=== PATIENT | female | born 1945 | race African-American/Black ===

== ENCOUNTER 2017-10-20 19:03 | Inpatient (IN) | payer MEDICARE, MEDICAID ==
--- NOTE | 2017-10-20 20:31 | ED Physician Chart ---
Psych HPI - General Chief Complaint: Psych Stated Complaint: PSYCH EVAL Time Seen by Provider: 10/20/17 20:15 Source: EMS Mode of arrival: EMS Limitations: altered mental status, physical limitation - History of Present Illness HPI Narrative: pt unable to give pt uncooperative MD complaint: other Onset (ago): month(s) Duration: intermittent History of same: Yes Improves with: medication Worsens with: other - Related Data Allergies Allergy/AdvReac Type Severity Reaction Status Date / Time No Known Allergies Allergy Verified 10/20/17 20:21 Review of Systems All systems ED: Reviewed and Negative Except as Stated (pt unable to give) Disposition Instructions: Psychosis
[2017-10-20 20:49] LABS: % EOSINOPHILS 2.1 % (0.0-5.0); % LYMPHOCYTES 21.7 % (20.0-50.0); % MONOCYTES 6.2 % (2.0-10.0); EOSINOPHILE ABSOLUTE 0.2 Th/cmm (0.1-0.4); HEMOGLOBIN 14.2 gm/dL (12-16); LYMPHOCYTE ABSOLUTE 1.6 Th/cmm (1.5-3.0); MEAN CELL VOLUME 82.4 fl (81-100); MEAN CORPUSCULAR HEMOGLOBIN 26.6 pg (27.0-31.0); MEAN CORPUSCULAR HGB CONC 32.3 pg (28.0-36.0); MEAN PLATELET VOLUME 7.1 fl; MONOCYTE ABSOLUTE 0.5 Th/cmm (0.3-1.0); NEUTROPHILE ABSOLUTE 5.2 Th/cmm (1.8-8.0); PLATELET COUNT 316 Th/cmm (150-400); RED BLOOD COUNT 5.34 Mil/cmm (3.80-5.20); WHITE BLOOD COUNT 7.5 Th/cmm (4.8-10.8)
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
[2017-10-20 21:06] LABS: ALB/GLOB RATIO 0.6 (1.0-1.8); ALBUMIN 3.1 gm/dL (3.7-5.3); ALKALINE PHOSPHATASE 46 U/L (34-104); ANION GAP 7.6 (7.0-16.0); BILIRUBIN,TOTAL 0.8 mg/dL (0.3-1.0); BUN - UREA NITROGEN 15 mg/dL (7-25); CALCIUM SERUM 9.5 mg/dL (8.6-10.3); CARBON DIOXIDE 28.5 mEq/L (21.0-31.0); CHLORIDE 102 mEq/L (98-107); CREATININE - SERUM 0.6 mg/dL (0.6-1.2); GLUCOSE 132 mg/dL (70-105); POTASSIUM SERUM 3.1 mEq/L (3.5-5.1); SGOT 9 U/L (13-39); SGPT/ALT 9 U/L (7-52); SODIUM SERUM 135 mEq/L (136-145)
[2017-10-20] MEDS ORDERED: Potassium Chloride 20 mEq ER Tab PO ONE ×2 (21:41→21:46)
[2017-10-20] MEDS ORDERED: NITROGLYCERIN OINT 2% 1 INCH PACKET TP ONE ×2 (23:36→23:37)
[2017-10-21 00:26] LABS: URINE MICROSCOPIC INDICATED? YES; URINE SOURCE CLEAN C
[2017-10-21 00:43] LABS: URINE BILIRUBIN NEGATIVE (NEGATIVE); URINE BLOOD SMALL (NEGATIVE); URINE GLUCOSE (UA) NEGATIVE (NEGATIVE); URINE KETONE NEGATIVE (NEGATIVE); URINE LEUKOCYTE ESTERASE LARGE (NEGATIVE); URINE NITRATE POSITIVE (NEGATIVE); URINE PH 5.5 (4.6 - 8.0); URINE PROTEIN NEGATIVE (NEGATIVE)
[2017-10-21 00:48] LABS: URINE CLARITY CLOUDY (CLEAR); URINE COLOR YELLOW
[2017-10-21 01:25] VITALS: BP 165/88
[2017-10-21 01:26] LABS: URINE BACTERIA MANY /hpf (NONE SEEN); URINE EPITHELIAL CELLS NONE SEEN /lpf (FEW); URINE WBC 50-100 /hpf (0-5)
[2017-10-21] MEDS: Pantoprazole 40 mg EC Tab PO SCH (06:44)
--- NOTE | 2017-10-21 09:20 | Diagnostic Imaging Report ---
CHEST X-RAY: AP view INDICATION: Shortness of breath COMPARISON: None FINDINGS: Increased interstitial lung markings are noted. No focal consolidation or effusions. Mild cardiomegaly is noted. Degenerative changes of the spine are noted. Postsurgical changes of the right axillary region is noted. Metallic density possibly due to previous surgery or external material is seen projecting along left subacromial region. IMPRESSION: Increased interstitial lung markings. Note that a mild degree of congestion cannot be excluded please correlate,. Mild cardiomegaly. Postsurgical changes.
[2017-10-21] MEDS: Ferrous Sulfate 325 MG TAB PO SCH (09:32)
[2017-10-21] MEDS: Aspirin 81mg Chewable Tab PO SCH (09:32)
[2017-10-21] MEDS: Multivitamin Tab PO SCH (09:32)
[2017-10-21 16:52] LABS: INR 1.38 (0.5-1.4); PROTHROMBIN TIME (TEST) 14.6 SECONDS (9.5-11.5)
[2017-10-21] MEDS: Potassium Chloride 20 mEq ER Tab PO ONE ×2 (17:27→17:45)
--- NOTE | 2017-10-21 19:46 | History & Physical ---
ADMIT DATE: REASON FOR ADMISSION: Agitation. HISTORY OF PRESENT ILLNESS: A 72-year-old female presents because of agitation and combativeness towards staff. The patient was sent to the Emergency Room where she was medically cleared and sent for further psychiatric evaluation. The patient is currently in Geropsych Unit. She is awake and alert and appears cooperative; however, confused and poor historian. The patient denies any medical complaints. PAST MEDICAL HISTORY: The patient has history of breast cancer. She has had a right-sided mastectomy and currently, has ongoing left-sided breast mass with associated abscess, which appears to be chronic. The patient was receiving wound care in a shelter, but not on antibiotics. The patient also has history of hypertension and dementia. MEDICATIONS: As per reconciliation; however, reconciliation appears to be incomplete. I spoke with facility where she came from to sent us an updated full medication list. ALLERGIES: No known drug allergies. SOCIAL HISTORY: No known tobacco, alcohol or illicit drug use. FAMILY HISTORY: Noncontributory. REVIEW OF SYSTEM: IMMUNOLOGIC: No recurrent infection. CARDIOVASCULAR: The patient has possible history of hypertension, no known heart disease. GASTROINTESTINAL: No nausea, vomiting or diarrhea. ENDOCRINE: No diabetes or thyroid disorder. NEUROLOGIC: No known seizure or stroke. The patient has history of dementia, possibly Alzheimer's type. HEMATOLOGIC: No bleeding or clotting disorder. The patient has a history of DVT and is on Coumadin. PHYSICAL EXAMINATION: GENERAL: The patient is awake and alert, resting comfortably in bed. VITAL SIGNS: Temperature 97.8, pulse 63, respiration 18 and blood pressure 160/90. HEENT: Pupils equally round. Anicteric sclerae. NECK: Supple, no JVD, mass or bruit. LUNGS: Clear to auscultation. CARDIOVASCULAR: S1 and S2. Regular rate and rhythm. ABDOMEN: Soft, nontender, positive bowel sounds. BREASTS: The patient has had a right-sided mastectomy. The patient has an indurated left breast with area of discharge in the medial aspect. EXTREMITIES: No clubbing, cyanosis or edema. NEUROLOGIC: Moves all extremities equally and generally weak. LABORATORY DATA: CBC is unremarkable. Sodium is 135, potassium 3.1, glucose on admission is 132. Urinalysis shows cloudy urine with positive nitrites and leukocyte esterase, 50-100 wbc's and many bacteria. IMPRESSION: 1. Dementia. 2. History of breast cancer. 3. History of chronic left breast abscess. 4. Urinary tract infection. 5. Hypertension. 6. Gastroesophageal reflux disorder. PLAN: We will assess the patient's anticoagulation with a stat INR and resume Coumadin accordingly. Clonidine for blood pressure control. We will await the patient's complete medication list to resume any previous blood pressure medications. The patient will receive wound care for left breast. JOB# [id number]
--- NOTE | 2017-10-21 23:14 | Psychosocial Evaluation ---
DATE OF SERVICE: SUBJECTIVE: The patient was seen and evaluated. The patient's chart reviewed. This is Dr. Goyal covering for Dr. Reese. Doing initial psychiatric evaluation. IDENTIFYING DATA: The patient is a 72-year-old female. CHIEF COMPLAINT: Altered mental status. HISTORY OF PRESENT ILLNESS: A 72-year-old female brought in here by an outside facility for psych disorder and with a history of metastatic breast cancer ____ for aggressive behavior. The patient was medically cleared from the ER and then transferred. Today on [id number] evaluation, the patient reported she now is aware where she is. She was afraid that she was at a hospital, extremely limited historian. She just reports feeling fine, does not give much more information beyond that. Easily irritable, agitated. Denies any auditory or visual hallucinations. PAST PSYCHIATRIC HISTORY: History of dementia in the past. ALLERGIES TO MEDICATIONS: NKDA. CURRENT MEDICAL PROBLEMS: History of breast cancer, hypertension, diabetes, CVA, status post TIA, DVT, PE, ____, hyperlipidemia. FAMILY PSYCHIATRIC HISTORY: None. PSYCHOSOCIAL AND MENTAL HISTORY: Lived in board and care up until recently. Denies any sexual or physical or verbal abuse. No history of alcohol or drug use. MENTAL STATUS EXAMINATION: Irritable, agitated, neurocognitively impaired, poor historian. Denies any homicidal ideation, auditory, neurocognitively impaired. Poor insight, judgment, impulse control. Vital signs reviewed, stable. Labs were reviewed. PHYSICAL PAIN: 0/10. Physical impairment, none. ACUTE FUNCTION: ____ severe. PRIMARY DIAGNOSIS: Dementia with behavior disturbances and psychosis. SECONDARY DIAGNOSIS: None. MEDICAL DIAGNOSIS: As noted above. ASSESSMENT AND PLAN: The patient presented disoriented, disorganized from history of dementia, she is a poor historian resulting in aggressive behavior. We will continue monitoring and evaluating. CURRENT HOME MEDICATIONS: Include vitamin C, aspirin, Colace, Aricept 10 mg a day, Namenda 5 mg p.o. b.i.d., ondansetron, and Ambien. ASSESSMENT AND PLAN: ____, neurocognitively impaired, resulting in behavior disturbances. We will continue to monitor and evaluating, obtain more collateral information. ESTIMATED LENGTH OF STAY: Between 5 and 10 days. DISCHARGE CRITERIA: Demonstrate euthymic mood. No suicidal or homicidal. Good psychiatric followup. Good [id number] interaction. [facility]# [id number]
[2017-10-22] MEDS: Pantoprazole 40 mg EC Tab PO SCH (06:46)
[2017-10-22 07:11] LABS: ALB/GLOB RATIO 0.6 (1.0-1.8); ALBUMIN 3.1 gm/dL (3.7-5.3); ALKALINE PHOSPHATASE 46 U/L (34-104); ANION GAP 6.6 (7.0-16.0); BILIRUBIN,TOTAL 0.9 mg/dL (0.3-1.0); BUN - UREA NITROGEN 13 mg/dL (7-25); CALCIUM SERUM 9.8 mg/dL (8.6-10.3); CARBON DIOXIDE 31.1 mEq/L (21.0-31.0); CHLORIDE 103 mEq/L (98-107); CREATININE - SERUM 0.6 mg/dL (0.6-1.2); GLUCOSE 94 mg/dL (70-105); POTASSIUM SERUM 3.7 mEq/L (3.5-5.1); SGOT 8 U/L (13-39); SGPT/ALT 7 U/L (7-52); SODIUM SERUM 137 mEq/L (136-145); TOTAL PROTEIN,SERUM 8.1 gm/dL (6.0-8.3)
[2017-10-22 07:24] LABS: INR 1.21 (0.5-1.4); PROTHROMBIN TIME (TEST) 12.7 SECONDS (9.5-11.5)
[2017-10-22] MEDS: Multivitamin Tab PO SCH (08:29)
[2017-10-22] MEDS: Ferrous Sulfate 325 MG TAB PO SCH (08:29)
[2017-10-22] MEDS: Aspirin 81mg Chewable Tab PO SCH (08:29)
--- NOTE | 2017-10-22 17:04 | Progress Notes ---
DATE: 10/22/2017 The patient was seen, chart reviewed And discussed with staff. The patient continues to be very confused, paranoid. Continues to be very irritable and agitated, but does take her medications opiate with some urging. The patient has displayed good appetite and sleep, has not required any p.r.n. medications. PLAN: The patient continues to be very unpredictable, disoriented and confused, so that she will require inpatient care center treatment. We will monitor patient on a daily basis for response to treatment and titrate meds as needed. JOB# [id number]
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
[2017-10-23] MEDS: Pantoprazole 40 mg EC Tab PO SCH (07:02)
[2017-10-23 07:13] LABS: INR 1.27 (0.5-1.4); PROTHROMBIN TIME (TEST) 13.4 SECONDS (9.5-11.5)
[2017-10-23 07:19] LABS: ANION GAP 7.3 (7.0-16.0); BUN - UREA NITROGEN 15 mg/dL (7-25); CALCIUM SERUM 9.6 mg/dL (8.6-10.3); CARBON DIOXIDE 27.3 mEq/L (21.0-31.0); CHLORIDE 105 mEq/L (98-107); CREATININE - SERUM 0.5 mg/dL (0.6-1.2); GLUCOSE 95 mg/dL (70-105); POTASSIUM SERUM 3.6 mEq/L (3.5-5.1); SODIUM SERUM 136 mEq/L (136-145)
[2017-10-23] MEDS: Multivitamin Tab PO SCH (09:06)
[2017-10-23] MEDS: Ferrous Sulfate 325 MG TAB PO SCH (09:07)
[2017-10-23] MEDS: Aspirin 81mg Chewable Tab PO SCH (09:07)
--- NOTE | 2017-10-23 22:35 | Internal Medicine Prog Note ---
Internal Medicine Subjective - Subjective Service Date: 10/23/17 Patient is:: awake, in bed, talking, confused Per staff patient has:: no adverse event Internal Medicine Objective - Results Result Diagrams: 10/20/17 20:43 10/23/17 06:10 Recent Labs: Laboratory Last Values WBC 7.5 Th/cmm (4.8-10.8) 10/20/17 20:43 RBC 5.34 Mil/cmm (3.80-5.20) H 10/20/17 20:43 Hgb 14.2 gm/dL (12-16) 10/20/17 20:43 Hct 44.0 % (41.0-60) 10/20/17 20:43 MCV 82.4 fl (81-100) 10/20/17 20:43 MCH 26.6 pg (27.0-31.0) L 10/20/17 20:43 MCHC Differential 32.3 pg (28.0-36.0) 10/20/17 20:43 RDW 17.0 % (11.5-20.0) 10/20/17 20:43 Plt Count 316 Th/cmm (150-400) 10/20/17 20:43 MPV 7.1 fl 10/20/17 20:43 Neutrophils % 70.0 % (40.0-80.0) 10/20/17 20:43 Lymphocytes % 21.7 % (20.0-50.0) 10/20/17 20:43 Monocytes % 6.2 % (2.0-10.0) 10/20/17 20:43 Eosinophils % 2.1 % (0.0-5.0) 10/20/17 20:43 Basophils % 0.0 % (0.0-2.0) 10/20/17 20:43 PT 13.4 SECONDS (9.5-11.5) H 10/23/17 06:10 INR 1.27 (0.5-1.4) 10/23/17 06:10 Sodium 136 mEq/L (136-145) 10/23/17 06:10 Potassium 3.6 mEq/L (3.5-5.1) 10/23/17 06:10 Chloride 105 mEq/L (98-107) 10/23/17 06:10 Carbon Dioxide 27.3 mEq/L (21.0-31.0) 10/23/17 06:10 Anion Gap 7.3 (7.0-16.0) 10/23/17 06:10 BUN 15 mg/dL (7-25) 10/23/17 06:10 Creatinine 0.5 mg/dL (0.6-1.2) L 10/23/17 06:10 Est GFR ( Amer) TNP 10/23/17 06:10 Est GFR (Non-Af Amer) TNP 10/23/17 06:10 BUN/Creatinine Ratio 30.0 10/23/17 06:10 Glucose 95 mg/dL (70-105) 10/23/17 06:10 POC Glucose 49 MG/DL (70 - 105) L 10/21/17 06:40 Calcium 9.6 mg/dL (8.6-10.3) 10/23/17 06:10 Total Bilirubin 0.9 mg/dL (0.3-1.0) 10/22/17 06:20 AST 8 U/L (13-39) L 10/22/17 06:20 ALT 7 U/L (7-52) 10/22/17 06:20 Alkaline Phosphatase 46 U/L (34-104) 10/22/17 06:20 Total Protein 8.1 gm/dL (6.0-8.3) 10/22/17 06:20 Albumin 3.1 gm/dL (3.7-5.3) L 10/22/17 06:20 Globulin 5.0 gm/dL 10/22/17 06:20 Albumin/Globulin Ratio 0.6 (1.0-1.8) L 10/22/17 06:20 Urine Source CLEAN C 10/20/17 21:55 Urine Color YELLOW 10/20/17 21:55 Urine Clarity CLOUDY (CLEAR) H 10/20/17 21:55 Urine pH 5.5 (4.6 - 8.0) 10/20/17 21:55 Ur Specific [place] 1.025 (1.005-1.030) 10/20/17 21:55 Urine Protein NEGATIVE mg/dL (NEGATIVE) 10/20/17 21:55 Urine Glucose (UA) NEGATIVE mg/dL (NEGATIVE) 10/20/17 21:55 Urine Ketones NEGATIVE mg/dL (NEGATIVE) 10/20/17 21:55 Urine Blood SMALL (NEGATIVE) H 10/20/17 21:55 Urine Nitrate POSITIVE (NEGATIVE) H 10/20/17 21:55 Urine Bilirubin NEGATIVE (NEGATIVE) 10/20/17 21:55 Urine Urobilinogen 1.0 E.U./dL (0.2 - 1.0) 10/20/17 21:55 Ur Leukocyte Esterase LARGE (NEGATIVE) H 10/20/17 21:55 Urine RBC 2-5 /hpf (0-5) 10/20/17 21:55 Urine WBC 50-100 /hpf (0-5) H 10/20/17 21:55 Ur Epithelial Cells NONE SEEN /lpf (FEW) 10/20/17 21:55 Urine Bacteria MANY /hpf (NONE SEEN) H 10/20/17 21:55 - Physical Exam Vitals and I&O: Vital Signs Temp 97.8 F 10/23/17 20:00 Pulse 68 10/23/17 20:00 Resp 18 10/23/17 20:00 BP 141/71 10/23/17 20:00 Pulse Ox 99 10/23/17 14:00 Intake & Output 10/23/17 10/23/17 10/24/17 06:59 18:59 06:59 Intake Total 800 240 Balance 800 240 Intake: Oral 800 240 Other: # Voids 4 3 # Bowel Movements 1 Active Medications: Current Medications Acetaminophen (Tylenol) 650 mg PO Q4HR PRN PRN Reason: Pain (Mild) Stop: 12/20/17 02:03 Amlodipine Besylate (Norvasc) 5 mg PO DAILY [facility] Stop: 12/21/17 18:29 Last Admin: 10/23/17 09:06 Dose: Not Given Ascorbic Acid (Vitamin C) 500 mg PO DAILY [facility] Stop: 12/20/17 08:59 Last Admin: 10/23/17 09:07 Dose: 500 mg Aspirin (Aspirin Chewable) 81 mg PO DAILY [facility] Stop: 12/20/17 08:59 Last Admin: 10/23/17 09:07 Dose: 81 mg Docusate Sodium (Colace) 100 mg PO DAILY [facility] Stop: 12/20/17 08:59 Last Admin: 10/23/17 09:06 Dose: 100 mg Donepezil HCl (Aricept) 10 mg PO DAILY [facility] Stop: 12/20/17 08:59 Last Admin: 10/23/17 09:06 Dose: 10 mg Ferrous Sulfate (Iron) 325 mg PO DAILY [facility] Stop: 12/20/17 08:59 Last Admin: 10/23/17 09:07 Dose: 325 mg Lorazepam (Ativan) 0.5 mg PO Q4HR PRN; Protocol PRN Reason: Anxiety Stop: 11/20/17 01:36 Memantine (Namenda) 5 mg PO BID [facility] Stop: 12/20/17 08:59 Last Admin: 10/23/17 17:28 Dose: 5 mg Multivitamins/Vitamin C (Theragran) 1 tab PO DAILY [facility] Stop: 12/20/17 08:59 Last Admin: 10/23/17 09:06 Dose: 1 tab Nitrofurantoin Macrocrystals (Macrobid) 100 mg PO BID MAT PRN Reason: Protocol Stop: 10/28/17 16:59 Last Admin: 10/23/17 17:28 Dose: 100 mg Ondansetron HCl (Zofran Odt) 4 mg PO Q6HR PRN PRN Reason: Nausea/VOMITING Stop: 12/20/17 02:03 Pantoprazole Sodium (Protonix) 40 mg PO QDAC [facility] Stop: 12/20/17 07:29 Last Admin: 10/23/17 07:02 Dose: 40 mg Warfarin Sodium (Coumadin) 4 mg PO 1300 [facility] PRN Reason: Protocol Stop: 12/20/17 17:59 Last Admin: 10/23/17 14:24 Dose: 4 mg Zolpidem Tartrate (Ambien) 5 mg PO HSMR1 PRN PRN Reason: Insomnia Stop: 12/20/17 01:36 General: demented HEENT: NC/AT, PERRLA, EOMI, anicteric sclerae, throat clear Neck: Supple, No JVD, No thyromegaly, +2 carotid pulse wo bruit, No LAD Lungs: CTAB Cardiovascular: RRR, Normal S1, Normal S2, without murmur Abdomen: soft, non-tender, non-distended Extremities: clear Neurological: no change Internal Medicine Assmt/Plan - Assessment Assessment: 1.UTI. 2.HTN. 3.DEMENTIA - Plan Plan: CONTINUE ON CURRENT MEDICATION AND DIET. Nutritional Asmnt/Malnutr-PDOC - Dietary Evaluation Malnutrition Findings (Please click <Entered> for more info): Nutritional Asmnt/Malnutrition Start: 10/21/17 10: 55 Text: Status: Complete Freq: Document 10/21/17 10:55 FLORENCIO (Rec: 10/21/17 11:12 FLORENCIO MURIEL- [email or web address]) Nutritional Asmnt/Malnutrition Patient General Information Nutritional Screening High Risk Diagnosis Psychosis Pertinent Medical Hx/Surgical Hx Mastectomy Rt breast, dysphagia, DM type 2, abcess on lt breast, dementia Subjective Information Patient was admitted from SNF. Current Diet Order/ Nutrition Support Mechanical soft chopped Patient / S.O Not Indicated Pertinent Medications vitamin C, colace, iron, Theragran, Zofran, protonix Pertinent Labs (10/20) Na 135, K 3.1, glucose 49-132, albumin 3.1 Nutritional Hx/Data Height 1.68 m Height (Calculated Centimeters) 167.6 Current Weight (lbs) 30.391 kg Weight (Calculated Kilograms) 30.4 Weight (Calculated Grams) 29112.7 [place] Body Weight 130 % [place] Body Weight 51 Body Mass Index (BMI) 10.8 Weight Status Underweight GI Symptoms GI Symptoms None Difficult in: None Food Allergies No Cultural/Ethnic/Mu-Ism Belief none indicated Usual diet at home unknown Skin Integrity/Comment: Area of concern, Nickolas 16 Estimated Nutritional Goals BEE in Kcals: Adj wt of IBW Calories/Kcals/Kg 25-30 kcal/kg using IBW 59kg Kcals Calculated 6735-3022 kcal/day Protein: Adj wt of IBW Protein g/kg: .8-1 gm/kg using IBW Protein Calculated 50-50 gm/day Fluid: ml 1500-1800ml/day (1 ml/kcal) Nutritional Problem 2. Problem Problem Altered nutrition related lab values related to Etiology electrolyte imbalance aeb Signs/Symptoms: K 3.1 1. Problem Problem Underweight related to Etiology possible poor intake prior to admission aeb Signs/Symptoms: BMI 10.8 based on patient's stated weight. Intervention/Recommendation Comments 1. Continue current diet order as tolerated by patient. 2. Encourage oral intake due to low body weight/BMI. Consider Boost with meals to optimize nutrient intake. 3. Encourage intake of high potassium foods including banana, orange juice, tomato soup, potatoes. MD to replace lytes as needed. Expected Outcomes/Goals Expected Outcomes/Goals Oral intake to meet >75% of nutrient needs, weight gain toward ideal body weight, nutrition related labs normalize
--- NOTE | 2017-10-23 23:43 | Progress Notes ---
DATE: 10/23/[address] Reese. SUBJECTIVE: Case was discussed with staff of the patient, reviewed records. This is a 72-year-old female who was admitted on the 10/20/2017 because of altered mental status. The patient with a history of metastatic breast cancer and aggressive behavior. She was medically cleared and then transferred to [facility]. The patient is confused. She was a poor historian, unable to give much information with a history of dementia. She was initially seen by Dr. Goyal. The patient's current medication is amlodipine 5 mg daily, ascorbic acid 500 mg daily, aspirin 81 mg daily, iron 325 mg daily, Namenda 5 mg twice a day, multivitamin daily, nitrofurantoin 100 mg twice a day, and Protonix 40 mg daily. She is on warfarin 4 mg at 1:00 p.m. with no side effects, no sedation, no nausea, and no extrapyramidal symptoms. She is a high hold for risk because of her age, dementia, and multiple serious medical condition. We will continue to work with the patient in group therapy, milieu therapy, and adjust the medications as needed. JOB# [id number]
[2017-10-24] MEDS: Pantoprazole 40 mg EC Tab PO SCH (06:45)
[2017-10-24] MEDS: Aspirin 81mg Chewable Tab PO SCH (08:45)
[2017-10-24] MEDS: Multivitamin Tab PO SCH (08:46)
[2017-10-24] MEDS: Ferrous Sulfate 325 MG TAB PO SCH (08:46)
--- NOTE | 2017-10-24 11:42 | Internal Medicine Prog Note ---
Internal Medicine Subjective - Subjective Service Date: 10/24/17 Patient seen and examined:: without staff Patient is:: awake, verbal (SHE DENIES ANY PAIN OR SOB.), in bed, talking, confused Per staff patient has:: no adverse event Internal Medicine Objective - Results Result Diagrams: 10/20/17 20:43 10/23/17 06:10 Recent Labs: Laboratory Last Values WBC 7.5 Th/cmm (4.8-10.8) 10/20/17 20:43 RBC 5.34 Mil/cmm (3.80-5.20) H 10/20/17 20:43 Hgb 14.2 gm/dL (12-16) 10/20/17 20:43 Hct 44.0 % (41.0-60) 10/20/17 20:43 MCV 82.4 fl (81-100) 10/20/17 20:43 MCH 26.6 pg (27.0-31.0) L 10/20/17 20:43 MCHC Differential 32.3 pg (28.0-36.0) 10/20/17 20:43 RDW 17.0 % (11.5-20.0) 10/20/17 20:43 Plt Count 316 Th/cmm (150-400) 10/20/17 20:43 MPV 7.1 fl 10/20/17 20:43 Neutrophils % 70.0 % (40.0-80.0) 10/20/17 20:43 Lymphocytes % 21.7 % (20.0-50.0) 10/20/17 20:43 Monocytes % 6.2 % (2.0-10.0) 10/20/17 20:43 Eosinophils % 2.1 % (0.0-5.0) 10/20/17 20:43 Basophils % 0.0 % (0.0-2.0) 10/20/17 20:43 PT 13.4 SECONDS (9.5-11.5) H 10/23/17 06:10 INR 1.27 (0.5-1.4) 10/23/17 06:10 Sodium 136 mEq/L (136-145) 10/23/17 06:10 Potassium 3.6 mEq/L (3.5-5.1) 10/23/17 06:10 Chloride 105 mEq/L (98-107) 10/23/17 06:10 Carbon Dioxide 27.3 mEq/L (21.0-31.0) 10/23/17 06:10 Anion Gap 7.3 (7.0-16.0) 10/23/17 06:10 BUN 15 mg/dL (7-25) 10/23/17 06:10 Creatinine 0.5 mg/dL (0.6-1.2) L 10/23/17 06:10 Est GFR ( Amer) TNP 10/23/17 06:10 Est GFR (Non-Af Amer) TNP 10/23/17 06:10 BUN/Creatinine Ratio 30.0 10/23/17 06:10 Glucose 95 mg/dL (70-105) 10/23/17 06:10 POC Glucose 49 MG/DL (70 - 105) L 10/21/17 06:40 Calcium 9.6 mg/dL (8.6-10.3) 10/23/17 06:10 Total Bilirubin 0.9 mg/dL (0.3-1.0) 10/22/17 06:20 AST 8 U/L (13-39) L 10/22/17 06:20 ALT 7 U/L (7-52) 10/22/17 06:20 Alkaline Phosphatase 46 U/L (34-104) 10/22/17 06:20 Total Protein 8.1 gm/dL (6.0-8.3) 10/22/17 06:20 Albumin 3.1 gm/dL (3.7-5.3) L 10/22/17 06:20 Globulin 5.0 gm/dL 10/22/17 06:20 Albumin/Globulin Ratio 0.6 (1.0-1.8) L 10/22/17 06:20 Urine Source CLEAN C 10/20/17 21:55 Urine Color YELLOW 10/20/17 21:55 Urine Clarity CLOUDY (CLEAR) H 10/20/17 21:55 Urine pH 5.5 (4.6 - 8.0) 10/20/17 21:55 Ur Specific [place] 1.025 (1.005-1.030) 10/20/17 21:55 Urine Protein NEGATIVE mg/dL (NEGATIVE) 10/20/17 21:55 Urine Glucose (UA) NEGATIVE mg/dL (NEGATIVE) 10/20/17 21:55 Urine Ketones NEGATIVE mg/dL (NEGATIVE) 10/20/17 21:55 Urine Blood SMALL (NEGATIVE) H 10/20/17 21:55 Urine Nitrate POSITIVE (NEGATIVE) H 10/20/17 21:55 Urine Bilirubin NEGATIVE (NEGATIVE) 10/20/17 21:55 Urine Urobilinogen 1.0 E.U./dL (0.2 - 1.0) 10/20/17 21:55 Ur Leukocyte Esterase LARGE (NEGATIVE) H 10/20/17 21:55 Urine RBC 2-5 /hpf (0-5) 10/20/17 21:55 Urine WBC 50-100 /hpf (0-5) H 10/20/17 21:55 Ur Epithelial Cells NONE SEEN /lpf (FEW) 10/20/17 21:55 Urine Bacteria MANY /hpf (NONE SEEN) H 10/20/17 21:55 - Physical Exam Vitals and I&O: Vital Signs Temp 98.0 F 10/24/17 06:06 Pulse 69 10/24/17 08:45 Resp 18 10/24/17 09:53 BP 132/78 10/24/17 08:45 Pulse Ox 98 10/24/17 06:06 Intake & Output 10/23/17 10/24/17 10/24/17 18:59 06:59 18:59 Intake Total 800 240 Balance 800 240 Intake: Oral 800 240 Other: # Voids 4 3 # Bowel Movements 1 Stool Characteristics Soft Brown Active Medications: Current Medications Acetaminophen (Tylenol) 650 mg PO Q4HR PRN PRN Reason: Pain (Mild) Stop: 12/20/17 02:03 Amlodipine Besylate (Norvasc) 5 mg PO DAILY [facility] Stop: 12/21/17 18:29 Last Admin: 10/24/17 08:45 Dose: 5 mg Ascorbic Acid (Vitamin C) 500 mg PO DAILY [facility] Stop: 12/20/17 08:59 Last Admin: 10/24/17 08:46 Dose: 500 mg Aspirin (Aspirin Chewable) 81 mg PO DAILY [facility] Stop: 12/20/17 08:59 Last Admin: 10/24/17 08:45 Dose: 81 mg Docusate Sodium (Colace) 100 mg PO DAILY [facility] Stop: 12/20/17 08:59 Last Admin: 10/24/17 08:46 Dose: Not Given Donepezil HCl (Aricept) 10 mg PO DAILY [facility] Stop: 12/20/17 08:59 Last Admin: 10/24/17 08:46 Dose: 10 mg Ferrous Sulfate (Iron) 325 mg PO DAILY [facility] Stop: 12/20/17 08:59 Last Admin: 10/24/17 08:46 Dose: 325 mg Lorazepam (Ativan) 0.5 mg PO Q4HR PRN; Protocol PRN Reason: Anxiety Stop: 11/20/17 01:36 Memantine (Namenda) 5 mg PO BID [facility] Stop: 12/20/17 08:59 Last Admin: 10/24/17 08:45 Dose: 5 mg Multivitamins/Vitamin C (Theragran) 1 tab PO DAILY [facility] Stop: 12/20/17 08:59 Last Admin: 10/24/17 08:46 Dose: 1 tab Nitrofurantoin Macrocrystals (Macrobid) 100 mg PO BID [facility] PRN Reason: Protocol Stop: 10/28/17 16:59 Last Admin: 10/24/17 08:46 Dose: 100 mg Ondansetron HCl (Zofran Odt) 4 mg PO Q6HR PRN PRN Reason: Nausea/VOMITING Stop: 12/20/17 02:03 Pantoprazole Sodium (Protonix) 40 mg PO QDAC [facility] Stop: 12/20/17 07:29 Last Admin: 10/24/17 06:45 Dose: 40 mg Warfarin Sodium (Coumadin) 4 mg PO 1300 [facility] PRN Reason: Protocol Stop: 12/20/17 17:59 Last Admin: 10/23/17 14:24 Dose: 4 mg Zolpidem Tartrate (Ambien) 5 mg PO HSMR1 PRN PRN Reason: Insomnia Stop: 12/20/17 01:36 General: demented HEENT: NC/AT, PERRLA, EOMI, anicteric sclerae, throat clear Neck: Supple, No JVD, No thyromegaly, +2 carotid pulse wo bruit, No LAD Lungs: CTAB Cardiovascular: RRR, Normal S1, Normal S2, without murmur Abdomen: soft, non-tender, non-distended Extremities: clear Neurological: no change Internal Medicine Assmt/Plan - Assessment Assessment: 1.UTI. 2.HTN. 3.DEMENTIA - Plan Plan: CONTINUE ON CURRENT MEDICATION AND DIET. Nutritional Asmnt/Malnutr-PDOC - Dietary Evaluation Malnutrition Findings (Please click <Entered> for more info): Nutritional Asmnt/Malnutrition Start: 10/21/17 10: 55 Text: Status: Complete Freq: Document 10/21/17 10:55 FLORENCIO (Rec: 10/21/17 11:12 FLORENCIO MURIEL- [email or web address]) Nutritional Asmnt/Malnutrition Patient General Information Nutritional Screening High Risk Diagnosis Psychosis Pertinent Medical Hx/Surgical Hx Mastectomy Rt breast, dysphagia, DM type 2, abcess on lt breast, dementia Subjective Information Patient was admitted from SNF. Current Diet Order/ Nutrition Support Mechanical soft chopped Patient / S.O Not Indicated Pertinent Medications vitamin C, colace, iron, Theragran, Zofran, protonix Pertinent Labs (10/20) Na 135, K 3.1, glucose 49-132, albumin 3.1 Nutritional Hx/Data Height 1.68 m Height (Calculated Centimeters) 167.6 Current Weight (lbs) 30.391 kg Weight (Calculated Kilograms) 30.4 Weight (Calculated Grams) 18709.7 [place] Body Weight 130 % [place] Body Weight 51 Body Mass Index (BMI) 10.8 Weight Status Underweight GI Symptoms GI Symptoms None Difficult in: None Food Allergies No Cultural/Ethnic/Restorationist Belief none indicated Usual diet at home unknown Skin Integrity/Comment: Area of concern, Nickolas Ocasio Estimated Nutritional Goals BEE in Kcals: Adj wt of IBW Calories/Kcals/Kg 25-30 kcal/kg using IBW 59kg Kcals Calculated 2682-0725 kcal/day Protein: Adj wt of IBW Protein g/kg: .8-1 gm/kg using IBW Protein Calculated 50-50 gm/day Fluid: ml 1500-1800ml/day (1 ml/kcal) Nutritional Problem 2. Problem Problem Altered nutrition related lab values related to Etiology electrolyte imbalance aeb Signs/Symptoms: K 3.1 1. Problem Problem Underweight related to Etiology possible poor intake prior to admission aeb Signs/Symptoms: BMI 10.8 based on patient's stated weight. Intervention/Recommendation Comments 1. Continue current diet order as tolerated by patient. 2. Encourage oral intake due to low body weight/BMI. Consider Boost with meals to optimize nutrient intake. 3. Encourage intake of high potassium foods including banana, orange juice, tomato soup, potatoes. MD to replace lytes as needed. Expected Outcomes/Goals Expected Outcomes/Goals Oral intake to meet >75% of nutrient needs, weight gain toward ideal body weight, nutrition related labs normalize
--- NOTE | 2017-10-24 22:02 | Progress Notes ---
DATE: 10/24/2017 Case discussed with staff of the patient, reviewed records. The patient continues to stay in bed; however, she was trying to feed herself. She continues to have multiple somatic complaints with multiple episodes of irritability, agitation and confusion. Continues to be unable to make safe plan for self-care, unpredictable, impulsive, poor insight. She is compliant with the medication with no side effects, no sedation, no nausea and no extrapyramidal symptoms. We will continue to work with the patient in group therapy, milieu therapy and adjust the medication as needed. . JOB# [id number]
[2017-10-25] MEDS: Pantoprazole 40 mg EC Tab PO SCH (06:30)
[2017-10-25] MEDS: Aspirin 81mg Chewable Tab PO SCH (09:19)
[2017-10-25] MEDS: Ferrous Sulfate 325 MG TAB PO SCH (09:19)
[2017-10-25] MEDS: Multivitamin Tab PO SCH (09:19)
--- NOTE | 2017-10-25 23:39 | Internal Medicine Prog Note ---
Internal Medicine Subjective - Subjective Service Date: 10/25/17 Patient seen and examined:: without staff Patient is:: awake, verbal (SHE DENIES ANY PAIN OR SOB.), in bed, talking, confused Per staff patient has:: no adverse event Internal Medicine Objective - Results Result Diagrams: 10/20/17 20:43 10/23/17 06:10 Recent Labs: Laboratory Last Values WBC 7.5 Th/cmm (4.8-10.8) 10/20/17 20:43 RBC 5.34 Mil/cmm (3.80-5.20) H 10/20/17 20:43 Hgb 14.2 gm/dL (12-16) 10/20/17 20:43 Hct 44.0 % (41.0-60) 10/20/17 20:43 MCV 82.4 fl (81-100) 10/20/17 20:43 MCH 26.6 pg (27.0-31.0) L 10/20/17 20:43 MCHC Differential 32.3 pg (28.0-36.0) 10/20/17 20:43 RDW 17.0 % (11.5-20.0) 10/20/17 20:43 Plt Count 316 Th/cmm (150-400) 10/20/17 20:43 MPV 7.1 fl 10/20/17 20:43 Neutrophils % 70.0 % (40.0-80.0) 10/20/17 20:43 Lymphocytes % 21.7 % (20.0-50.0) 10/20/17 20:43 Monocytes % 6.2 % (2.0-10.0) 10/20/17 20:43 Eosinophils % 2.1 % (0.0-5.0) 10/20/17 20:43 Basophils % 0.0 % (0.0-2.0) 10/20/17 20:43 PT 13.4 SECONDS (9.5-11.5) H 10/23/17 06:10 INR 1.27 (0.5-1.4) 10/23/17 06:10 Sodium 136 mEq/L (136-145) 10/23/17 06:10 Potassium 3.6 mEq/L (3.5-5.1) 10/23/17 06:10 Chloride 105 mEq/L (98-107) 10/23/17 06:10 Carbon Dioxide 27.3 mEq/L (21.0-31.0) 10/23/17 06:10 Anion Gap 7.3 (7.0-16.0) 10/23/17 06:10 BUN 15 mg/dL (7-25) 10/23/17 06:10 Creatinine 0.5 mg/dL (0.6-1.2) L 10/23/17 06:10 Est GFR ( Amer) TNP 10/23/17 06:10 Est GFR (Non-Af Amer) TNP 10/23/17 06:10 BUN/Creatinine Ratio 30.0 10/23/17 06:10 Glucose 95 mg/dL (70-105) 10/23/17 06:10 POC Glucose 49 MG/DL (70 - 105) L 10/21/17 06:40 Calcium 9.6 mg/dL (8.6-10.3) 10/23/17 06:10 Total Bilirubin 0.9 mg/dL (0.3-1.0) 10/22/17 06:20 AST 8 U/L (13-39) L 10/22/17 06:20 ALT 7 U/L (7-52) 10/22/17 06:20 Alkaline Phosphatase 46 U/L (34-104) 10/22/17 06:20 Total Protein 8.1 gm/dL (6.0-8.3) 10/22/17 06:20 Albumin 3.1 gm/dL (3.7-5.3) L 10/22/17 06:20 Globulin 5.0 gm/dL 10/22/17 06:20 Albumin/Globulin Ratio 0.6 (1.0-1.8) L 10/22/17 06:20 Urine Source CLEAN C 10/20/17 21:55 Urine Color YELLOW 10/20/17 21:55 Urine Clarity CLOUDY (CLEAR) H 10/20/17 21:55 Urine pH 5.5 (4.6 - 8.0) 10/20/17 21:55 Ur Specific [place] 1.025 (1.005-1.030) 10/20/17 21:55 Urine Protein NEGATIVE mg/dL (NEGATIVE) 10/20/17 21:55 Urine Glucose (UA) NEGATIVE mg/dL (NEGATIVE) 10/20/17 21:55 Urine Ketones NEGATIVE mg/dL (NEGATIVE) 10/20/17 21:55 Urine Blood SMALL (NEGATIVE) H 10/20/17 21:55 Urine Nitrate POSITIVE (NEGATIVE) H 10/20/17 21:55 Urine Bilirubin NEGATIVE (NEGATIVE) 10/20/17 21:55 Urine Urobilinogen 1.0 E.U./dL (0.2 - 1.0) 10/20/17 21:55 Ur Leukocyte Esterase LARGE (NEGATIVE) H 10/20/17 21:55 Urine RBC 2-5 /hpf (0-5) 10/20/17 21:55 Urine WBC 50-100 /hpf (0-5) H 10/20/17 21:55 Ur Epithelial Cells NONE SEEN /lpf (FEW) 10/20/17 21:55 Urine Bacteria MANY /hpf (NONE SEEN) H 10/20/17 21:55 - Physical Exam Vitals and I&O: Vital Signs Temp 97.6 F 10/25/17 14:30 Pulse 53 10/25/17 14:30 Resp 18 10/25/17 14:30 BP 186/84 10/25/17 14:30 Pulse Ox 98 10/25/17 14:30 Intake & Output 10/25/17 10/25/17 10/26/17 06:59 18:59 06:59 Intake Total 480 Balance 480 Intake: Oral 480 Other: # Voids 2 Stool Characteristics Soft Soft Brown Formed Active Medications: Current Medications Acetaminophen (Tylenol) 650 mg PO Q4HR PRN PRN Reason: Pain (Mild) Stop: 12/20/17 02:03 Amlodipine Besylate (Norvasc) 5 mg PO DAILY [facility] Stop: 12/21/17 18:29 Last Admin: 10/25/17 09:20 Dose: 5 mg Ascorbic Acid (Vitamin C) 500 mg PO DAILY [facility] Stop: 12/20/17 08:59 Last Admin: 10/25/17 09:19 Dose: 500 mg Aspirin (Aspirin Chewable) 81 mg PO DAILY [facility] Stop: 12/20/17 08:59 Last Admin: 10/25/17 09:19 Dose: 81 mg Docusate Sodium (Colace) 100 mg PO DAILY [facility] Stop: 12/20/17 08:59 Last Admin: 10/25/17 09:19 Dose: 100 mg Donepezil HCl (Aricept) 10 mg PO DAILY [facility] Stop: 12/20/17 08:59 Last Admin: 10/25/17 09:19 Dose: 10 mg Ferrous Sulfate (Iron) 325 mg PO DAILY [facility] Stop: 12/20/17 08:59 Last Admin: 10/25/17 09:19 Dose: 325 mg Lorazepam (Ativan) 0.5 mg PO Q4HR PRN; Protocol PRN Reason: Anxiety Stop: 11/20/17 01:36 Memantine (Namenda) 5 mg PO BID [facility] Stop: 12/20/17 08:59 Last Admin: 10/25/17 17:51 Dose: 5 mg Multivitamins/Vitamin C (Theragran) 1 tab PO DAILY [facility] Stop: 12/20/17 08:59 Last Admin: 10/25/17 09:19 Dose: 1 tab Nitrofurantoin Macrocrystals (Macrobid) 100 mg PO BID [facility] PRN Reason: Protocol Stop: 10/28/17 16:59 Last Admin: 10/25/17 17:51 Dose: 100 mg Ondansetron HCl (Zofran Odt) 4 mg PO Q6HR PRN PRN Reason: Nausea/VOMITING Stop: 12/20/17 02:03 Pantoprazole Sodium (Protonix) 40 mg PO QDAC [facility] Stop: 12/20/17 07:29 Last Admin: 10/25/17 06:30 Dose: 40 mg Quetiapine Fumarate (Seroquel) 12.5 mg PO BID [facility] PRN Reason: Protocol Stop: 12/24/17 08:59 Last Admin: 10/25/17 17:51 Dose: 12.5 mg Warfarin Sodium (Coumadin) 4 mg PO 1300 [facility] PRN Reason: Protocol Stop: 12/20/17 17:59 Last Admin: 10/25/17 14:00 Dose: 4 mg Zolpidem Tartrate (Ambien) 5 mg PO HSMR1 PRN PRN Reason: Insomnia Stop: 12/20/17 01:36 General: demented HEENT: NC/AT, PERRLA, EOMI, anicteric sclerae, throat clear Neck: Supple, No JVD, No thyromegaly, +2 carotid pulse wo bruit, No LAD Lungs: CTAB Cardiovascular: RRR, Normal S1, Normal S2, without murmur Abdomen: soft, non-tender, non-distended Extremities: clear Neurological: no change Internal Medicine Assmt/Plan - Assessment Assessment: 1.UTI. 2.HTN. 3.DEMENTIA - Plan Plan: CONTINUE ON CURRENT MEDICATION AND DIET. Nutritional Asmnt/Malnutr-PDOC - Dietary Evaluation Malnutrition Findings (Please click <Entered> for more info): Nutritional Asmnt/Malnutrition Start: 10/21/17 10: 55 Text: Status: Complete Freq: Document 10/21/17 10:55 MMULHERN (Rec: 10/21/17 11:12 MMULHERN MURIEL- FN) Nutritional Asmnt/Malnutrition Patient General Information Nutritional Screening High Risk Diagnosis Psychosis Pertinent Medical Hx/Surgical Hx Mastectomy Rt breast, dysphagia, DM type 2, abcess on lt breast, dementia Subjective Information Patient was admitted from SNF. Current Diet Order/ Nutrition Support Mechanical soft chopped Patient / S.O Not Indicated Pertinent Medications vitamin C, colace, iron, Theragran, Zofran, protonix Pertinent Labs (10/20) Na 135, K 3.1, glucose 49-132, albumin 3.1 Nutritional Hx/Data Height 1.68 m Height (Calculated Centimeters) 167.6 Current Weight (lbs) 30.391 kg Weight (Calculated Kilograms) 30.4 Weight (Calculated Grams) 06004.7 [place] Body Weight 130 % [place] Body Weight 51 Body Mass Index (BMI) 10.8 Weight Status Underweight GI Symptoms GI Symptoms None Difficult in: None Food Allergies No Cultural/Ethnic/Hinduism Belief none indicated Usual diet at home unknown Skin Integrity/Comment: Area of concernNickolas Estimated Nutritional Goals BEE in Kcals: Adj wt of IBW Calories/Kcals/Kg 25-30 kcal/kg using IBW 59kg Kcals Calculated 0986-8692 kcal/day Protein: Adj wt of IBW Protein g/kg: .8-1 gm/kg using IBW Protein Calculated 50-50 gm/day Fluid: ml 1500-1800ml/day (1 ml/kcal) Nutritional Problem 2. Problem Problem Altered nutrition related lab values related to Etiology electrolyte imbalance aeb Signs/Symptoms: K 3.1 1. Problem Problem Underweight related to Etiology possible poor intake prior to admission aeb Signs/Symptoms: BMI 10.8 based on patient's stated weight. Intervention/Recommendation Comments 1. Continue current diet order as tolerated by patient. 2. Encourage oral intake due to low body weight/BMI. Consider Boost with meals to optimize nutrient intake. 3. Encourage intake of high potassium foods including banana, orange juice, tomato soup, potatoes. MD to replace lytes as needed. Expected Outcomes/Goals Expected Outcomes/Goals Oral intake to meet >75% of nutrient needs, weight gain toward ideal body weight, nutrition related labs normalize
--- NOTE | 2017-10-26 01:26 | Progress Notes ---
DATE: 10/25/2017 SUBJECTIVE: Chart reviewed and the patient interviewed. Also, discussed the patient's condition with the staff and reviewed records and labs. The patient is still completely confused. She also is still impulsive and in irritable mood. The patient also is mean to the staff and has been cursing staff. She also is still wandering and she is still easily agitated and easily irritable. The patient seems to have multiple medical problems including C. diff in stool and E. coli in urine. Also, there is a drainage coming out of a wound in her breast. ASSESSMENT: The patient is still irritable and impulsive. TREATMENT PLAN: Continue to monitor her behavior and her condition closely. Also, we will add Seroquel in a dose of 12.5 mg twice a day and continue to work on her irritability as well as behavioral modifications. JOB# [id number]
[2017-10-26] MEDS: Pantoprazole 40 mg EC Tab PO SCH (06:48)
[2017-10-26] MEDS: Multivitamin Tab PO SCH (09:39)
[2017-10-26] MEDS: Aspirin 81mg Chewable Tab PO SCH (09:39)
[2017-10-26] MEDS: Ferrous Sulfate 325 MG TAB PO SCH (09:39)
--- NOTE | 2017-10-26 23:22 | Progress Notes ---
DATE: SUBJECTIVE: Chart reviewed and the patient interviewed. Also discussed the patient's condition with the staff and reviewed the records and labs. The patient continued to be confused and agitated. The patient also seems to be disoriented and she is still agitated with flat affect. Also medical problems is still the need to be addressed to Dr. Kerr, continue to monitor her medications and continue to adjust, and continue to follow up with her medical issues. Otherwise, the patient is forgetful and confused and wants to be left alone. ASSESSMENT: The patient is still confused and disoriented, but less agitated. TREATMENT PLAN: We will increase Namenda to 10 mg twice a day. Also, continue Aricept 10 mg every day. Also, continue to monitor her behavior problems. JOB# [id number]
--- NOTE | 2017-10-26 23:56 | Internal Medicine Prog Note ---
Internal Medicine Subjective - Subjective Service Date: 10/26/17 Patient seen and examined:: without staff Patient is:: awake, verbal (SHE DENIES ANY PAIN OR SOB.), in bed, talking, confused Per staff patient has:: no adverse event Internal Medicine Objective - Results Result Diagrams: 10/20/17 20:43 10/23/17 06:10 Recent Labs: Laboratory Last Values WBC 7.5 Th/cmm (4.8-10.8) 10/20/17 20:43 RBC 5.34 Mil/cmm (3.80-5.20) H 10/20/17 20:43 Hgb 14.2 gm/dL (12-16) 10/20/17 20:43 Hct 44.0 % (41.0-60) 10/20/17 20:43 MCV 82.4 fl (81-100) 10/20/17 20:43 MCH 26.6 pg (27.0-31.0) L 10/20/17 20:43 MCHC Differential 32.3 pg (28.0-36.0) 10/20/17 20:43 RDW 17.0 % (11.5-20.0) 10/20/17 20:43 Plt Count 316 Th/cmm (150-400) 10/20/17 20:43 MPV 7.1 fl 10/20/17 20:43 Neutrophils % 70.0 % (40.0-80.0) 10/20/17 20:43 Lymphocytes % 21.7 % (20.0-50.0) 10/20/17 20:43 Monocytes % 6.2 % (2.0-10.0) 10/20/17 20:43 Eosinophils % 2.1 % (0.0-5.0) 10/20/17 20:43 Basophils % 0.0 % (0.0-2.0) 10/20/17 20:43 PT 13.4 SECONDS (9.5-11.5) H 10/23/17 06:10 INR 1.27 (0.5-1.4) 10/23/17 06:10 Sodium 136 mEq/L (136-145) 10/23/17 06:10 Potassium 3.6 mEq/L (3.5-5.1) 10/23/17 06:10 Chloride 105 mEq/L (98-107) 10/23/17 06:10 Carbon Dioxide 27.3 mEq/L (21.0-31.0) 10/23/17 06:10 Anion Gap 7.3 (7.0-16.0) 10/23/17 06:10 BUN 15 mg/dL (7-25) 10/23/17 06:10 Creatinine 0.5 mg/dL (0.6-1.2) L 10/23/17 06:10 Est GFR ( Amer) TNP 10/23/17 06:10 Est GFR (Non-Af Amer) TNP 10/23/17 06:10 BUN/Creatinine Ratio 30.0 10/23/17 06:10 Glucose 95 mg/dL (70-105) 10/23/17 06:10 POC Glucose 49 MG/DL (70 - 105) L 10/21/17 06:40 Calcium 9.6 mg/dL (8.6-10.3) 10/23/17 06:10 Total Bilirubin 0.9 mg/dL (0.3-1.0) 10/22/17 06:20 AST 8 U/L (13-39) L 10/22/17 06:20 ALT 7 U/L (7-52) 10/22/17 06:20 Alkaline Phosphatase 46 U/L (34-104) 10/22/17 06:20 Total Protein 8.1 gm/dL (6.0-8.3) 10/22/17 06:20 Albumin 3.1 gm/dL (3.7-5.3) L 10/22/17 06:20 Globulin 5.0 gm/dL 10/22/17 06:20 Albumin/Globulin Ratio 0.6 (1.0-1.8) L 10/22/17 06:20 Urine Source CLEAN C 10/20/17 21:55 Urine Color YELLOW 10/20/17 21:55 Urine Clarity CLOUDY (CLEAR) H 10/20/17 21:55 Urine pH 5.5 (4.6 - 8.0) 10/20/17 21:55 Ur Specific [place] 1.025 (1.005-1.030) 10/20/17 21:55 Urine Protein NEGATIVE mg/dL (NEGATIVE) 10/20/17 21:55 Urine Glucose (UA) NEGATIVE mg/dL (NEGATIVE) 10/20/17 21:55 Urine Ketones NEGATIVE mg/dL (NEGATIVE) 10/20/17 21:55 Urine Blood SMALL (NEGATIVE) H 10/20/17 21:55 Urine Nitrate POSITIVE (NEGATIVE) H 10/20/17 21:55 Urine Bilirubin NEGATIVE (NEGATIVE) 10/20/17 21:55 Urine Urobilinogen 1.0 E.U./dL (0.2 - 1.0) 10/20/17 21:55 Ur Leukocyte Esterase LARGE (NEGATIVE) H 10/20/17 21:55 Urine RBC 2-5 /hpf (0-5) 10/20/17 21:55 Urine WBC 50-100 /hpf (0-5) H 10/20/17 21:55 Ur Epithelial Cells NONE SEEN /lpf (FEW) 10/20/17 21:55 Urine Bacteria MANY /hpf (NONE SEEN) H 10/20/17 21:55 - Physical Exam Vitals and I&O: Vital Signs Temp 98.5 F 10/26/17 15:06 Pulse 47 10/26/17 22:47 Resp 18 10/26/17 15:06 BP 173/80 10/26/17 22:47 Pulse Ox 98 10/26/17 15:06 Intake & Output 10/26/17 10/26/17 10/27/17 06:59 18:59 06:59 Other: Stool Characteristics Soft Formed Active Medications: Current Medications Acetaminophen (Tylenol) 650 mg PO Q4HR PRN PRN Reason: Pain (Mild) Stop: 12/20/17 02:03 Amlodipine Besylate (Norvasc) 5 mg PO DAILY [facility] Stop: 12/21/17 18:29 Last Admin: 10/26/17 09:40 Dose: 5 mg Ascorbic Acid (Vitamin C) 500 mg PO DAILY [facility] Stop: 12/20/17 08:59 Last Admin: 10/26/17 09:39 Dose: 500 mg Aspirin (Aspirin Chewable) 81 mg PO DAILY [facility] Stop: 12/20/17 08:59 Last Admin: 10/26/17 09:39 Dose: 81 mg Docusate Sodium (Colace) 100 mg PO DAILY [facility] Stop: 12/20/17 08:59 Last Admin: 10/26/17 09:39 Dose: 100 mg Donepezil HCl (Aricept) 10 mg PO DAILY [facility] Stop: 12/20/17 08:59 Last Admin: 10/26/17 09:39 Dose: 10 mg Ferrous Sulfate (Iron) 325 mg PO DAILY [facility] Stop: 12/20/17 08:59 Last Admin: 10/26/17 09:39 Dose: 325 mg Lorazepam (Ativan) 0.5 mg PO Q4HR PRN; Protocol PRN Reason: Anxiety Stop: 11/20/17 01:36 Memantine (Namenda) 10 mg PO BID [facility] Stop: 12/25/17 06:44 Last Admin: 10/26/17 16:52 Dose: 10 mg Multivitamins/Vitamin C (Theragran) 1 tab PO DAILY [facility] Stop: 12/20/17 08:59 Last Admin: 10/26/17 09:39 Dose: 1 tab Nitrofurantoin Macrocrystals (Macrobid) 100 mg PO BID [facility] PRN Reason: Protocol Stop: 10/28/17 16:59 Last Admin: 10/26/17 16:52 Dose: 100 mg Ondansetron HCl (Zofran Odt) 4 mg PO Q6HR PRN PRN Reason: Nausea/VOMITING Stop: 12/20/17 02:03 Pantoprazole Sodium (Protonix) 40 mg PO QDAC [facility] Stop: 12/20/17 07:29 Last Admin: 10/26/17 06:48 Dose: 40 mg Quetiapine Fumarate (Seroquel) 12.5 mg PO BID [facility] PRN Reason: Protocol Stop: 12/24/17 08:59 Last Admin: 10/26/17 16:52 Dose: 12.5 mg Warfarin Sodium (Coumadin) 4 mg PO 1300 [facility] PRN Reason: Protocol Stop: 12/20/17 17:59 Last Admin: 10/26/17 13:51 Dose: 4 mg Zolpidem Tartrate (Ambien) 5 mg PO HSMR1 PRN PRN Reason: Insomnia Stop: 12/20/17 01:36 General: demented HEENT: NC/AT, PERRLA, EOMI, anicteric sclerae, throat clear Neck: Supple, No JVD, No thyromegaly, +2 carotid pulse wo bruit, No LAD Lungs: CTAB Cardiovascular: RRR, Normal S1, Normal S2, without murmur Abdomen: soft, non-tender, non-distended Extremities: clear Neurological: no change Internal Medicine Assmt/Plan - Assessment Assessment: 1.UTI. 2.HTN. 3.DEMENTIA - Plan Plan: CONTINUE ON CURRENT MEDICATION AND DIET. Nutritional Asmnt/Malnutr-PDOC - Dietary Evaluation Malnutrition Findings (Please click <Entered> for more info): Nutritional Asmnt/Malnutrition Start: 10/21/17 10: 55 Text: Status: Complete Freq: Document 10/21/17 10:55 FLORENCIO (Rec: 10/21/17 11:12 MMJACINTO LLAMAS- FN) Nutritional Asmnt/Malnutrition Patient General Information Nutritional Screening High Risk Diagnosis Psychosis Pertinent Medical Hx/Surgical Hx Mastectomy Rt breast, dysphagia, DM type 2, abcess on lt breast, dementia Subjective Information Patient was admitted from SNF. Current Diet Order/ Nutrition Support Mechanical soft chopped Patient / S.O Not Indicated Pertinent Medications vitamin C, colace, iron, Theragran, Zofran, protonix Pertinent Labs (10/20) Na 135, K 3.1, glucose 49-132, albumin 3.1 Nutritional Hx/Data Height 1.68 m Height (Calculated Centimeters) 167.6 Current Weight (lbs) 30.391 kg Weight (Calculated Kilograms) 30.4 Weight (Calculated Grams) 50968.7 [place] Body Weight 130 % [place] Body Weight 51 Body Mass Index (BMI) 10.8 Weight Status Underweight GI Symptoms GI Symptoms None Difficult in: None Food Allergies No Cultural/Ethnic/Jehov[employer] Belief none indicated Usual diet at home unknown Skin Integrity/Comment: Area of concern, Nickolas 16 Estimated Nutritional Goals BEE in Kcals: Adj wt of IBW Calories/Kcals/Kg 25-30 kcal/kg using IBW 59kg Kcals Calculated 1893-5777 kcal/day Protein: Adj wt of IBW Protein g/kg: .8-1 gm/kg using IBW Protein Calculated 50-50 gm/day Fluid: ml 1500-1800ml/day (1 ml/kcal) Nutritional Problem 2. Problem Problem Altered nutrition related lab values related to Etiology electrolyte imbalance aeb Signs/Symptoms: K 3.1 1. Problem Problem Underweight related to Etiology possible poor intake prior to admission aeb Signs/Symptoms: BMI 10.8 based on patient's stated weight. Intervention/Recommendation Comments 1. Continue current diet order as tolerated by patient. 2. Encourage oral intake due to low body weight/BMI. Consider Boost with meals to optimize nutrient intake. 3. Encourage intake of high potassium foods including banana, orange juice, tomato soup, potatoes. MD to replace lytes as needed. Expected Outcomes/Goals Expected Outcomes/Goals Oral intake to meet >75% of nutrient needs, weight gain toward ideal body weight, nutrition related labs normalize
[2017-10-27] MEDS: Pantoprazole 40 mg EC Tab PO SCH (06:45)
[2017-10-27] MEDS: Ferrous Sulfate 325 MG TAB PO SCH (08:35)
[2017-10-27] MEDS: Multivitamin Tab PO SCH (08:36)
[2017-10-27] MEDS: Aspirin 81mg Chewable Tab PO SCH (08:36)
--- NOTE | 2017-10-27 19:56 | Internal Medicine Prog Note ---
Internal Medicine Subjective - Subjective Service Date: 10/27/17 Patient seen and examined:: with staff Patient is:: awake, verbal (SHE DENIES ANY PAIN OR SOB.), in bed, talking, confused Per staff patient has:: no adverse event Internal Medicine Objective - Results Result Diagrams: 10/20/17 20:43 10/23/17 06:10 Recent Labs: Laboratory Last Values WBC 7.5 Th/cmm (4.8-10.8) 10/20/17 20:43 RBC 5.34 Mil/cmm (3.80-5.20) H 10/20/17 20:43 Hgb 14.2 gm/dL (12-16) 10/20/17 20:43 Hct 44.0 % (41.0-60) 10/20/17 20:43 MCV 82.4 fl (81-100) 10/20/17 20:43 MCH 26.6 pg (27.0-31.0) L 10/20/17 20:43 MCHC Differential 32.3 pg (28.0-36.0) 10/20/17 20:43 RDW 17.0 % (11.5-20.0) 10/20/17 20:43 Plt Count 316 Th/cmm (150-400) 10/20/17 20:43 MPV 7.1 fl 10/20/17 20:43 Neutrophils % 70.0 % (40.0-80.0) 10/20/17 20:43 Lymphocytes % 21.7 % (20.0-50.0) 10/20/17 20:43 Monocytes % 6.2 % (2.0-10.0) 10/20/17 20:43 Eosinophils % 2.1 % (0.0-5.0) 10/20/17 20:43 Basophils % 0.0 % (0.0-2.0) 10/20/17 20:43 PT 13.4 SECONDS (9.5-11.5) H 10/23/17 06:10 INR 1.27 (0.5-1.4) 10/23/17 06:10 Sodium 136 mEq/L (136-145) 10/23/17 06:10 Potassium 3.6 mEq/L (3.5-5.1) 10/23/17 06:10 Chloride 105 mEq/L (98-107) 10/23/17 06:10 Carbon Dioxide 27.3 mEq/L (21.0-31.0) 10/23/17 06:10 Anion Gap 7.3 (7.0-16.0) 10/23/17 06:10 BUN 15 mg/dL (7-25) 10/23/17 06:10 Creatinine 0.5 mg/dL (0.6-1.2) L 10/23/17 06:10 Est GFR ( Amer) TNP 10/23/17 06:10 Est GFR (Non-Af Amer) TNP 10/23/17 06:10 BUN/Creatinine Ratio 30.0 10/23/17 06:10 Glucose 95 mg/dL (70-105) 10/23/17 06:10 POC Glucose 49 MG/DL (70 - 105) L 10/21/17 06:40 Calcium 9.6 mg/dL (8.6-10.3) 10/23/17 06:10 Total Bilirubin 0.9 mg/dL (0.3-1.0) 10/22/17 06:20 AST 8 U/L (13-39) L 10/22/17 06:20 ALT 7 U/L (7-52) 10/22/17 06:20 Alkaline Phosphatase 46 U/L (34-104) 10/22/17 06:20 Total Protein 8.1 gm/dL (6.0-8.3) 10/22/17 06:20 Albumin 3.1 gm/dL (3.7-5.3) L 10/22/17 06:20 Globulin 5.0 gm/dL 10/22/17 06:20 Albumin/Globulin Ratio 0.6 (1.0-1.8) L 10/22/17 06:20 Urine Source CLEAN C 10/20/17 21:55 Urine Color YELLOW 10/20/17 21:55 Urine Clarity CLOUDY (CLEAR) H 10/20/17 21:55 Urine pH 5.5 (4.6 - 8.0) 10/20/17 21:55 Ur Specific [place] 1.025 (1.005-1.030) 10/20/17 21:55 Urine Protein NEGATIVE mg/dL (NEGATIVE) 10/20/17 21:55 Urine Glucose (UA) NEGATIVE mg/dL (NEGATIVE) 10/20/17 21:55 Urine Ketones NEGATIVE mg/dL (NEGATIVE) 10/20/17 21:55 Urine Blood SMALL (NEGATIVE) H 10/20/17 21:55 Urine Nitrate POSITIVE (NEGATIVE) H 10/20/17 21:55 Urine Bilirubin NEGATIVE (NEGATIVE) 10/20/17 21:55 Urine Urobilinogen 1.0 E.U./dL (0.2 - 1.0) 10/20/17 21:55 Ur Leukocyte Esterase LARGE (NEGATIVE) H 10/20/17 21:55 Urine RBC 2-5 /hpf (0-5) 10/20/17 21:55 Urine WBC 50-100 /hpf (0-5) H 10/20/17 21:55 Ur Epithelial Cells NONE SEEN /lpf (FEW) 10/20/17 21:55 Urine Bacteria MANY /hpf (NONE SEEN) H 10/20/17 21:55 - Physical Exam Vitals and I&O: Vital Signs Temp 97.9 F 10/27/17 13:51 Pulse 49 10/27/17 13:51 Resp 20 10/27/17 13:51 BP 157/70 10/27/17 13:51 Pulse Ox 96 10/27/17 13:51 Active Medications: Current Medications Acetaminophen (Tylenol) 650 mg PO Q4HR PRN PRN Reason: Pain (Mild) Stop: 12/20/17 02:03 Amlodipine Besylate (Norvasc) 5 mg PO DAILY [facility] Stop: 12/21/17 18:29 Last Admin: 10/27/17 08:35 Dose: 5 mg Ascorbic Acid (Vitamin C) 500 mg PO DAILY [facility] Stop: 12/20/17 08:59 Last Admin: 10/27/17 08:36 Dose: 500 mg Aspirin (Aspirin Chewable) 81 mg PO DAILY [facility] Stop: 12/20/17 08:59 Last Admin: 10/27/17 08:36 Dose: 81 mg Docusate Sodium (Colace) 100 mg PO DAILY [facility] Stop: 12/20/17 08:59 Last Admin: 10/27/17 08:36 Dose: 100 mg Donepezil HCl (Aricept) 10 mg PO DAILY [facility] Stop: 12/20/17 08:59 Last Admin: 10/27/17 08:34 Dose: 10 mg Ferrous Sulfate (Iron) 325 mg PO DAILY [facility] Stop: 12/20/17 08:59 Last Admin: 10/27/17 08:35 Dose: 325 mg Lorazepam (Ativan) 0.5 mg PO Q4HR PRN; Protocol PRN Reason: Anxiety Stop: 11/20/17 01:36 Memantine (Namenda) 10 mg PO BID [facility] Stop: 12/25/17 06:44 Last Admin: 10/27/17 16:27 Dose: 10 mg Multivitamins/Vitamin C (Theragran) 1 tab PO DAILY [facility] Stop: 12/20/17 08:59 Last Admin: 10/27/17 08:36 Dose: 1 tab Ondansetron HCl (Zofran Odt) 4 mg PO Q6HR PRN PRN Reason: Nausea/VOMITING Stop: 12/20/17 02:03 Pantoprazole Sodium (Protonix) 40 mg PO QDAC [facility] Stop: 12/20/17 07:29 Last Admin: 10/27/17 06:45 Dose: 40 mg Quetiapine Fumarate (Seroquel) 12.5 mg PO BID [facility] PRN Reason: Protocol Stop: 12/24/17 08:59 Last Admin: 10/27/17 16:27 Dose: 12.5 mg Warfarin Sodium (Coumadin) 4 mg PO 1300 [facility] PRN Reason: Protocol Stop: 12/20/17 17:59 Last Admin: 10/27/17 13:55 Dose: Not Given Zolpidem Tartrate (Ambien) 5 mg PO HSMR1 PRN PRN Reason: Insomnia Stop: 12/20/17 01:36 General: demented HEENT: NC/AT, PERRLA, EOMI, anicteric sclerae, throat clear Neck: Supple, No JVD, No thyromegaly, +2 carotid pulse wo bruit, No LAD Lungs: CTAB Cardiovascular: RRR, Normal S1, Normal S2, without murmur Abdomen: soft, non-tender, non-distended Extremities: clear Neurological: no change Internal Medicine Assmt/Plan - Assessment Assessment: 1.UTI. 2.HTN. 3.DEMENTIA - Plan Plan: CONTINUE ON CURRENT MEDICATION AND DIET. Nutritional Asmnt/Malnutr-PDOC - Dietary Evaluation Malnutrition Findings (Please click <Entered> for more info): Nutritional Asmnt/Malnutrition Start: 10/21/17 10: 55 Text: Status: Complete Freq: Document 10/21/17 10:55 KRISTINEJOSEPH (Rec: 10/21/17 11:12 FLORENCIO MURIEL- [email or web address]) Nutritional Asmnt/Malnutrition Patient General Information Nutritional Screening High Risk Diagnosis Psychosis Pertinent Medical Hx/Surgical Hx Mastectomy Rt breast, dysphagia, DM type 2, abcess on lt breast, dementia Subjective Information Patient was admitted from SNF. Current Diet Order/ Nutrition Support Mechanical soft chopped Patient / S.O Not Indicated Pertinent Medications vitamin C, colace, iron, Theragran, Zofran, protonix Pertinent Labs (10/20) Na 135, K 3.1, glucose 49-132, albumin 3.1 Nutritional Hx/Data Height 1.68 m Height (Calculated Centimeters) 167.6 Current Weight (lbs) 30.391 kg Weight (Calculated Kilograms) 30.4 Weight (Calculated Grams) 51478.7 [place] Body Weight 130 % [place] Body Weight 51 Body Mass Index (BMI) 10.8 Weight Status Underweight GI Symptoms GI Symptoms None Difficult in: None Food Allergies No Cultural/Ethnic/Quaker Belief none indicated Usual diet at home unknown Skin Integrity/Comment: Area of concern, Nickolas Ocasio Estimated Nutritional Goals BEE in Kcals: Adj wt of IBW Calories/Kcals/Kg 25-30 kcal/kg using IBW 59kg Kcals Calculated 9168-6169 kcal/day Protein: Adj wt of IBW Protein g/kg: .8-1 gm/kg using IBW Protein Calculated 50-50 gm/day Fluid: ml 1500-1800ml/day (1 ml/kcal) Nutritional Problem 2. Problem Problem Altered nutrition related lab values related to Etiology electrolyte imbalance aeb Signs/Symptoms: K 3.1 1. Problem Problem Underweight related to Etiology possible poor intake prior to admission aeb Signs/Symptoms: BMI 10.8 based on patient's stated weight. Intervention/Recommendation Comments 1. Continue current diet order as tolerated by patient. 2. Encourage oral intake due to low body weight/BMI. Consider Boost with meals to optimize nutrient intake. 3. Encourage intake of high potassium foods including banana, orange juice, tomato soup, potatoes. MD to replace lytes as needed. Expected Outcomes/Goals Expected Outcomes/Goals Oral intake to meet >75% of nutrient needs, weight gain toward ideal body weight, nutrition related labs normalize
--- NOTE | 2017-10-27 21:30 | Progress Notes ---
DATE: SUBJECTIVE: Chart reviewed and the patient interviewed. Also discussed the patient's condition with the staff and reviewed records and labs. The patient continued to be suspicious and guarded. The patient also is still restless and she is still confused and forgetful and needs lots of redirections. She also still has episodes of agitation and irritability, but seems to be slightly less than before. The patient also continued to comply with taking her medications with no side effects of medications. ASSESSMENT: The patient is still agitated and psychotic and needs close monitoring. TREATMENT PLAN: We will continue to monitor her behavior and her condition closely. Also, continue to work on her poor impulse control. The patient also started on Seroquel 12.5 mg twice a day and will continue same dose and continue to follow up. JOB# [id number]
[2017-10-28] MEDS: Pantoprazole 40 mg EC Tab PO SCH (06:54)
[2017-10-28 06:56] LABS: INR 1.48 (0.5-1.4); PROTHROMBIN TIME (TEST) 15.7 SECONDS (9.5-11.5)
[2017-10-28] MEDS: Aspirin 81mg Chewable Tab PO SCH (08:44)
[2017-10-28] MEDS: Ferrous Sulfate 325 MG TAB PO SCH (08:46)
[2017-10-28] MEDS: Multivitamin Tab PO SCH (08:47)
--- NOTE | 2017-10-28 16:44 | Internal Medicine Prog Note ---
Internal Medicine Subjective - Subjective Service Date: 10/28/17 Patient seen and examined:: with staff Patient is:: awake, verbal (SHE DENIES ANY PAIN OR SOB.), in bed, talking, confused Per staff patient has:: no adverse event Internal Medicine Objective - Results Result Diagrams: 10/20/17 20:43 10/23/17 06:10 Recent Labs: Laboratory Last Values WBC 7.5 Th/cmm (4.8-10.8) 10/20/17 20:43 RBC 5.34 Mil/cmm (3.80-5.20) H 10/20/17 20:43 Hgb 14.2 gm/dL (12-16) 10/20/17 20:43 Hct 44.0 % (41.0-60) 10/20/17 20:43 MCV 82.4 fl (81-100) 10/20/17 20:43 MCH 26.6 pg (27.0-31.0) L 10/20/17 20:43 MCHC Differential 32.3 pg (28.0-36.0) 10/20/17 20:43 RDW 17.0 % (11.5-20.0) 10/20/17 20:43 Plt Count 316 Th/cmm (150-400) 10/20/17 20:43 MPV 7.1 fl 10/20/17 20:43 Neutrophils % 70.0 % (40.0-80.0) 10/20/17 20:43 Lymphocytes % 21.7 % (20.0-50.0) 10/20/17 20:43 Monocytes % 6.2 % (2.0-10.0) 10/20/17 20:43 Eosinophils % 2.1 % (0.0-5.0) 10/20/17 20:43 Basophils % 0.0 % (0.0-2.0) 10/20/17 20:43 PT 15.7 SECONDS (9.5-11.5) H 10/28/17 06:12 INR 1.48 (0.5-1.4) H 10/28/17 06:12 Sodium 136 mEq/L (136-145) 10/23/17 06:10 Potassium 3.6 mEq/L (3.5-5.1) 10/23/17 06:10 Chloride 105 mEq/L (98-107) 10/23/17 06:10 Carbon Dioxide 27.3 mEq/L (21.0-31.0) 10/23/17 06:10 Anion Gap 7.3 (7.0-16.0) 10/23/17 06:10 BUN 15 mg/dL (7-25) 10/23/17 06:10 Creatinine 0.5 mg/dL (0.6-1.2) L 10/23/17 06:10 Est GFR ( Amer) TNP 10/23/17 06:10 Est GFR (Non-Af Amer) TNP 10/23/17 06:10 BUN/Creatinine Ratio 30.0 10/23/17 06:10 Glucose 95 mg/dL (70-105) 10/23/17 06:10 POC Glucose 49 MG/DL (70 - 105) L 10/21/17 06:40 Calcium 9.6 mg/dL (8.6-10.3) 10/23/17 06:10 Total Bilirubin 0.9 mg/dL (0.3-1.0) 10/22/17 06:20 AST 8 U/L (13-39) L 10/22/17 06:20 ALT 7 U/L (7-52) 10/22/17 06:20 Alkaline Phosphatase 46 U/L (34-104) 10/22/17 06:20 Total Protein 8.1 gm/dL (6.0-8.3) 10/22/17 06:20 Albumin 3.1 gm/dL (3.7-5.3) L 10/22/17 06:20 Globulin 5.0 gm/dL 10/22/17 06:20 Albumin/Globulin Ratio 0.6 (1.0-1.8) L 10/22/17 06:20 Urine Source CLEAN C 10/20/17 21:55 Urine Color YELLOW 10/20/17 21:55 Urine Clarity CLOUDY (CLEAR) H 10/20/17 21:55 Urine pH 5.5 (4.6 - 8.0) 10/20/17 21:55 Ur Specific [place] 1.025 (1.005-1.030) 10/20/17 21:55 Urine Protein NEGATIVE mg/dL (NEGATIVE) 10/20/17 21:55 Urine Glucose (UA) NEGATIVE mg/dL (NEGATIVE) 10/20/17 21:55 Urine Ketones NEGATIVE mg/dL (NEGATIVE) 10/20/17 21:55 Urine Blood SMALL (NEGATIVE) H 10/20/17 21:55 Urine Nitrate POSITIVE (NEGATIVE) H 10/20/17 21:55 Urine Bilirubin NEGATIVE (NEGATIVE) 10/20/17 21:55 Urine Urobilinogen 1.0 E.U./dL (0.2 - 1.0) 10/20/17 21:55 Ur Leukocyte Esterase LARGE (NEGATIVE) H 10/20/17 21:55 Urine RBC 2-5 /hpf (0-5) 10/20/17 21:55 Urine WBC 50-100 /hpf (0-5) H 10/20/17 21:55 Ur Epithelial Cells NONE SEEN /lpf (FEW) 10/20/17 21:55 Urine Bacteria MANY /hpf (NONE SEEN) H 10/20/17 21:55 - Physical Exam Vitals and I&O: Vital Signs Temp 97.3 F 10/28/17 15:27 Pulse 66 10/28/17 15:27 Resp 18 10/28/17 15:27 BP 92/58 10/28/17 15:27 Pulse Ox 97 10/28/17 15:27 Intake & Output 10/27/17 10/28/17 10/28/17 18:59 06:59 18:59 Intake Total 240 180 Balance 240 180 Intake: Oral 240 180 Other: # Voids 1 2 # Bowel Movements 1 Active Medications: Current Medications Acetaminophen (Tylenol) 650 mg PO Q4HR PRN PRN Reason: Pain (Mild) Stop: 12/20/17 02:03 Amlodipine Besylate (Norvasc) 5 mg PO DAILY [facility] Stop: 12/21/17 18:29 Last Admin: 10/28/17 08:43 Dose: 5 mg Ascorbic Acid (Vitamin C) 500 mg PO DAILY [facility] Stop: 12/20/17 08:59 Last Admin: 10/28/17 08:44 Dose: 500 mg Aspirin (Aspirin Chewable) 81 mg PO DAILY [facility] Stop: 12/20/17 08:59 Last Admin: 10/28/17 08:44 Dose: 81 mg Docusate Sodium (Colace) 100 mg PO DAILY [facility] Stop: 12/20/17 08:59 Last Admin: 10/28/17 08:45 Dose: 100 mg Donepezil HCl (Aricept) 10 mg PO DAILY [facility] Stop: 12/20/17 08:59 Last Admin: 10/28/17 08:45 Dose: 10 mg Ferrous Sulfate (Iron) 325 mg PO DAILY [facility] Stop: 12/20/17 08:59 Last Admin: 10/28/17 08:46 Dose: 325 mg Memantine (Namenda) 10 mg PO BID [facility] Stop: 12/25/17 06:44 Last Admin: 10/28/17 08:46 Dose: 10 mg Multivitamins/Vitamin C (Theragran) 1 tab PO DAILY [facility] Stop: 12/20/17 08:59 Last Admin: 10/28/17 08:47 Dose: 1 tab Ondansetron HCl (Zofran Odt) 4 mg PO Q6HR PRN PRN Reason: Nausea/VOMITING Stop: 12/20/17 02:03 Pantoprazole Sodium (Protonix) 40 mg PO QDAC [facility] Stop: 12/20/17 07:29 Last Admin: 10/28/17 06:54 Dose: 40 mg Quetiapine Fumarate (Seroquel) 12.5 mg PO BID [facility] PRN Reason: Protocol Stop: 12/24/17 08:59 Last Admin: 10/28/17 08:47 Dose: 12.5 mg Warfarin Sodium (Coumadin) 4 mg PO 1300 [facility] PRN Reason: Protocol Stop: 12/20/17 17:59 Last Admin: 10/28/17 12:48 Dose: 4 mg General: demented HEENT: NC/AT, PERRLA, EOMI, anicteric sclerae, throat clear Neck: Supple, No JVD, No thyromegaly, +2 carotid pulse wo bruit, No LAD Lungs: CTAB Cardiovascular: RRR, Normal S1, Normal S2, without murmur Abdomen: soft, non-tender, non-distended Extremities: clear Neurological: no change Internal Medicine Assmt/Plan - Assessment Assessment: 1.UTI. 2.HTN. 3.DEMENTIA - Plan Plan: CONTINUE ON CURRENT MEDICATION AND DIET. Nutritional Asmnt/Malnutr-PDOC - Dietary Evaluation Malnutrition Findings (Please click <Entered> for more info): Nutritional Asmnt/Malnutrition Start: 10/21/17 10: 55 Text: Status: Complete Freq: Document 10/21/17 10:55 FLORENCIO (Rec: 10/21/17 11:12 FLORENCIO MURIEL- [email or web address]) Nutritional Asmnt/Malnutrition Patient General Information Nutritional Screening High Risk Diagnosis Psychosis Pertinent Medical Hx/Surgical Hx Mastectomy Rt breast, dysphagia, DM type 2, abcess on lt breast, dementia Subjective Information Patient was admitted from SNF. Current Diet Order/ Nutrition Support Mechanical soft chopped Patient / S.O Not Indicated Pertinent Medications vitamin C, colace, iron, Theragran, Zofran, protonix Pertinent Labs (10/20) Na 135, K 3.1, glucose 49-132, albumin 3.1 Nutritional Hx/Data Height 1.68 m Height (Calculated Centimeters) 167.6 Current Weight (lbs) 30.391 kg Weight (Calculated Kilograms) 30.4 Weight (Calculated Grams) 50750.7 [place] Body Weight 130 % [place] Body Weight 51 Body Mass Index (BMI) 10.8 Weight Status Underweight GI Symptoms GI Symptoms None Difficult in: None Food Allergies No Cultural/Ethnic/Anabaptist Belief none indicated Usual diet at home unknown Skin Integrity/Comment: Area of concern, Nickolas Ocasoi Estimated Nutritional Goals BEE in Kcals: Adj wt of IBW Calories/Kcals/Kg 25-30 kcal/kg using IBW 59kg Kcals Calculated 4307-9401 kcal/day Protein: Adj wt of IBW Protein g/kg: .8-1 gm/kg using IBW Protein Calculated 50-50 gm/day Fluid: ml 1500-1800ml/day (1 ml/kcal) Nutritional Problem 2. Problem Problem Altered nutrition related lab values related to Etiology electrolyte imbalance aeb Signs/Symptoms: K 3.1 1. Problem Problem Underweight related to Etiology possible poor intake prior to admission aeb Signs/Symptoms: BMI 10.8 based on patient's stated weight. Intervention/Recommendation Comments 1. Continue current diet order as tolerated by patient. 2. Encourage oral intake due to low body weight/BMI. Consider Boost with meals to optimize nutrient intake. 3. Encourage intake of high potassium foods including banana, orange juice, tomato soup, potatoes. MD to replace lytes as needed. Expected Outcomes/Goals Expected Outcomes/Goals Oral intake to meet >75% of nutrient needs, weight gain toward ideal body weight, nutrition related labs normalize
--- NOTE | 2017-10-28 21:54 | Progress Notes ---
DATE: 10/28/2017 SUBJECTIVE: Case was discussed with staff of the patient, reviewed records. Covering for Dr. Reese. This is a well known patient seen by me before covering for Dr. Reese. Continues to be suspicious, guarded. Continues to be restless, confused, forgetful, needs a lot of redirection, episodes of irritability and ____. She is compliant with the medication with no side effect. We will started her on Seroquel 12.5 mg twice a day with no side effects, no sedation, no nausea, no extrapyramidal symptoms. We will continue the patient in group therapy, milieu therapy, and adjust the medications as needed. JOB# [id number]
[2017-10-29] MEDS: Pantoprazole 40 mg EC Tab PO SCH (06:44)
[2017-10-29] MEDS: Multivitamin Tab PO SCH (09:22)
[2017-10-29] MEDS: Ferrous Sulfate 325 MG TAB PO SCH (09:23)
[2017-10-29] MEDS: Aspirin 81mg Chewable Tab PO SCH (09:23)
--- NOTE | 2017-10-29 20:36 | Internal Medicine Prog Note ---
Internal Medicine Subjective - Subjective Service Date: 10/29/17 Patient seen and examined:: with staff Patient is:: awake, verbal (SHE DENIES ANY PAIN OR SOB.), in bed, talking, confused Per staff patient has:: no adverse event Internal Medicine Objective - Results Result Diagrams: 10/20/17 20:43 10/23/17 06:10 Recent Labs: Laboratory Last Values WBC 7.5 Th/cmm (4.8-10.8) 10/20/17 20:43 RBC 5.34 Mil/cmm (3.80-5.20) H 10/20/17 20:43 Hgb 14.2 gm/dL (12-16) 10/20/17 20:43 Hct 44.0 % (41.0-60) 10/20/17 20:43 MCV 82.4 fl (81-100) 10/20/17 20:43 MCH 26.6 pg (27.0-31.0) L 10/20/17 20:43 MCHC Differential 32.3 pg (28.0-36.0) 10/20/17 20:43 RDW 17.0 % (11.5-20.0) 10/20/17 20:43 Plt Count 316 Th/cmm (150-400) 10/20/17 20:43 MPV 7.1 fl 10/20/17 20:43 Neutrophils % 70.0 % (40.0-80.0) 10/20/17 20:43 Lymphocytes % 21.7 % (20.0-50.0) 10/20/17 20:43 Monocytes % 6.2 % (2.0-10.0) 10/20/17 20:43 Eosinophils % 2.1 % (0.0-5.0) 10/20/17 20:43 Basophils % 0.0 % (0.0-2.0) 10/20/17 20:43 PT 15.7 SECONDS (9.5-11.5) H 10/28/17 06:12 INR 1.48 (0.5-1.4) H 10/28/17 06:12 Sodium 136 mEq/L (136-145) 10/23/17 06:10 Potassium 3.6 mEq/L (3.5-5.1) 10/23/17 06:10 Chloride 105 mEq/L (98-107) 10/23/17 06:10 Carbon Dioxide 27.3 mEq/L (21.0-31.0) 10/23/17 06:10 Anion Gap 7.3 (7.0-16.0) 10/23/17 06:10 BUN 15 mg/dL (7-25) 10/23/17 06:10 Creatinine 0.5 mg/dL (0.6-1.2) L 10/23/17 06:10 Est GFR ( Amer) TNP 10/23/17 06:10 Est GFR (Non-Af Amer) TNP 10/23/17 06:10 BUN/Creatinine Ratio 30.0 10/23/17 06:10 Glucose 95 mg/dL (70-105) 10/23/17 06:10 POC Glucose 49 MG/DL (70 - 105) L 10/21/17 06:40 Calcium 9.6 mg/dL (8.6-10.3) 10/23/17 06:10 Total Bilirubin 0.9 mg/dL (0.3-1.0) 10/22/17 06:20 AST 8 U/L (13-39) L 10/22/17 06:20 ALT 7 U/L (7-52) 10/22/17 06:20 Alkaline Phosphatase 46 U/L (34-104) 10/22/17 06:20 Total Protein 8.1 gm/dL (6.0-8.3) 10/22/17 06:20 Albumin 3.1 gm/dL (3.7-5.3) L 10/22/17 06:20 Globulin 5.0 gm/dL 10/22/17 06:20 Albumin/Globulin Ratio 0.6 (1.0-1.8) L 10/22/17 06:20 Urine Source CLEAN C 10/20/17 21:55 Urine Color YELLOW 10/20/17 21:55 Urine Clarity CLOUDY (CLEAR) H 10/20/17 21:55 Urine pH 5.5 (4.6 - 8.0) 10/20/17 21:55 Ur Specific [place] 1.025 (1.005-1.030) 10/20/17 21:55 Urine Protein NEGATIVE mg/dL (NEGATIVE) 10/20/17 21:55 Urine Glucose (UA) NEGATIVE mg/dL (NEGATIVE) 10/20/17 21:55 Urine Ketones NEGATIVE mg/dL (NEGATIVE) 10/20/17 21:55 Urine Blood SMALL (NEGATIVE) H 10/20/17 21:55 Urine Nitrate POSITIVE (NEGATIVE) H 10/20/17 21:55 Urine Bilirubin NEGATIVE (NEGATIVE) 10/20/17 21:55 Urine Urobilinogen 1.0 E.U./dL (0.2 - 1.0) 10/20/17 21:55 Ur Leukocyte Esterase LARGE (NEGATIVE) H 10/20/17 21:55 Urine RBC 2-5 /hpf (0-5) 10/20/17 21:55 Urine WBC 50-100 /hpf (0-5) H 10/20/17 21:55 Ur Epithelial Cells NONE SEEN /lpf (FEW) 10/20/17 21:55 Urine Bacteria MANY /hpf (NONE SEEN) H 10/20/17 21:55 - Physical Exam Vitals and I&O: Vital Signs Temp 97.4 F 10/29/17 19:53 Pulse 61 10/29/17 19:53 Resp 18 10/29/17 19:53 BP 180/89 10/29/17 19:53 Pulse Ox 96 10/29/17 19:53 Intake & Output 10/29/17 10/29/17 10/30/17 06:59 18:59 06:59 Intake Total 1000 Balance 1000 Intake: Oral 1000 Other: # Voids 2 # Bowel Movements 0 Active Medications: Current Medications Acetaminophen (Tylenol) 650 mg PO Q4HR PRN PRN Reason: Pain (Mild) Stop: 12/20/17 02:03 Amlodipine Besylate (Norvasc) 5 mg PO DAILY [facility] Stop: 12/21/17 18:29 Last Admin: 10/29/17 09:22 Dose: 5 mg Ascorbic Acid (Vitamin C) 500 mg PO DAILY [facility] Stop: 12/20/17 08:59 Last Admin: 10/29/17 09:23 Dose: 500 mg Aspirin (Aspirin Chewable) 81 mg PO DAILY [facility] Stop: 12/20/17 08:59 Last Admin: 10/29/17 09:23 Dose: 81 mg Docusate Sodium (Colace) 100 mg PO DAILY [facility] Stop: 12/20/17 08:59 Last Admin: 10/29/17 09:22 Dose: 100 mg Donepezil HCl (Aricept) 10 mg PO DAILY [facility] Stop: 12/20/17 08:59 Last Admin: 10/29/17 09:23 Dose: 10 mg Ferrous Sulfate (Iron) 325 mg PO DAILY [facility] Stop: 12/20/17 08:59 Last Admin: 10/29/17 09:23 Dose: 325 mg Memantine (Namenda) 10 mg PO BID [facility] Stop: 12/25/17 06:44 Last Admin: 10/29/17 19:18 Dose: Not Given Multivitamins/Vitamin C (Theragran) 1 tab PO DAILY [facility] Stop: 12/20/17 08:59 Last Admin: 10/29/17 09:22 Dose: 1 tab Ondansetron HCl (Zofran Odt) 4 mg PO Q6HR PRN PRN Reason: Nausea/VOMITING Stop: 12/20/17 02:03 Pantoprazole Sodium (Protonix) 40 mg PO QDAC [facility] Stop: 12/20/17 07:29 Last Admin: 10/29/17 06:44 Dose: 40 mg Quetiapine Fumarate (Seroquel) 12.5 mg PO BID [facility] PRN Reason: Protocol Stop: 12/24/17 08:59 Last Admin: 10/29/17 19:18 Dose: Not Given General: demented HEENT: NC/AT, PERRLA, EOMI, anicteric sclerae, throat clear Neck: Supple, No JVD, No thyromegaly, +2 carotid pulse wo bruit, No LAD Lungs: CTAB Cardiovascular: RRR, Normal S1, Normal S2, without murmur Abdomen: soft, non-tender, non-distended Extremities: clear Neurological: no change Internal Medicine Assmt/Plan - Assessment Assessment: 1.HTN. 2.DEMENTIA - Plan Plan: CONTINUE ON CURRENT MEDICATION AND DIET. Nutritional Asmnt/Malnutr-PDOC - Dietary Evaluation Malnutrition Findings (Please click <Entered> for more info): Nutritional Asmnt/Malnutrition Start: 10/21/17 10: 55 Text: Status: Complete Freq: Document 10/21/17 10:55 [email or web address] (Rec: 10/21/17 11:12 FLORENCIO LLAMAS- [email or web address]) Nutritional Asmnt/Malnutrition Patient General Information Nutritional Screening High Risk Diagnosis Psychosis Pertinent Medical Hx/Surgical Hx Mastectomy Rt breast, dysphagia, DM type 2, abcess on lt breast, dementia Subjective Information Patient was admitted from SNF. Current Diet Order/ Nutrition Support Mechanical soft chopped Patient / S.O Not Indicated Pertinent Medications vitamin C, colace, iron, Theragran, Zofran, protonix Pertinent Labs (10/20) Na 135, K 3.1, glucose 49-132, albumin 3.1 Nutritional Hx/Data Height 1.68 m Height (Calculated Centimeters) 167.6 Current Weight (lbs) 30.391 kg Weight (Calculated Kilograms) 30.4 Weight (Calculated Grams) 38786.7 [place] Body Weight 130 % [place] Body Weight 51 Body Mass Index (BMI) 10.8 Weight Status Underweight GI Symptoms GI Symptoms None Difficult in: None Food Allergies No Cultural/Ethnic/Islam Belief none indicated Usual diet at home unknown Skin Integrity/Comment: Area of concern, Nickolas Ocasio Estimated Nutritional Goals BEE in Kcals: Adj wt of IBW Calories/Kcals/Kg 25-30 kcal/kg using IBW 59kg Kcals Calculated 1254-4418 kcal/day Protein: Adj wt of IBW Protein g/kg: .8-1 gm/kg using IBW Protein Calculated 50-50 gm/day Fluid: ml 1500-1800ml/day (1 ml/kcal) Nutritional Problem 2. Problem Problem Altered nutrition related lab values related to Etiology electrolyte imbalance aeb Signs/Symptoms: K 3.1 1. Problem Problem Underweight related to Etiology possible poor intake prior to admission aeb Signs/Symptoms: BMI 10.8 based on patient's stated weight. Intervention/Recommendation Comments 1. Continue current diet order as tolerated by patient. 2. Encourage oral intake due to low body weight/BMI. Consider Boost with meals to optimize nutrient intake. 3. Encourage intake of high potassium foods including banana, orange juice, tomato soup, potatoes. MD to replace lytes as needed. Expected Outcomes/Goals Expected Outcomes/Goals Oral intake to meet >75% of nutrient needs, weight gain toward ideal body weight, nutrition related labs normalize
--- NOTE | 2017-10-29 21:21 | Progress Notes ---
DATE: 10/29/2017 Case was discussed with staff of the patient, reviewed records. The patient continues to isolate herself. Continues to have poor insight. Continues to be unable to make safe plan for self-care, unpredictable, impulsive, suspicious, guarded. She is compliant with the medication with no side effects, no sedation, no nausea noted from the symptoms. Continues to have poor insight. She has a history of CVA. No side effects to the medication, no sedation, no nausea, no extrapyramidal symptoms. We will continue to work with the patient, group therapy, milieu therapy, and adjust medications as needed. JOB# [id number]
[2017-10-30] MEDS: Pantoprazole 40 mg EC Tab PO SCH (06:31)
[2017-10-30] MEDS: Aspirin 81mg Chewable Tab PO SCH (09:00)
[2017-10-30] MEDS: Multivitamin Tab PO SCH (09:01)
[2017-10-30] MEDS: Ferrous Sulfate 325 MG TAB PO SCH (09:01)
--- NOTE | 2017-10-30 14:00 | Internal Medicine Prog Note ---
Internal Medicine Subjective - Subjective Service Date: 10/30/17 Patient seen and examined:: with staff Patient is:: awake, verbal (SHE DENIES ANY PAIN OR SOB.), in bed, talking, confused Per staff patient has:: no adverse event Internal Medicine Objective - Results Result Diagrams: 10/20/17 20:43 10/23/17 06:10 Recent Labs: Laboratory Last Values WBC 7.5 Th/cmm (4.8-10.8) 10/20/17 20:43 RBC 5.34 Mil/cmm (3.80-5.20) H 10/20/17 20:43 Hgb 14.2 gm/dL (12-16) 10/20/17 20:43 Hct 44.0 % (41.0-60) 10/20/17 20:43 MCV 82.4 fl (81-100) 10/20/17 20:43 MCH 26.6 pg (27.0-31.0) L 10/20/17 20:43 MCHC Differential 32.3 pg (28.0-36.0) 10/20/17 20:43 RDW 17.0 % (11.5-20.0) 10/20/17 20:43 Plt Count 316 Th/cmm (150-400) 10/20/17 20:43 MPV 7.1 fl 10/20/17 20:43 Neutrophils % 70.0 % (40.0-80.0) 10/20/17 20:43 Lymphocytes % 21.7 % (20.0-50.0) 10/20/17 20:43 Monocytes % 6.2 % (2.0-10.0) 10/20/17 20:43 Eosinophils % 2.1 % (0.0-5.0) 10/20/17 20:43 Basophils % 0.0 % (0.0-2.0) 10/20/17 20:43 PT 15.7 SECONDS (9.5-11.5) H 10/28/17 06:12 INR 1.48 (0.5-1.4) H 10/28/17 06:12 Sodium 136 mEq/L (136-145) 10/23/17 06:10 Potassium 3.6 mEq/L (3.5-5.1) 10/23/17 06:10 Chloride 105 mEq/L (98-107) 10/23/17 06:10 Carbon Dioxide 27.3 mEq/L (21.0-31.0) 10/23/17 06:10 Anion Gap 7.3 (7.0-16.0) 10/23/17 06:10 BUN 15 mg/dL (7-25) 10/23/17 06:10 Creatinine 0.5 mg/dL (0.6-1.2) L 10/23/17 06:10 Est GFR ( Amer) TNP 10/23/17 06:10 Est GFR (Non-Af Amer) TNP 10/23/17 06:10 BUN/Creatinine Ratio 30.0 10/23/17 06:10 Glucose 95 mg/dL (70-105) 10/23/17 06:10 POC Glucose 49 MG/DL (70 - 105) L 10/21/17 06:40 Calcium 9.6 mg/dL (8.6-10.3) 10/23/17 06:10 Total Bilirubin 0.9 mg/dL (0.3-1.0) 10/22/17 06:20 AST 8 U/L (13-39) L 10/22/17 06:20 ALT 7 U/L (7-52) 10/22/17 06:20 Alkaline Phosphatase 46 U/L (34-104) 10/22/17 06:20 Total Protein 8.1 gm/dL (6.0-8.3) 10/22/17 06:20 Albumin 3.1 gm/dL (3.7-5.3) L 10/22/17 06:20 Globulin 5.0 gm/dL 10/22/17 06:20 Albumin/Globulin Ratio 0.6 (1.0-1.8) L 10/22/17 06:20 Urine Source CLEAN C 10/20/17 21:55 Urine Color YELLOW 10/20/17 21:55 Urine Clarity CLOUDY (CLEAR) H 10/20/17 21:55 Urine pH 5.5 (4.6 - 8.0) 10/20/17 21:55 Ur Specific [place] 1.025 (1.005-1.030) 10/20/17 21:55 Urine Protein NEGATIVE mg/dL (NEGATIVE) 10/20/17 21:55 Urine Glucose (UA) NEGATIVE mg/dL (NEGATIVE) 10/20/17 21:55 Urine Ketones NEGATIVE mg/dL (NEGATIVE) 10/20/17 21:55 Urine Blood SMALL (NEGATIVE) H 10/20/17 21:55 Urine Nitrate POSITIVE (NEGATIVE) H 10/20/17 21:55 Urine Bilirubin NEGATIVE (NEGATIVE) 10/20/17 21:55 Urine Urobilinogen 1.0 E.U./dL (0.2 - 1.0) 10/20/17 21:55 Ur Leukocyte Esterase LARGE (NEGATIVE) H 10/20/17 21:55 Urine RBC 2-5 /hpf (0-5) 10/20/17 21:55 Urine WBC 50-100 /hpf (0-5) H 10/20/17 21:55 Ur Epithelial Cells NONE SEEN /lpf (FEW) 10/20/17 21:55 Urine Bacteria MANY /hpf (NONE SEEN) H 10/20/17 21:55 - Physical Exam Vitals and I&O: Vital Signs Temp 96.9 F 10/30/17 06:45 Pulse 70 10/30/17 06:51 Resp 17 10/30/17 06:45 BP 152/78 10/30/17 06:51 Pulse Ox 97 10/30/17 06:45 Intake & Output 10/29/17 10/30/17 10/30/17 18:59 06:59 18:59 Intake Total 1000 Balance 1000 Intake: Oral 1000 Other: # Voids 2 # Bowel Movements 0 Active Medications: Current Medications Acetaminophen (Tylenol) 650 mg PO Q4HR PRN PRN Reason: Pain (Mild) Stop: 12/20/17 02:03 Amlodipine Besylate (Norvasc) 5 mg PO DAILY [facility] Stop: 12/21/17 18:29 Last Admin: 10/30/17 09:00 Dose: Not Given Ascorbic Acid (Vitamin C) 500 mg PO DAILY [facility] Stop: 12/20/17 08:59 Last Admin: 10/30/17 09:00 Dose: Not Given Aspirin (Aspirin Chewable) 81 mg PO DAILY [facility] Stop: 12/20/17 08:59 Last Admin: 10/30/17 09:00 Dose: Not Given Docusate Sodium (Colace) 100 mg PO DAILY [facility] Stop: 12/20/17 08:59 Last Admin: 10/30/17 09:01 Dose: Not Given Donepezil HCl (Aricept) 10 mg PO DAILY [facility] Stop: 12/20/17 08:59 Last Admin: 10/30/17 09:01 Dose: Not Given Ferrous Sulfate (Iron) 325 mg PO DAILY [facility] Stop: 12/20/17 08:59 Last Admin: 10/30/17 09:01 Dose: Not Given Memantine (Namenda) 10 mg PO BID [facility] Stop: 12/25/17 06:44 Last Admin: 10/30/17 09:01 Dose: Not Given Multivitamins/Vitamin C (Theragran) 1 tab PO DAILY [facility] Stop: 12/20/17 08:59 Last Admin: 10/30/17 09:01 Dose: Not Given Ondansetron HCl (Zofran Odt) 4 mg PO Q6HR PRN PRN Reason: Nausea/VOMITING Stop: 12/20/17 02:03 Pantoprazole Sodium (Protonix) 40 mg PO QDAC [facility] Stop: 12/20/17 07:29 Last Admin: 10/30/17 06:31 Dose: 40 mg Quetiapine Fumarate (Seroquel) 12.5 mg PO BID [facility] PRN Reason: Protocol Stop: 12/24/17 08:59 Last Admin: 10/30/17 09:01 Dose: Not Given General: demented HEENT: NC/AT, PERRLA, EOMI, anicteric sclerae, throat clear Neck: Supple, No JVD, No thyromegaly, +2 carotid pulse wo bruit, No LAD Lungs: CTAB Cardiovascular: RRR, Normal S1, Normal S2, without murmur Abdomen: soft, non-tender, non-distended Extremities: clear Neurological: no change Internal Medicine Assmt/Plan - Assessment Assessment: 1.HTN. 2.DEMENTIA - Plan Plan: CONTINUE ON CURRENT MEDICATION AND DIET. Nutritional Asmnt/Malnutr-PDOC - Dietary Evaluation Malnutrition Findings (Please click <Entered> for more info): Nutritional Asmnt/Malnutrition Start: 10/21/17 10: 55 Text: Status: Complete Freq: Document 10/21/17 10:55 [email or web address] (Rec: 10/21/17 11:12 FLORENCIO LLAMAS- [email or web address]) Nutritional Asmnt/Malnutrition Patient General Information Nutritional Screening High Risk Diagnosis Psychosis Pertinent Medical Hx/Surgical Hx Mastectomy Rt breast, dysphagia, DM type 2, abcess on lt breast, dementia Subjective Information Patient was admitted from SNF. Current Diet Order/ Nutrition Support Mechanical soft chopped Patient / S.O Not Indicated Pertinent Medications vitamin C, colace, iron, Theragran, Zofran, protonix Pertinent Labs (10/20) Na 135, K 3.1, glucose 49-132, albumin 3.1 Nutritional Hx/Data Height 1.68 m Height (Calculated Centimeters) 167.6 Current Weight (lbs) 30.391 kg Weight (Calculated Kilograms) 30.4 Weight (Calculated Grams) 46596.7 [place] Body Weight 130 % [place] Body Weight 51 Body Mass Index (BMI) 10.8 Weight Status Underweight GI Symptoms GI Symptoms None Difficult in: None Food Allergies No Cultural/Ethnic/Mormonism Belief none indicated Usual diet at home unknown Skin Integrity/Comment: Area of concern, Nickolas Ocasio Estimated Nutritional Goals BEE in Kcals: Adj wt of IBW Calories/Kcals/Kg 25-30 kcal/kg using IBW 59kg Kcals Calculated 2865-5821 kcal/day Protein: Adj wt of IBW Protein g/kg: .8-1 gm/kg using IBW Protein Calculated 50-50 gm/day Fluid: ml 1500-1800ml/day (1 ml/kcal) Nutritional Problem 2. Problem Problem Altered nutrition related lab values related to Etiology electrolyte imbalance aeb Signs/Symptoms: K 3.1 1. Problem Problem Underweight related to Etiology possible poor intake prior to admission aeb Signs/Symptoms: BMI 10.8 based on patient's stated weight. Intervention/Recommendation Comments 1. Continue current diet order as tolerated by patient. 2. Encourage oral intake due to low body weight/BMI. Consider Boost with meals to optimize nutrient intake. 3. Encourage intake of high potassium foods including banana, orange juice, tomato soup, potatoes. MD to replace lytes as needed. Expected Outcomes/Goals Expected Outcomes/Goals Oral intake to meet >75% of nutrient needs, weight gain toward ideal body weight, nutrition related labs normalize
[2017-10-31] MEDS: Pantoprazole 40 mg EC Tab PO SCH (06:34)
[2017-10-31] MEDS: Multivitamin Tab PO SCH (09:02)
[2017-10-31] MEDS: Aspirin 81mg Chewable Tab PO SCH (09:02)
[2017-10-31] MEDS: Ferrous Sulfate 325 MG TAB PO SCH (09:03)
--- NOTE | 2017-10-31 10:04 | Progress Notes ---
DATE: 10/30/2017 Chart reviewed and the patient interviewed. Also discussed the patient's condition with the staff and reviewed records and labs. The patient continued to be confused and continued to be severely paranoid. The patient also is having difficulty expressing herself and expressing her needs. The patient also keeps looking outside the window thinking that somebody is on the other side, watching her. She also has been suspicious and paranoid about her surroundings. The patient also still needs lots of redirection because of her confusion and forgetfulness. On the other hand, the patient's appetite improved and she is eating more. ASSESSMENT: The patient is still confused and is still paranoid. TREATMENT PLAN: We will continue to monitor her behavior and her condition closely. Also, we will change Seroquel to 12.5 mg twice a day and continue Aricept to 10 mg every day and Namenda 10 mg twice a day. Also, working with correctional case manager in regard to discharge plans and placement issue. JOB# [id number]
--- NOTE | 2017-10-31 20:35 | Progress Notes ---
DATE: 10/31/2017 SUBJECTIVE: Chart reviewed and the patient interviewed. Also discussed the patient's condition with the staff and reviewed records and labs. The patient is still confused and is still anxious. The patient also is withdrawn. The patient's thought processes are still disorganized and still needs lots of redirections. She also is still restless and she still has difficulty following staff directions. The patient also still paranoid, looking outside her windows thinking that somebody watching her from outside. Otherwise, the patient continued to comply with taking her medications with no side effects of medications. ASSESSMENT: The patient is still psychotic and confused. TREATMENT PLAN: Continue monitoring her behavior and her condition. Also, continue Seroquel and Aricept and Namenda at same dose. Also, continue to work on behavioral modification and also working with lining caser in regard to discharge plans and placement issue. JOB# [id number]
--- NOTE | 2017-10-31 23:51 | Internal Medicine Prog Note ---
Internal Medicine Subjective - Subjective Service Date: 10/31/17 Patient seen and examined:: without staff Patient is:: awake, verbal (SHE DENIES ANY PAIN OR SOB.), in bed, talking, confused Per staff patient has:: no adverse event Internal Medicine Objective - Results Result Diagrams: 10/20/17 20:43 10/23/17 06:10 Recent Labs: Laboratory Last Values WBC 7.5 Th/cmm (4.8-10.8) 10/20/17 20:43 RBC 5.34 Mil/cmm (3.80-5.20) H 10/20/17 20:43 Hgb 14.2 gm/dL (12-16) 10/20/17 20:43 Hct 44.0 % (41.0-60) 10/20/17 20:43 MCV 82.4 fl (81-100) 10/20/17 20:43 MCH 26.6 pg (27.0-31.0) L 10/20/17 20:43 MCHC Differential 32.3 pg (28.0-36.0) 10/20/17 20:43 RDW 17.0 % (11.5-20.0) 10/20/17 20:43 Plt Count 316 Th/cmm (150-400) 10/20/17 20:43 MPV 7.1 fl 10/20/17 20:43 Neutrophils % 70.0 % (40.0-80.0) 10/20/17 20:43 Lymphocytes % 21.7 % (20.0-50.0) 10/20/17 20:43 Monocytes % 6.2 % (2.0-10.0) 10/20/17 20:43 Eosinophils % 2.1 % (0.0-5.0) 10/20/17 20:43 Basophils % 0.0 % (0.0-2.0) 10/20/17 20:43 PT 15.7 SECONDS (9.5-11.5) H 10/28/17 06:12 INR 1.48 (0.5-1.4) H 10/28/17 06:12 Sodium 136 mEq/L (136-145) 10/23/17 06:10 Potassium 3.6 mEq/L (3.5-5.1) 10/23/17 06:10 Chloride 105 mEq/L (98-107) 10/23/17 06:10 Carbon Dioxide 27.3 mEq/L (21.0-31.0) 10/23/17 06:10 Anion Gap 7.3 (7.0-16.0) 10/23/17 06:10 BUN 15 mg/dL (7-25) 10/23/17 06:10 Creatinine 0.5 mg/dL (0.6-1.2) L 10/23/17 06:10 Est GFR ( Amer) TNP 10/23/17 06:10 Est GFR (Non-Af Amer) TNP 10/23/17 06:10 BUN/Creatinine Ratio 30.0 10/23/17 06:10 Glucose 95 mg/dL (70-105) 10/23/17 06:10 POC Glucose 49 MG/DL (70 - 105) L 10/21/17 06:40 Calcium 9.6 mg/dL (8.6-10.3) 10/23/17 06:10 Total Bilirubin 0.9 mg/dL (0.3-1.0) 10/22/17 06:20 AST 8 U/L (13-39) L 10/22/17 06:20 ALT 7 U/L (7-52) 10/22/17 06:20 Alkaline Phosphatase 46 U/L (34-104) 10/22/17 06:20 Total Protein 8.1 gm/dL (6.0-8.3) 10/22/17 06:20 Albumin 3.1 gm/dL (3.7-5.3) L 10/22/17 06:20 Globulin 5.0 gm/dL 10/22/17 06:20 Albumin/Globulin Ratio 0.6 (1.0-1.8) L 10/22/17 06:20 Urine Source CLEAN C 10/20/17 21:55 Urine Color YELLOW 10/20/17 21:55 Urine Clarity CLOUDY (CLEAR) H 10/20/17 21:55 Urine pH 5.5 (4.6 - 8.0) 10/20/17 21:55 Ur Specific [place] 1.025 (1.005-1.030) 10/20/17 21:55 Urine Protein NEGATIVE mg/dL (NEGATIVE) 10/20/17 21:55 Urine Glucose (UA) NEGATIVE mg/dL (NEGATIVE) 10/20/17 21:55 Urine Ketones NEGATIVE mg/dL (NEGATIVE) 10/20/17 21:55 Urine Blood SMALL (NEGATIVE) H 10/20/17 21:55 Urine Nitrate POSITIVE (NEGATIVE) H 10/20/17 21:55 Urine Bilirubin NEGATIVE (NEGATIVE) 10/20/17 21:55 Urine Urobilinogen 1.0 E.U./dL (0.2 - 1.0) 10/20/17 21:55 Ur Leukocyte Esterase LARGE (NEGATIVE) H 10/20/17 21:55 Urine RBC 2-5 /hpf (0-5) 10/20/17 21:55 Urine WBC 50-100 /hpf (0-5) H 10/20/17 21:55 Ur Epithelial Cells NONE SEEN /lpf (FEW) 10/20/17 21:55 Urine Bacteria MANY /hpf (NONE SEEN) H 10/20/17 21:55 - Physical Exam Vitals and I&O: Vital Signs Temp 97 F 10/31/17 20:35 Pulse 47 10/31/17 20:35 Resp 18 10/31/17 20:35 BP 157/72 10/31/17 20:35 Pulse Ox 98 10/31/17 20:35 Intake & Output 10/31/17 10/31/17 11/01/17 06:59 18:59 06:59 Intake Total 480 1100 240 Balance 480 1100 240 Intake: Oral 480 1100 240 Other: # Voids 1 2 1 # Bowel Movements 0 Active Medications: Current Medications Acetaminophen (Tylenol) 650 mg PO Q4HR PRN PRN Reason: Pain (Mild) Stop: 12/20/17 02:03 Amlodipine Besylate (Norvasc) 5 mg PO DAILY [facility] Stop: 12/21/17 18:29 Last Admin: 10/31/17 09:02 Dose: 5 mg Ascorbic Acid (Vitamin C) 500 mg PO DAILY [facility] Stop: 12/20/17 08:59 Last Admin: 10/31/17 09:03 Dose: 500 mg Aspirin (Aspirin Chewable) 81 mg PO DAILY [facility] Stop: 12/20/17 08:59 Last Admin: 10/31/17 09:02 Dose: 81 mg Docusate Sodium (Colace) 100 mg PO DAILY [facility] Stop: 12/20/17 08:59 Last Admin: 10/31/17 09:02 Dose: 100 mg Donepezil HCl (Aricept) 10 mg PO DAILY [facility] Stop: 12/20/17 08:59 Last Admin: 10/31/17 09:01 Dose: 10 mg Ferrous Sulfate (Iron) 325 mg PO DAILY [facility] Stop: 12/20/17 08:59 Last Admin: 10/31/17 09:03 Dose: 325 mg Memantine (Namenda) 10 mg PO BID [facility] Stop: 12/29/17 16:59 Last Admin: 10/31/17 17:11 Dose: 10 mg Multivitamins/Vitamin C (Theragran) 1 tab PO DAILY [facility] Stop: 12/20/17 08:59 Last Admin: 10/31/17 09:02 Dose: 1 tab Ondansetron HCl (Zofran Odt) 4 mg PO Q6HR PRN PRN Reason: Nausea/VOMITING Stop: 12/20/17 02:03 Pantoprazole Sodium (Protonix) 40 mg PO QDAC [facility] Stop: 12/20/17 07:29 Last Admin: 10/31/17 06:34 Dose: 40 mg Quetiapine Fumarate (Seroquel) 12.5 mg PO BID [facility] PRN Reason: Protocol Stop: 12/24/17 08:59 Last Admin: 10/31/17 17:11 Dose: 12.5 mg General: demented HEENT: NC/AT, PERRLA, EOMI, anicteric sclerae, throat clear Neck: Supple, No JVD, No thyromegaly, +2 carotid pulse wo bruit, No LAD Lungs: CTAB Cardiovascular: RRR, Normal S1, Normal S2, without murmur Abdomen: soft, non-tender, non-distended Extremities: clear Neurological: no change Internal Medicine Assmt/Plan - Assessment Assessment: 1.HTN. 2.DEMENTIA - Plan Plan: CONTINUE ON CURRENT MEDICATION AND DIET. Nutritional Asmnt/Malnutr-PDOC - Dietary Evaluation Malnutrition Findings (Please click <Entered> for more info): Nutritional Asmnt/Malnutrition Start: 10/21/17 10: 55 Text: Status: Complete Freq: Document 10/21/17 10:55 [email or web address] (Rec: 10/21/17 11:12 FLORENCIO LLAMAS- [email or web address]) Nutritional Asmnt/Malnutrition Patient General Information Nutritional Screening High Risk Diagnosis Psychosis Pertinent Medical Hx/Surgical Hx Mastectomy Rt breast, dysphagia, DM type 2, abcess on lt breast, dementia Subjective Information Patient was admitted from SNF. Current Diet Order/ Nutrition Support Mechanical soft chopped Patient / S.O Not Indicated Pertinent Medications vitamin C, colace, iron, Theragran, Zofran, protonix Pertinent Labs (10/20) Na 135, K 3.1, glucose 49-132, albumin 3.1 Nutritional Hx/Data Height 1.68 m Height (Calculated Centimeters) 167.6 Current Weight (lbs) 30.391 kg Weight (Calculated Kilograms) 30.4 Weight (Calculated Grams) 74333.7 [employer] Body Weight 130 % [employer] Body Weight 51 Body Mass Index (BMI) 10.8 Weight Status Underweight GI Symptoms GI Symptoms None Difficult in: None Food Allergies No Cultural/Ethnic/Orthodox Belief none indicated Usual diet at home unknown Skin Integrity/Comment: Area of concern, Nickolas Ocasio Estimated Nutritional Goals BEE in Kcals: Adj wt of IBW Calories/Kcals/Kg 25-30 kcal/kg using IBW 59kg Kcals Calculated 4669-9525 kcal/day Protein: Adj wt of IBW Protein g/kg: .8-1 gm/kg using IBW Protein Calculated 50-50 gm/day Fluid: ml 1500-1800ml/day (1 ml/kcal) Nutritional Problem 2. Problem Problem Altered nutrition related lab values related to Etiology electrolyte imbalance aeb Signs/Symptoms: K 3.1 1. Problem Problem Underweight related to Etiology possible poor intake prior to admission aeb Signs/Symptoms: BMI 10.8 based on patient's stated weight. Intervention/Recommendation Comments 1. Continue current diet order as tolerated by patient. 2. Encourage oral intake due to low body weight/BMI. Consider Boost with meals to optimize nutrient intake. 3. Encourage intake of high potassium foods including banana, orange juice, tomato soup, potatoes. MD to replace lytes as needed. Expected Outcomes/Goals Expected Outcomes/Goals Oral intake to meet >75% of nutrient needs, weight gain toward ideal body weight, nutrition related labs normalize
[2017-11-01] MEDS: Pantoprazole 40 mg EC Tab PO SCH (06:36)
[2017-11-01] MEDS: Multivitamin Tab PO SCH (09:16)
[2017-11-01] MEDS: Aspirin 81mg Chewable Tab PO SCH (09:17)
[2017-11-01] MEDS: Ferrous Sulfate 325 MG TAB PO SCH (09:18)
[2017-11-01 12:46] LABS: INR 1.09 (0.5-1.4); PROTHROMBIN TIME (TEST) 11.4 SECONDS (9.5-11.5)
--- NOTE | 2017-11-01 22:36 | Internal Medicine Prog Note ---
Internal Medicine Subjective - Subjective Service Date: 11/01/17 Patient seen and examined:: with staff (SHE HAS DISCHARGE FROM RT BREAST OPENED WOUND.) Patient is:: awake, verbal (SHE DENIES ANY PAIN OR SOB.), in bed, talking, confused Per staff patient has:: no adverse event Internal Medicine Objective - Results Result Diagrams: 10/20/17 20:43 10/23/17 06:10 Recent Labs: Laboratory Last Values WBC 7.5 Th/cmm (4.8-10.8) 10/20/17 20:43 RBC 5.34 Mil/cmm (3.80-5.20) H 10/20/17 20:43 Hgb 14.2 gm/dL (12-16) 10/20/17 20:43 Hct 44.0 % (41.0-60) 10/20/17 20:43 MCV 82.4 fl (81-100) 10/20/17 20:43 MCH 26.6 pg (27.0-31.0) L 10/20/17 20:43 MCHC Differential 32.3 pg (28.0-36.0) 10/20/17 20:43 RDW 17.0 % (11.5-20.0) 10/20/17 20:43 Plt Count 316 Th/cmm (150-400) 10/20/17 20:43 MPV 7.1 fl 10/20/17 20:43 Neutrophils % 70.0 % (40.0-80.0) 10/20/17 20:43 Lymphocytes % 21.7 % (20.0-50.0) 10/20/17 20:43 Monocytes % 6.2 % (2.0-10.0) 10/20/17 20:43 Eosinophils % 2.1 % (0.0-5.0) 10/20/17 20:43 Basophils % 0.0 % (0.0-2.0) 10/20/17 20:43 PT 11.4 SECONDS (9.5-11.5) 11/01/17 10:45 INR 1.09 (0.5-1.4) 11/01/17 10:45 Sodium 136 mEq/L (136-145) 10/23/17 06:10 Potassium 3.6 mEq/L (3.5-5.1) 10/23/17 06:10 Chloride 105 mEq/L (98-107) 10/23/17 06:10 Carbon Dioxide 27.3 mEq/L (21.0-31.0) 10/23/17 06:10 Anion Gap 7.3 (7.0-16.0) 10/23/17 06:10 BUN 15 mg/dL (7-25) 10/23/17 06:10 Creatinine 0.5 mg/dL (0.6-1.2) L 10/23/17 06:10 Est GFR ( Amer) TNP 10/23/17 06:10 Est GFR (Non-Af Amer) TNP 10/23/17 06:10 BUN/Creatinine Ratio 30.0 10/23/17 06:10 Glucose 95 mg/dL (70-105) 10/23/17 06:10 POC Glucose 49 MG/DL (70 - 105) L 10/21/17 06:40 Calcium 9.6 mg/dL (8.6-10.3) 10/23/17 06:10 Total Bilirubin 0.9 mg/dL (0.3-1.0) 10/22/17 06:20 AST 8 U/L (13-39) L 10/22/17 06:20 ALT 7 U/L (7-52) 10/22/17 06:20 Alkaline Phosphatase 46 U/L (34-104) 10/22/17 06:20 Total Protein 8.1 gm/dL (6.0-8.3) 10/22/17 06:20 Albumin 3.1 gm/dL (3.7-5.3) L 10/22/17 06:20 Globulin 5.0 gm/dL 10/22/17 06:20 Albumin/Globulin Ratio 0.6 (1.0-1.8) L 10/22/17 06:20 Urine Source CLEAN C 10/20/17 21:55 Urine Color YELLOW 10/20/17 21:55 Urine Clarity CLOUDY (CLEAR) H 10/20/17 21:55 Urine pH 5.5 (4.6 - 8.0) 10/20/17 21:55 Ur Specific [place] 1.025 (1.005-1.030) 10/20/17 21:55 Urine Protein NEGATIVE mg/dL (NEGATIVE) 10/20/17 21:55 Urine Glucose (UA) NEGATIVE mg/dL (NEGATIVE) 10/20/17 21:55 Urine Ketones NEGATIVE mg/dL (NEGATIVE) 10/20/17 21:55 Urine Blood SMALL (NEGATIVE) H 10/20/17 21:55 Urine Nitrate POSITIVE (NEGATIVE) H 10/20/17 21:55 Urine Bilirubin NEGATIVE (NEGATIVE) 10/20/17 21:55 Urine Urobilinogen 1.0 E.U./dL (0.2 - 1.0) 10/20/17 21:55 Ur Leukocyte Esterase LARGE (NEGATIVE) H 10/20/17 21:55 Urine RBC 2-5 /hpf (0-5) 10/20/17 21:55 Urine WBC 50-100 /hpf (0-5) H 10/20/17 21:55 Ur Epithelial Cells NONE SEEN /lpf (FEW) 10/20/17 21:55 Urine Bacteria MANY /hpf (NONE SEEN) H 10/20/17 21:55 - Physical Exam Vitals and I&O: Vital Signs Temp 97.9 F 11/01/17 19:56 Pulse 47 11/01/17 19:56 Resp 20 11/01/17 19:56 BP 157/70 11/01/17 19:56 Pulse Ox 97 11/01/17 19:56 Intake & Output 11/01/17 11/01/17 11/02/17 06:59 18:59 06:59 Intake Total 480 1100 240 Balance 480 1100 240 Intake: Oral 480 1100 240 Other: # Voids 1 3 # Bowel Movements 1 Active Medications: Current Medications Acetaminophen (Tylenol) 650 mg PO Q4HR PRN PRN Reason: Pain (Mild) Stop: 12/20/17 02:03 Amlodipine Besylate (Norvasc) 10 mg PO DAILY [facility] Stop: 12/31/17 10:02 Ascorbic Acid (Vitamin C) 500 mg PO DAILY [facility] Stop: 12/20/17 08:59 Last Admin: 11/01/17 10:30 Dose: Not Given Aspirin (Aspirin Chewable) 81 mg PO DAILY [facility] Stop: 12/20/17 08:59 Last Admin: 11/01/17 09:17 Dose: 81 mg Docusate Sodium (Colace) 100 mg PO DAILY [facility] Stop: 12/20/17 08:59 Last Admin: 11/01/17 09:16 Dose: 100 mg Donepezil HCl (Aricept) 10 mg PO DAILY [facility] Stop: 12/20/17 08:59 Last Admin: 11/01/17 09:17 Dose: 10 mg Ferrous Sulfate (Iron) 325 mg PO DAILY [facility] Stop: 12/20/17 08:59 Last Admin: 11/01/17 09:18 Dose: 325 mg Memantine (Namenda) 10 mg PO BID [facility] Stop: 12/29/17 16:59 Last Admin: 11/01/17 16:55 Dose: 10 mg Multivitamins/Vitamin C (Theragran) 1 tab PO DAILY [facility] Stop: 12/20/17 08:59 Last Admin: 11/01/17 09:16 Dose: 1 tab Ondansetron HCl (Zofran Odt) 4 mg PO Q6HR PRN PRN Reason: Nausea/VOMITING Stop: 12/20/17 02:03 Pantoprazole Sodium (Protonix) 40 mg PO QDAC [facility] Stop: 12/20/17 07:29 Last Admin: 11/01/17 06:36 Dose: 40 mg Quetiapine Fumarate (Seroquel) 12.5 mg PO BID [facility] PRN Reason: Protocol Stop: 12/24/17 08:59 Last Admin: 11/01/17 16:55 Dose: 12.5 mg Warfarin Sodium (Coumadin Per Pharmacy) 1 ea MC DAILY [facility] Stop: 01/01/18 08:59 Wound Care/Dressing Products (Silvasorb) 1 appl TP DAILY [facility] Stop: 12/31/17 17:59 General: demented HEENT: NC/AT, PERRLA, EOMI, anicteric sclerae, throat clear Neck: Supple, No JVD, No thyromegaly, +2 carotid pulse wo bruit, No LAD Lungs: CTAB Cardiovascular: RRR, Normal S1, Normal S2, without murmur Abdomen: soft, non-tender, non-distended Extremities: clear Neurological: no change - Procedures Procedures: EXAMINATION OF THE LEFT BREAST SIGNIFICANT FOR HARD BREAST WITH ONE CM OPENING AT LOWER PART OF THE BREAST. Internal Medicine Assmt/Plan - Assessment Assessment: 1.LEFT BREAST MASS WITH DISCHARGE 2.HTN. 3.DEMENTIA - Plan Plan: CONTINUE ON CURRENT MEDICATION AND DIET.CONSULT IN AM. Nutritional Asmnt/Malnutr-PDOC - Dietary Evaluation Malnutrition Findings (Please click <Entered> for more info): Nutritional Asmnt/Malnutrition Start: 10/21/17 10: 55 Text: Status: Complete Freq: Document 10/21/17 10:55 FLORENCIO (Rec: 10/21/17 11:12 FLORENCIO LLAMAS- [email or web address]) Nutritional Asmnt/Malnutrition Patient General Information Nutritional Screening High Risk Diagnosis Psychosis Pertinent Medical Hx/Surgical Hx Mastectomy Rt breast, dysphagia, DM type 2, abcess on lt breast, dementia Subjective Information Patient was admitted from SNF. Current Diet Order/ Nutrition Support Mechanical soft chopped Patient / S.O Not Indicated Pertinent Medications vitamin C, colace, iron, Theragran, Zofran, protonix Pertinent Labs (10/20) Na 135, K 3.1, glucose 49-132, albumin 3.1 Nutritional Hx/Data Height 1.68 m Height (Calculated Centimeters) 167.6 Current Weight (lbs) 30.391 kg Weight (Calculated Kilograms) 30.4 Weight (Calculated Grams) 60354.7 [place] Body Weight 130 % [place] Body Weight 51 Body Mass Index (BMI) 10.8 Weight Status Underweight GI Symptoms GI Symptoms None Difficult in: None Food Allergies No Cultural/Ethnic/Yarsani Belief none indicated Usual diet at home unknown Skin Integrity/Comment: Area of concern, Nickolas 16 Estimated Nutritional Goals BEE in Kcals: Adj wt of IBW Calories/Kcals/Kg 25-30 kcal/kg using IBW 59kg Kcals Calculated 0379-8661 kcal/day Protein: Adj wt of IBW Protein g/kg: .8-1 gm/kg using IBW Protein Calculated 50-50 gm/day Fluid: ml 1500-1800ml/day (1 ml/kcal) Nutritional Problem 2. Problem Problem Altered nutrition related lab values related to Etiology electrolyte imbalance aeb Signs/Symptoms: K 3.1 1. Problem Problem Underweight related to Etiology possible poor intake prior to admission aeb Signs/Symptoms: BMI 10.8 based on patient's stated weight. Intervention/Recommendation Comments 1. Continue current diet order as tolerated by patient. 2. Encourage oral intake due to low body weight/BMI. Consider Boost with meals to optimize nutrient intake. 3. Encourage intake of high potassium foods including banana, orange juice, tomato soup, potatoes. MD to replace lytes as needed. Expected Outcomes/Goals Expected Outcomes/Goals Oral intake to meet >75% of nutrient needs, weight gain toward ideal body weight, nutrition related labs normalize
--- NOTE | 2017-11-02 01:32 | Progress Notes ---
DATE: 11/01/2017 SUBJECTIVE: Chart reviewed and the patient interviewed. Also, discussed the patient's condition with the staff and reviewed records and labs. The patient is still withdrawn and is still easily agitated. The patient wants to be left alone. She also still has episodes of anger and wants to be left alone. On the other hand, the patient did sleep better last night. She also is compliant with taking her medications. ASSESSMENT: The patient is still agitated. TREATMENT PLAN: Continue Seroquel 12.5 mg twice a day and also continue Namenda and Aricept. Also, continue to work on behavioral modification and monitor her medications. JOB# [id number]
[2017-11-02] MEDS: Pantoprazole 40 mg EC Tab PO SCH (06:34)
[2017-11-02 08:23] LABS: INR 1.04 (0.5-1.4); PROTHROMBIN TIME (TEST) 10.8 SECONDS (9.5-11.5)
[2017-11-02] MEDS: Aspirin 81mg Chewable Tab PO SCH (09:27)
[2017-11-02] MEDS: Ferrous Sulfate 325 MG TAB PO SCH (09:27)
[2017-11-02] MEDS: Multivitamin Tab PO SCH (09:27)
--- NOTE | 2017-11-02 14:11 | Diagnostic Imaging Report ---
Left breast ultrasound History: Abscess. History of right mastectomy. Comparison: Chest x-ray on 10/20/2016 Technique: Sonography of the left breast was performed in multiple planes. Findings: Multiple cystic lesion throughout the left breast are noted the largest measuring 3.5 x 2.4 x 2.4 cm. IMPRESSION: Multiple cystic lesions throughout the left breast. Findings may be used infectious or inflammatory process and possible multiple small breast abscesses. Neoplastic process considered less likely but cannot be excluded. Clinical correlation and follow-up is recommended.
--- NOTE | 2017-11-02 15:55 | Internal Medicine Prog Note ---
Internal Medicine Subjective - Subjective Service Date: 11/02/17 Patient seen and examined:: with staff Patient is:: awake, verbal (SHE DENIES ANY PAIN OR SOB.), in bed, talking, confused Per staff patient has:: no adverse event Internal Medicine Objective - Results Result Diagrams: 10/20/17 20:43 10/23/17 06:10 Recent Labs: Laboratory Last Values WBC 7.5 Th/cmm (4.8-10.8) 10/20/17 20:43 RBC 5.34 Mil/cmm (3.80-5.20) H 10/20/17 20:43 Hgb 14.2 gm/dL (12-16) 10/20/17 20:43 Hct 44.0 % (41.0-60) 10/20/17 20:43 MCV 82.4 fl (81-100) 10/20/17 20:43 MCH 26.6 pg (27.0-31.0) L 10/20/17 20:43 MCHC Differential 32.3 pg (28.0-36.0) 10/20/17 20:43 RDW 17.0 % (11.5-20.0) 10/20/17 20:43 Plt Count 316 Th/cmm (150-400) 10/20/17 20:43 MPV 7.1 fl 10/20/17 20:43 Neutrophils % 70.0 % (40.0-80.0) 10/20/17 20:43 Lymphocytes % 21.7 % (20.0-50.0) 10/20/17 20:43 Monocytes % 6.2 % (2.0-10.0) 10/20/17 20:43 Eosinophils % 2.1 % (0.0-5.0) 10/20/17 20:43 Basophils % 0.0 % (0.0-2.0) 10/20/17 20:43 PT 10.8 SECONDS (9.5-11.5) 11/02/17 07:30 INR 1.04 (0.5-1.4) 11/02/17 07:30 Sodium 136 mEq/L (136-145) 10/23/17 06:10 Potassium 3.6 mEq/L (3.5-5.1) 10/23/17 06:10 Chloride 105 mEq/L (98-107) 10/23/17 06:10 Carbon Dioxide 27.3 mEq/L (21.0-31.0) 10/23/17 06:10 Anion Gap 7.3 (7.0-16.0) 10/23/17 06:10 BUN 15 mg/dL (7-25) 10/23/17 06:10 Creatinine 0.5 mg/dL (0.6-1.2) L 10/23/17 06:10 Est GFR ( Amer) TNP 10/23/17 06:10 Est GFR (Non-Af Amer) TNP 10/23/17 06:10 BUN/Creatinine Ratio 30.0 10/23/17 06:10 Glucose 95 mg/dL (70-105) 10/23/17 06:10 POC Glucose 49 MG/DL (70 - 105) L 10/21/17 06:40 Calcium 9.6 mg/dL (8.6-10.3) 10/23/17 06:10 Total Bilirubin 0.9 mg/dL (0.3-1.0) 10/22/17 06:20 AST 8 U/L (13-39) L 10/22/17 06:20 ALT 7 U/L (7-52) 10/22/17 06:20 Alkaline Phosphatase 46 U/L (34-104) 10/22/17 06:20 Total Protein 8.1 gm/dL (6.0-8.3) 10/22/17 06:20 Albumin 3.1 gm/dL (3.7-5.3) L 10/22/17 06:20 Globulin 5.0 gm/dL 10/22/17 06:20 Albumin/Globulin Ratio 0.6 (1.0-1.8) L 10/22/17 06:20 Urine Source CLEAN C 10/20/17 21:55 Urine Color YELLOW 10/20/17 21:55 Urine Clarity CLOUDY (CLEAR) H 10/20/17 21:55 Urine pH 5.5 (4.6 - 8.0) 10/20/17 21:55 Ur Specific [place] 1.025 (1.005-1.030) 10/20/17 21:55 Urine Protein NEGATIVE mg/dL (NEGATIVE) 10/20/17 21:55 Urine Glucose (UA) NEGATIVE mg/dL (NEGATIVE) 10/20/17 21:55 Urine Ketones NEGATIVE mg/dL (NEGATIVE) 10/20/17 21:55 Urine Blood SMALL (NEGATIVE) H 10/20/17 21:55 Urine Nitrate POSITIVE (NEGATIVE) H 10/20/17 21:55 Urine Bilirubin NEGATIVE (NEGATIVE) 10/20/17 21:55 Urine Urobilinogen 1.0 E.U./dL (0.2 - 1.0) 10/20/17 21:55 Ur Leukocyte Esterase LARGE (NEGATIVE) H 10/20/17 21:55 Urine RBC 2-5 /hpf (0-5) 10/20/17 21:55 Urine WBC 50-100 /hpf (0-5) H 10/20/17 21:55 Ur Epithelial Cells NONE SEEN /lpf (FEW) 10/20/17 21:55 Urine Bacteria MANY /hpf (NONE SEEN) H 10/20/17 21:55 - Physical Exam Vitals and I&O: Vital Signs Temp 98.4 F 11/02/17 14:00 Pulse 53 11/02/17 14:00 Resp 18 11/02/17 14:00 BP 150/85 11/02/17 14:00 Pulse Ox 96 11/02/17 14:00 Intake & Output 11/01/17 11/02/17 11/02/17 18:59 06:59 18:59 Intake Total 1100 240 Balance 1100 240 Intake: Oral 1100 240 Other: # Voids 3 # Bowel Movements 1 Active Medications: Current Medications Acetaminophen (Tylenol) 650 mg PO Q4HR PRN PRN Reason: Pain (Mild) Stop: 12/20/17 02:03 Amlodipine Besylate (Norvasc) 10 mg PO DAILY [facility] Stop: 12/31/17 10:02 Last Admin: 11/02/17 09:26 Dose: 10 mg Ascorbic Acid (Vitamin C) 500 mg PO DAILY [facility] Stop: 12/20/17 08:59 Last Admin: 11/02/17 09:27 Dose: 500 mg Aspirin (Aspirin Chewable) 81 mg PO DAILY [facility] Stop: 12/20/17 08:59 Last Admin: 11/02/17 09:27 Dose: 81 mg Docusate Sodium (Colace) 100 mg PO DAILY [facility] Stop: 12/20/17 08:59 Last Admin: 11/02/17 09:27 Dose: 100 mg Donepezil HCl (Aricept) 10 mg PO DAILY [facility] Stop: 12/20/17 08:59 Last Admin: 11/02/17 09:27 Dose: 10 mg Ferrous Sulfate (Iron) 325 mg PO DAILY [facility] Stop: 12/20/17 08:59 Last Admin: 11/02/17 09:27 Dose: 325 mg Memantine (Namenda) 10 mg PO BID [facility] Stop: 12/29/17 16:59 Last Admin: 11/02/17 09:27 Dose: 10 mg Multivitamins/Vitamin C (Theragran) 1 tab PO DAILY [facility] Stop: 12/20/17 08:59 Last Admin: 11/02/17 09:27 Dose: 1 tab Ondansetron HCl (Zofran Odt) 4 mg PO Q6HR PRN PRN Reason: Nausea/VOMITING Stop: 12/20/17 02:03 Pantoprazole Sodium (Protonix) 40 mg PO QDAC [facility] Stop: 12/20/17 07:29 Last Admin: 11/02/17 06:34 Dose: 40 mg Quetiapine Fumarate (Seroquel) 12.5 mg PO BID [facility] PRN Reason: Protocol Stop: 12/24/17 08:59 Last Admin: 11/02/17 09:27 Dose: 12.5 mg Warfarin Sodium (Coumadin Per Pharmacy) 1 ea MC DAILY [facility] Stop: 01/01/18 08:59 Wound Care/Dressing Products (Silvasorb) 1 appl TP DAILY [facility] Stop: 12/31/17 17:59 General: demented HEENT: NC/AT, PERRLA, EOMI, anicteric sclerae, throat clear Neck: Supple, No JVD, No thyromegaly, +2 carotid pulse wo bruit, No LAD Lungs: CTAB Cardiovascular: RRR, Normal S1, Normal S2, without murmur Abdomen: soft, non-tender, non-distended Extremities: clear Neurological: no change Internal Medicine Assmt/Plan - Assessment Assessment: 1.LEFT BREAST MASS WITH DISCHARGE 2.HTN. 3.DEMENTIA - Plan Plan: CONTINUE ON CURRENT MEDICATION AND DIET.US IS DONE. Nutritional Asmnt/Malnutr-PDOC - Dietary Evaluation Malnutrition Findings (Please click <Entered> for more info): Nutritional Asmnt/Malnutrition Start: 10/21/17 10: 55 Text: Status: Complete Freq: Document 10/21/17 10:55 FLORENCIO (Rec: 10/21/17 11:12 FLORENCIO MURIEL- [email or web address]) Nutritional Asmnt/Malnutrition Patient General Information Nutritional Screening High Risk Diagnosis Psychosis Pertinent Medical Hx/Surgical Hx Mastectomy Rt breast, dysphagia, DM type 2, abcess on lt breast, dementia Subjective Information Patient was admitted from SNF. Current Diet Order/ Nutrition Support Mechanical soft chopped Patient / S.O Not Indicated Pertinent Medications vitamin C, colace, iron, Theragran, Zofran, protonix Pertinent Labs (10/20) Na 135, K 3.1, glucose 49-132, albumin 3.1 Nutritional Hx/Data Height 1.68 m Height (Calculated Centimeters) 167.6 Current Weight (lbs) 30.391 kg Weight (Calculated Kilograms) 30.4 Weight (Calculated Grams) 06484.7 [place] Body Weight 130 % [place] Body Weight 51 Body Mass Index (BMI) 10.8 Weight Status Underweight GI Symptoms GI Symptoms None Difficult in: None Food Allergies No Cultural/Ethnic/Confucianism Belief none indicated Usual diet at home unknown Skin Integrity/Comment: Area of concern, Nickolas Ocasio Estimated Nutritional Goals BEE in Kcals: Adj wt of IBW Calories/Kcals/Kg 25-30 kcal/kg using IBW 59kg Kcals Calculated 8545-7747 kcal/day Protein: Adj wt of IBW Protein g/kg: .8-1 gm/kg using IBW Protein Calculated 50-50 gm/day Fluid: ml 1500-1800ml/day (1 ml/kcal) Nutritional Problem 2. Problem Problem Altered nutrition related lab values related to Etiology electrolyte imbalance aeb Signs/Symptoms: K 3.1 1. Problem Problem Underweight related to Etiology possible poor intake prior to admission aeb Signs/Symptoms: BMI 10.8 based on patient's stated weight. Intervention/Recommendation Comments 1. Continue current diet order as tolerated by patient. 2. Encourage oral intake due to low body weight/BMI. Consider Boost with meals to optimize nutrient intake. 3. Encourage intake of high potassium foods including banana, orange juice, tomato soup, potatoes. MD to replace lytes as needed. Expected Outcomes/Goals Expected Outcomes/Goals Oral intake to meet >75% of nutrient needs, weight gain toward ideal body weight, nutrition related labs normalize
[2017-11-02] MEDS: Silver Antimicrobial Wound Gel 0.25 oz Tube TP SCH (16:29)
--- NOTE | 2017-11-02 18:05 | Progress Notes ---
DATE: PSYCHIATRIC PROGRESS NOTE SUBJECTIVE: Chart reviewed and the patient interviewed. Also discussed the patient's condition with the staff and reviewed records and labs. The patient still has episodes of agitation and irritability. The patient also is still in withdrawn and she is easily agitated and wants to be left alone. The patient also is still suspicious and paranoid. On the other hand, the patient is trying to interact and trying to follow directions. ASSESSMENT: The patient is still psychotic and episodes of agitation. TREATMENT PLAN: Continue to monitor her behavior and her condition closely. Also, continue Seroquel and Aricept and Namenda and continue to follow up closely. JOB# [id number]
[2017-11-03] MEDS: Pantoprazole 40 mg EC Tab PO SCH (06:44)
[2017-11-03 07:00] LABS: INR 1.07 (0.5-1.4); PROTHROMBIN TIME (TEST) 11.1 SECONDS (9.5-11.5)
--- NOTE | 2017-11-03 08:09 | General Progress Note ---
Subjective - Review of Systems Service Date: 11/03/17 Events since last encounter: US - abscesses or masses (malignant?) left breast need excision or drainage message left with indigo Linn I suspect malignancy, 2 doctors may have to certify medical necessity for the surgery Objective - Results Result Diagrams: 10/20/17 20:43 10/23/17 06:10 Recent Labs: Laboratory Last Values WBC 7.5 Th/cmm (4.8-10.8) 10/20/17 20:43 RBC 5.34 Mil/cmm (3.80-5.20) H 10/20/17 20:43 Hgb 14.2 gm/dL (12-16) 10/20/17 20:43 Hct 44.0 % (41.0-60) 10/20/17 20:43 MCV 82.4 fl (81-100) 10/20/17 20:43 MCH 26.6 pg (27.0-31.0) L 10/20/17 20:43 MCHC Differential 32.3 pg (28.0-36.0) 10/20/17 20:43 RDW 17.0 % (11.5-20.0) 10/20/17 20:43 Plt Count 316 Th/cmm (150-400) 10/20/17 20:43 MPV 7.1 fl 10/20/17 20:43 Neutrophils % 70.0 % (40.0-80.0) 10/20/17 20:43 Lymphocytes % 21.7 % (20.0-50.0) 10/20/17 20:43 Monocytes % 6.2 % (2.0-10.0) 10/20/17 20:43 Eosinophils % 2.1 % (0.0-5.0) 10/20/17 20:43 Basophils % 0.0 % (0.0-2.0) 10/20/17 20:43 PT 11.1 SECONDS (9.5-11.5) 11/03/17 06:30 INR 1.07 (0.5-1.4) 11/03/17 06:30 Sodium 136 mEq/L (136-145) 10/23/17 06:10 Potassium 3.6 mEq/L (3.5-5.1) 10/23/17 06:10 Chloride 105 mEq/L (98-107) 10/23/17 06:10 Carbon Dioxide 27.3 mEq/L (21.0-31.0) 10/23/17 06:10 Anion Gap 7.3 (7.0-16.0) 10/23/17 06:10 BUN 15 mg/dL (7-25) 10/23/17 06:10 Creatinine 0.5 mg/dL (0.6-1.2) L 10/23/17 06:10 Est GFR ( Amer) TNP 10/23/17 06:10 Est GFR (Non-Af Amer) TNP 10/23/17 06:10 BUN/Creatinine Ratio 30.0 10/23/17 06:10 Glucose 95 mg/dL (70-105) 10/23/17 06:10 POC Glucose 49 MG/DL (70 - 105) L 10/21/17 06:40 Calcium 9.6 mg/dL (8.6-10.3) 10/23/17 06:10 Total Bilirubin 0.9 mg/dL (0.3-1.0) 10/22/17 06:20 AST 8 U/L (13-39) L 10/22/17 06:20 ALT 7 U/L (7-52) 10/22/17 06:20 Alkaline Phosphatase 46 U/L (34-104) 10/22/17 06:20 Total Protein 8.1 gm/dL (6.0-8.3) 10/22/17 06:20 Albumin 3.1 gm/dL (3.7-5.3) L 10/22/17 06:20 Globulin 5.0 gm/dL 10/22/17 06:20 Albumin/Globulin Ratio 0.6 (1.0-1.8) L 10/22/17 06:20 Urine Source CLEAN C 10/20/17 21:55 Urine Color YELLOW 10/20/17 21:55 Urine Clarity CLOUDY (CLEAR) H 10/20/17 21:55 Urine pH 5.5 (4.6 - 8.0) 10/20/17 21:55 Ur Specific [place] 1.025 (1.005-1.030) 10/20/17 21:55 Urine Protein NEGATIVE mg/dL (NEGATIVE) 10/20/17 21:55 Urine Glucose (UA) NEGATIVE mg/dL (NEGATIVE) 10/20/17 21:55 Urine Ketones NEGATIVE mg/dL (NEGATIVE) 10/20/17 21:55 Urine Blood SMALL (NEGATIVE) H 10/20/17 21:55 Urine Nitrate POSITIVE (NEGATIVE) H 10/20/17 21:55 Urine Bilirubin NEGATIVE (NEGATIVE) 10/20/17 21:55 Urine Urobilinogen 1.0 E.U./dL (0.2 - 1.0) 10/20/17 21:55 Ur Leukocyte Esterase LARGE (NEGATIVE) H 10/20/17 21:55 Urine RBC 2-5 /hpf (0-5) 10/20/17 21:55 Urine WBC 50-100 /hpf (0-5) H 10/20/17 21:55 Ur Epithelial Cells NONE SEEN /lpf (FEW) 10/20/17 21:55 Urine Bacteria MANY /hpf (NONE SEEN) H 10/20/17 21:55 - Physical Exam Vitals and I&O: Vital Signs Temp 97.6 F 11/03/17 05:01 Pulse 80 11/03/17 05:01 Resp 18 11/03/17 05:01 BP 146/87 11/03/17 05:01 Pulse Ox 99 11/03/17 05:01 Intake & Output 11/02/17 11/03/17 11/03/17 18:59 06:59 18:59 Intake Total 480 Balance 480 Intake: Oral 480 Other: # Voids 2 Active Medications: Current Medications Acetaminophen (Tylenol) 650 mg PO Q4HR PRN PRN Reason: Pain (Mild) Stop: 12/20/17 02:03 Amlodipine Besylate (Norvasc) 10 mg PO DAILY [facility] Stop: 12/31/17 10:02 Last Admin: 11/02/17 09:26 Dose: 10 mg Ascorbic Acid (Vitamin C) 500 mg PO DAILY [facility] Stop: 12/20/17 08:59 Last Admin: 11/02/17 09:27 Dose: 500 mg Aspirin (Aspirin Chewable) 81 mg PO DAILY [facility] Stop: 12/20/17 08:59 Last Admin: 11/02/17 09:27 Dose: 81 mg Docusate Sodium (Colace) 100 mg PO DAILY [facility] Stop: 12/20/17 08:59 Last Admin: 11/02/17 09:27 Dose: 100 mg Donepezil HCl (Aricept) 10 mg PO DAILY [facility] Stop: 12/20/17 08:59 Last Admin: 11/02/17 09:27 Dose: 10 mg Ferrous Sulfate (Iron) 325 mg PO DAILY [facility] Stop: 12/20/17 08:59 Last Admin: 11/02/17 09:27 Dose: 325 mg Memantine (Namenda) 10 mg PO BID [facility] Stop: 12/29/17 16:59 Last Admin: 11/02/17 18:02 Dose: Not Given Multivitamins/Vitamin C (Theragran) 1 tab PO DAILY [facility] Stop: 12/20/17 08:59 Last Admin: 11/02/17 09:27 Dose: 1 tab Ondansetron HCl (Zofran Odt) 4 mg PO Q6HR PRN PRN Reason: Nausea/VOMITING Stop: 12/20/17 02:03 Pantoprazole Sodium (Protonix) 40 mg PO QDAC [facility] Stop: 12/20/17 07:29 Last Admin: 11/03/17 06:44 Dose: 40 mg Quetiapine Fumarate (Seroquel) 12.5 mg PO BID [facility] PRN Reason: Protocol Stop: 12/24/17 08:59 Last Admin: 11/02/17 18:02 Dose: Not Given Warfarin Sodium (Coumadin Per Pharmacy) 1 ea MC DAILY [facility] Stop: 01/01/18 08:59 Wound Care/Dressing Products (Silvasorb) 1 appl TP DAILY [facility] Stop: 12/31/17 17:59 Last Admin: 11/02/17 16:29 Dose: 1 appl General: No acute distress HEENT: Atraumatic, PERRLA, EOMI Neck: Supple, JVD, Thyromegaly Cardiovascular: Regular rate, Normal S1, Normal S2 Lungs: Clear to auscultation Abdomen: Bowel sounds, Soft Nutritional Asmnt/Malnutr-PDOC - Dietary Evaluation Malnutrition Findings (Please click <Entered> for more info): Nutritional Asmnt/Malnutrition Start: 10/21/17 10: 55 Text: Status: Complete Freq: Document 10/21/17 10:55 FLORENCIO (Rec: 10/21/17 11:12 FLORENCIO LLAMAS- FN) Nutritional Asmnt/Malnutrition Patient General Information Nutritional Screening High Risk Diagnosis Psychosis Pertinent Medical Hx/Surgical Hx Mastectomy Rt breast, dysphagia, DM type 2, abcess on lt breast, dementia Subjective Information Patient was admitted from SNF. Current Diet Order/ Nutrition Support Mechanical soft chopped Patient / S.O Not Indicated Pertinent Medications vitamin C, colace, iron, Theragran, Zofran, protonix Pertinent Labs (10/20) Na 135, K 3.1, glucose 49-132, albumin 3.1 Nutritional Hx/Data Height 1.68 m Height (Calculated Centimeters) 167.6 Current Weight (lbs) 30.391 kg Weight (Calculated Kilograms) 30.4 Weight (Calculated Grams) 54017.7 [place] Body Weight 130 % [place] Body Weight 51 Body Mass Index (BMI) 10.8 Weight Status Underweight GI Symptoms GI Symptoms None Difficult in: None Food Allergies No Cultural/Ethnic/Yazidi Belief none indicated Usual diet at home unknown Skin Integrity/Comment: Area of concern, Nickolas Ocasio Estimated Nutritional Goals BEE in Kcals: Adj wt of IBW Calories/Kcals/Kg 25-30 kcal/kg using IBW 59kg Kcals Calculated 0334-2788 kcal/day Protein: Adj wt of IBW Protein g/kg: .8-1 gm/kg using IBW Protein Calculated 50-50 gm/day Fluid: ml 1500-1800ml/day (1 ml/kcal) Nutritional Problem 2. Problem Problem Altered nutrition related lab values related to Etiology electrolyte imbalance aeb Signs/Symptoms: K 3.1 1. Problem Problem Underweight related to Etiology possible poor intake prior to admission aeb Signs/Symptoms: BMI 10.8 based on patient's stated weight. Intervention/Recommendation Comments 1. Continue current diet order as tolerated by patient. 2. Encourage oral intake due to low body weight/BMI. Consider Boost with meals to optimize nutrient intake. 3. Encourage intake of high potassium foods including banana, orange juice, tomato soup, potatoes. MD to replace lytes as needed. Expected Outcomes/Goals Expected Outcomes/Goals Oral intake to meet >75% of nutrient needs, weight gain toward ideal body weight, nutrition related labs normalize
[2017-11-03] MEDS: Aspirin 81mg Chewable Tab PO SCH (09:05)
[2017-11-03] MEDS: Ferrous Sulfate 325 MG TAB PO SCH (09:05)
[2017-11-03] MEDS: Multivitamin Tab PO SCH (09:06)
[2017-11-03] MEDS: Silver Antimicrobial Wound Gel 0.25 oz Tube TP SCH ×2 (15:05→17:38)
--- NOTE | 2017-11-03 19:56 | Internal Medicine Prog Note ---
Internal Medicine Subjective - Subjective Service Date: 11/03/17 Patient seen and examined:: with staff Patient is:: awake, verbal (SHE DENIES ANY PAIN OR SOB.), in bed, talking, confused Per staff patient has:: no adverse event Internal Medicine Objective - Results Result Diagrams: 10/20/17 20:43 10/23/17 06:10 Recent Labs: Laboratory Last Values WBC 7.5 Th/cmm (4.8-10.8) 10/20/17 20:43 RBC 5.34 Mil/cmm (3.80-5.20) H 10/20/17 20:43 Hgb 14.2 gm/dL (12-16) 10/20/17 20:43 Hct 44.0 % (41.0-60) 10/20/17 20:43 MCV 82.4 fl (81-100) 10/20/17 20:43 MCH 26.6 pg (27.0-31.0) L 10/20/17 20:43 MCHC Differential 32.3 pg (28.0-36.0) 10/20/17 20:43 RDW 17.0 % (11.5-20.0) 10/20/17 20:43 Plt Count 316 Th/cmm (150-400) 10/20/17 20:43 MPV 7.1 fl 10/20/17 20:43 Neutrophils % 70.0 % (40.0-80.0) 10/20/17 20:43 Lymphocytes % 21.7 % (20.0-50.0) 10/20/17 20:43 Monocytes % 6.2 % (2.0-10.0) 10/20/17 20:43 Eosinophils % 2.1 % (0.0-5.0) 10/20/17 20:43 Basophils % 0.0 % (0.0-2.0) 10/20/17 20:43 PT 11.1 SECONDS (9.5-11.5) 11/03/17 06:30 INR 1.07 (0.5-1.4) 11/03/17 06:30 Sodium 136 mEq/L (136-145) 10/23/17 06:10 Potassium 3.6 mEq/L (3.5-5.1) 10/23/17 06:10 Chloride 105 mEq/L (98-107) 10/23/17 06:10 Carbon Dioxide 27.3 mEq/L (21.0-31.0) 10/23/17 06:10 Anion Gap 7.3 (7.0-16.0) 10/23/17 06:10 BUN 15 mg/dL (7-25) 10/23/17 06:10 Creatinine 0.5 mg/dL (0.6-1.2) L 10/23/17 06:10 Est GFR ( Amer) TNP 10/23/17 06:10 Est GFR (Non-Af Amer) TNP 10/23/17 06:10 BUN/Creatinine Ratio 30.0 10/23/17 06:10 Glucose 95 mg/dL (70-105) 10/23/17 06:10 POC Glucose 49 MG/DL (70 - 105) L 10/21/17 06:40 Calcium 9.6 mg/dL (8.6-10.3) 10/23/17 06:10 Total Bilirubin 0.9 mg/dL (0.3-1.0) 10/22/17 06:20 AST 8 U/L (13-39) L 10/22/17 06:20 ALT 7 U/L (7-52) 10/22/17 06:20 Alkaline Phosphatase 46 U/L (34-104) 10/22/17 06:20 Total Protein 8.1 gm/dL (6.0-8.3) 10/22/17 06:20 Albumin 3.1 gm/dL (3.7-5.3) L 10/22/17 06:20 Globulin 5.0 gm/dL 10/22/17 06:20 Albumin/Globulin Ratio 0.6 (1.0-1.8) L 10/22/17 06:20 Urine Source CLEAN C 10/20/17 21:55 Urine Color YELLOW 10/20/17 21:55 Urine Clarity CLOUDY (CLEAR) H 10/20/17 21:55 Urine pH 5.5 (4.6 - 8.0) 10/20/17 21:55 Ur Specific [place] 1.025 (1.005-1.030) 10/20/17 21:55 Urine Protein NEGATIVE mg/dL (NEGATIVE) 10/20/17 21:55 Urine Glucose (UA) NEGATIVE mg/dL (NEGATIVE) 10/20/17 21:55 Urine Ketones NEGATIVE mg/dL (NEGATIVE) 10/20/17 21:55 Urine Blood SMALL (NEGATIVE) H 10/20/17 21:55 Urine Nitrate POSITIVE (NEGATIVE) H 10/20/17 21:55 Urine Bilirubin NEGATIVE (NEGATIVE) 10/20/17 21:55 Urine Urobilinogen 1.0 E.U./dL (0.2 - 1.0) 10/20/17 21:55 Ur Leukocyte Esterase LARGE (NEGATIVE) H 10/20/17 21:55 Urine RBC 2-5 /hpf (0-5) 10/20/17 21:55 Urine WBC 50-100 /hpf (0-5) H 10/20/17 21:55 Ur Epithelial Cells NONE SEEN /lpf (FEW) 10/20/17 21:55 Urine Bacteria MANY /hpf (NONE SEEN) H 10/20/17 21:55 - Physical Exam Vitals and I&O: Vital Signs Temp 97.8 F 11/03/17 15:00 Pulse 62 11/03/17 15:00 Resp 20 11/03/17 15:00 BP 152/77 11/03/17 15:00 Pulse Ox 98 11/03/17 15:00 Intake & Output 11/03/17 11/03/17 11/04/17 06:59 18:59 06:59 Intake Total 480 Balance 480 Intake: Oral 480 Other: # Voids 2 Active Medications: Current Medications Acetaminophen (Tylenol) 650 mg PO Q4HR PRN PRN Reason: Pain (Mild) Stop: 12/20/17 02:03 Amlodipine Besylate (Norvasc) 10 mg PO DAILY [facility] Stop: 12/31/17 10:02 Last Admin: 11/03/17 09:06 Dose: 10 mg Ascorbic Acid (Vitamin C) 500 mg PO DAILY [facility] Stop: 12/20/17 08:59 Last Admin: 11/03/17 09:05 Dose: 500 mg Aspirin (Aspirin Chewable) 81 mg PO DAILY [facility] Stop: 12/20/17 08:59 Last Admin: 11/03/17 09:05 Dose: 81 mg Docusate Sodium (Colace) 100 mg PO DAILY [facility] Stop: 12/20/17 08:59 Last Admin: 11/03/17 09:05 Dose: 100 mg Donepezil HCl (Aricept) 10 mg PO DAILY [facility] Stop: 12/20/17 08:59 Last Admin: 11/03/17 09:05 Dose: 10 mg Ferrous Sulfate (Iron) 325 mg PO DAILY [facility] Stop: 12/20/17 08:59 Last Admin: 11/03/17 09:05 Dose: 325 mg Memantine (Namenda) 10 mg PO BID [facility] Stop: 12/29/17 16:59 Last Admin: 11/03/17 17:37 Dose: 10 mg Multivitamins/Vitamin C (Theragran) 1 tab PO DAILY [facility] Stop: 12/20/17 08:59 Last Admin: 11/03/17 09:06 Dose: 1 tab Ondansetron HCl (Zofran Odt) 4 mg PO Q6HR PRN PRN Reason: Nausea/VOMITING Stop: 12/20/17 02:03 Pantoprazole Sodium (Protonix) 40 mg PO QDAC [facility] Stop: 12/20/17 07:29 Last Admin: 11/03/17 06:44 Dose: 40 mg Quetiapine Fumarate (Seroquel) 12.5 mg PO BID [facility] PRN Reason: Protocol Stop: 12/24/17 08:59 Last Admin: 11/03/17 17:37 Dose: 12.5 mg Warfarin Sodium (Coumadin Per Pharmacy) 1 ea [facility] DAILY [facility] Stop: 01/01/18 08:59 Wound Care/Dressing Products (Silvasorb) 1 appl TP DAILY [facility] Stop: 12/31/17 17:59 Last Admin: 11/03/17 17:38 Dose: 1 appl General: demented HEENT: NC/AT, PERRLA, EOMI, anicteric sclerae, throat clear Neck: Supple, No JVD, No thyromegaly, +2 carotid pulse wo bruit, No LAD Lungs: CTAB Cardiovascular: RRR, Normal S1, Normal S2, without murmur Abdomen: soft, non-tender, non-distended Extremities: clear Neurological: no change Internal Medicine Assmt/Plan - Assessment Assessment: 1.LEFT BREAST MASS WITH DISCHARGE 2.HTN. 3.DEMENTIA - Plan Plan: CONTINUE ON CURRENT MEDICATION AND DIET. Nutritional Asmnt/Malnutr-PDOC - Dietary Evaluation Malnutrition Findings (Please click <Entered> for more info): Nutritional Asmnt/Malnutrition Start: 10/21/17 10: 55 Text: Status: Complete Freq: Document 10/21/17 10:55 KRISTINEJOSEPH (Rec: 10/21/17 11:12 FLORENCIO MURIEL- [email or web address]) Nutritional Asmnt/Malnutrition Patient General Information Nutritional Screening High Risk Diagnosis Psychosis Pertinent Medical Hx/Surgical Hx Mastectomy Rt breast, dysphagia, DM type 2, abcess on lt breast, dementia Subjective Information Patient was admitted from SNF. Current Diet Order/ Nutrition Support Mechanical soft chopped Patient / S.O Not Indicated Pertinent Medications vitamin C, colace, iron, Theragran, Zofran, protonix Pertinent Labs (10/20) Na 135, K 3.1, glucose 49-132, albumin 3.1 Nutritional Hx/Data Height 1.68 m Height (Calculated Centimeters) 167.6 Current Weight (lbs) 30.391 kg Weight (Calculated Kilograms) 30.4 Weight (Calculated Grams) 80079.7 [place] Body Weight 130 % [place] Body Weight 51 Body Mass Index (BMI) 10.8 Weight Status Underweight GI Symptoms GI Symptoms None Difficult in: None Food Allergies No Cultural/Ethnic/Catholic Belief none indicated Usual diet at home unknown Skin Integrity/Comment: Area of concern, Nickolas Ocasio Estimated Nutritional Goals BEE in Kcals: Adj wt of IBW Calories/Kcals/Kg 25-30 kcal/kg using IBW 59kg Kcals Calculated 3253-3704 kcal/day Protein: Adj wt of IBW Protein g/kg: .8-1 gm/kg using IBW Protein Calculated 50-50 gm/day Fluid: ml 1500-1800ml/day (1 ml/kcal) Nutritional Problem 2. Problem Problem Altered nutrition related lab values related to Etiology electrolyte imbalance aeb Signs/Symptoms: K 3.1 1. Problem Problem Underweight related to Etiology possible poor intake prior to admission aeb Signs/Symptoms: BMI 10.8 based on patient's stated weight. Intervention/Recommendation Comments 1. Continue current diet order as tolerated by patient. 2. Encourage oral intake due to low body weight/BMI. Consider Boost with meals to optimize nutrient intake. 3. Encourage intake of high potassium foods including banana, orange juice, tomato soup, potatoes. MD to replace lytes as needed. Expected Outcomes/Goals Expected Outcomes/Goals Oral intake to meet >75% of nutrient needs, weight gain toward ideal body weight, nutrition related labs normalize
--- NOTE | 2017-11-04 06:23 | Discharge Summary ---
DATE OF DISCHARGE: 11/03/2017 DATE OF DISCHARGE: 11/03/2017. FINAL DIAGNOSIS AND PRIMARY DIAGNOSIS: Dementia, severe, with psychotic features and with behavior disturbances. REASON FOR HOSPITALIZATION: The patient was admitted to the hospital because of increased aggressive behavior and agitation. The patient has a history of metastatic cancer in the breast. The patient continued to be agitated and restless and in irritable mood. The patient also was suspicious and was paranoid. The patient also was interacting minimally with others. HOSPITAL COURSE: The patient continued to be agitated and continuing to be demanding and confused. The patient also had difficult time following any of the staff's directions because of agitation and confusion. The patient was started on Seroquel and the dose adjusted to 12.5 mg twice a day and she continues to take Namenda and Aricept. Gradually, the patient's affect is brighter. The patient was calmer and less agitated. The patient was accepted in a [facility] and the patient was discharged there. Physical exam of the patient was basically within normal. The patient had no major medical problems while in the hospital. AFTER DISCHARGE PLAN: Outpatient treatment and followup, we will continue in [facility]. Also, we will continue adjusting her medications and monitor behavior there. EXPECTED OUTCOME AFTER DISCHARGE: Fair if the patient continues to take her psychotropic medications and follow up with discharge plans. [facility]# [id number]
[2017-11-04] MEDS: Pantoprazole 40 mg EC Tab PO SCH (06:54)
[2017-11-04 07:24] LABS: INR 1.19 (0.5-1.4); PROTHROMBIN TIME (TEST) 12.5 SECONDS (9.5-11.5)
[2017-11-04] MEDS: Aspirin 81mg Chewable Tab PO SCH (09:10)
[2017-11-04] MEDS: Ferrous Sulfate 325 MG TAB PO SCH (09:10)
[2017-11-04] MEDS: Multivitamin Tab PO SCH (12:30)
[2017-11-04] MEDS: Silver Antimicrobial Wound Gel 0.25 oz Tube TP SCH (12:30)
--- NOTE | 2017-11-04 13:01 | General Progress Note ---
Subjective - Review of Systems Service Date: 11/04/17 Events since last encounter: will need breast surgery prior to DC as mass is likely malignant Objective - Results Result Diagrams: 10/20/17 20:43 10/23/17 06:10 Recent Labs: Laboratory Last Values WBC 7.5 Th/cmm (4.8-10.8) 10/20/17 20:43 RBC 5.34 Mil/cmm (3.80-5.20) H 10/20/17 20:43 Hgb 14.2 gm/dL (12-16) 10/20/17 20:43 Hct 44.0 % (41.0-60) 10/20/17 20:43 MCV 82.4 fl (81-100) 10/20/17 20:43 MCH 26.6 pg (27.0-31.0) L 10/20/17 20:43 MCHC Differential 32.3 pg (28.0-36.0) 10/20/17 20:43 RDW 17.0 % (11.5-20.0) 10/20/17 20:43 Plt Count 316 Th/cmm (150-400) 10/20/17 20:43 MPV 7.1 fl 10/20/17 20:43 Neutrophils % 70.0 % (40.0-80.0) 10/20/17 20:43 Lymphocytes % 21.7 % (20.0-50.0) 10/20/17 20:43 Monocytes % 6.2 % (2.0-10.0) 10/20/17 20:43 Eosinophils % 2.1 % (0.0-5.0) 10/20/17 20:43 Basophils % 0.0 % (0.0-2.0) 10/20/17 20:43 PT 12.5 SECONDS (9.5-11.5) H 11/04/17 06:10 INR 1.19 (0.5-1.4) 11/04/17 06:10 Sodium 136 mEq/L (136-145) 10/23/17 06:10 Potassium 3.6 mEq/L (3.5-5.1) 10/23/17 06:10 Chloride 105 mEq/L (98-107) 10/23/17 06:10 Carbon Dioxide 27.3 mEq/L (21.0-31.0) 10/23/17 06:10 Anion Gap 7.3 (7.0-16.0) 10/23/17 06:10 BUN 15 mg/dL (7-25) 10/23/17 06:10 Creatinine 0.5 mg/dL (0.6-1.2) L 10/23/17 06:10 Est GFR ( Amer) TNP 10/23/17 06:10 Est GFR (Non-Af Amer) TNP 10/23/17 06:10 BUN/Creatinine Ratio 30.0 10/23/17 06:10 Glucose 95 mg/dL (70-105) 10/23/17 06:10 POC Glucose 49 MG/DL (70 - 105) L 10/21/17 06:40 Calcium 9.6 mg/dL (8.6-10.3) 10/23/17 06:10 Total Bilirubin 0.9 mg/dL (0.3-1.0) 10/22/17 06:20 AST 8 U/L (13-39) L 10/22/17 06:20 ALT 7 U/L (7-52) 10/22/17 06:20 Alkaline Phosphatase 46 U/L (34-104) 10/22/17 06:20 Total Protein 8.1 gm/dL (6.0-8.3) 10/22/17 06:20 Albumin 3.1 gm/dL (3.7-5.3) L 10/22/17 06:20 Globulin 5.0 gm/dL 10/22/17 06:20 Albumin/Globulin Ratio 0.6 (1.0-1.8) L 10/22/17 06:20 Urine Source CLEAN C 10/20/17 21:55 Urine Color YELLOW 10/20/17 21:55 Urine Clarity CLOUDY (CLEAR) H 10/20/17 21:55 Urine pH 5.5 (4.6 - 8.0) 10/20/17 21:55 Ur Specific [place] 1.025 (1.005-1.030) 10/20/17 21:55 Urine Protein NEGATIVE mg/dL (NEGATIVE) 10/20/17 21:55 Urine Glucose (UA) NEGATIVE mg/dL (NEGATIVE) 10/20/17 21:55 Urine Ketones NEGATIVE mg/dL (NEGATIVE) 05/11/18 21:55 Urine Blood SMALL (NEGATIVE) H 10/20/17 21:55 Urine Nitrate POSITIVE (NEGATIVE) H 10/20/17 21:55 Urine Bilirubin NEGATIVE (NEGATIVE) 10/20/17 21:55 Urine Urobilinogen 1.0 E.U./dL (0.2 - 1.0) 10/20/17 21:55 Ur Leukocyte Esterase LARGE (NEGATIVE) H 10/20/17 21:55 Urine RBC 2-5 /hpf (0-5) 10/20/17 21:55 Urine WBC 50-100 /hpf (0-5) H 10/20/17 21:55 Ur Epithelial Cells NONE SEEN /lpf (FEW) 10/20/17 21:55 Urine Bacteria MANY /hpf (NONE SEEN) H 10/20/17 21:55 - Physical Exam Vitals and I&O: Vital Signs Temp 97.2 F 11/04/17 04:48 Pulse 70 11/04/17 09:08 Resp 19 11/04/17 04:48 BP 150/85 11/04/17 09:08 Pulse Ox 96 11/04/17 04:48 Intake & Output 11/03/17 11/04/17 11/04/17 18:59 06:59 18:59 Intake Total 480 Balance 480 Intake: Oral 480 Other: # Voids 2 Stool Characteristics Soft Active Medications: Current Medications Acetaminophen (Tylenol) 650 mg PO Q4HR PRN PRN Reason: Pain (Mild) Stop: 12/20/17 02:03 Amlodipine Besylate (Norvasc) 10 mg PO DAILY [facility] Stop: 12/31/17 10:02 Last Admin: 11/04/17 09:08 Dose: 10 mg Ascorbic Acid (Vitamin C) 500 mg PO DAILY [facility] Stop: 12/20/17 08:59 Last Admin: 11/04/17 09:08 Dose: 500 mg Aspirin (Aspirin Chewable) 81 mg PO DAILY [facility] Stop: 12/20/17 08:59 Last Admin: 11/04/17 09:10 Dose: 81 mg Docusate Sodium (Colace) 100 mg PO DAILY [facility] Stop: 12/20/17 08:59 Last Admin: 11/04/17 09:09 Dose: 100 mg Donepezil HCl (Aricept) 10 mg PO DAILY [facility] Stop: 12/20/17 08:59 Last Admin: 11/04/17 09:09 Dose: 10 mg Ferrous Sulfate (Iron) 325 mg PO DAILY [facility] Stop: 12/20/17 08:59 Last Admin: 11/04/17 09:10 Dose: 325 mg Memantine (Namenda) 10 mg PO BID [facility] Stop: 12/29/17 16:59 Last Admin: 11/04/17 09:09 Dose: 10 mg Multivitamins/Vitamin C (Theragran) 1 tab PO DAILY [facility] Stop: 12/20/17 08:59 Last Admin: 11/04/17 12:30 Dose: 1 tab Ondansetron HCl (Zofran Odt) 4 mg PO Q6HR PRN PRN Reason: Nausea/VOMITING Stop: 12/20/17 02:03 Pantoprazole Sodium (Protonix) 40 mg PO QDAC [facility] Stop: 12/20/17 07:29 Last Admin: 11/04/17 06:54 Dose: 40 mg Quetiapine Fumarate (Seroquel) 12.5 mg PO BID [facility] PRN Reason: Protocol Stop: 12/24/17 08:59 Last Admin: 11/04/17 09:09 Dose: 12.5 mg Warfarin Sodium (Coumadin Per Pharmacy) 1 ea MC DAILY [facility] Stop: 01/01/18 08:59 Warfarin Sodium 5 mg/ Warfarin (Sodium 3 mg) 8 mg PO 1300 ONE Stop: 11/04/17 13:01 Wound Care/Dressing Products (Silvasorb) 1 appl TP DAILY [facility] Stop: 12/31/17 17:59 Last Admin: 11/04/17 12:30 Dose: 1 appl General: No acute distress HEENT: Atraumatic, PERRLA, EOMI Neck: Supple, JVD, Thyromegaly Cardiovascular: Regular rate, Normal S1, Normal S2 Lungs: Clear to auscultation Abdomen: Bowel sounds, Soft Nutritional Asmnt/Malnutr-PDOC - Dietary Evaluation Malnutrition Findings (Please click <Entered> for more info): Nutritional Asmnt/Malnutrition Start: 10/21/17 10: 55 Text: Status: Complete Freq: Document 10/21/17 10:55 [email or web address] (Rec: 10/21/17 11:12 FLORENCIO LLAMAS- FN) Nutritional Asmnt/Malnutrition Patient General Information Nutritional Screening High Risk Diagnosis Psychosis Pertinent Medical Hx/Surgical Hx Mastectomy Rt breast, dysphagia, DM type 2, abcess on lt breast, dementia Subjective Information Patient was admitted from SNF. Current Diet Order/ Nutrition Support Mechanical soft chopped Patient / S.O Not Indicated Pertinent Medications vitamin C, colace, iron, Theragran, Zofran, protonix Pertinent Labs (10/20) Na 135, K 3.1, glucose 49-132, albumin 3.1 Nutritional Hx/Data Height 1.68 m Height (Calculated Centimeters) 167.6 Current Weight (lbs) 30.391 kg Weight (Calculated Kilograms) 30.4 Weight (Calculated Grams) 36467.7 [place] Body Weight 130 % [place] Body Weight 51 Body Mass Index (BMI) 10.8 Weight Status Underweight GI Symptoms GI Symptoms None Difficult in: None Food Allergies No Cultural/Ethnic/Mormonism Belief none indicated Usual diet at home unknown Skin Integrity/Comment: Area of concern, Nickolas Ocasio Estimated Nutritional Goals BEE in Kcals: Adj wt of IBW Calories/Kcals/Kg 25-30 kcal/kg using IBW 59kg Kcals Calculated 9115-6347 kcal/day Protein: Adj wt of IBW Protein g/kg: .8-1 gm/kg using IBW Protein Calculated 50-50 gm/day Fluid: ml 1500-1800ml/day (1 ml/kcal) Nutritional Problem 2. Problem Problem Altered nutrition related lab values related to Etiology electrolyte imbalance aeb Signs/Symptoms: K 3.1 1. Problem Problem Underweight related to Etiology possible poor intake prior to admission aeb Signs/Symptoms: BMI 10.8 based on patient's stated weight. Intervention/Recommendation Comments 1. Continue current diet order as tolerated by patient. 2. Encourage oral intake due to low body weight/BMI. Consider Boost with meals to optimize nutrient intake. 3. Encourage intake of high potassium foods including banana, orange juice, tomato soup, potatoes. MD to replace lytes as needed. Expected Outcomes/Goals Expected Outcomes/Goals Oral intake to meet >75% of nutrient needs, weight gain toward ideal body weight, nutrition related labs normalize
--- NOTE | 2017-11-04 16:38 | General Progress Note ---
Subjective - Review of Systems Service Date: 11/04/17 Subjective: awake and responsive confused no distress Objective - Results Result Diagrams: 10/20/17 20:43 10/23/17 06:10 Recent Labs: Laboratory Last Values WBC 7.5 Th/cmm (4.8-10.8) 10/20/17 20:43 RBC 5.34 Mil/cmm (3.80-5.20) H 10/20/17 20:43 Hgb 14.2 gm/dL (12-16) 10/20/17 20:43 Hct 44.0 % (41.0-60) 10/20/17 20:43 MCV 82.4 fl (81-100) 10/20/17 20:43 MCH 26.6 pg (27.0-31.0) L 10/20/17 20:43 MCHC Differential 32.3 pg (28.0-36.0) 10/20/17 20:43 RDW 17.0 % (11.5-20.0) 10/20/17 20:43 Plt Count 316 Th/cmm (150-400) 10/20/17 20:43 MPV 7.1 fl 10/20/17 20:43 Neutrophils % 70.0 % (40.0-80.0) 10/20/17 20:43 Lymphocytes % 21.7 % (20.0-50.0) 10/20/17 20:43 Monocytes % 6.2 % (2.0-10.0) 10/20/17 20:43 Eosinophils % 2.1 % (0.0-5.0) 10/20/17 20:43 Basophils % 0.0 % (0.0-2.0) 10/20/17 20:43 PT 12.5 SECONDS (9.5-11.5) H 11/04/17 06:10 INR 1.19 (0.5-1.4) 11/04/17 06:10 Sodium 136 mEq/L (136-145) 10/23/17 06:10 Potassium 3.6 mEq/L (3.5-5.1) 10/23/17 06:10 Chloride 105 mEq/L (98-107) 10/23/17 06:10 Carbon Dioxide 27.3 mEq/L (21.0-31.0) 10/23/17 06:10 Anion Gap 7.3 (7.0-16.0) 10/23/17 06:10 BUN 15 mg/dL (7-25) 10/23/17 06:10 Creatinine 0.5 mg/dL (0.6-1.2) L 10/23/17 06:10 Est GFR ( Amer) TNP 10/23/17 06:10 Est GFR (Non-Af Amer) TNP 10/23/17 06:10 BUN/Creatinine Ratio 30.0 10/23/17 06:10 Glucose 95 mg/dL (70-105) 10/23/17 06:10 POC Glucose 49 MG/DL (70 - 105) L 10/21/17 06:40 Calcium 9.6 mg/dL (8.6-10.3) 10/23/17 06:10 Total Bilirubin 0.9 mg/dL (0.3-1.0) 10/22/17 06:20 AST 8 U/L (13-39) L 10/22/17 06:20 ALT 7 U/L (7-52) 10/22/17 06:20 Alkaline Phosphatase 46 U/L (34-104) 10/22/17 06:20 Total Protein 8.1 gm/dL (6.0-8.3) 10/22/17 06:20 Albumin 3.1 gm/dL (3.7-5.3) L 10/22/17 06:20 Globulin 5.0 gm/dL 10/22/17 06:20 Albumin/Globulin Ratio 0.6 (1.0-1.8) L 10/22/17 06:20 Urine Source CLEAN C 10/20/17 21:55 Urine Color YELLOW 10/20/17 21:55 Urine Clarity CLOUDY (CLEAR) H 10/20/17 21:55 Urine pH 5.5 (4.6 - 8.0) 10/20/17 21:55 Ur Specific [place] 1.025 (1.005-1.030) 10/20/17 21:55 Urine Protein NEGATIVE mg/dL (NEGATIVE) 10/20/17 21:55 Urine Glucose (UA) NEGATIVE mg/dL (NEGATIVE) 10/20/17 21:55 Urine Ketones NEGATIVE mg/dL (NEGATIVE) 10/20/17 21:55 Urine Blood SMALL (NEGATIVE) H 10/20/17 21:55 Urine Nitrate POSITIVE (NEGATIVE) H 10/20/17 21:55 Urine Bilirubin NEGATIVE (NEGATIVE) 10/20/17 21:55 Urine Urobilinogen 1.0 E.U./dL (0.2 - 1.0) 10/20/17 21:55 Ur Leukocyte Esterase LARGE (NEGATIVE) H 10/20/17 21:55 Urine RBC 2-5 /hpf (0-5) 10/20/17 21:55 Urine WBC 50-100 /hpf (0-5) H 10/20/17 21:55 Ur Epithelial Cells NONE SEEN /lpf (FEW) 10/20/17 21:55 Urine Bacteria MANY /hpf (NONE SEEN) H 10/20/17 21:55 - Physical Exam Vitals and I&O: Vital Signs Temp 97 F 11/04/17 15:07 Pulse 65 11/04/17 15:07 Resp 20 11/04/17 15:07 BP 150/66 11/04/17 15:07 Pulse Ox 95 11/04/17 15:07 Intake & Output 11/03/17 11/04/17 11/04/17 18:59 06:59 18:59 Intake Total 480 Balance 480 Intake: Oral 480 Other: # Voids 2 Stool Characteristics Soft Active Medications: Current Medications Acetaminophen (Tylenol) 650 mg PO Q4HR PRN PRN Reason: Pain (Mild) Stop: 12/20/17 02:03 Amlodipine Besylate (Norvasc) 10 mg PO DAILY [facility] Stop: 12/31/17 10:02 Last Admin: 11/04/17 09:08 Dose: 10 mg Ascorbic Acid (Vitamin C) 500 mg PO DAILY [facility] Stop: 12/20/17 08:59 Last Admin: 11/04/17 09:08 Dose: 500 mg Aspirin (Aspirin Chewable) 81 mg PO DAILY [facility] Stop: 12/20/17 08:59 Last Admin: 11/04/17 09:10 Dose: 81 mg Docusate Sodium (Colace) 100 mg PO DAILY [facility] Stop: 12/20/17 08:59 Last Admin: 11/04/17 09:09 Dose: 100 mg Donepezil HCl (Aricept) 10 mg PO DAILY [facility] Stop: 12/20/17 08:59 Last Admin: 11/04/17 09:09 Dose: 10 mg Ferrous Sulfate (Iron) 325 mg PO DAILY [facility] Stop: 12/20/17 08:59 Last Admin: 11/04/17 09:10 Dose: 325 mg Memantine (Namenda) 10 mg PO BID [facility] Stop: 12/29/17 16:59 Last Admin: 11/04/17 16:17 Dose: 10 mg Multivitamins/Vitamin C (Theragran) 1 tab PO DAILY [facility] Stop: 12/20/17 08:59 Last Admin: 11/04/17 12:30 Dose: 1 tab Ondansetron HCl (Zofran Odt) 4 mg PO Q6HR PRN PRN Reason: Nausea/VOMITING Stop: 12/20/17 02:03 Pantoprazole Sodium (Protonix) 40 mg PO QDAC [facility] Stop: 12/20/17 07:29 Last Admin: 11/04/17 06:54 Dose: 40 mg Quetiapine Fumarate (Seroquel) 12.5 mg PO BID [facility] PRN Reason: Protocol Stop: 12/24/17 08:59 Last Admin: 11/04/17 16:17 Dose: 12.5 mg Warfarin Sodium (Coumadin Per Pharmacy) 1 ea MC DAILY [facility] Stop: 01/01/18 08:59 Wound Care/Dressing Products (Silvasorb) 1 appl TP DAILY [facility] Stop: 12/31/17 17:59 Last Admin: 11/04/17 12:30 Dose: 1 appl General: No acute distress HEENT: Atraumatic, PERRLA, EOMI Neck: Supple, JVD, Thyromegaly Cardiovascular: Regular rate, Normal S1, Normal S2 Lungs: Clear to auscultation Abdomen: Bowel sounds, Soft Assessment/Plan - Assessment Assessment: dementia breast CA chronic left breast abscess UTI HTN - Plan Plan: cont current treatment Nutritional Asmnt/Malnutr-PDOC - Dietary Evaluation Malnutrition Findings (Please click <Entered> for more info): Nutritional Asmnt/Malnutrition Start: 10/21/17 10: 55 Text: Status: Complete Freq: Document 10/21/17 10:55 FLORENCIO (Rec: 10/21/17 11:12 FLORENCIO LLAMAS- FN) Nutritional Asmnt/Malnutrition Patient General Information Nutritional Screening High Risk Diagnosis Psychosis Pertinent Medical Hx/Surgical Hx Mastectomy Rt breast, dysphagia, DM type 2, abcess on lt breast, dementia Subjective Information Patient was admitted from SNF. Current Diet Order/ Nutrition Support Mechanical soft chopped Patient / S.O Not Indicated Pertinent Medications vitamin C, colace, iron, Theragran, Zofran, protonix Pertinent Labs (10/20) Na 135, K 3.1, glucose 49-132, albumin 3.1 Nutritional Hx/Data Height 1.68 m Height (Calculated Centimeters) 167.6 Current Weight (lbs) 30.391 kg Weight (Calculated Kilograms) 30.4 Weight (Calculated Grams) 51360.7 [place] Body Weight 130 % [place] Body Weight 51 Body Mass Index (BMI) 10.8 Weight Status Underweight GI Symptoms GI Symptoms None Difficult in: None Food Allergies No Cultural/Ethnic/Yazidi Belief none indicated Usual diet at home unknown Skin Integrity/Comment: Area of concern, Nickolas Ocasio Estimated Nutritional Goals BEE in Kcals: Adj wt of IBW Calories/Kcals/Kg 25-30 kcal/kg using IBW 59kg Kcals Calculated 6823-9667 kcal/day Protein: Adj wt of IBW Protein g/kg: .8-1 gm/kg using IBW Protein Calculated 50-50 gm/day Fluid: ml 1500-1800ml/day (1 ml/kcal) Nutritional Problem 2. Problem Problem Altered nutrition related lab values related to Etiology electrolyte imbalance aeb Signs/Symptoms: K 3.1 1. Problem Problem Underweight related to Etiology possible poor intake prior to admission aeb Signs/Symptoms: BMI 10.8 based on patient's stated weight. Intervention/Recommendation Comments 1. Continue current diet order as tolerated by patient. 2. Encourage oral intake due to low body weight/BMI. Consider Boost with meals to optimize nutrient intake. 3. Encourage intake of high potassium foods including banana, orange juice, tomato soup, potatoes. MD to replace lytes as needed. Expected Outcomes/Goals Expected Outcomes/Goals Oral intake to meet >75% of nutrient needs, weight gain toward ideal body weight, nutrition related labs normalize
--- NOTE | 2017-11-04 20:41 | Progress Notes ---
DATE: 11/04/2017 SUBJECTIVE: The patient was seen and evaluated. The patient's chart reviewed. This is a is psychiatric followup note, covering for Dr. Reese. Nursing staff reported that the patient has been withdrawn and disengaged. Today on [id number] evaluation, the patient needs a lot of assistance to eat and feed herself, minimally interactive, does not give much information. She just reports that she is okay but does just observed to be easily irritable. MENTAL STATUS: Easily irritable. Memory impaired. ASSESSMENT AND PLAN: The patient is a 72-year-old female with severe cognitive impairment that impairs the ability to provide food, fdc or clothing without the assistance. We will continue with the primary psychiatrist's treatment goals, which include Seroquel 25 mg a day, which is split at 12.5 b.i.d., Namenda 10 b.i.d. and Aricept 10 mg b.i.d. We will obtain more collateral and work closely with mental case assembler for a safe dispo once available. JOB# [id number]
[2017-11-05] MEDS: Pantoprazole 40 mg EC Tab PO SCH (07:01)
[2017-11-05 07:11] LABS: INR 1.41 (0.5-1.4)
[2017-11-05] MEDS: Multivitamin Tab PO SCH (09:13)
[2017-11-05] MEDS: Ferrous Sulfate 325 MG TAB PO SCH (09:13)
[2017-11-05] MEDS: Aspirin 81mg Chewable Tab PO SCH (09:13)
[2017-11-05] MEDS: Silver Antimicrobial Wound Gel 0.25 oz Tube TP SCH (09:13)
--- NOTE | 2017-11-05 09:21 | General Progress Note ---
Subjective - Review of Systems Service Date: 11/05/17 Subjective: awake and responsive confused no distress Objective - Results Result Diagrams: 10/20/17 20:43 10/23/17 06:10 Recent Labs: Laboratory Last Values WBC 7.5 Th/cmm (4.8-10.8) 10/20/17 20:43 RBC 5.34 Mil/cmm (3.80-5.20) H 10/20/17 20:43 Hgb 14.2 gm/dL (12-16) 10/20/17 20:43 Hct 44.0 % (41.0-60) 10/20/17 20:43 MCV 82.4 fl (81-100) 10/20/17 20:43 MCH 26.6 pg (27.0-31.0) L 10/20/17 20:43 MCHC Differential 32.3 pg (28.0-36.0) 10/20/17 20:43 RDW 17.0 % (11.5-20.0) 10/20/17 20:43 Plt Count 316 Th/cmm (150-400) 10/20/17 20:43 MPV 7.1 fl 10/20/17 20:43 Neutrophils % 70.0 % (40.0-80.0) 10/20/17 20:43 Lymphocytes % 21.7 % (20.0-50.0) 10/20/17 20:43 Monocytes % 6.2 % (2.0-10.0) 10/20/17 20:43 Eosinophils % 2.1 % (0.0-5.0) 10/20/17 20:43 Basophils % 0.0 % (0.0-2.0) 10/20/17 20:43 PT 15.0 SECONDS (9.5-11.5) H 11/05/17 06:41 INR 1.41 (0.5-1.4) H 11/05/17 06:41 Sodium 136 mEq/L (136-145) 10/23/17 06:10 Potassium 3.6 mEq/L (3.5-5.1) 10/23/17 06:10 Chloride 105 mEq/L (98-107) 10/23/17 06:10 Carbon Dioxide 27.3 mEq/L (21.0-31.0) 10/23/17 06:10 Anion Gap 7.3 (7.0-16.0) 10/23/17 06:10 BUN 15 mg/dL (7-25) 10/23/17 06:10 Creatinine 0.5 mg/dL (0.6-1.2) L 10/23/17 06:10 Est GFR ( Amer) TNP 10/23/17 06:10 Est GFR (Non-Af Amer) TNP 10/23/17 06:10 BUN/Creatinine Ratio 30.0 10/23/17 06:10 Glucose 95 mg/dL (70-105) 10/23/17 06:10 POC Glucose 49 MG/DL (70 - 105) L 10/21/17 06:40 Calcium 9.6 mg/dL (8.6-10.3) 10/23/17 06:10 Total Bilirubin 0.9 mg/dL (0.3-1.0) 10/22/17 06:20 AST 8 U/L (13-39) L 10/22/17 06:20 ALT 7 U/L (7-52) 10/22/17 06:20 Alkaline Phosphatase 46 U/L (34-104) 10/22/17 06:20 Total Protein 8.1 gm/dL (6.0-8.3) 10/22/17 06:20 Albumin 3.1 gm/dL (3.7-5.3) L 10/22/17 06:20 Globulin 5.0 gm/dL 10/22/17 06:20 Albumin/Globulin Ratio 0.6 (1.0-1.8) L 10/22/17 06:20 Urine Source CLEAN C 10/20/17 21:55 Urine Color YELLOW 10/20/17 21:55 Urine Clarity CLOUDY (CLEAR) H 10/20/17 21:55 Urine pH 5.5 (4.6 - 8.0) 10/20/17 21:55 Ur Specific [place] 1.025 (1.005-1.030) 10/20/17 21:55 Urine Protein NEGATIVE mg/dL (NEGATIVE) 10/20/17 21:55 Urine Glucose (UA) NEGATIVE mg/dL (NEGATIVE) 10/20/17 21:55 Urine Ketones NEGATIVE mg/dL (NEGATIVE) 10/20/17 21:55 Urine Blood SMALL (NEGATIVE) H 10/20/17 21:55 Urine Nitrate POSITIVE (NEGATIVE) H 10/20/17 21:55 Urine Bilirubin NEGATIVE (NEGATIVE) 10/20/17 21:55 Urine Urobilinogen 1.0 E.U./dL (0.2 - 1.0) 10/20/17 21:55 Ur Leukocyte Esterase LARGE (NEGATIVE) H 10/20/17 21:55 Urine RBC 2-5 /hpf (0-5) 10/20/17 21:55 Urine WBC 50-100 /hpf (0-5) H 10/20/17 21:55 Ur Epithelial Cells NONE SEEN /lpf (FEW) 10/20/17 21:55 Urine Bacteria MANY /hpf (NONE SEEN) H 10/20/17 21:55 - Physical Exam Vitals and I&O: Vital Signs Temp 97 F 11/04/17 15:07 Pulse 70 11/05/17 09:12 Resp 20 11/04/17 15:07 BP 146/73 11/05/17 09:12 Pulse Ox 95 11/04/17 15:07 Intake & Output 11/04/17 11/05/17 11/05/17 18:59 06:59 18:59 Other: Stool Characteristics Soft Soft Active Medications: Current Medications Acetaminophen (Tylenol) 650 mg PO Q4HR PRN PRN Reason: Pain (Mild) Stop: 12/20/17 02:03 Amlodipine Besylate (Norvasc) 10 mg PO DAILY [facility] Stop: 12/31/17 10:02 Last Admin: 11/05/17 09:12 Dose: 10 mg Ascorbic Acid (Vitamin C) 500 mg PO DAILY [facility] Stop: 12/20/17 08:59 Last Admin: 11/05/17 09:13 Dose: 500 mg Aspirin (Aspirin Chewable) 81 mg PO DAILY [facility] Stop: 12/20/17 08:59 Last Admin: 11/05/17 09:13 Dose: 81 mg Docusate Sodium (Colace) 100 mg PO DAILY [facility] Stop: 12/20/17 08:59 Last Admin: 11/05/17 09:13 Dose: 100 mg Donepezil HCl (Aricept) 10 mg PO DAILY [facility] Stop: 12/20/17 08:59 Last Admin: 11/05/17 09:13 Dose: 10 mg Ferrous Sulfate (Iron) 325 mg PO DAILY [facility] Stop: 12/20/17 08:59 Last Admin: 11/05/17 09:13 Dose: 325 mg Memantine (Namenda) 10 mg PO BID [facility] Stop: 12/29/17 16:59 Last Admin: 11/05/17 09:13 Dose: 10 mg Multivitamins/Vitamin C (Theragran) 1 tab PO DAILY [facility] Stop: 12/20/17 08:59 Last Admin: 11/05/17 09:13 Dose: 1 tab Ondansetron HCl (Zofran Odt) 4 mg PO Q6HR PRN PRN Reason: Nausea/VOMITING Stop: 12/20/17 02:03 Pantoprazole Sodium (Protonix) 40 mg PO QDAC [facility] Stop: 12/20/17 07:29 Last Admin: 11/05/17 07:01 Dose: 40 mg Quetiapine Fumarate (Seroquel) 12.5 mg PO BID [facility] PRN Reason: Protocol Stop: 12/24/17 08:59 Last Admin: 11/05/17 09:13 Dose: 12.5 mg Warfarin Sodium (Coumadin Per Pharmacy) 1 ea MC DAILY [facility] Stop: 01/01/18 08:59 Warfarin Sodium (Coumadin) 6 mg PO 1300 ONE Stop: 11/05/17 13:01 Wound Care/Dressing Products (Silvasorb) 1 appl TP DAILY [facility] Stop: 12/31/17 17:59 Last Admin: 11/05/17 09:13 Dose: 1 appl General: No acute distress HEENT: Atraumatic, PERRLA, EOMI Neck: Supple, JVD, Thyromegaly Cardiovascular: Regular rate, Normal S1, Normal S2 Lungs: Clear to auscultation Abdomen: Bowel sounds, Soft Assessment/Plan - Assessment Assessment: dementia breast CA chronic left breast abscess UTI HTN - Plan Plan: cont current treatment Nutritional Asmnt/Malnutr-PDOC - Dietary Evaluation Malnutrition Findings (Please click <Entered> for more info): Nutritional Asmnt/Malnutrition Start: 10/21/17 10: 55 Text: Status: Complete Freq: Document 10/21/17 10:55 [email or web address] (Rec: 10/21/17 11:12 FLORENCIO LLAMAS- [email or web address]) Nutritional Asmnt/Malnutrition Patient General Information Nutritional Screening High Risk Diagnosis Psychosis Pertinent Medical Hx/Surgical Hx Mastectomy Rt breast, dysphagia, DM type 2, abcess on lt breast, dementia Subjective Information Patient was admitted from SNF. Current Diet Order/ Nutrition Support Mechanical soft chopped Patient / S.O Not Indicated Pertinent Medications vitamin C, colace, iron, Theragran, Zofran, protonix Pertinent Labs (10/20) Na 135, K 3.1, glucose 49-132, albumin 3.1 Nutritional Hx/Data Height 1.68 m Height (Calculated Centimeters) 167.6 Current Weight (lbs) 30.391 kg Weight (Calculated Kilograms) 30.4 Weight (Calculated Grams) 03528.7 [place] Body Weight 130 % [place] Body Weight 51 Body Mass Index (BMI) 10.8 Weight Status Underweight GI Symptoms GI Symptoms None Difficult in: None Food Allergies No Cultural/Ethnic/Adventist Belief none indicated Usual diet at home unknown Skin Integrity/Comment: Area of concern, Nickolas Ocasio Estimated Nutritional Goals BEE in Kcals: Adj wt of IBW Calories/Kcals/Kg 25-30 kcal/kg using IBW 59kg Kcals Calculated 5897-6332 kcal/day Protein: Adj wt of IBW Protein g/kg: .8-1 gm/kg using IBW Protein Calculated 50-50 gm/day Fluid: ml 1500-1800ml/day (1 ml/kcal) Nutritional Problem 2. Problem Problem Altered nutrition related lab values related to Etiology electrolyte imbalance aeb Signs/Symptoms: K 3.1 1. Problem Problem Underweight related to Etiology possible poor intake prior to admission aeb Signs/Symptoms: BMI 10.8 based on patient's stated weight. Intervention/Recommendation Comments 1. Continue current diet order as tolerated by patient. 2. Encourage oral intake due to low body weight/BMI. Consider Boost with meals to optimize nutrient intake. 3. Encourage intake of high potassium foods including banana, orange juice, tomato soup, potatoes. MD to replace lytes as needed. Expected Outcomes/Goals Expected Outcomes/Goals Oral intake to meet >75% of nutrient needs, weight gain toward ideal body weight, nutrition related labs normalize
--- NOTE | 2017-11-05 20:58 | Progress Notes ---
DATE: 11/05/2017 SUBJECTIVE: The patient was seen and evaluated. The patient's chart reviewed. Today on [id number] evaluation, the patient is withdrawn and disengaged in the interview. MENTAL STATUS EXAMINATION: Irritable, minimally impaired, cognitive impairment. ASSESSMENT AND PLAN: A 72-year-old female with severe neurocognitive impairment who needs a lot of redirections and 1:1 sitter to provide him with food, simple ADL redirection. Continue with primary psychiatric treatment plan of Seroquel 12.5 b.i.d., Namenda 10 b.i.d., and Aricept 10 every day. We will continue monitoring and evaluating. Continue working with mental case coordinator for safe dispo once available. JOB# [id number]
[2017-11-06] MEDS: Pantoprazole 40 mg EC Tab PO SCH (06:46)
[2017-11-06 08:14] LABS: INR 1.81 (0.5-1.4); PROTHROMBIN TIME (TEST) 19.4 SECONDS (9.5-11.5)
[2017-11-06] MEDS: Multivitamin Tab PO SCH (10:16)
[2017-11-06] MEDS: Aspirin 81mg Chewable Tab PO SCH (10:17)
[2017-11-06] MEDS: Ferrous Sulfate 325 MG TAB PO SCH (10:17)
[2017-11-06] MEDS: Silver Antimicrobial Wound Gel 0.25 oz Tube TP SCH (10:50)
--- NOTE | 2017-11-06 10:50 | General Progress Note ---
Subjective - Review of Systems Service Date: 11/06/17 Events since last encounter: HOLD COUMADIN WILL SCHEDULE FOR MASTECTOMY IN AM FAMILY OR TWO DOCTORS TO SIGN MEDICAL NECESSITY Objective - Results Result Diagrams: 10/20/17 20:43 10/23/17 06:10 Recent Labs: Laboratory Last Values WBC 7.5 Th/cmm (4.8-10.8) 10/20/17 20:43 RBC 5.34 Mil/cmm (3.80-5.20) H 10/20/17 20:43 Hgb 14.2 gm/dL (12-16) 10/20/17 20:43 Hct 44.0 % (41.0-60) 10/20/17 20:43 MCV 82.4 fl (81-100) 10/20/17 20:43 MCH 26.6 pg (27.0-31.0) L 10/20/17 20:43 MCHC Differential 32.3 pg (28.0-36.0) 10/20/17 20:43 RDW 17.0 % (11.5-20.0) 10/20/17 20:43 Plt Count 316 Th/cmm (150-400) 10/20/17 20:43 MPV 7.1 fl 10/20/17 20:43 Neutrophils % 70.0 % (40.0-80.0) 10/20/17 20:43 Lymphocytes % 21.7 % (20.0-50.0) 10/20/17 20:43 Monocytes % 6.2 % (2.0-10.0) 10/20/17 20:43 Eosinophils % 2.1 % (0.0-5.0) 10/20/17 20:43 Basophils % 0.0 % (0.0-2.0) 10/20/17 20:43 PT 19.4 SECONDS (9.5-11.5) H 11/06/17 07:20 INR 1.81 (0.5-1.4) H 11/06/17 07:20 Sodium 136 mEq/L (136-145) 10/23/17 06:10 Potassium 3.6 mEq/L (3.5-5.1) 10/23/17 06:10 Chloride 105 mEq/L (98-107) 10/23/17 06:10 Carbon Dioxide 27.3 mEq/L (21.0-31.0) 10/23/17 06:10 Anion Gap 7.3 (7.0-16.0) 10/23/17 06:10 BUN 15 mg/dL (7-25) 10/23/17 06:10 Creatinine 0.5 mg/dL (0.6-1.2) L 10/23/17 06:10 Est GFR ( Amer) TNP 10/23/17 06:10 Est GFR (Non-Af Amer) TNP 10/23/17 06:10 BUN/Creatinine Ratio 30.0 10/23/17 06:10 Glucose 95 mg/dL (70-105) 10/23/17 06:10 POC Glucose 49 MG/DL (70 - 105) L 10/21/17 06:40 Calcium 9.6 mg/dL (8.6-10.3) 10/23/17 06:10 Total Bilirubin 0.9 mg/dL (0.3-1.0) 10/22/17 06:20 AST 8 U/L (13-39) L 10/22/17 06:20 ALT 7 U/L (7-52) 10/22/17 06:20 Alkaline Phosphatase 46 U/L (34-104) 10/22/17 06:20 Total Protein 8.1 gm/dL (6.0-8.3) 10/22/17 06:20 Albumin 3.1 gm/dL (3.7-5.3) L 10/22/17 06:20 Globulin 5.0 gm/dL 10/22/17 06:20 Albumin/Globulin Ratio 0.6 (1.0-1.8) L 10/22/17 06:20 Urine Source CLEAN C 10/20/17 21:55 Urine Color YELLOW 10/20/17 21:55 Urine Clarity CLOUDY (CLEAR) H 10/20/17 21:55 Urine pH 5.5 (4.6 - 8.0) 10/20/17 21:55 Ur Specific [place] 1.025 (1.005-1.030) 10/20/17 21:55 Urine Protein NEGATIVE mg/dL (NEGATIVE) 10/20/17 21:55 Urine Glucose (UA) NEGATIVE mg/dL (NEGATIVE) 10/20/17 21:55 Urine Ketones NEGATIVE mg/dL (NEGATIVE) 10/20/17 21:55 Urine Blood SMALL (NEGATIVE) H 10/20/17 21:55 Urine Nitrate POSITIVE (NEGATIVE) H 10/20/17 21:55 Urine Bilirubin NEGATIVE (NEGATIVE) 10/20/17 21:55 Urine Urobilinogen 1.0 E.U./dL (0.2 - 1.0) 10/20/17 21:55 Ur Leukocyte Esterase LARGE (NEGATIVE) H 10/20/17 21:55 Urine RBC 2-5 /hpf (0-5) 10/20/17 21:55 Urine WBC 50-100 /hpf (0-5) H 10/20/17 21:55 Ur Epithelial Cells NONE SEEN /lpf (FEW) 10/20/17 21:55 Urine Bacteria MANY /hpf (NONE SEEN) H 10/20/17 21:55 - Physical Exam Vitals and I&O: Vital Signs Temp 97.7 F 11/06/17 06:12 Pulse 64 11/06/17 06:46 Resp 18 11/06/17 06:12 BP 165/84 11/06/17 06:12 Pulse Ox 94 11/06/17 06:12 Intake & Output 11/05/17 11/06/17 11/06/17 18:59 06:59 18:59 Intake Total 1000 480 Balance 1000 480 Intake: Oral 1000 480 Other: # Voids 3 2 # Bowel Movements 0 Stool Characteristics Soft Active Medications: Current Medications Acetaminophen (Tylenol) 650 mg PO Q4HR PRN PRN Reason: Pain (Mild) Stop: 12/20/17 02:03 Amlodipine Besylate (Norvasc) 10 mg PO DAILY [facility] Stop: 12/31/17 10:02 Last Admin: 11/05/17 09:12 Dose: 10 mg Ascorbic Acid (Vitamin C) 500 mg PO DAILY [facility] Stop: 12/20/17 08:59 Last Admin: 11/06/17 10:17 Dose: 500 mg Aspirin (Aspirin Chewable) 81 mg PO DAILY [facility] Stop: 12/20/17 08:59 Last Admin: 11/06/17 10:17 Dose: 81 mg Docusate Sodium (Colace) 100 mg PO DAILY [facility] Stop: 12/20/17 08:59 Last Admin: 11/06/17 10:17 Dose: Not Given Donepezil HCl (Aricept) 10 mg PO DAILY [facility] Stop: 12/20/17 08:59 Last Admin: 11/06/17 10:17 Dose: 10 mg Ferrous Sulfate (Iron) 325 mg PO DAILY [facility] Stop: 12/20/17 08:59 Last Admin: 11/06/17 10:17 Dose: 325 mg Memantine (Namenda) 10 mg PO BID [facility] Stop: 12/29/17 16:59 Last Admin: 11/06/17 10:16 Dose: 10 mg Multivitamins/Vitamin C (Theragran) 1 tab PO DAILY [facility] Stop: 12/20/17 08:59 Last Admin: 11/06/17 10:16 Dose: Not Given Ondansetron HCl (Zofran Odt) 4 mg PO Q6HR PRN PRN Reason: Nausea/VOMITING Stop: 12/20/17 02:03 Pantoprazole Sodium (Protonix) 40 mg PO QDAC [facility] Stop: 12/20/17 07:29 Last Admin: 11/06/17 06:46 Dose: 40 mg Quetiapine Fumarate (Seroquel) 12.5 mg PO BID [facility] PRN Reason: Protocol Stop: 12/24/17 08:59 Last Admin: 11/06/17 10:16 Dose: 12.5 mg Warfarin Sodium (Coumadin Per Pharmacy) 1 ea MC DAILY [facility] Stop: 01/01/18 08:59 Wound Care/Dressing Products (Silvasorb) 1 appl TP DAILY [facility] Stop: 12/31/17 17:59 Last Admin: 11/05/17 09:13 Dose: 1 appl General: No acute distress HEENT: Atraumatic, PERRLA, EOMI Neck: Supple, JVD, Thyromegaly Cardiovascular: Regular rate, Normal S1, Normal S2 Lungs: Clear to auscultation Abdomen: Bowel sounds, Soft Nutritional Asmnt/Malnutr-PDOC - Dietary Evaluation Malnutrition Findings (Please click <Entered> for more info): Nutritional Asmnt/Malnutrition Start: 10/21/17 10: 55 Text: Status: Complete Freq: Document 10/21/17 10:55 FLORENCIO (Rec: 10/21/17 11:12 FLORENCIO LLAMAS- FN) Nutritional Asmnt/Malnutrition Patient General Information Nutritional Screening High Risk Diagnosis Psychosis Pertinent Medical Hx/Surgical Hx Mastectomy Rt breast, dysphagia, DM type 2, abcess on lt breast, dementia Subjective Information Patient was admitted from SNF. Current Diet Order/ Nutrition Support Mechanical soft chopped Patient / S.O Not Indicated Pertinent Medications vitamin C, colace, iron, Theragran, Zofran, protonix Pertinent Labs (10/20) Na 135, K 3.1, glucose 49-132, albumin 3.1 Nutritional Hx/Data Height 1.68 m Height (Calculated Centimeters) 167.6 Current Weight (lbs) 30.391 kg Weight (Calculated Kilograms) 30.4 Weight (Calculated Grams) 55414.7 [place] Body Weight 130 % [place] Body Weight 51 Body Mass Index (BMI) 10.8 Weight Status Underweight GI Symptoms GI Symptoms None Difficult in: None Food Allergies No Cultural/Ethnic/Protestant Belief none indicated Usual diet at home unknown Skin Integrity/Comment: Area of concern, Nickolas Ocasio Estimated Nutritional Goals BEE in Kcals: Adj wt of IBW Calories/Kcals/Kg 25-30 kcal/kg using IBW 59kg Kcals Calculated 1890-5674 kcal/day Protein: Adj wt of IBW Protein g/kg: .8-1 gm/kg using IBW Protein Calculated 50-50 gm/day Fluid: ml 1500-1800ml/day (1 ml/kcal) Nutritional Problem 2. Problem Problem Altered nutrition related lab values related to Etiology electrolyte imbalance aeb Signs/Symptoms: K 3.1 1. Problem Problem Underweight related to Etiology possible poor intake prior to admission aeb Signs/Symptoms: BMI 10.8 based on patient's stated weight. Intervention/Recommendation Comments 1. Continue current diet order as tolerated by patient. 2. Encourage oral intake due to low body weight/BMI. Consider Boost with meals to optimize nutrient intake. 3. Encourage intake of high potassium foods including banana, orange juice, tomato soup, potatoes. MD to replace lytes as needed. Expected Outcomes/Goals Expected Outcomes/Goals Oral intake to meet >75% of nutrient needs, weight gain toward ideal body weight, nutrition related labs normalize
== END 2017-11-06 14:20 | DRG 884 ==
LOC: ER 19:03 → GERO2 22:20
PROVIDERS: ADMIT Psychiatry & Neurology Psychiatry; ATTEND Psychiatry & Neurology Psychiatry
DX: F03.91 Unspecified dementia, unspecified severity, with behavioral disturbance (principal); N39.0 Urinary tract infection, site not specified; Z85.3 Personal history of malignant neoplasm of breast; I10 Essential (primary) hypertension; E11.9 Type 2 diabetes mellitus without complications; Z86.73 Personal history of transient ischemic attack (TIA), and cerebral infarction without residual deficits; Z87.898 Personal history of other specified conditions; Z86.711 Personal history of pulmonary embolism; E78.5 Hyperlipidemia, unspecified; F32.9 Major depressive disorder, single episode, unspecified; K21.9 Gastro-esophageal reflux disease without esophagitis; R13.10 Dysphagia, unspecified; N63.20 Unspecified lump in the left breast, unspecified quadrant
CPT/HCPCS: 36415-UA; 71045-TC; 76642; 80048-TC; 80053-TC; 81001-TC; 82948-90; 85025-TC; 85610-TC; 87070-90; 87075-90; 87086-90; 87205-90; 87230-TC; 93005; 97530; X3904; Z7610

== ENCOUNTER 2017-11-06 14:23 | Inpatient (IN) | payer MEDICARE, MEDICAID ==
[2017-11-06] MEDS ORDERED: Sodium Chloride 0.9% 1,000 ML IV SCH (16:15)
--- NOTE | 2017-11-06 16:52 | History & Physical ---
ADMIT DATE: 11/06/2017 CHIEF COMPLAINT: Left breast abscess. HISTORY OF PRESENT ILLNESS: A 72-year-old female with past medical history significant for breast cancer, is being admitted to medical floor for further treatment of left breast abscess. The patient has had a stay in [facility] Unit and is now stabilized and Dr. Davis, the surgeon who consulted on the case, will perform a surgery on the left breast because of ongoing abscess and infection. The patient is verbal, but is a poor historian. She denies any pain or distress. PAST MEDICAL HISTORY: The patient has history of breast cancer. She has had a right mastectomy, has apparently a chronic left-sided breast mass and associated abscess. She also has history of dementia and hypertension. The patient is on anticoagulation for DVT. MEDICATIONS: As per reconciliation. ALLERGIES: The patient has no known drug allergies. SOCIAL HISTORY: No known tobacco, alcohol or illicit drug use. FAMILY HISTORY: Noncontributory. REVIEW OF SYSTEMS: IMMUNOLOGIC: No recurrent infection. CARDIOVASCULAR: The patient has history of hypertension, no known heart disease. GASTROINTESTINAL: No nausea, vomiting or diarrhea. ENDOCRINE: No diabetes or thyroid disorder. NEUROLOGIC: No seizure or stroke. The patient has advanced dementia. HEMATOLOGIC: No bleeding or clotting disorder. The patient is on anticoagulation for DVT. PHYSICAL EXAMINATION: VITAL SIGNS: Temperature 97.7, pulse 64, respiration 18, blood pressure 165/84. HEENT: Pupils equally round, anicteric sclerae. NECK: Supple, no JVD, mass or bruit. LUNGS: Clear to auscultation. CHEST: The patient has an indurated left breast with area of purulent drainage. HEART: S1, S2, regular rate and rhythm. ABDOMEN: Soft, nontender, positive bowel sounds. EXTREMITIES: No clubbing, cyanosis, or edema. LABORATORY DATA: INR is 1.8. IMPRESSION: 1. Left breast abscess. 2. History of breast cancer. 3. Dementia. 4. Status post urinary tract infection. 5. Hypertension. 6. History of deep venous thrombosis. 7. Gastroesophageal reflux disorder. PLAN: The patient has been admitted to medical floor. The patient will be followed by Dr. Davis for possible surgical drainage and debridement of abscess. Coumadin will be on hold. We will obtain further blood test to assess the patient's anticoagulation in the morning. [facility]# [id number]
--- NOTE | 2017-11-06 23:38 | Progress Notes ---
DATE: 11/06/2017 SUBJECTIVE: The patient was seen and evaluated. The patient's chart reviewed. The patient presents irritable. Today on [id number] evaluation, the patient derails in conversation, minimally interactive and poor historian. MENTAL STATUS EXAMINATION: Irritable. Memory impaired and cognitively impaired. ASSESSMENT AND PLAN: A 72-year-old female with severe neurocognitive impairment who needs a lot of redirections and one-to-one sitter to provide herself with food, residential and simple ADL redirection. We will continue with the current medication regimen, targeting very closely to continue to work with medical anthropology director for safe disposition once available. JOB# [id number]
[2017-11-07 04:51] LABS: % EOSINOPHILS 3.4 % (0.0-5.0); % LYMPHOCYTES 28.1 % (20.0-50.0); % MONOCYTES 5.7 % (2.0-10.0); % NEUTROPHILS 62.8 % (40.0-80.0); EOSINOPHILE ABSOLUTE 0.2 Th/cmm (0.1-0.4); HEMATOCRIT 44.5 % (41.0-60); HEMOGLOBIN 14.2 gm/dL (12-16); LYMPHOCYTE ABSOLUTE 1.6 Th/cmm (1.5-3.0); MEAN CORPUSCULAR HEMOGLOBIN 26.4 pg (27.0-31.0); MEAN CORPUSCULAR HGB CONC 31.9 pg (28.0-36.0); MEAN PLATELET VOLUME 7.5 fl; MONOCYTE ABSOLUTE 0.3 Th/cmm (0.3-1.0); NEUTROPHILE ABSOLUTE 3.6 Th/cmm (1.8-8.0); PLATELET COUNT 269 Th/cmm (150-400); RED BLOOD COUNT 5.36 Mil/cmm (3.80-5.20); RED CELL DISTRIBUTION WIDTH 16.9 % (11.5-20.0); WHITE BLOOD COUNT 5.7 Th/cmm (4.8-10.8)
[2017-11-07 05:00] LABS: INR 1.66 (0.5-1.4); PROTHROMBIN TIME (TEST) 17.7 SECONDS (9.5-11.5)
[2017-11-07 05:54] LABS: ANION GAP 9.6 (7.0-16.0); BUN - UREA NITROGEN 16 mg/dL (7-25); CARBON DIOXIDE 28.7 mEq/L (21.0-31.0); CHLORIDE 107 mEq/L (98-107); CREATININE - SERUM 0.4 mg/dL (0.6-1.2); GLUCOSE 89 mg/dL (70-105); POTASSIUM SERUM 3.3 mEq/L (3.5-5.1); SODIUM SERUM 142 mEq/L (136-145)
[2017-11-07] MEDS: D5-0.45NS w/20 mEq KCL 1,000 ML IV SCH (07:07)
--- NOTE | 2017-11-07 08:53 | Diagnostic Imaging Report ---
Portable chest x-ray HISTORY: Shortness of breath, preoperative The heart is enlarged. Vertically oriented linear density seen in the left lower lobe unchanged from a level, 2018. Findings most likely related to scarring. No other focal pulmonary processes. Surgical clip seen in the right axillary region. IMPRESSION: 1. Cardiomegaly 2. No other significant changes from October 20, 2017.
[2017-11-07] MEDS: Pantoprazole 40 mg EC Tab PO SCH (09:40)
[2017-11-07] MEDS: Silver Antimicrobial Wound Gel 0.25 oz Tube TP SCH (09:41)
[2017-11-07] MEDS: Ferrous Sulfate 325 MG TAB PO SCH (09:41)
[2017-11-07] MEDS: Multivitamin Tab PO SCH (09:48)
[2017-11-07] MEDS: cefTRIAXone 1 GM in Sodium Chloride 0.9% 50 ML IV SCH (09:52)
[2017-11-07] MEDS ORDERED: fentaNYL Citrate 100 mcg/2mL Vial IV ONE (10:10)
--- NOTE | 2017-11-07 10:11 | History & Physical ---
ADMIT DATE: 11/06/2017 SURGICAL CONSULTATION REFERRING PHYSICIAN: Dr. Price. REASON FOR CONSULTATION: Left breast mass, question of abscess. Thank you for referring this patient to me. HISTORY OF PRESENT ILLNESS: This is a 72-year-old female with a history of right mastectomy for breast cancer. The patient has developed a mass in the left breast, duration of which is difficult to ascertain as the patient is unable to give any meaningful information. Attempt to call the sister has been made multiple times. The patient has dementia, hypertension, DVT, on Coumadin. LABORATORY DATA: Most recent laboratory studies show prothrombin time at 17.7 and Coumadin has been withheld. CBC is essentially normal. Chemistry: Potassium is 3.3. Creatinine slightly high at 0.4. Chest x-ray shows cardiomegaly, some linear density in the left lower lobe, likely from scarring. PHYSICAL EXAMINATION: GENERAL: The patient is awake, but unable to give any meaningful information. Scar in the right breast from previous mastectomy and there is a large mass in the left breast over the small area of some drainage, but no abscess that is fluctuant is noted. RECOMMENDATIONS: Excision of the mass and placement of drainage in the event of an abscess. Frozen section will be done to determine how extensive the procedure will have to be if malignant. Thank you Dr. Davis. JOB# [id number]
[2017-11-07] MEDS ORDERED: Labetalol 5 mg/mL 20 mL Vial ONE (10:39)
[2017-11-07] MEDS ORDERED: HYDROmorphone 1 mg/mL 1mL Syr IVP PRN (11:26)
--- NOTE | 2017-11-07 12:03 | Internal Medicine Prog Note ---
Internal Medicine Subjective - Subjective Service Date: 11/07/17 Patient seen and examined:: with staff Patient is:: awake, verbal, confused Per staff patient has:: no adverse event Internal Medicine Objective - Results Result Diagrams: 11/07/17 04:30 11/07/17 04:30 Recent Labs: Laboratory Last Values WBC 5.7 Th/cmm (4.8-10.8) 11/07/17 04:30 RBC 5.36 Mil/cmm (3.80-5.20) H 11/07/17 04:30 Hgb 14.2 gm/dL (12-16) 11/07/17 04:30 Hct 44.5 % (41.0-60) 11/07/17 04:30 MCV 83.0 fl (81-100) 11/07/17 04:30 MCH 26.4 pg (27.0-31.0) L 11/07/17 04:30 MCHC Differential 31.9 pg (28.0-36.0) 11/07/17 04:30 RDW 16.9 % (11.5-20.0) 11/07/17 04:30 Plt Count 269 Th/cmm (150-400) 11/07/17 04:30 MPV 7.5 fl 11/07/17 04:30 Neutrophils % 62.8 % (40.0-80.0) 11/07/17 04:30 Lymphocytes % 28.1 % (20.0-50.0) 11/07/17 04:30 Monocytes % 5.7 % (2.0-10.0) 11/07/17 04:30 Eosinophils % 3.4 % (0.0-5.0) 11/07/17 04:30 Basophils % 0.0 % (0.0-2.0) 11/07/17 04:30 PT 17.7 SECONDS (9.5-11.5) H 11/07/17 04:30 INR 1.66 (0.5-1.4) H 11/07/17 04:30 PTT (Actin FS) 34.5 SECONDS (26.0-38.0) 11/07/17 04:30 Sodium 142 mEq/L (136-145) 11/07/17 04:30 Potassium 3.3 mEq/L (3.5-5.1) L 11/07/17 04:30 Chloride 107 mEq/L (98-107) 11/07/17 04:30 Carbon Dioxide 28.7 mEq/L (21.0-31.0) 11/07/17 04:30 Anion Gap 9.6 (7.0-16.0) 11/07/17 04:30 BUN 16 mg/dL (7-25) 11/07/17 04:30 Creatinine 0.4 mg/dL (0.6-1.2) L 11/07/17 04:30 Est GFR ( Amer) TNP 11/07/17 04:30 Est GFR (Non-Af Amer) TNP 11/07/17 04:30 BUN/Creatinine Ratio 40.0 11/07/17 04:30 Glucose 89 mg/dL (70-105) 11/07/17 04:30 POC Glucose 130 MG/DL (70 - 105) H 11/06/17 15:32 Calcium 10.0 mg/dL (8.6-10.3) 11/07/17 04:30 - Physical Exam Vitals and I&O: Vital Signs Temp 97.6 F 11/07/17 08:00 Pulse 62 11/07/17 09:40 Resp 18 11/07/17 08:00 BP 165/74 11/07/17 09:40 Pulse Ox 99 11/07/17 08:00 Intake & Output 11/06/17 11/07/17 11/07/17 18:59 06:59 18:59 Intake Total 100 Balance 100 Weight (lbs) 75.75 kg 85.638 kg Intake: Oral 100 Other: # Voids 1 2 # Bowel Movements 1 0 Weight Source Patient stated Bedscale Active Medications: Current Medications Acetaminophen (Tylenol) 650 mg PO Q4HR PRN PRN Reason: Pain (Mild) Stop: 01/05/18 17:20 Amlodipine Besylate (Norvasc) 10 mg PO DAILY [facility] Stop: 01/06/18 08:59 Last Admin: 11/07/17 09:40 Dose: Not Given Ascorbic Acid (Vitamin C) 500 mg PO DAILY [facility] Stop: 01/06/18 08:59 Last Admin: 11/07/17 09:41 Dose: Not Given Docusate Sodium (Colace) 100 mg PO DAILY [facility] Stop: 01/06/18 08:59 Last Admin: 11/07/17 09:41 Dose: Not Given Donepezil HCl (Aricept) 10 mg PO DAILY [facility] Stop: 01/06/18 08:59 Last Admin: 11/07/17 09:41 Dose: Not Given Ferrous Sulfate (Iron) 325 mg PO DAILY [facility] Stop: 01/06/18 08:59 Last Admin: 11/07/17 09:41 Dose: Not Given Hydralazine HCl (Apresoline 20 Mg/Ml) 10 mg IV Q6H PRN PRN Reason: BP MAINTENANCE (PER PROTOCOL) Stop: 01/06/18 06:39 Last Admin: 11/07/17 07:09 Dose: 10 mg Hydromorphone HCl (Dilaudid) 1 mg IVP Q4HR PRN PRN Reason: Pain (Moderate) Stop: 11/07/17 18:00 Potassium Chloride/Dextrose/Sod Cl (D5-0.45ns W/20 Meq Kcl) 1,000 mls @ 75 mls/ hr IV .[id number] [facility] Stop: 01/06/18 06:43 Last Admin: 11/07/17 07:07 Dose: 75 mls/hr Ceftriaxone Sodium 1 gm/ (Sodium Chloride) 50 mls @ 100 mls/hr IV Q24HR [facility] Stop: 01/06/18 09:59 Last Admin: 11/07/17 09:52 Dose: 100 mls/hr Memantine (Namenda) 10 mg PO BID [facility] Stop: 01/05/18 17:29 Last Admin: 11/07/17 09:48 Dose: Not Given Multivitamins/Vitamin C (Theragran) 1 tab PO DAILY [facility] Stop: 01/06/18 08:59 Last Admin: 11/07/17 09:48 Dose: Not Given Ondansetron HCl (Zofran Odt) 4 mg PO Q6HR PRN PRN Reason: Nausea/VOMITING Stop: 01/05/18 17:20 Pantoprazole Sodium (Protonix) 40 mg PO QDAC [facility] Stop: 01/06/18 07:29 Last Admin: 11/07/17 09:40 Dose: Not Given Quetiapine Fumarate (Seroquel) 12.5 mg PO BID [facility] PRN Reason: Protocol Stop: 01/05/18 17:29 Last Admin: 11/07/17 09:48 Dose: Not Given Warfarin Sodium 5 mg/ Warfarin (Sodium 3 mg) 8 mg PO ONCE ONE Stop: 11/07/17 13:01 Warfarin Sodium (Coumadin Per Pharmacy) 1 e[facility] PRN PRN PRN Reason: RX MONITORING Stop: 01/06/18 10:57 Wound Care/Dressing Products (Silvasorb) 1 appl TP DAILY [facility] Stop: 01/06/18 08:59 Last Admin: 11/07/17 09:41 Dose: Not Given General: demented HEENT: NC/AT, PERRLA, EOMI, anicteric sclerae, throat clear Neck: Supple, No JVD, No thyromegaly, +2 carotid pulse wo bruit, No LAD, + JVD Lungs: CTAB Cardiovascular: RRR, Normal S1, Normal S2, without murmur Abdomen: soft, non-tender, non-distended Extremities: clear Neurological: no change (THE LEFT BREAS IS FIRM.) Internal Medicine Assmt/Plan - Assessment Assessment: 1.LEFT BREAST ABSCESS. 2.ANEMIA. 3.HTN. 4.DEMENTIA. - Plan Plan: SHE IS CLEARE FOR SURGERY.
--- NOTE | 2017-11-07 16:01 | Operative Report ---
DATE OF SURGERY: 11/07/2017 PREOPERATIVE DIAGNOSES: 1. Right breast CA post-mastectomy. 2. Left breast mass, question of infection and/or metastatic disease or primary CA of the breast. 3. Dementia. 4. Hypertension. POSTOPERATIVE DIAGNOSES: 1. Right breast CA post-mastectomy. 2. Left breast mass, question of infection and/or metastatic disease or primary CA of the breast. 3. Dementia. 4. Hypertension. OPERATION DONE: Complete excision of the calcified left breast mass. SURGEON: Susan Kilgore M.D. ANESTHESIA: General. ANESTHESIOLOGIST: Dr. Cruz. ESTIMATED BLOOD LOSS: 30 mL. OPERATIVE FINDINGS: An incision made through the mass which was heavily calcified. This might represent fibrosis from previous mastectomy. Content in the cavity was an old hematoma. Because of the severe fibrosis this was completely excised to allow for healing. PROCEDURE DONE: Frozen section. DESCRIPTION OF PROCEDURE: The patient was given general anesthesia. The left breast was prepped with ChloraPrep and draped in appropriate manner. An incision was made through the sinus in the medial aspect of the right breast mass. There was no abscess present, but old clots of blood that had partially absorbed. This was evacuated. Culture was taken. Because of the calcification of this mass it was completely excised. They were sent for frozen section and no malignancy was noted. Following complete excision of the calcified mass cautery was used for hemostasis. Incision was closed with interrupted sutures of 3-0 Vicryl subcutaneously and the skin was closed with subcuticular suture of 4-0 Vicryl. A Delfino drain was placed in the operative site. The patient tolerated the procedure well. JOB# [id number]
[2017-11-08] MEDS: D5-0.45NS w/20 mEq KCL 1,000 ML IV SCH ×2 (02:10→13:17)
[2017-11-08 08:38] LABS: HEMATOCRIT 38.5 % (41.0-60); MEAN CORPUSCULAR HEMOGLOBIN 26.3 pg (27.0-31.0); RED BLOOD COUNT 4.59 Mil/cmm (3.80-5.20); WHITE BLOOD COUNT 8.4 Th/cmm (4.8-10.8)
[2017-11-08 08:39] LABS: % EOSINOPHILS 1.5 % (0.0-5.0); % LYMPHOCYTES 17.2 % (20.0-50.0); % NEUTROPHILS 73.3 % (40.0-80.0); EOSINOPHILE ABSOLUTE 0.1 Th/cmm (0.1-0.4); LYMPHOCYTE ABSOLUTE 1.4 Th/cmm (1.5-3.0); MEAN CORPUSCULAR HGB CONC 31.3 pg (28.0-36.0); MEAN PLATELET VOLUME 7.9 fl; MONOCYTE ABSOLUTE 0.7 Th/cmm (0.3-1.0); NEUTROPHILE ABSOLUTE 6.2 Th/cmm (1.8-8.0); PLATELET COUNT 278 Th/cmm (150-400); RED CELL DISTRIBUTION WIDTH 16.7 % (11.5-20.0)
[2017-11-08] MEDS: Multivitamin Tab PO SCH (09:18)
[2017-11-08] MEDS: Ferrous Sulfate 325 MG TAB PO SCH (09:18)
[2017-11-08] MEDS: Silver Antimicrobial Wound Gel 0.25 oz Tube TP SCH (09:21)
[2017-11-08] MEDS: cefTRIAXone 1 GM in Sodium Chloride 0.9% 50 ML IV SCH (09:21)
[2017-11-08 10:02] LABS: ALB/GLOB RATIO 0.7 (1.0-1.8); ALBUMIN 2.8 gm/dL (3.7-5.3); ALKALINE PHOSPHATASE 42 U/L (34-104); ANION GAP 8.4 (7.0-16.0); BILIRUBIN,TOTAL 0.7 mg/dL (0.3-1.0); BUN - UREA NITROGEN 16 mg/dL (7-25); CALCIUM SERUM 9.3 mg/dL (8.6-10.3); CARBON DIOXIDE 25.3 mEq/L (21.0-31.0); CHLORIDE 108 mEq/L (98-107); CREATININE - SERUM 0.6 mg/dL (0.6-1.2); GLUCOSE 127 mg/dL (70-105); POTASSIUM SERUM 3.7 mEq/L (3.5-5.1); SGOT 7 U/L (13-39); SGPT/ALT 6 U/L (7-52); SODIUM SERUM 138 mEq/L (136-145)
[2017-11-08] MEDS ORDERED: Probiotic Screen MC PRN (10:26)
[2017-11-08 10:38] LABS: INR 1.9 (0.5-1.4); PROTHROMBIN TIME (TEST) 20.5 SECONDS (9.5-11.5)
[2017-11-08] MEDS: Pantoprazole 40 mg EC Tab PO SCH (11:33)
[2017-11-08] MEDS: Lactobacillus Rhamnosus GG 15 Billion CFU CAP.SPRINK PO SCH (11:33)
--- NOTE | 2017-11-08 11:45 | General Progress Note ---
Subjective - Review of Systems Service Date: 11/08/17 Events since last encounter: labs noted left chest remains prominent, minimal drainage sero-sanguinous Objective - Results Result Diagrams: 11/08/17 08:10 11/08/17 08:10 Recent Labs: Laboratory Last Values WBC 8.4 Th/cmm (4.8-10.8) 11/08/17 08:10 RBC 4.59 Mil/cmm (3.80-5.20) 11/08/17 08:10 Hgb 12.0 gm/dL (12-16) 11/08/17 08:10 Hct 38.5 % (41.0-60) L 11/08/17 08:10 MCV 84.0 fl (81-100) 11/08/17 08:10 MCH 26.3 pg (27.0-31.0) L 11/08/17 08:10 MCHC Differential 31.3 pg (28.0-36.0) 11/08/17 08:10 RDW 16.7 % (11.5-20.0) 11/08/17 08:10 Plt Count 278 Th/cmm (150-400) 11/08/17 08:10 MPV 7.9 fl 11/08/17 08:10 Neutrophils % 73.3 % (40.0-80.0) 11/08/17 08:10 Lymphocytes % 17.2 % (20.0-50.0) L 11/08/17 08:10 Monocytes % 8.0 % (2.0-10.0) 11/08/17 08:10 Eosinophils % 1.5 % (0.0-5.0) 11/08/17 08:10 Basophils % 0.0 % (0.0-2.0) 11/08/17 08:10 PT 20.5 SECONDS (9.5-11.5) H 11/08/17 08:10 INR 1.90 (0.5-1.4) H 11/08/17 08:10 PTT (Actin FS) 34.5 SECONDS (26.0-38.0) 11/07/17 04:30 Sodium 138 mEq/L (136-145) 11/08/17 08:10 Potassium 3.7 mEq/L (3.5-5.1) 11/08/17 08:10 Chloride 108 mEq/L (98-107) H 11/08/17 08:10 Carbon Dioxide 25.3 mEq/L (21.0-31.0) 11/08/17 08:10 Anion Gap 8.4 (7.0-16.0) 11/08/17 08:10 BUN 16 mg/dL (7-25) 11/08/17 08:10 Creatinine 0.6 mg/dL (0.6-1.2) 11/08/17 08:10 Est GFR ( Amer) TNP 11/08/17 08:10 Est GFR (Non-Af Amer) TNP 11/08/17 08:10 BUN/Creatinine Ratio 26.7 11/08/17 08:10 Glucose 127 mg/dL (70-105) H 11/08/17 08:10 POC Glucose 130 MG/DL (70 - 105) H 11/06/17 15:32 Calcium 9.3 mg/dL (8.6-10.3) 11/08/17 08:10 Total Bilirubin 0.7 mg/dL (0.3-1.0) 11/08/17 08:10 AST 7 U/L (13-39) L 11/08/17 08:10 ALT 6 U/L (7-52) L 11/08/17 08:10 Alkaline Phosphatase 42 U/L (34-104) 11/08/17 08:10 Total Protein 7.0 gm/dL (6.0-8.3) 11/08/17 08:10 Albumin 2.8 gm/dL (3.7-5.3) L 11/08/17 08:10 Globulin 4.2 gm/dL 11/08/17 08:10 Albumin/Globulin Ratio 0.7 (1.0-1.8) L 11/08/17 08:10 - Physical Exam Vitals and I&O: Vital Signs Temp 97.0 F 11/08/17 07:47 Pulse 70 11/08/17 09:17 Resp 18 11/08/17 07:47 BP 126/73 11/08/17 09:17 Pulse Ox 95 11/08/17 07:47 Intake & Output 11/07/17 11/08/17 11/08/17 18:59 06:59 18:59 Intake Total 50 1830 Balance 50 1830 Weight (lbs) 85.638 kg 85.638 kg Intake: Intake, IV Amount 50 1000 D5-0.45NS w/20 mEq KCL 1, 1000 000 ml @ 75 mls/hr IV . [id number] [facility] Rx#:[id number] cefTRIAXone 1 gm In 50 Sodium Chloride 0.9% 50 ml @ 100 mls/hr IV Q24HR [facility] Rx#:[id number] Tube Feeding 830 Other: # Voids 2 2 # Bowel Movements 0 Weight Source Bedscale Bedscale Active Medications: Current Medications Acetaminophen (Tylenol) 650 mg PO Q4HR PRN PRN Reason: Pain (Mild) Stop: 01/05/18 17:20 Amlodipine Besylate (Norvasc) 10 mg PO DAILY [facility] Stop: 01/06/18 08:59 Last Admin: 11/08/17 09:17 Dose: 10 mg Ascorbic Acid (Vitamin C) 500 mg PO DAILY [facility] Stop: 01/06/18 08:59 Last Admin: 11/08/17 09:18 Dose: 500 mg Docusate Sodium (Colace) 100 mg PO DAILY [facility] Stop: 01/06/18 08:59 Last Admin: 11/08/17 09:18 Dose: 100 mg Donepezil HCl (Aricept) 10 mg PO DAILY [facility] Stop: 01/06/18 08:59 Last Admin: 11/08/17 09:18 Dose: 10 mg Ferrous Sulfate (Iron) 325 mg PO DAILY [facility] Stop: 01/06/18 08:59 Last Admin: 11/08/17 09:18 Dose: 325 mg Hydralazine HCl (Apresoline 20 Mg/Ml) 10 mg IV Q6H PRN PRN Reason: BP MAINTENANCE (PER PROTOCOL) Stop: 01/06/18 06:39 Last Admin: 11/07/17 07:09 Dose: 10 mg Potassium Chloride/Dextrose/Sod Cl (D5-0.45ns W/20 Meq Kcl) 1,000 mls @ 75 mls/ hr IV .[id number] [facility] Stop: 01/06/18 06:43 Last Admin: 11/08/17 02:10 Dose: 75 mls/hr Ceftriaxone Sodium 1 gm/ (Sodium Chloride) 50 mls @ 100 mls/hr IV Q24HR [facility] Stop: 01/06/18 09:59 Last Admin: 11/08/17 09:21 Dose: 100 mls/hr Lactobacillus Rhamnosus (Culturelle 15b) 1 each PO DAILY [facility] Stop: 01/07/18 10:59 Last Admin: 11/08/17 11:33 Dose: 1 each Memantine (Namenda) 10 mg PO BID [facility] Stop: 01/05/18 17:29 Last Admin: 11/08/17 09:17 Dose: 10 mg Miscellaneous (Probiotic Screen) 1 ea PRN PRN PRN Reason: PROTOCOL Stop: 01/07/18 10:25 Multivitamins/Vitamin C (Theragran) 1 tab PO DAILY [facility] Stop: 01/06/18 08:59 Last Admin: 11/08/17 09:18 Dose: 1 tab Ondansetron HCl (Zofran Odt) 4 mg PO Q6HR PRN PRN Reason: Nausea/VOMITING Stop: 01/05/18 17:20 Pantoprazole Sodium (Protonix) 40 mg PO QDAC [facility] Stop: 01/06/18 07:29 Last Admin: 11/08/17 11:33 Dose: 40 mg Quetiapine Fumarate (Seroquel) 12.5 mg PO BID [facility]; Protocol Stop: 01/05/18 17:29 Last Admin: 11/08/17 09:18 Dose: 12.5 mg Warfarin Sodium (Coumadin Per Pharmacy) 1 [facility] PRN PRN PRN Reason: RX MONITORING Stop: 01/06/18 10:57 Wound Care/Dressing Products (Silvasorb) 1 appl TP DAILY [facility] Stop: 01/06/18 08:59 Last Admin: 11/08/17 09:21 Dose: 1 appl - Procedures Procedures: Procedures Procedure Code Date EXTIRPATION OF MATTER FROM LEFT BREAST, OPEN APPROACH [id number] 11/06/17
--- NOTE | 2017-11-08 23:15 | Internal Medicine Prog Note ---
Internal Medicine Subjective - Subjective Service Date: 11/08/17 Patient seen and examined:: with staff (SHE HSD SURGERY YESTERDAY) Patient is:: awake, verbal, confused Per staff patient has:: no adverse event Internal Medicine Objective - Results Result Diagrams: 11/08/17 08:10 11/08/17 08:10 Recent Labs: Laboratory Last Values WBC 8.4 Th/cmm (4.8-10.8) 11/08/17 08:10 RBC 4.59 Mil/cmm (3.80-5.20) 11/08/17 08:10 Hgb 12.0 gm/dL (12-16) 11/08/17 08:10 Hct 38.5 % (41.0-60) L 11/08/17 08:10 MCV 84.0 fl (81-100) 11/08/17 08:10 MCH 26.3 pg (27.0-31.0) L 11/08/17 08:10 MCHC Differential 31.3 pg (28.0-36.0) 11/08/17 08:10 RDW 16.7 % (11.5-20.0) 11/08/17 08:10 Plt Count 278 Th/cmm (150-400) 11/08/17 08:10 MPV 7.9 fl 11/08/17 08:10 Neutrophils % 73.3 % (40.0-80.0) 11/08/17 08:10 Lymphocytes % 17.2 % (20.0-50.0) L 11/08/17 08:10 Monocytes % 8.0 % (2.0-10.0) 11/08/17 08:10 Eosinophils % 1.5 % (0.0-5.0) 11/08/17 08:10 Basophils % 0.0 % (0.0-2.0) 11/08/17 08:10 PT 20.5 SECONDS (9.5-11.5) H 11/08/17 08:10 INR 1.90 (0.5-1.4) H 11/08/17 08:10 PTT (Actin FS) 34.5 SECONDS (26.0-38.0) 11/07/17 04:30 Sodium 138 mEq/L (136-145) 11/08/17 08:10 Potassium 3.7 mEq/L (3.5-5.1) 11/08/17 08:10 Chloride 108 mEq/L (98-107) H 11/08/17 08:10 Carbon Dioxide 25.3 mEq/L (21.0-31.0) 11/08/17 08:10 Anion Gap 8.4 (7.0-16.0) 11/08/17 08:10 BUN 16 mg/dL (7-25) 11/08/17 08:10 Creatinine 0.6 mg/dL (0.6-1.2) 11/08/17 08:10 Est GFR ( Amer) TNP 11/08/17 08:10 Est GFR (Non-Af Amer) TNP 11/08/17 08:10 BUN/Creatinine Ratio 26.7 11/08/17 08:10 Glucose 127 mg/dL (70-105) H 11/08/17 08:10 POC Glucose 130 MG/DL (70 - 105) H 11/06/17 15:32 Calcium 9.3 mg/dL (8.6-10.3) 11/08/17 08:10 Total Bilirubin 0.7 mg/dL (0.3-1.0) 11/08/17 08:10 AST 7 U/L (13-39) L 11/08/17 08:10 ALT 6 U/L (7-52) L 11/08/17 08:10 Alkaline Phosphatase 42 U/L (34-104) 11/08/17 08:10 Total Protein 7.0 gm/dL (6.0-8.3) 11/08/17 08:10 Albumin 2.8 gm/dL (3.7-5.3) L 11/08/17 08:10 Globulin 4.2 gm/dL 11/08/17 08:10 Albumin/Globulin Ratio 0.7 (1.0-1.8) L 11/08/17 08:10 - Physical Exam Vitals and I&O: Vital Signs Temp 96.9 F 11/08/17 15:56 Pulse 69 11/08/17 15:56 Resp 18 11/08/17 15:56 BP 128/72 11/08/17 15:56 Pulse Ox 96 11/08/17 15:56 Intake & Output 05/30/18 05/30/18 05/31/18 06:59 18:59 06:59 Intake Total 1830 848.75 Balance 1830 848.75 Weight (lbs) 85.638 kg 85.275 kg Intake: Intake, IV Amount 1000 848.75 D5-0.45NS w/20 mEq KCL 1, 1000 833.75 000 ml @ 75 mls/hr IV . [id number] [facility] Rx#:[id number] cefTRIAXone 1 gm In 15 Sodium Chloride 0.9% 50 ml @ 100 mls/hr IV Q24HR [facility] Rx#:[id number] Tube Feeding 830 Other: # Voids 2 # Bowel Movements 0 Stool Characteristics Soft Brown Weight Source Bedscale Estimated Active Medications: Current Medications Acetaminophen (Tylenol) 650 mg PO Q4HR PRN PRN Reason: Pain (Mild) Stop: 01/05/18 17:20 Amlodipine Besylate (Norvasc) 10 mg PO DAILY [facility] Stop: 01/06/18 08:59 Last Admin: 11/08/17 09:17 Dose: 10 mg Ascorbic Acid (Vitamin C) 500 mg PO DAILY [facility] Stop: 01/06/18 08:59 Last Admin: 11/08/17 09:18 Dose: 500 mg Docusate Sodium (Colace) 100 mg PO DAILY [facility] Stop: 01/06/18 08:59 Last Admin: 11/08/17 09:18 Dose: 100 mg Donepezil HCl (Aricept) 10 mg PO DAILY [facility] Stop: 01/06/18 08:59 Last Admin: 11/08/17 09:18 Dose: 10 mg Ferrous Sulfate (Iron) 325 mg PO DAILY [facility] Stop: 01/06/18 08:59 Last Admin: 11/08/17 09:18 Dose: 325 mg Hydralazine HCl (Apresoline 20 Mg/Ml) 10 mg IV Q6H PRN PRN Reason: BP MAINTENANCE (PER PROTOCOL) Stop: 01/06/18 06:39 Last Admin: 11/07/17 07:09 Dose: 10 mg Potassium Chloride/Dextrose/Sod Cl (D5-0.45ns W/20 Meq Kcl) 1,000 mls @ 75 mls/ hr IV .[id number] [facility] Stop: 01/06/18 06:43 Last Admin: 11/08/17 13:17 Dose: 75 mls/hr Ceftriaxone Sodium 1 gm/ (Dextrose) 50 mls @ 100 mls/hr IV Q24HR [facility] Stop: 01/06/18 09:59 Last Admin: 11/08/17 13:09 Dose: 100 mls/hr Lactobacillus Rhamnosus (Culturelle 15b) 1 each PO DAILY [facility] Stop: 01/07/18 10:59 Last Admin: 11/08/17 11:33 Dose: 1 each Memantine (Namenda) 10 mg PO BID [facility] Stop: 01/05/18 17:29 Last Admin: 11/08/17 17:05 Dose: 10 mg Miscellaneous (Probiotic Screen) 1 ea PRN PRN PRN Reason: PROTOCOL Stop: 01/07/18 10:25 Multivitamins/Vitamin C (Theragran) 1 tab PO DAILY [facility] Stop: 01/06/18 08:59 Last Admin: 11/08/17 09:18 Dose: 1 tab Ondansetron HCl (Zofran Odt) 4 mg PO Q6HR PRN PRN Reason: Nausea/VOMITING Stop: 01/05/18 17:20 Pantoprazole Sodium (Protonix) 40 mg PO QDAC [facility] Stop: 01/06/18 07:29 Last Admin: 11/08/17 11:33 Dose: 40 mg Quetiapine Fumarate (Seroquel) 12.5 mg PO BID [facility]; Protocol Stop: 01/05/18 17:29 Last Admin: 11/08/17 17:04 Dose: 12.5 mg Warfarin Sodium (Coumadin Per Pharmacy) 1 [facility] PRN PRN PRN Reason: RX MONITORING Stop: 01/06/18 10:57 Wound Care/Dressing Products (Silvasorb) 1 appl TP DAILY [facility] Stop: 01/06/18 08:59 Last Admin: 11/08/17 09:21 Dose: 1 appl General: demented HEENT: NC/AT, PERRLA, EOMI, anicteric sclerae, throat clear Neck: Supple, No JVD, No thyromegaly, +2 carotid pulse wo bruit, No LAD, + JVD Lungs: CTAB Cardiovascular: RRR, Normal S1, Normal S2, without murmur Abdomen: soft, non-tender, non-distended Extremities: clear Neurological: no change (THE LEFT BREAS IS FIRM.) - Procedures Procedures: Procedures Procedure Code Date EXTIRPATION OF MATTER FROM LEFT BREAST, OPEN APPROACH [id number] 11/06/17 Internal Medicine Assmt/Plan - Assessment Assessment: 1.LEFT BREAST ABSCESS. 2.ANEMIA. 3.HTN. 4.DEMENTIA. - Plan Plan: CONTINUE ON CURRENT MEDICATION AND DIET.
[2017-11-09] MEDS: Pantoprazole 40 mg EC Tab PO SCH (06:44)
[2017-11-09 07:49] LABS: INR 2.22 (0.5-1.4); PROTHROMBIN TIME (TEST) 24.1 SECONDS (9.5-11.5)
--- NOTE | 2017-11-09 09:27 | General Progress Note ---
Subjective - Review of Systems Service Date: 11/09/17 Events since last encounter: 25 cc overnight drainage await pathology and cultures chest much softer today Objective - Results Result Diagrams: 11/08/17 08:10 11/08/17 08:10 Recent Labs: Laboratory Last Values WBC 8.4 Th/cmm (4.8-10.8) 11/08/17 08:10 RBC 4.59 Mil/cmm (3.80-5.20) 11/08/17 08:10 Hgb 12.0 gm/dL (12-16) 11/08/17 08:10 Hct 38.5 % (41.0-60) L 11/08/17 08:10 MCV 84.0 fl (81-100) 11/08/17 08:10 MCH 26.3 pg (27.0-31.0) L 11/08/17 08:10 MCHC Differential 31.3 pg (28.0-36.0) 11/08/17 08:10 RDW 16.7 % (11.5-20.0) 11/08/17 08:10 Plt Count 278 Th/cmm (150-400) 11/08/17 08:10 MPV 7.9 fl 11/08/17 08:10 Neutrophils % 73.3 % (40.0-80.0) 11/08/17 08:10 Lymphocytes % 17.2 % (20.0-50.0) L 11/08/17 08:10 Monocytes % 8.0 % (2.0-10.0) 11/08/17 08:10 Eosinophils % 1.5 % (0.0-5.0) 11/08/17 08:10 Basophils % 0.0 % (0.0-2.0) 11/08/17 08:10 PT 24.1 SECONDS (9.5-11.5) H 11/09/17 06:35 INR 2.22 (0.5-1.4) H 11/09/17 06:35 PTT (Actin FS) 34.5 SECONDS (26.0-38.0) 11/07/17 04:30 Sodium 138 mEq/L (136-145) 11/08/17 08:10 Potassium 3.7 mEq/L (3.5-5.1) 11/08/17 08:10 Chloride 108 mEq/L (98-107) H 11/08/17 08:10 Carbon Dioxide 25.3 mEq/L (21.0-31.0) 11/08/17 08:10 Anion Gap 8.4 (7.0-16.0) 11/08/17 08:10 BUN 16 mg/dL (7-25) 11/08/17 08:10 Creatinine 0.6 mg/dL (0.6-1.2) 11/08/17 08:10 Est GFR ( Amer) TNP 11/08/17 08:10 Est GFR (Non-Af Amer) TNP 11/08/17 08:10 BUN/Creatinine Ratio 26.7 11/08/17 08:10 Glucose 127 mg/dL (70-105) H 11/08/17 08:10 POC Glucose 130 MG/DL (70 - 105) H 11/06/17 15:32 Calcium 9.3 mg/dL (8.6-10.3) 11/08/17 08:10 Total Bilirubin 0.7 mg/dL (0.3-1.0) 11/08/17 08:10 AST 7 U/L (13-39) L 11/08/17 08:10 ALT 6 U/L (7-52) L 11/08/17 08:10 Alkaline Phosphatase 42 U/L (34-104) 11/08/17 08:10 Total Protein 7.0 gm/dL (6.0-8.3) 11/08/17 08:10 Albumin 2.8 gm/dL (3.7-5.3) L 11/08/17 08:10 Globulin 4.2 gm/dL 11/08/17 08:10 Albumin/Globulin Ratio 0.7 (1.0-1.8) L 11/08/17 08:10 - Physical Exam Vitals and I&O: Vital Signs Temp 98.6 F 11/09/17 06:45 Pulse 80 11/09/17 06:45 Resp 20 11/09/17 06:45 BP 143/84 11/09/17 06:45 Pulse Ox 76 11/09/17 06:45 Intake & Output 11/08/17 11/09/17 11/09/17 18:59 06:59 18:59 Intake Total 848.75 Balance 848.75 Weight (lbs) 85.275 kg Intake: Intake, IV Amount 848.75 D5-0.45NS w/20 mEq KCL 1, 833.75 000 ml @ 75 mls/hr IV . [id number] [facility] Rx#:[id number] cefTRIAXone 1 gm In 15 Sodium Chloride 0.9% 50 ml @ 100 mls/hr IV Q24HR [facility] Rx#:[id number] Other: Stool Characteristics Soft Brown Weight Source Estimated Active Medications: Current Medications Acetaminophen (Tylenol) 650 mg PO Q4HR PRN PRN Reason: Pain (Mild) Stop: 01/05/18 17:20 Amlodipine Besylate (Norvasc) 10 mg PO DAILY [facility] Stop: 01/06/18 08:59 Last Admin: 11/08/17 09:17 Dose: 10 mg Ascorbic Acid (Vitamin C) 500 mg PO DAILY [facility] Stop: 01/06/18 08:59 Last Admin: 11/08/17 09:18 Dose: 500 mg Docusate Sodium (Colace) 100 mg PO DAILY [facility] Stop: 01/06/18 08:59 Last Admin: 11/08/17 09:18 Dose: 100 mg Donepezil HCl (Aricept) 10 mg PO DAILY [facility] Stop: 01/06/18 08:59 Last Admin: 11/08/17 09:18 Dose: 10 mg Ferrous Sulfate (Iron) 325 mg PO DAILY [facility] Stop: 01/06/18 08:59 Last Admin: 11/08/17 09:18 Dose: 325 mg Hydralazine HCl (Apresoline 20 Mg/Ml) 10 mg IV Q6H PRN PRN Reason: BP MAINTENANCE (PER PROTOCOL) Stop: 01/06/18 06:39 Last Admin: 11/07/17 07:09 Dose: 10 mg Potassium Chloride/Dextrose/Sod Cl (D5-0.45ns W/20 Meq Kcl) 1,000 mls @ 75 mls/ hr IV .[id number] [facility] Stop: 01/06/18 06:43 Last Admin: 11/08/17 13:17 Dose: 75 mls/hr Ceftriaxone Sodium 1 gm/ (Dextrose) 50 mls @ 100 mls/hr IV Q24HR [facility] Stop: 01/06/18 09:59 Last Admin: 11/08/17 13:09 Dose: 100 mls/hr Lactobacillus Rhamnosus (Culturelle 15b) 1 each PO DAILY [facility] Stop: 01/07/18 10:59 Last Admin: 11/08/17 11:33 Dose: 1 each Memantine (Namenda) 10 mg PO BID [facility] Stop: 01/05/18 17:29 Last Admin: 11/08/17 17:05 Dose: 10 mg Miscellaneous (Probiotic Screen) 1 ea PRN PRN PRN Reason: PROTOCOL Stop: 01/07/18 10:25 Multivitamins/Vitamin C (Theragran) 1 tab PO DAILY [facility] Stop: 01/06/18 08:59 Last Admin: 11/08/17 09:18 Dose: 1 tab Ondansetron HCl (Zofran Odt) 4 mg PO Q6HR PRN PRN Reason: Nausea/VOMITING Stop: 01/05/18 17:20 Pantoprazole Sodium (Protonix) 40 mg PO QDAC [facility] Stop: 01/06/18 07:29 Last Admin: 11/09/17 06:44 Dose: 40 mg Quetiapine Fumarate (Seroquel) 12.5 mg PO BID [facility]; Protocol Stop: 01/05/18 17:29 Last Admin: 11/08/17 17:04 Dose: 12.5 mg Warfarin Sodium (Coumadin Per Pharmacy) 1 [facility] PRN PRN PRN Reason: RX MONITORING Stop: 01/06/18 10:57 Wound Care/Dressing Products (Silvasorb) 1 appl TP DAILY [facility] Stop: 01/06/18 08:59 Last Admin: 11/08/17 09:21 Dose: 1 appl - Procedures Procedures: Procedures Procedure Code Date EXTIRPATION OF MATTER FROM LEFT BREAST, OPEN APPROACH [id number] 11/06/17
[2017-11-09] MEDS: Multivitamin Tab PO SCH (09:30)
[2017-11-09] MEDS: Lactobacillus Rhamnosus GG 15 Billion CFU CAP.SPRINK PO SCH (09:31)
[2017-11-09] MEDS: Ferrous Sulfate 325 MG TAB PO SCH (09:31)
[2017-11-09] MEDS: Silver Antimicrobial Wound Gel 0.25 oz Tube TP SCH (15:30)
--- NOTE | 2017-11-09 16:36 | Pathology Report ---
[id number] Collection date: 11/07/2017 Surgeon: Dr. Mario Davis Specimen Description: 1. Left breast abscess and possible mass 2. Additional left breast tissue with possible mass lesion for frozen section Gross Description: Part I/II: Received in the unfixed state and subsequently processed in formalin is a 10 x 4 cm elliptical excision of wrinkled jimenez-rock skin with attached yellow fatty breast tissue measuring 12 x 6 x 1.5 cm. A 6 cm linear scar is seen on the outer skin surface and sectioning reveals fibrosis with no mass lesions. Also received in the same container are multiple additional fragments of necrotic jimenez-rock tissue ranging from 1.5 to 4.5 cm in greatest dimension, and aggregating to an area 9 x 8 x 3 cm. Sectioning of this necrotic tissue shows soft degenerated/necrotic tissue with no obvious firm areas. Product Safety Administrator sections are submitted in 10 cassettes labeled A1 to A10. Cassette A1 to A6 shows intact breast and overlying skin. Cassette A7 through A10 shows degenerated necrotic tissue. After examination of this initial tissue, an additional 11.5 x 8.5 x 6.5 cm. portion of firm jimenez yellow breast tissue was submitted. This additional tissue has a large central cystic cavity with the wall thickness ranging from 0.5 to 1.6 cm. Focal areas of firm nodularity are appreciated on the cavity wall, and a technical account representative 1.5 cm. portion is submitted for frozen section. This additional tissue is sampled and technical account representative sections are submitted in 9 cassettes labelled B1 to B9FS. Frozen Section diagnosis: No evidence for malignancy. Microscopic Description: The histologic sections show benign fibrofatty breast tissue with chronic inflammation and fibrosis seen throughout the specimen, with these changes seen extending into the skin and subcutaneous tissues. There is extensive cystic degenerative with suppurative inflammation and necrosis, consistent with abscess formation. No evidence for atypia is identified. There is calcification seen in association with the areas of necrosis and cystic degeneration. Diagnosis: Benign fibrofatty breast tissue showing extensive chronic inflammatory changes and necrosis, consistent with abscess (partial left breast excision). [facility]# [id number] [facility]OSPITALRichar
--- NOTE | 2017-11-09 18:42 | Internal Medicine Prog Note ---
Internal Medicine Subjective - Subjective Service Date: 11/09/17 Patient seen and examined:: with staff Patient is:: awake, verbal, confused Per staff patient has:: no adverse event Internal Medicine Objective - Results Result Diagrams: 11/08/17 08:10 11/08/17 08:10 Recent Labs: Laboratory Last Values WBC 8.4 Th/cmm (4.8-10.8) 11/08/17 08:10 RBC 4.59 Mil/cmm (3.80-5.20) 11/08/17 08:10 Hgb 12.0 gm/dL (12-16) 11/08/17 08:10 Hct 38.5 % (41.0-60) L 11/08/17 08:10 MCV 84.0 fl (81-100) 11/08/17 08:10 MCH 26.3 pg (27.0-31.0) L 11/08/17 08:10 MCHC Differential 31.3 pg (28.0-36.0) 11/08/17 08:10 RDW 16.7 % (11.5-20.0) 11/08/17 08:10 Plt Count 278 Th/cmm (150-400) 11/08/17 08:10 MPV 7.9 fl 11/08/17 08:10 Neutrophils % 73.3 % (40.0-80.0) 11/08/17 08:10 Lymphocytes % 17.2 % (20.0-50.0) L 11/08/17 08:10 Monocytes % 8.0 % (2.0-10.0) 11/08/17 08:10 Eosinophils % 1.5 % (0.0-5.0) 11/08/17 08:10 Basophils % 0.0 % (0.0-2.0) 11/08/17 08:10 PT 24.1 SECONDS (9.5-11.5) H 11/09/17 06:35 INR 2.22 (0.5-1.4) H 11/09/17 06:35 PTT (Actin FS) 34.5 SECONDS (26.0-38.0) 11/07/17 04:30 Sodium 138 mEq/L (136-145) 11/08/17 08:10 Potassium 3.7 mEq/L (3.5-5.1) 11/08/17 08:10 Chloride 108 mEq/L (98-107) H 11/08/17 08:10 Carbon Dioxide 25.3 mEq/L (21.0-31.0) 11/08/17 08:10 Anion Gap 8.4 (7.0-16.0) 11/08/17 08:10 BUN 16 mg/dL (7-25) 11/08/17 08:10 Creatinine 0.6 mg/dL (0.6-1.2) 11/08/17 08:10 Est GFR ( Amer) TNP 11/08/17 08:10 Est GFR (Non-Af Amer) TNP 11/08/17 08:10 BUN/Creatinine Ratio 26.7 11/08/17 08:10 Glucose 127 mg/dL (70-105) H 11/08/17 08:10 POC Glucose 130 MG/DL (70 - 105) H 11/06/17 15:32 Calcium 9.3 mg/dL (8.6-10.3) 11/08/17 08:10 Total Bilirubin 0.7 mg/dL (0.3-1.0) 11/08/17 08:10 AST 7 U/L (13-39) L 11/08/17 08:10 ALT 6 U/L (7-52) L 11/08/17 08:10 Alkaline Phosphatase 42 U/L (34-104) 11/08/17 08:10 Total Protein 7.0 gm/dL (6.0-8.3) 11/08/17 08:10 Albumin 2.8 gm/dL (3.7-5.3) L 11/08/17 08:10 Globulin 4.2 gm/dL 11/08/17 08:10 Albumin/Globulin Ratio 0.7 (1.0-1.8) L 11/08/17 08:10 - Physical Exam Vitals and I&O: Vital Signs Temp 96.5 F 11/09/17 16:00 Pulse 77 11/09/17 16:00 Resp 18 11/09/17 16:00 BP 147/75 11/09/17 16:00 Pulse Ox 98 11/09/17 16:00 Intake & Output 11/08/17 11/09/17 11/09/17 18:59 06:59 18:59 Intake Total 898.75 Balance 898.75 Weight (lbs) 85.275 kg 85.275 kg Intake: Intake, IV Amount 898.75 D5-0.45NS w/20 mEq KCL 1, 833.75 000 ml @ 75 mls/hr IV . [id number] [facility] Rx#:[id number] cefTRIAXone 1 gm In 50 Dextrose 5% 50 ml @ 100 mls/hr IV Q24HR [facility] Rx#: [id number] cefTRIAXone 1 gm In 15 Sodium Chloride 0.9% 50 ml @ 100 mls/hr IV Q24HR [facility] Rx#:[id number] Other: Stool Characteristics Soft Brown Weight Source Estimated Estimated Active Medications: Current Medications Acetaminophen (Tylenol) 650 mg PO Q4HR PRN PRN Reason: Pain (Mild) Stop: 01/05/18 17:20 Amlodipine Besylate (Norvasc) 10 mg PO DAILY [facility] Stop: 01/06/18 08:59 Last Admin: 11/09/17 09:30 Dose: 10 mg Ascorbic Acid (Vitamin C) 500 mg PO DAILY [facility] Stop: 01/06/18 08:59 Last Admin: 11/09/17 09:30 Dose: 500 mg Docusate Sodium (Colace) 100 mg PO DAILY [facility] Stop: 01/06/18 08:59 Last Admin: 11/09/17 09:29 Dose: 100 mg Donepezil HCl (Aricept) 10 mg PO DAILY [facility] Stop: 01/06/18 08:59 Last Admin: 11/09/17 09:32 Dose: 10 mg Ferrous Sulfate (Iron) 325 mg PO DAILY [facility] Stop: 01/06/18 08:59 Last Admin: 11/09/17 09:31 Dose: 325 mg Hydralazine HCl (Apresoline 20 Mg/Ml) 10 mg IV Q6H PRN PRN Reason: BP MAINTENANCE (PER PROTOCOL) Stop: 01/06/18 06:39 Last Admin: 11/07/17 07:09 Dose: 10 mg Potassium Chloride/Dextrose/Sod Cl (D5-0.45ns W/20 Meq Kcl) 1,000 mls @ 75 mls/ hr IV .[id number] [facility] Stop: 01/06/18 06:43 Last Admin: 11/08/17 13:17 Dose: 75 mls/hr Ceftriaxone Sodium 1 gm/ (Dextrose) 50 mls @ 100 mls/hr IV Q24HR [facility] Stop: 01/06/18 09:59 Last Admin: 11/09/17 15:25 Dose: 100 mls/hr Lactobacillus Rhamnosus (Culturelle 15b) 1 each PO DAILY [facility] Stop: 01/07/18 10:59 Last Admin: 11/09/17 09:31 Dose: 1 each Memantine (Namenda) 10 mg PO BID [facility] Stop: 01/05/18 17:29 Last Admin: 11/09/17 09:31 Dose: 10 mg Miscellaneous (Probiotic Screen) 1 ea PRN PRN PRN Reason: PROTOCOL Stop: 01/07/18 10:25 Multivitamins/Vitamin C (Theragran) 1 tab PO DAILY [facility] Stop: 01/06/18 08:59 Last Admin: 11/09/17 09:30 Dose: 1 tab Ondansetron HCl (Zofran Odt) 4 mg PO Q6HR PRN PRN Reason: Nausea/VOMITING Stop: 01/05/18 17:20 Pantoprazole Sodium (Protonix) 40 mg PO QDAC [facility] Stop: 01/06/18 07:29 Last Admin: 11/09/17 06:44 Dose: 40 mg Quetiapine Fumarate (Seroquel) 12.5 mg PO BID [facility]; Protocol Stop: 01/05/18 17:29 Last Admin: 11/09/17 09:31 Dose: 12.5 mg Warfarin Sodium (Coumadin Per Pharmacy) 1 [facility] PRN PRN PRN Reason: RX MONITORING Stop: 01/06/18 10:57 Wound Care/Dressing Products (Silvasorb) 1 appl TP DAILY [facility] Stop: 01/06/18 08:59 Last Admin: 11/09/17 15:30 Dose: 1 appl General: demented HEENT: NC/AT, PERRLA, EOMI, anicteric sclerae, throat clear Neck: Supple, No JVD, No thyromegaly, +2 carotid pulse wo bruit, No LAD, + JVD Lungs: CTAB Cardiovascular: RRR, Normal S1, Normal S2, without murmur Abdomen: soft, non-tender, non-distended Extremities: clear Neurological: no change (THE LEFT BREAS IS FIRM.) - Procedures Procedures: Procedures Procedure Code Date EXTIRPATION OF MATTER FROM LEFT BREAST, OPEN APPROACH [id number] 11/06/17 Internal Medicine Assmt/Plan - Assessment Assessment: 1.LEFT BREAST ABSCESS. 2.ANEMIA. 3.HTN. 4.DEMENTIA. - Plan Plan: CONTINUE ON CURRENT MEDICATION AND DIET.
[2017-11-10] MEDS: Pantoprazole 40 mg EC Tab PO SCH (06:43)
[2017-11-10] MEDS: Ferrous Sulfate 325 MG TAB PO SCH (09:03)
[2017-11-10] MEDS: Multivitamin Tab PO SCH (09:03)
[2017-11-10] MEDS: Lactobacillus Rhamnosus GG 15 Billion CFU CAP.SPRINK PO SCH (09:03)
[2017-11-10] MEDS: Silver Antimicrobial Wound Gel 0.25 oz Tube TP SCH (09:05)
--- NOTE | 2017-11-10 11:44 | General Progress Note ---
Subjective - Review of Systems Service Date: 11/10/17 Events since last encounter: path report no malignancy still has sero-sanguinous dranage Objective - Results Result Diagrams: 11/08/17 08:10 11/08/17 08:10 Recent Labs: Laboratory Last Values WBC 8.4 Th/cmm (4.8-10.8) 11/08/17 08:10 RBC 4.59 Mil/cmm (3.80-5.20) 11/08/17 08:10 Hgb 12.0 gm/dL (12-16) 11/08/17 08:10 Hct 38.5 % (41.0-60) L 11/08/17 08:10 MCV 84.0 fl (81-100) 11/08/17 08:10 MCH 26.3 pg (27.0-31.0) L 11/08/17 08:10 MCHC Differential 31.3 pg (28.0-36.0) 11/08/17 08:10 RDW 16.7 % (11.5-20.0) 11/08/17 08:10 Plt Count 278 Th/cmm (150-400) 11/08/17 08:10 MPV 7.9 fl 11/08/17 08:10 Neutrophils % 73.3 % (40.0-80.0) 11/08/17 08:10 Lymphocytes % 17.2 % (20.0-50.0) L 11/08/17 08:10 Monocytes % 8.0 % (2.0-10.0) 11/08/17 08:10 Eosinophils % 1.5 % (0.0-5.0) 11/08/17 08:10 Basophils % 0.0 % (0.0-2.0) 11/08/17 08:10 PT 24.1 SECONDS (9.5-11.5) H 11/09/17 06:35 INR 2.22 (0.5-1.4) H 11/09/17 06:35 PTT (Actin FS) 34.5 SECONDS (26.0-38.0) 11/07/17 04:30 Sodium 138 mEq/L (136-145) 11/08/17 08:10 Potassium 3.7 mEq/L (3.5-5.1) 11/08/17 08:10 Chloride 108 mEq/L (98-107) H 11/08/17 08:10 Carbon Dioxide 25.3 mEq/L (21.0-31.0) 11/08/17 08:10 Anion Gap 8.4 (7.0-16.0) 11/08/17 08:10 BUN 16 mg/dL (7-25) 11/08/17 08:10 Creatinine 0.6 mg/dL (0.6-1.2) 11/08/17 08:10 Est GFR ( Amer) TNP 11/08/17 08:10 Est GFR (Non-Af Amer) TNP 11/08/17 08:10 BUN/Creatinine Ratio 26.7 11/08/17 08:10 Glucose 127 mg/dL (70-105) H 11/08/17 08:10 POC Glucose 130 MG/DL (70 - 105) H 11/06/17 15:32 Calcium 9.3 mg/dL (8.6-10.3) 11/08/17 08:10 Total Bilirubin 0.7 mg/dL (0.3-1.0) 11/08/17 08:10 AST 7 U/L (13-39) L 11/08/17 08:10 ALT 6 U/L (7-52) L 11/08/17 08:10 Alkaline Phosphatase 42 U/L (34-104) 11/08/17 08:10 Total Protein 7.0 gm/dL (6.0-8.3) 11/08/17 08:10 Albumin 2.8 gm/dL (3.7-5.3) L 11/08/17 08:10 Globulin 4.2 gm/dL 11/08/17 08:10 Albumin/Globulin Ratio 0.7 (1.0-1.8) L 11/08/17 08:10 - Physical Exam Vitals and I&O: Vital Signs Temp 97.2 F 11/10/17 07:56 Pulse 65 11/10/17 09:04 Resp 18 11/10/17 08:00 BP 169/73 11/10/17 09:04 Pulse Ox 99 11/10/17 07:56 Intake & Output 11/09/17 11/10/17 11/10/17 18:59 06:59 18:59 Output Total 35 Balance -35 Weight (lbs) 85.275 kg 90.083 kg Output: Other 35 Other: # Voids 2 Weight Source Estimated Bedscale Active Medications: Current Medications Acetaminophen (Tylenol) 650 mg PO Q4HR PRN PRN Reason: Pain (Mild) Stop: 01/05/18 17:20 Amlodipine Besylate (Norvasc) 10 mg PO DAILY [facility] Stop: 01/06/18 08:59 Last Admin: 11/10/17 09:04 Dose: 10 mg Ascorbic Acid (Vitamin C) 500 mg PO DAILY [facility] Stop: 01/06/18 08:59 Last Admin: 11/10/17 09:03 Dose: 500 mg Docusate Sodium (Colace) 100 mg PO DAILY [facility] Stop: 01/06/18 08:59 Last Admin: 11/10/17 09:03 Dose: 100 mg Donepezil HCl (Aricept) 10 mg PO DAILY [facility] Stop: 01/06/18 08:59 Last Admin: 11/10/17 09:04 Dose: 10 mg Ferrous Sulfate (Iron) 325 mg PO DAILY [facility] Stop: 01/06/18 08:59 Last Admin: 11/10/17 09:03 Dose: 325 mg Hydralazine HCl (Apresoline 20 Mg/Ml) 10 mg IV Q6H PRN PRN Reason: BP MAINTENANCE (PER PROTOCOL) Stop: 01/06/18 06:39 Last Admin: 11/07/17 07:09 Dose: 10 mg Potassium Chloride/Dextrose/Sod Cl (D5-0.45ns W/20 Meq Kcl) 1,000 mls @ 75 mls/ hr IV .[id number] [facility] Stop: 01/06/18 06:43 Last Admin: 11/08/17 13:17 Dose: 75 mls/hr Ceftriaxone Sodium 1 gm/ (Dextrose) 50 mls @ 100 mls/hr IV Q24HR [facility] Stop: 01/06/18 09:59 Last Admin: 11/09/17 15:25 Dose: 100 mls/hr Lactobacillus Rhamnosus (Culturelle 15b) 1 each PO DAILY [facility] Stop: 01/07/18 10:59 Last Admin: 11/10/17 09:03 Dose: 1 each Memantine (Namenda) 10 mg PO BID [facility] Stop: 01/05/18 17:29 Last Admin: 11/10/17 09:03 Dose: 10 mg Miscellaneous (Probiotic Screen) 1 ea [facility] PRN PRN PRN Reason: PROTOCOL Stop: 01/07/18 10:25 Multivitamins/Vitamin C (Theragran) 1 tab PO DAILY [facility] Stop: 01/06/18 08:59 Last Admin: 11/10/17 09:03 Dose: 1 tab Ondansetron HCl (Zofran Odt) 4 mg PO Q6HR PRN PRN Reason: Nausea/VOMITING Stop: 01/05/18 17:20 Pantoprazole Sodium (Protonix) 40 mg PO QDAC [facility] Stop: 01/06/18 07:29 Last Admin: 11/10/17 06:43 Dose: 40 mg Quetiapine Fumarate (Seroquel) 12.5 mg PO BID [facility]; Protocol Stop: 01/05/18 17:29 Last Admin: 11/10/17 09:03 Dose: 12.5 mg Warfarin Sodium (Coumadin Per Pharmacy) 1 ea PRN PRN PRN Reason: RX MONITORING Stop: 01/06/18 10:57 Wound Care/Dressing Products (Silvasorb) 1 appl TP DAILY [facility] Stop: 01/06/18 08:59 Last Admin: 11/10/17 09:05 Dose: 1 appl - Procedures Procedures: Procedures Procedure Code Date EXTIRPATION OF MATTER FROM LEFT BREAST, OPEN APPROACH [id number] 11/06/17
[2017-11-10] MEDS: D5-0.45NS w/20 mEq KCL 1,000 ML IV SCH (15:25)
--- NOTE | 2017-11-10 18:37 | Internal Medicine Prog Note ---
Internal Medicine Subjective - Subjective Service Date: 11/10/17 Patient seen and examined:: with staff Patient is:: awake, verbal, confused Per staff patient has:: no adverse event Internal Medicine Objective - Results Result Diagrams: 11/08/17 08:10 11/08/17 08:10 Recent Labs: Laboratory Last Values WBC 8.4 Th/cmm (4.8-10.8) 11/08/17 08:10 RBC 4.59 Mil/cmm (3.80-5.20) 11/08/17 08:10 Hgb 12.0 gm/dL (12-16) 11/08/17 08:10 Hct 38.5 % (41.0-60) L 11/08/17 08:10 MCV 84.0 fl (81-100) 11/08/17 08:10 MCH 26.3 pg (27.0-31.0) L 11/08/17 08:10 MCHC Differential 31.3 pg (28.0-36.0) 11/08/17 08:10 RDW 16.7 % (11.5-20.0) 11/08/17 08:10 Plt Count 278 Th/cmm (150-400) 11/08/17 08:10 MPV 7.9 fl 11/08/17 08:10 Neutrophils % 73.3 % (40.0-80.0) 11/08/17 08:10 Lymphocytes % 17.2 % (20.0-50.0) L 11/08/17 08:10 Monocytes % 8.0 % (2.0-10.0) 11/08/17 08:10 Eosinophils % 1.5 % (0.0-5.0) 11/08/17 08:10 Basophils % 0.0 % (0.0-2.0) 11/08/17 08:10 PT 24.1 SECONDS (9.5-11.5) H 11/09/17 06:35 INR 2.22 (0.5-1.4) H 11/09/17 06:35 PTT (Actin FS) 34.5 SECONDS (26.0-38.0) 11/07/17 04:30 Sodium 138 mEq/L (136-145) 11/08/17 08:10 Potassium 3.7 mEq/L (3.5-5.1) 11/08/17 08:10 Chloride 108 mEq/L (98-107) H 11/08/17 08:10 Carbon Dioxide 25.3 mEq/L (21.0-31.0) 11/08/17 08:10 Anion Gap 8.4 (7.0-16.0) 11/08/17 08:10 BUN 16 mg/dL (7-25) 11/08/17 08:10 Creatinine 0.6 mg/dL (0.6-1.2) 11/08/17 08:10 Est GFR ( Amer) TNP 11/08/17 08:10 Est GFR (Non-Af Amer) TNP 11/08/17 08:10 BUN/Creatinine Ratio 26.7 11/08/17 08:10 Glucose 127 mg/dL (70-105) H 11/08/17 08:10 POC Glucose 130 MG/DL (70 - 105) H 11/06/17 15:32 Calcium 9.3 mg/dL (8.6-10.3) 11/08/17 08:10 Total Bilirubin 0.7 mg/dL (0.3-1.0) 11/08/17 08:10 AST 7 U/L (13-39) L 11/08/17 08:10 ALT 6 U/L (7-52) L 11/08/17 08:10 Alkaline Phosphatase 42 U/L (34-104) 11/08/17 08:10 Total Protein 7.0 gm/dL (6.0-8.3) 11/08/17 08:10 Albumin 2.8 gm/dL (3.7-5.3) L 11/08/17 08:10 Globulin 4.2 gm/dL 11/08/17 08:10 Albumin/Globulin Ratio 0.7 (1.0-1.8) L 11/08/17 08:10 - Physical Exam Vitals and I&O: Vital Signs Temp 97.3 F 11/10/17 15:37 Pulse 66 11/10/17 15:37 Resp 20 11/10/17 15:37 BP 148/72 11/10/17 15:37 Pulse Ox 95 11/10/17 15:37 Intake & Output 11/09/17 11/10/17 11/10/17 18:59 06:59 18:59 Intake Total 50 650 Output Total 35 35 Balance 50 -35 615 Weight (lbs) 85.275 kg 90.083 kg 90.083 kg Intake: Intake, IV Amount 50 50 cefTRIAXone 1 gm In 50 50 Dextrose 5% 50 ml @ 100 mls/hr IV Q24HR [facility] Rx#: [id number] Oral 600 Output: Drainage 35 left breast daniele drain 35 Other 35 Other: # Voids 2 2 # Bowel Movements 0 Weight Source Estimated Bedscale Bedscale Active Medications: Current Medications Acetaminophen (Tylenol) 650 mg PO Q4HR PRN PRN Reason: Pain (Mild) Stop: 01/05/18 17:20 Amlodipine Besylate (Norvasc) 10 mg PO DAILY [facility] Stop: 01/10/18 08:59 Ascorbic Acid (Vitamin C) 500 mg PO DAILY [facility] Stop: 01/06/18 08:59 Last Admin: 11/10/17 09:03 Dose: 500 mg Docusate Sodium (Colace) 100 mg PO DAILY [facility] Stop: 01/06/18 08:59 Last Admin: 11/10/17 09:03 Dose: 100 mg Donepezil HCl (Aricept) 10 mg PO DAILY [facility] Stop: 01/06/18 08:59 Last Admin: 11/10/17 09:04 Dose: 10 mg Ferrous Sulfate (Iron) 325 mg PO DAILY [facility] Stop: 01/06/18 08:59 Last Admin: 11/10/17 09:03 Dose: 325 mg Hydralazine HCl (Apresoline 20 Mg/Ml) 10 mg IV Q6H PRN PRN Reason: BP MAINTENANCE (PER PROTOCOL) Stop: 01/06/18 06:39 Last Admin: 11/07/17 07:09 Dose: 10 mg Potassium Chloride/Dextrose/Sod Cl (D5-0.45ns W/20 Meq Kcl) 1,000 mls @ 75 mls/ hr IV .[id number] [facility] Stop: 01/06/18 06:43 Last Admin: 11/10/17 15:25 Dose: 75 mls/hr Ceftriaxone Sodium 1 gm/ (Dextrose) 50 mls @ 100 mls/hr IV Q24HR [facility] Stop: 01/06/18 09:59 Last Infusion: 11/10/17 15:16 Dose: Infused Lactobacillus Rhamnosus (Culturelle 15b) 1 each PO DAILY [facility] Stop: 01/07/18 10:59 Last Admin: 11/10/17 09:03 Dose: 1 each Memantine (Namenda) 10 mg PO BID [facility] Stop: 01/05/18 17:29 Last Admin: 11/10/17 17:03 Dose: 10 mg Miscellaneous (Probiotic Screen) 1 ea PRN PRN PRN Reason: PROTOCOL Stop: 01/07/18 10:25 Multivitamins/Vitamin C (Theragran) 1 tab PO DAILY [facility] Stop: 01/06/18 08:59 Last Admin: 11/10/17 09:03 Dose: 1 tab Ondansetron HCl (Zofran Odt) 4 mg PO Q6HR PRN PRN Reason: Nausea/VOMITING Stop: 01/05/18 17:20 Pantoprazole Sodium (Protonix) 40 mg PO QDAC [facility] Stop: 01/06/18 07:29 Last Admin: 11/10/17 06:43 Dose: 40 mg Quetiapine Fumarate (Seroquel) 12.5 mg PO BID [facility]; Protocol Stop: 01/05/18 17:29 Last Admin: 11/10/17 17:03 Dose: 12.5 mg Warfarin Sodium (Coumadin Per Pharmacy) 1 ea PRN PRN PRN Reason: RX MONITORING Stop: 01/06/18 10:57 Wound Care/Dressing Products (Silvasorb) 1 appl TP DAILY [facility] Stop: 01/06/18 08:59 Last Admin: 11/10/17 09:05 Dose: 1 appl General: demented HEENT: NC/AT, PERRLA, EOMI, anicteric sclerae, throat clear Neck: Supple, No JVD, No thyromegaly, +2 carotid pulse wo bruit, No LAD, + JVD Lungs: CTAB Cardiovascular: RRR, Normal S1, Normal S2, without murmur Abdomen: soft, non-tender, non-distended Extremities: clear Neurological: no change (THE LEFT BREAS IS FIRM.) - Procedures Procedures: Procedures Procedure Code Date EXTIRPATION OF MATTER FROM LEFT BREAST, OPEN APPROACH [id number] 11/06/17 Internal Medicine Assmt/Plan - Assessment Assessment: 1.LEFT BREAST ABSCESS. 2.ANEMIA. 3.HTN. 4.DEMENTIA. - Plan Plan: CONTINUE ON CURRENT MEDICATION AND DIET. Nutritional Asmnt/Malnutr-PDOC - Dietary Evaluation Malnutrition Findings (Please click <Entered> for more info): Nutritional Asmnt/Malnutrition Start: 11/10/17 15: 10 Text: Status: Complete Freq: Protocol: Document 11/10/17 15:10 PA (Rec: 11/10/17 15:26 PA [id number]) Nutritional Asmnt/Malnutrition Patient General Information Nutritional Screening Moderate Risk Diagnosis mastectomy to left side Pertinent Medical Hx/Surgical Hx dementia, HTN, DVT Subjective Information Pt had mastectomy to left side on 11/07. Pt seen lying in bed awake and alert at time of visit. Pt reported she is doing ok, will eat lunch when she is ready. Per EMR, PO intake 100% of meals. Current Diet Order/ Nutrition Support [facility] soft chopped Pertinent Medications vit C, colace, iron, culturelle, theragran, protonix, D5-0.45ns w 20 meq kcl Pertinent Labs 11/08 K 3.7 (improved), cl 108, glucose 127 Nutritional Hx/Data Height 1.68 m Height (Calculated Centimeters) 167.6 Current Weight (lbs) 89.811 kg Weight (Calculated Kilograms) 89.8 Weight (Calculated Grams) 11099.3 [place] Body Weight 130 Body Mass Index (BMI) 31.9 Weight Status Obese GI Symptoms GI Symptoms None Last BM 11/09 per nurse note Difficult in: None Skin Integrity/Comment: left breast wound s/p left exicision breast mass Current %PO Good (75-100%) Estimated Nutritional Goals BEE in Kcals: Adj wt of IBW Calories/Kcals/Kg 25-30 Kcals Calculated [id number] Protein: Adj wt of IBW Protein g/k.2 Protein Calculated 80 Fluid: ml 1675-2010ml (1ml/kcal) Nutritional Problem 1. Problem Problem increased nutrition needs Etiology increased metabolic demand Signs/Symptoms: s/p surgery Malnutrition Alert Is there a minimum of two criteria No selected? Query Text:Check all the applicable criteria. A minimum of two criteria are recommended for diagnosis of either severe or non-severe malnutrition. Malnutrition Related to Morbid Obesity Malnutrition related to morbid obesity No Intervention/Recommendation Comments 1. Continue with mech soft chopped diet as ordered. 2. Monitor PO intake, wt, labs and skin integrity 3. F/U as moderate risk in 3-5 days, 11/13-11/15 Expected Outcomes/Goals Expected Outcomes/Goals 1. PO intake to meet at least 75% of nutritional needs. 2. Wt stability, skin to remain intact, labs to approach WNL.
[2017-11-11 09:54] LABS: INR 1.35 (0.5-1.4); PROTHROMBIN TIME (TEST) 14.2 SECONDS (9.5-11.5)
[2017-11-11] MEDS: Multivitamin Tab PO SCH (10:02)
[2017-11-11] MEDS: Lactobacillus Rhamnosus GG 15 Billion CFU CAP.SPRINK PO SCH (10:04)
[2017-11-11] MEDS: Ferrous Sulfate 325 MG TAB PO SCH (10:04)
[2017-11-11] MEDS: Pantoprazole 40 mg EC Tab PO SCH (10:04)
[2017-11-11] MEDS: Silver Antimicrobial Wound Gel 0.25 oz Tube TP SCH (10:04)
[2017-11-11] MEDS: D5-0.45NS w/20 mEq KCL 1,000 ML IV SCH ×2 (10:11→13:39)
--- NOTE | 2017-11-11 15:29 | Internal Medicine Prog Note ---
Internal Medicine Subjective - Subjective Service Date: 11/11/17 Patient seen and examined:: with staff Patient is:: awake, verbal, confused Per staff patient has:: no adverse event Internal Medicine Objective - Results Result Diagrams: 11/08/17 08:10 11/08/17 08:10 Recent Labs: Laboratory Last Values WBC 8.4 Th/cmm (4.8-10.8) 11/08/17 08:10 RBC 4.59 Mil/cmm (3.80-5.20) 11/08/17 08:10 Hgb 12.0 gm/dL (12-16) 11/08/17 08:10 Hct 38.5 % (41.0-60) L 11/08/17 08:10 MCV 84.0 fl (81-100) 11/08/17 08:10 MCH 26.3 pg (27.0-31.0) L 11/08/17 08:10 MCHC Differential 31.3 pg (28.0-36.0) 11/08/17 08:10 RDW 16.7 % (11.5-20.0) 11/08/17 08:10 Plt Count 278 Th/cmm (150-400) 11/08/17 08:10 MPV 7.9 fl 11/08/17 08:10 Neutrophils % 73.3 % (40.0-80.0) 11/08/17 08:10 Lymphocytes % 17.2 % (20.0-50.0) L 11/08/17 08:10 Monocytes % 8.0 % (2.0-10.0) 11/08/17 08:10 Eosinophils % 1.5 % (0.0-5.0) 11/08/17 08:10 Basophils % 0.0 % (0.0-2.0) 11/08/17 08:10 PT 14.2 SECONDS (9.5-11.5) H 11/11/17 09:28 INR 1.35 (0.5-1.4) 11/11/17 09:28 PTT (Actin FS) 34.5 SECONDS (26.0-38.0) 11/07/17 04:30 Sodium 138 mEq/L (136-145) 11/08/17 08:10 Potassium 3.7 mEq/L (3.5-5.1) 11/08/17 08:10 Chloride 108 mEq/L (98-107) H 11/08/17 08:10 Carbon Dioxide 25.3 mEq/L (21.0-31.0) 11/08/17 08:10 Anion Gap 8.4 (7.0-16.0) 11/08/17 08:10 BUN 16 mg/dL (7-25) 11/08/17 08:10 Creatinine 0.6 mg/dL (0.6-1.2) 11/08/17 08:10 Est GFR ( Amer) TNP 11/08/17 08:10 Est GFR (Non-Af Amer) TNP 11/08/17 08:10 BUN/Creatinine Ratio 26.7 11/08/17 08:10 Glucose 127 mg/dL (70-105) H 11/08/17 08:10 POC Glucose 130 MG/DL (70 - 105) H 11/06/17 15:32 Calcium 9.3 mg/dL (8.6-10.3) 11/08/17 08:10 Total Bilirubin 0.7 mg/dL (0.3-1.0) 11/08/17 08:10 AST 7 U/L (13-39) L 11/08/17 08:10 ALT 6 U/L (7-52) L 11/08/17 08:10 Alkaline Phosphatase 42 U/L (34-104) 11/08/17 08:10 Total Protein 7.0 gm/dL (6.0-8.3) 11/08/17 08:10 Albumin 2.8 gm/dL (3.7-5.3) L 11/08/17 08:10 Globulin 4.2 gm/dL 11/08/17 08:10 Albumin/Globulin Ratio 0.7 (1.0-1.8) L 11/08/17 08:10 - Physical Exam Vitals and I&O: Vital Signs Temp 97.5 F 11/11/17 08:00 Pulse 57 11/11/17 10:02 Resp 18 11/11/17 08:00 BP 150/66 11/11/17 10:02 Pulse Ox 98 11/11/17 05:00 Intake & Output 11/10/17 11/11/17 11/11/17 18:59 06:59 18:59 Intake Total 650 1250 500 Output Total 35 60 15 Balance 615 1190 485 Weight (lbs) 90.083 kg 93.803 kg 93.44 kg Intake: Intake, IV Amount 50 1250 260 D5-0.45NS w/20 mEq KCL 1, 1000 260 000 ml @ 75 mls/hr IV . [id number] [facility] Rx#:[id number] Vancomycin HCl 1 gm In 250 Dextrose 5% 250 ml @ 166. 667 mls/hr IV ONCE@2100 [facility] Rx#:[id number] cefTRIAXone 1 gm In 50 Dextrose 5% 50 ml @ 100 mls/hr IV Q24HR [facility] Rx#: [id number] Oral 600 240 Output: Drainage 35 15 left breast daniele drain 35 15 Other 60 Other: # Voids 2 1 # Bowel Movements 0 Stool Characteristics Soft Weight Source Bedscale Bedscale Estimated Active Medications: Current Medications Acetaminophen (Tylenol) 650 mg PO Q4HR PRN PRN Reason: Pain (Mild) Stop: 01/05/18 17:20 Amlodipine Besylate (Norvasc) 10 mg PO DAILY [facility] Stop: 01/10/18 08:59 Last Admin: 11/11/17 10:02 Dose: 10 mg Ascorbic Acid (Vitamin C) 500 mg PO DAILY [facility] Stop: 01/06/18 08:59 Last Admin: 11/11/17 10:02 Dose: 500 mg Docusate Sodium (Colace) 100 mg PO DAILY [facility] Stop: 01/06/18 08:59 Last Admin: 11/11/17 10:03 Dose: 100 mg Donepezil HCl (Aricept) 10 mg PO DAILY [facility] Stop: 01/06/18 08:59 Last Admin: 11/11/17 10:04 Dose: 10 mg Ferrous Sulfate (Iron) 325 mg PO DAILY [facility] Stop: 01/06/18 08:59 Last Admin: 11/11/17 10:04 Dose: 325 mg Hydralazine HCl (Apresoline 20 Mg/Ml) 10 mg IV Q6H PRN PRN Reason: BP MAINTENANCE (PER PROTOCOL) Stop: 01/06/18 06:39 Last Admin: 11/07/17 07:09 Dose: 10 mg Potassium Chloride/Dextrose/Sod Cl (D5-0.45ns W/20 Meq Kcl) 1,000 mls @ 75 mls/ hr IV .[id number] [facility] Stop: 01/06/18 06:43 Last Admin: 11/11/17 13:39 Dose: 75 mls/hr Ceftriaxone Sodium 1 gm/ (Dextrose) 50 mls @ 100 mls/hr IV Q24HR [facility] Stop: 01/06/18 09:59 Last Admin: 11/11/17 13:39 Dose: 100 mls/hr Vancomycin HCl 1 gm/ Sodium (Chloride) 250 mls @ 165 mls/hr IV Q12HR [facility] Stop: 01/10/18 08:59 Last Admin: 11/11/17 10:04 Dose: 165 mls/hr Lactobacillus Rhamnosus (Culturelle 15b) 1 each PO DAILY [facility] Stop: 01/07/18 10:59 Last Admin: 11/11/17 10:04 Dose: 1 each Memantine (Namenda) 10 mg PO BID [facility] Stop: 01/05/18 17:29 Last Admin: 11/11/17 10:11 Dose: 10 mg Miscellaneous (Probiotic Screen) 1 [facility] PRN PRN PRN Reason: PROTOCOL Stop: 01/07/18 10:25 Miscellaneous (Vancomycin Iv Per Pharmacy) 1 [facility] PRN PRN PRN Reason: PROTOCOL Stop: 01/09/18 18:55 Multivitamins/Vitamin C (Theragran) 1 tab PO DAILY [facility] Stop: 01/06/18 08:59 Last Admin: 11/11/17 10:02 Dose: 1 tab Ondansetron HCl (Zofran Odt) 4 mg PO Q6HR PRN PRN Reason: Nausea/VOMITING Stop: 01/05/18 17:20 Pantoprazole Sodium (Protonix) 40 mg PO QDAC [facility] Stop: 01/06/18 07:29 Last Admin: 11/11/17 10:04 Dose: 40 mg Quetiapine Fumarate (Seroquel) 12.5 mg PO BID [facility]; Protocol Stop: 01/05/18 17:29 Last Admin: 11/11/17 10:11 Dose: 12.5 mg Warfarin Sodium (Coumadin Per Pharmacy) 1 [facility] PRN PRN PRN Reason: RX MONITORING Stop: 01/06/18 10:57 Warfarin Sodium (Coumadin) 5 mg PO C [facility] Stop: 11/11/17 18:00 Last Admin: 11/11/17 13:49 Dose: 5 mg Wound Care/Dressing Products (Silvasorb) 1 appl TP DAILY [facility] Stop: 01/06/18 08:59 Last Admin: 11/11/17 10:04 Dose: 1 appl General: demented HEENT: NC/AT, PERRLA, EOMI, anicteric sclerae, throat clear Neck: Supple, No JVD, No thyromegaly, +2 carotid pulse wo bruit, No LAD, + JVD Lungs: CTAB Cardiovascular: RRR, Normal S1, Normal S2, without murmur Abdomen: soft, non-tender, non-distended Extremities: clear Neurological: no change (THE LEFT BREAS IS FIRM.) - Procedures Procedures: Procedures Procedure Code Date EXTIRPATION OF MATTER FROM LEFT BREAST, OPEN APPROACH [id number] 11/06/17 Internal Medicine Assmt/Plan - Assessment Assessment: 1.LEFT BREAST ABSCESS. 2.ANEMIA. 3.HTN. 4.DEMENTIA. 5.SP SURGICAL DEBRIDMENT - Plan Plan: CONTINUE ON CURRENT MEDICATION AND DIET. Nutritional Asmnt/Malnutr-PDOC - Dietary Evaluation Malnutrition Findings (Please click <Entered> for more info): Nutritional Asmnt/Malnutrition Start: 11/10/17 15: 10 Text: Status: Complete Freq: Protocol: Document 11/10/17 15:10 LCHENG (Rec: 11/10/17 15:26 [email or web address] [email or web address]) Nutritional Asmnt/Malnutrition Patient General Information Nutritional Screening Moderate Risk Diagnosis mastectomy to left side Pertinent Medical Hx/Surgical Hx dementia, HTN, DVT Subjective Information Pt had mastectomy to left side on 11/07. Pt seen lying in bed awake and alert at time of visit. Pt reported she is doing ok, will eat lunch when she is ready. Per EMR, PO intake 100% of meals. Current Diet Order/ Nutrition Support [facility] soft chopped Pertinent Medications vit C, colace, iron, culturelle, theragran, protonix, D5-0.45ns w 20 meq kcl Pertinent Labs 11/08 K 3.7 (improved), cl 108, glucose 127 Nutritional Hx/Data Height 1.68 m Height (Calculated Centimeters) 167.6 Current Weight (lbs) 89.811 kg Weight (Calculated Kilograms) 89.8 Weight (Calculated Grams) 01535.3 [place] Body Weight 130 Body Mass Index (BMI) 31.9 Weight Status Obese GI Symptoms GI Symptoms None Last 11/09 per nurse note Difficult in: None Skin Integrity/Comment: left breast wound s/p left exicision breast mass Current %PO Good (75-100%) Estimated Nutritional Goals BEE in Kcals: Adj wt of IBW Calories/Kcals/Kg 25-30 Kcals Calculated 8825-1785 Protein: Adj wt of IBW Protein g/k.2 Protein Calculated 80 Fluid: ml 1675-2009ml (1ml/kcal) Nutritional Problem 1. Problem Problem increased nutrition needs Etiology increased metabolic demand Signs/Symptoms: s/p surgery Malnutrition Alert Is there a minimum of two criteria No selected? Query Text:Check all the applicable criteria. A minimum of two criteria are recommended for diagnosis of either severe or non-severe malnutrition. Malnutrition Related to Morbid Obesity Malnutrition related to morbid obesity No Intervention/Recommendation Comments 1. Continue with [facility] soft chopped diet as ordered. 2. Monitor PO intake, wt, labs and skin integrity 3. F/U as moderate risk in 3-5 days, 11/13-11/15 Expected Outcomes/Goals Expected Outcomes/Goals 1. PO intake to meet at least 75% of nutritional needs. 2. Wt stability, skin to remain intact, labs to approach WNL.
--- NOTE | 2017-11-12 00:05 | Consultation ---
DATE OF CONSULTATION: 11/10/2017 PRIMARY PHYSICIAN: Dr. Kerr. REASON FOR CONSULTATION: Left breast abscess. CHIEF COMPLAINT: Left breast abscess. HISTORY OF PRESENT ILLNESS: The patient is a 72-year-old female diagnosed to have breast cancer, underwent bilateral mastectomy and the patient started having swelling in the left breast with drainage and the patient was diagnosed with breast abscess. The patient underwent I and D. The pathology negative for cancer. Wound culture positive for Staph aureus, methicillin sensitive. Infectious consultation was called. The patient was started on vancomycin. PAST MEDICAL HISTORY: Breast cancer, mastectomy, history of Alzheimer's, blood clots, hypertension. REVIEW OF SYSTEMS: A 14-point review of system negative except above. PHYSICAL EXAMINATION: GENERAL: The patient is alert, awake, not in distress. VITAL SIGNS: Temperature 97.5, pulse 70, respiration 18, blood pressure 171/82. HEENT: Mild pallor, no icterus or plaque. NECK: Supple. LUNGS: Breath sounds bilateral vesicular. ABDOMEN: Soft, bowel sounds present. NODES: No cervical lymph nodes. MRSA culture is negative. Cultures negative. BREASTS: Left breast has a KIMBERLY drain as well as clean open wound draining serosanguineous fluid. LABORATORY DATA: White count is 8000, hemoglobin is , platelets 278. DIAGNOSIS: Left breast abscess, status post incision and drainage. The patient was started on vancomycin, continue Rocephin. Repeat labs. Supportive care. Pain control. Zofran for nausea. Hypertension. Blood pressure is slightly high on amlodipine. Thank you Dr. Kerr for this consultation. JOB# [id number]
[2017-11-12 04:11] LABS: URINE MICROSCOPIC INDICATED? YES; URINE SOURCE CATH
[2017-11-12 04:30] LABS: URINE BILIRUBIN NEGATIVE (NEGATIVE); URINE BLOOD NEGATIVE (NEGATIVE); URINE GLUCOSE (UA) NEGATIVE (NEGATIVE); URINE KETONE NEGATIVE (NEGATIVE); URINE LEUKOCYTE ESTERASE NEGATIVE (NEGATIVE); URINE NITRATE NEGATIVE (NEGATIVE); URINE PROTEIN NEGATIVE (NEGATIVE); URINE UROBILINOGEN 0.2 E.U./dL (0.2 - 1.0)
[2017-11-12 04:39] LABS: URINE CLARITY CLEAR (CLEAR); URINE COLOR YELLOW
[2017-11-12 04:40] LABS: URINE BACTERIA OCCASIONAL /hpf (NONE SEEN); URINE EPITHELIAL CELLS MODERATE /lpf (FEW); URINE RBC 0-2 /hpf (0-5); URINE WBC 0-2 /hpf (0-5)
[2017-11-12 08:15] LABS: INR 1.23 (0.5-1.4); PROTHROMBIN TIME (TEST) 12.9 SECONDS (9.5-11.5)
[2017-11-12] MEDS: Pantoprazole 40 mg EC Tab PO SCH (09:23)
[2017-11-12] MEDS: Lactobacillus Rhamnosus GG 15 Billion CFU CAP.SPRINK PO SCH (09:23)
[2017-11-12] MEDS: Ferrous Sulfate 325 MG TAB PO SCH (09:24)
[2017-11-12] MEDS: Multivitamin Tab PO SCH (09:24)
[2017-11-12] MEDS: Silver Antimicrobial Wound Gel 0.25 oz Tube TP SCH (09:25)
--- NOTE | 2017-11-12 17:25 | Internal Medicine Prog Note ---
Internal Medicine Subjective - Subjective Service Date: 11/12/17 Patient seen and examined:: with staff (SHE HAS CONSTIPATION) Patient is:: awake, verbal, confused Per staff patient has:: no adverse event Internal Medicine Objective - Results Result Diagrams: 11/08/17 08:10 11/08/17 08:10 Recent Labs: Laboratory Last Values WBC 8.4 Th/cmm (4.8-10.8) 11/08/17 08:10 RBC 4.59 Mil/cmm (3.80-5.20) 11/08/17 08:10 Hgb 12.0 gm/dL (12-16) 11/08/17 08:10 Hct 38.5 % (41.0-60) L 11/08/17 08:10 MCV 84.0 fl (81-100) 11/08/17 08:10 MCH 26.3 pg (27.0-31.0) L 11/08/17 08:10 MCHC Differential 31.3 pg (28.0-36.0) 11/08/17 08:10 RDW 16.7 % (11.5-20.0) 11/08/17 08:10 Plt Count 278 Th/cmm (150-400) 11/08/17 08:10 MPV 7.9 fl 11/08/17 08:10 Neutrophils % 73.3 % (40.0-80.0) 11/08/17 08:10 Lymphocytes % 17.2 % (20.0-50.0) L 11/08/17 08:10 Monocytes % 8.0 % (2.0-10.0) 11/08/17 08:10 Eosinophils % 1.5 % (0.0-5.0) 11/08/17 08:10 Basophils % 0.0 % (0.0-2.0) 11/08/17 08:10 PT 12.9 SECONDS (9.5-11.5) H 11/12/17 07:57 INR 1.23 (0.5-1.4) 11/12/17 07:57 PTT (Actin FS) 34.5 SECONDS (26.0-38.0) 11/07/17 04:30 Sodium 138 mEq/L (136-145) 11/08/17 08:10 Potassium 3.7 mEq/L (3.5-5.1) 11/08/17 08:10 Chloride 108 mEq/L (98-107) H 11/08/17 08:10 Carbon Dioxide 25.3 mEq/L (21.0-31.0) 11/08/17 08:10 Anion Gap 8.4 (7.0-16.0) 11/08/17 08:10 BUN 16 mg/dL (7-25) 11/08/17 08:10 Creatinine 0.6 mg/dL (0.6-1.2) 11/08/17 08:10 Est GFR ( Amer) TNP 11/08/17 08:10 Est GFR (Non-Af Amer) TNP 11/08/17 08:10 BUN/Creatinine Ratio 26.7 11/08/17 08:10 Glucose 127 mg/dL (70-105) H 11/08/17 08:10 POC Glucose 130 MG/DL (70 - 105) H 11/06/17 15:32 Calcium 9.3 mg/dL (8.6-10.3) 11/08/17 08:10 Total Bilirubin 0.7 mg/dL (0.3-1.0) 11/08/17 08:10 AST 7 U/L (13-39) L 11/08/17 08:10 ALT 6 U/L (7-52) L 11/08/17 08:10 Alkaline Phosphatase 42 U/L (34-104) 11/08/17 08:10 Total Protein 7.0 gm/dL (6.0-8.3) 11/08/17 08:10 Albumin 2.8 gm/dL (3.7-5.3) L 11/08/17 08:10 Globulin 4.2 gm/dL 11/08/17 08:10 Albumin/Globulin Ratio 0.7 (1.0-1.8) L 11/08/17 08:10 Urine Source CATH 11/12/17 03:46 Urine Color YELLOW 11/12/17 03:46 Urine Clarity CLEAR (CLEAR) 11/12/17 03:46 Urine pH 7.0 (4.6 - 8.0) 11/12/17 03:46 Ur Specific [place] 1.015 (1.005-1.030) 11/12/17 03:46 Urine Protein NEGATIVE mg/dL (NEGATIVE) 11/12/17 03:46 Urine Glucose (UA) NEGATIVE mg/dL (NEGATIVE) 11/12/17 03:46 Urine Ketones NEGATIVE mg/dL (NEGATIVE) 11/12/17 03:46 Urine Blood NEGATIVE (NEGATIVE) 11/12/17 03:46 Urine Nitrate NEGATIVE (NEGATIVE) 11/12/17 03:46 Urine Bilirubin NEGATIVE (NEGATIVE) 11/12/17 03:46 Urine Urobilinogen 0.2 E.U./dL (0.2 - 1.0) 11/12/17 03:46 Ur Leukocyte Esterase NEGATIVE (NEGATIVE) 11/12/17 03:46 Urine RBC 0-2 /hpf (0-5) 11/12/17 03:46 Urine WBC 0-2 /hpf (0-5) 11/12/17 03:46 Ur Epithelial Cells MODERATE /lpf (FEW) 11/12/17 03:46 Urine Bacteria OCCASIONAL /hpf (NONE SEEN) 11/12/17 03:46 Vancomycin Trough 9.3 ug/mL (5-10) 11/12/17 07:57 - Physical Exam Vitals and I&O: Vital Signs Temp 98.6 F 11/12/17 15:40 Pulse 92 11/12/17 15:40 Resp 18 11/12/17 15:40 BP 132/75 11/12/17 15:40 Pulse Ox 98 11/12/17 15:40 Intake & Output 11/11/17 11/12/17 11/12/17 18:59 06:59 18:59 Intake Total 800 250 Output Total 15 Balance 785 250 Weight (lbs) 93.44 kg 1043.444 kg Intake: Intake, IV Amount 560 250 D5-0.45NS w/20 mEq KCL 1, 260 000 ml @ 75 mls/hr IV . [id number] [facility] Rx#:[id number] Vancomycin HCl 1 gm In 250 250 Sodium Chloride 0.9% 250 ml @ 165 mls/hr IV Q12HR [facility] Rx#:[id number] cefTRIAXone 1 gm In 50 Dextrose 5% 50 ml @ 100 mls/hr IV Q24HR [facility] Rx#: [id number] Oral 240 Output: Drainage 15 left breast daniele drain 15 Other: # Voids 1 2 # Bowel Movements 0 Stool Characteristics Soft Weight Source Estimated Bedscale Active Medications: Current Medications Acetaminophen (Tylenol) 650 mg PO Q4HR PRN PRN Reason: Pain (Mild) Stop: 01/05/18 17:20 Amlodipine Besylate (Norvasc) 10 mg PO DAILY [facility] Stop: 01/10/18 08:59 Last Admin: 11/12/17 09:24 Dose: 10 mg Ascorbic Acid (Vitamin C) 500 mg PO DAILY [facility] Stop: 01/06/18 08:59 Last Admin: 11/12/17 09:24 Dose: 500 mg Docusate Sodium (Colace) 100 mg PO DAILY [facility] Stop: 01/06/18 08:59 Last Admin: 11/12/17 09:24 Dose: 100 mg Donepezil HCl (Aricept) 10 mg PO DAILY [facility] Stop: 01/06/18 08:59 Last Admin: 11/12/17 09:24 Dose: 10 mg Ferrous Sulfate (Iron) 325 mg PO DAILY [facility] Stop: 01/06/18 08:59 Last Admin: 11/12/17 09:24 Dose: 325 mg Hydralazine HCl (Apresoline 20 Mg/Ml) 10 mg IV Q6H PRN PRN Reason: BP MAINTENANCE (PER PROTOCOL) Stop: 01/06/18 06:39 Last Admin: 11/07/17 07:09 Dose: 10 mg Ceftriaxone Sodium 1 gm/ (Dextrose) 50 mls @ 100 mls/hr IV Q24HR [facility] Stop: 01/06/18 09:59 Last Admin: 11/12/17 12:53 Dose: 100 mls/hr Vancomycin HCl 1 gm/ Sodium (Chloride) 250 mls @ 165 mls/hr IV Q12HR [facility] Stop: 01/10/18 08:59 Last Admin: 11/12/17 09:25 Dose: 165 mls/hr Lactobacillus Rhamnosus (Culturelle 15b) 1 each PO DAILY [facility] Stop: 01/07/18 10:59 Last Admin: 11/12/17 09:23 Dose: 1 each Memantine (Namenda) 10 mg PO BID [facility] Stop: 01/05/18 17:29 Last Admin: 11/12/17 16:15 Dose: 10 mg Miscellaneous (Probiotic Screen) 1 [facility] PRN PRN PRN Reason: PROTOCOL Stop: 01/07/18 10:25 Miscellaneous (Vancomycin Iv Per Pharmacy) 1 [facility] PRN PRN PRN Reason: PROTOCOL Stop: 01/09/18 18:55 Multivitamins/Vitamin C (Theragran) 1 tab PO DAILY [facility] Stop: 01/06/18 08:59 Last Admin: 11/12/17 09:24 Dose: 1 tab Ondansetron HCl (Zofran Odt) 4 mg PO Q6HR PRN PRN Reason: Nausea/VOMITING Stop: 01/05/18 17:20 Pantoprazole Sodium (Protonix) 40 mg PO QDAC [facility] Stop: 01/06/18 07:29 Last Admin: 11/12/17 09:23 Dose: 40 mg Quetiapine Fumarate (Seroquel) 12.5 mg PO BID [facility]; Protocol Stop: 01/05/18 17:29 Last Admin: 11/12/17 16:15 Dose: 12.5 mg Warfarin Sodium (Coumadin Per Pharmacy) 1 [facility] PRN PRN PRN Reason: RX MONITORING Stop: 01/06/18 10:57 Wound Care/Dressing Products (Silvasorb) 1 appl TP DAILY [facility] Stop: 01/06/18 08:59 Last Admin: 11/12/17 09:25 Dose: 1 appl General: demented HEENT: NC/AT, PERRLA, EOMI, anicteric sclerae, throat clear Neck: Supple, No JVD, No thyromegaly, +2 carotid pulse wo bruit, No LAD, + JVD Lungs: CTAB Cardiovascular: RRR, Normal S1, Normal S2, without murmur Abdomen: soft, non-tender, non-distended Extremities: clear Neurological: no change (THE LEFT BREAS IS FIRM.) - Procedures Procedures: Procedures Procedure Code Date EXTIRPATION OF MATTER FROM LEFT BREAST, OPEN APPROACH [id number] 11/06/17 Internal Medicine Assmt/Plan - Assessment Assessment: 1.LEFT BREAST ABSCESS. 2.ANEMIA. 3.HTN. 4.DEMENTIA. 5.SP SURGICAL DEBRIDMENT 6.CONSTIPATION. - Plan Plan: CONTINUE ON CURRENT MEDICATION AND DIET.SENOKOT 2 TAB PO Q HS. Nutritional Asmnt/Malnutr-PDOC - Dietary Evaluation Malnutrition Findings (Please click <Entered> for more info): Nutritional Asmnt/Malnutrition Start: 11/10/17 15: 10 Text: Status: Complete Freq: Protocol: Document 11/10/17 15:10 PA (Rec: 11/10/17 15:26 LCHENG [email or web address]) Nutritional Asmnt/Malnutrition Patient General Information Nutritional Screening Moderate Risk Diagnosis mastectomy to left side Pertinent Medical Hx/Surgical Hx dementia, HTN, DVT Subjective Information Pt had mastectomy to left side on 11/07. Pt seen lying in bed awake and alert at time of visit. Pt reported she is doing ok, will eat lunch when she is ready. Per EMR, PO intake 100% of meals. Current Diet Order/ Nutrition Support [facility] soft chopped Pertinent Medications vit C, colace, iron, culturelle, theragran, protonix, D5-0.45ns w 20 meq kcl Pertinent Labs 11/08 K 3.7 (improved), cl 108, glucose 127 Nutritional Hx/Data Height 1.68 m Height (Calculated Centimeters) 167.6 Current Weight (lbs) 89.811 kg Weight (Calculated Kilograms) 89.8 Weight (Calculated Grams) 75416.3 [place] Body Weight 130 Body Mass Index (BMI) 31.9 Weight Status Obese GI Symptoms GI Symptoms None Last BM 11/09 per nurse note Difficult in: None Skin Integrity/Comment: left breast wound s/p left exicision breast mass Current %PO Good (75-100%) Estimated Nutritional Goals BEE in Kcals: Adj wt of IBW Calories/Kcals/Kg 25-30 Kcals Calculated 8187-2588 Protein: Adj wt of IBW Protein g/k.2 Protein Calculated 80 Fluid: ml 1675-2010ml (1ml/kcal) Nutritional Problem 1. Problem Problem increased nutrition needs Etiology increased metabolic demand Signs/Symptoms: s/p surgery Malnutrition Alert Is there a minimum of two criteria No selected? Query Text:Check all the applicable criteria. A minimum of two criteria are recommended for diagnosis of either severe or non-severe malnutrition. Malnutrition Related to Morbid Obesity Malnutrition related to morbid obesity No Intervention/Recommendation Comments 1. Continue with [facility] soft chopped diet as ordered. 2. Monitor PO intake, wt, labs and skin integrity 3. F/U as moderate risk in 3-5 days, 11/13-11/15 Expected Outcomes/Goals Expected Outcomes/Goals 1. PO intake to meet at least 75% of nutritional needs. 2. Wt stability, skin to remain intact, labs to approach WNL.
[2017-11-13 05:27] LABS: % EOSINOPHILS 2.9 % (0.0-5.0); EOSINOPHILE ABSOLUTE 0.3 Th/cmm (0.1-0.4); HEMOGLOBIN 9.3 gm/dL (12-16); MONOCYTE ABSOLUTE 0.8 Th/cmm (0.3-1.0); WHITE BLOOD COUNT 10.3 Th/cmm (4.8-10.8)
[2017-11-13 05:33] LABS: % LYMPHOCYTES 14.8 % (20.0-50.0); % MONOCYTES 7.5 % (2.0-10.0); % NEUTROPHILS 74.8 % (40.0-80.0); HEMATOCRIT 28.1 % (41.0-60); LYMPHOCYTE ABSOLUTE 1.5 Th/cmm (1.5-3.0); MEAN CELL VOLUME 83.6 fl (81-100); MEAN CORPUSCULAR HEMOGLOBIN 27.8 pg (27.0-31.0); MEAN CORPUSCULAR HGB CONC 33.2 pg (28.0-36.0); MEAN PLATELET VOLUME 7.1 fl; NEUTROPHILE ABSOLUTE 7.7 Th/cmm (1.8-8.0); PLATELET COUNT 392 Th/cmm (150-400); RED BLOOD COUNT 3.36 Mil/cmm (3.80-5.20); RED CELL DISTRIBUTION WIDTH 16.2 % (11.5-20.0)
[2017-11-13 05:47] LABS: INR 1.18 (0.5-1.4); PROTHROMBIN TIME (TEST) 12.4 SECONDS (9.5-11.5)
--- NOTE | 2017-11-13 07:53 | General Progress Note ---
Subjective - Review of Systems Service Date: 11/13/17 Events since last encounter: Delfino drainage overnight 30 cc, C and S staph left chest wall soft, leave drain in Objective - Results Result Diagrams: 11/13/17 05:15 11/08/17 08:10 Recent Labs: Laboratory Last Values WBC 10.3 Th/cmm (4.8-10.8) 11/13/17 05:15 RBC 3.36 Mil/cmm (3.80-5.20) L 11/13/17 05:15 Hgb 9.3 gm/dL (12-16) L 11/13/17 05:15 Hct 28.1 % (41.0-60) L 11/13/17 05:15 MCV 83.6 fl (81-100) 11/13/17 05:15 MCH 27.8 pg (27.0-31.0) 11/13/17 05:15 MCHC Differential 33.2 pg (28.0-36.0) 11/13/17 05:15 RDW 16.2 % (11.5-20.0) 11/13/17 05:15 Plt Count 392 Th/cmm (150-400) 11/13/17 05:15 MPV 7.1 fl 11/13/17 05:15 Neutrophils % 74.8 % (40.0-80.0) 11/13/17 05:15 Lymphocytes % 14.8 % (20.0-50.0) L 11/13/17 05:15 Monocytes % 7.5 % (2.0-10.0) 11/13/17 05:15 Eosinophils % 2.9 % (0.0-5.0) 11/13/17 05:15 Basophils % 0.0 % (0.0-2.0) 11/13/17 05:15 PT 12.4 SECONDS (9.5-11.5) H 11/13/17 05:15 INR 1.18 (0.5-1.4) 11/13/17 05:15 PTT (Actin FS) 34.5 SECONDS (26.0-38.0) 11/07/17 04:30 Sodium 138 mEq/L (136-145) 11/08/17 08:10 Potassium 3.7 mEq/L (3.5-5.1) 11/08/17 08:10 Chloride 108 mEq/L (98-107) H 11/08/17 08:10 Carbon Dioxide 25.3 mEq/L (21.0-31.0) 11/08/17 08:10 Anion Gap 8.4 (7.0-16.0) 11/08/17 08:10 BUN 16 mg/dL (7-25) 11/08/17 08:10 Creatinine 0.6 mg/dL (0.6-1.2) 11/08/17 08:10 Est GFR ( Amer) TNP 11/08/17 08:10 Est GFR (Non-Af Amer) TNP 11/08/17 08:10 BUN/Creatinine Ratio 26.7 11/08/17 08:10 Glucose 127 mg/dL (70-105) H 11/08/17 08:10 POC Glucose 130 MG/DL (70 - 105) H 11/06/17 15:32 Calcium 9.3 mg/dL (8.6-10.3) 11/08/17 08:10 Total Bilirubin 0.7 mg/dL (0.3-1.0) 11/08/17 08:10 AST 7 U/L (13-39) L 11/08/17 08:10 ALT 6 U/L (7-52) L 11/08/17 08:10 Alkaline Phosphatase 42 U/L (34-104) 11/08/17 08:10 Total Protein 7.0 gm/dL (6.0-8.3) 11/08/17 08:10 Albumin 2.8 gm/dL (3.7-5.3) L 11/08/17 08:10 Globulin 4.2 gm/dL 11/08/17 08:10 Albumin/Globulin Ratio 0.7 (1.0-1.8) L 11/08/17 08:10 Urine Source CATH 11/12/17 03:46 Urine Color YELLOW 11/12/17 03:46 Urine Clarity CLEAR (CLEAR) 11/12/17 03:46 Urine pH 7.0 (4.6 - 8.0) 11/12/17 03:46 Ur Specific [place] 1.015 (1.005-1.030) 11/12/17 03:46 Urine Protein NEGATIVE mg/dL (NEGATIVE) 11/12/17 03:46 Urine Glucose (UA) NEGATIVE mg/dL (NEGATIVE) 11/12/17 03:46 Urine Ketones NEGATIVE mg/dL (NEGATIVE) 11/12/17 03:46 Urine Blood NEGATIVE (NEGATIVE) 11/12/17 03:46 Urine Nitrate NEGATIVE (NEGATIVE) 11/12/17 03:46 Urine Bilirubin NEGATIVE (NEGATIVE) 11/12/17 03:46 Urine Urobilinogen 0.2 E.U./dL (0.2 - 1.0) 11/12/17 03:46 Ur Leukocyte Esterase NEGATIVE (NEGATIVE) 11/12/17 03:46 Urine RBC 0-2 /hpf (0-5) 11/12/17 03:46 Urine WBC 0-2 /hpf (0-5) 11/12/17 03:46 Ur Epithelial Cells MODERATE /lpf (FEW) 11/12/17 03:46 Urine Bacteria OCCASIONAL /hpf (NONE SEEN) 11/12/17 03:46 Vancomycin Trough 9.3 ug/mL (5-10) 11/12/17 07:57 - Physical Exam Vitals and I&O: Vital Signs Temp 98.7 F 11/13/17 04:00 Pulse 69 11/13/17 04:00 Resp 18 11/13/17 04:00 BP 152/72 11/13/17 04:00 Pulse Ox 97 11/13/17 04:00 Intake & Output 11/12/17 11/13/17 11/13/17 18:59 06:59 18:59 Intake Total 900 150 100 Output Total 30 32 Balance 870 150 68 Weight (lbs) 93.44 kg 93.44 kg 93.44 kg Intake: Intake, IV Amount 300 Vancomycin HCl 1 gm In 250 Sodium Chloride 0.9% 250 ml @ 165 mls/hr IV Q12HR [facility] Rx#:[id number] cefTRIAXone 1 gm In 50 Dextrose 5% 50 ml @ 100 mls/hr IV Q24HR [facility] Rx#: [id number] Oral 600 150 100 Output: Drainage 30 30 left breast daniele drain 30 30 Urine 2 Other: # Voids 2 # Bowel Movements 0 Weight Source Bedscale Bedscale Bedscale Active Medications: Current Medications Acetaminophen (Tylenol) 650 mg PO Q4HR PRN PRN Reason: Pain (Mild) Stop: 01/05/18 17:20 Amlodipine Besylate (Norvasc) 10 mg PO DAILY [facility] Stop: 01/10/18 08:59 Last Admin: 11/12/17 09:24 Dose: 10 mg Ascorbic Acid (Vitamin C) 500 mg PO DAILY [facility] Stop: 01/06/18 08:59 Last Admin: 11/12/17 09:24 Dose: 500 mg Bisacodyl (Dulcolax 10 Mg Supp) 10 mg RC DAILY PRN PRN Reason: Constipation Stop: 01/11/18 17:24 Last Admin: 11/12/17 20:34 Dose: 10 mg Docusate Sodium (Colace) 100 mg PO DAILY [facility] Stop: 01/06/18 08:59 Last Admin: 11/12/17 09:24 Dose: 100 mg Donepezil HCl (Aricept) 10 mg PO DAILY [facility] Stop: 01/06/18 08:59 Last Admin: 11/12/17 09:24 Dose: 10 mg Ferrous Sulfate (Iron) 325 mg PO DAILY [facility] Stop: 01/06/18 08:59 Last Admin: 11/12/17 09:24 Dose: 325 mg Hydralazine HCl (Apresoline 20 Mg/Ml) 10 mg IV Q6H PRN PRN Reason: BP MAINTENANCE (PER PROTOCOL) Stop: 01/06/18 06:39 Last Admin: 11/12/17 18:33 Dose: 10 mg Ceftriaxone Sodium 1 gm/ (Dextrose) 50 mls @ 100 mls/hr IV Q24HR [facility] Stop: 01/06/18 09:59 Last Infusion: 11/12/17 17:25 Dose: Infused Vancomycin HCl 1 gm/ Sodium (Chloride) 250 mls @ 165 mls/hr IV Q12HR [facility] Stop: 01/10/18 08:59 Last Admin: 11/12/17 21:01 Dose: 167 mls/hr Lactobacillus Rhamnosus (Culturelle 15b) 1 each PO DAILY [facility] Stop: 01/07/18 10:59 Last Admin: 11/12/17 09:23 Dose: 1 each Memantine (Namenda) 10 mg PO BID [facility] Stop: 01/05/18 17:29 Last Admin: 11/12/17 16:15 Dose: 10 mg Miscellaneous (Probiotic Screen) 1 ea PRN PRN PRN Reason: PROTOCOL Stop: 01/07/18 10:25 Miscellaneous (Vancomycin Iv Per Pharmacy) 1 ea PRN PRN PRN Reason: PROTOCOL Stop: 01/09/18 18:55 Multivitamins/Vitamin C (Theragran) 1 tab PO DAILY [facility] Stop: 01/06/18 08:59 Last Admin: 11/12/17 09:24 Dose: 1 tab Ondansetron HCl (Zofran Odt) 4 mg PO Q6HR PRN PRN Reason: Nausea/VOMITING Stop: 01/05/18 17:20 Pantoprazole Sodium (Protonix) 40 mg PO QDAC [facility] Stop: 01/06/18 07:29 Last Admin: 11/12/17 09:23 Dose: 40 mg Quetiapine Fumarate (Seroquel) 12.5 mg PO BID [facility]; Protocol Stop: 01/05/18 17:29 Last Admin: 11/12/17 16:15 Dose: 12.5 mg Senna (Senna) 8.6 mg PO DAILY [facility] Stop: 01/11/18 19:31 Last Admin: 11/12/17 20:34 Dose: 8.6 mg Warfarin Sodium (Coumadin Per Pharmacy) 1 ea [facility] PRN PRN PRN Reason: RX MONITORING Stop: 01/06/18 10:57 Wound Care/Dressing Products (Silvasorb) 1 appl TP DAILY [facility] Stop: 01/06/18 08:59 Last Admin: 11/12/17 09:25 Dose: 1 appl - Procedures Procedures: Procedures Procedure Code Date EXTIRPATION OF MATTER FROM LEFT BREAST, OPEN APPROACH [id number] 11/06/17 Nutritional Asmnt/Malnutr-PDOC - Dietary Evaluation Malnutrition Findings (Please click <Entered> for more info): Nutritional Asmnt/Malnutrition Start: 11/10/17 15: 10 Text: Status: Complete Freq: Protocol: Document 11/10/17 15:10 LCHENG (Rec: 11/10/17 15:26 [email or web address]) Nutritional Asmnt/Malnutrition Patient General Information Nutritional Screening Moderate Risk Diagnosis mastectomy to left side Pertinent Medical Hx/Surgical Hx dementia, HTN, DVT Subjective Information Pt had mastectomy to left side on 11/07. Pt seen lying in bed awake and alert at time of visit. Pt reported she is doing ok, will eat lunch when she is ready. Per EMR, PO intake 100% of meals. Current Diet Order/ Nutrition Support [facility] soft chopped Pertinent Medications vit C, colace, iron, culturelle, theragran, protonix, D5-0.45ns w 20 meq kcl Pertinent Labs 11/08 K 3.7 (improved), cl 108, glucose 127 Nutritional Hx/Data Height 1.68 m Height (Calculated Centimeters) 167.6 Current Weight (lbs) 89.811 kg Weight (Calculated Kilograms) 89.8 Weight (Calculated Grams) 32515.3 [place] Body Weight 130 Body Mass Index (BMI) 31.9 Weight Status Obese GI Symptoms GI Symptoms None Last BM 11/09 per nurse note Difficult in: None Skin Integrity/Comment: left breast wound s/p left exicision breast mass Current %PO Good (75-100%) Estimated Nutritional Goals BEE in Kcals: Adj wt of IBW Calories/Kcals/Kg 25-30 Kcals Calculated 8851-4107 Protein: Adj wt of IBW Protein g/k.2 Protein Calculated 80 Fluid: ml 1675-2010ml (1ml/kcal) Nutritional Problem 1. Problem Problem increased nutrition needs Etiology increased metabolic demand Signs/Symptoms: s/p surgery Malnutrition Alert Is there a minimum of two criteria No selected? Query Text:Check all the applicable criteria. A minimum of two criteria are recommended for diagnosis of either severe or non-severe malnutrition. Malnutrition Related to Morbid Obesity Malnutrition related to morbid obesity No Intervention/Recommendation Comments 1. Continue with [facility] soft chopped diet as ordered. 2. Monitor PO intake, wt, labs and skin integrity 3. F/U as moderate risk in 3-5 days, 11/13-11/15 Expected Outcomes/Goals Expected Outcomes/Goals 1. PO intake to meet at least 75% of nutritional needs. 2. Wt stability, skin to remain intact, labs to approach WNL.
[2017-11-13] MEDS: Ferrous Sulfate 325 MG TAB PO SCH (09:46)
[2017-11-13] MEDS: Lactobacillus Rhamnosus GG 15 Billion CFU CAP.SPRINK PO SCH (09:46)
[2017-11-13] MEDS: Multivitamin Tab PO SCH (09:46)
[2017-11-13] MEDS: Pantoprazole 40 mg EC Tab PO SCH (09:47)
[2017-11-13] MEDS: Silver Antimicrobial Wound Gel 0.25 oz Tube TP SCH (15:11)
--- NOTE | 2017-11-13 23:31 | Internal Medicine Prog Note ---
Internal Medicine Subjective - Subjective Service Date: 11/13/17 Patient seen and examined:: with staff (SHE STILL ON IV ABS.) Patient is:: awake, verbal, confused Per staff patient has:: no adverse event Internal Medicine Objective - Results Result Diagrams: 11/13/17 05:15 11/08/17 08:10 Recent Labs: Laboratory Last Values WBC 10.3 Th/cmm (4.8-10.8) 11/13/17 05:15 RBC 3.36 Mil/cmm (3.80-5.20) L 11/13/17 05:15 Hgb 9.3 gm/dL (12-16) L 11/13/17 05:15 Hct 28.1 % (41.0-60) L 11/13/17 05:15 MCV 83.6 fl (81-100) 11/13/17 05:15 MCH 27.8 pg (27.0-31.0) 11/13/17 05:15 MCHC Differential 33.2 pg (28.0-36.0) 11/13/17 05:15 RDW 16.2 % (11.5-20.0) 11/13/17 05:15 Plt Count 392 Th/cmm (150-400) 11/13/17 05:15 MPV 7.1 fl 11/13/17 05:15 Neutrophils % 74.8 % (40.0-80.0) 11/13/17 05:15 Lymphocytes % 14.8 % (20.0-50.0) L 11/13/17 05:15 Monocytes % 7.5 % (2.0-10.0) 11/13/17 05:15 Eosinophils % 2.9 % (0.0-5.0) 11/13/17 05:15 Basophils % 0.0 % (0.0-2.0) 11/13/17 05:15 PT 12.4 SECONDS (9.5-11.5) H 11/13/17 05:15 INR 1.18 (0.5-1.4) 11/13/17 05:15 PTT (Actin FS) 34.5 SECONDS (26.0-38.0) 11/07/17 04:30 Sodium 138 mEq/L (136-145) 11/08/17 08:10 Potassium 3.7 mEq/L (3.5-5.1) 11/08/17 08:10 Chloride 108 mEq/L (98-107) H 11/08/17 08:10 Carbon Dioxide 25.3 mEq/L (21.0-31.0) 11/08/17 08:10 Anion Gap 8.4 (7.0-16.0) 11/08/17 08:10 BUN 16 mg/dL (7-25) 11/08/17 08:10 Creatinine 0.6 mg/dL (0.6-1.2) 11/08/17 08:10 Est GFR ( Amer) TNP 11/08/17 08:10 Est GFR (Non-Af Amer) TNP 11/08/17 08:10 BUN/Creatinine Ratio 26.7 11/08/17 08:10 Glucose 127 mg/dL (70-105) H 11/08/17 08:10 POC Glucose 130 MG/DL (70 - 105) H 11/06/17 15:32 Calcium 9.3 mg/dL (8.6-10.3) 11/08/17 08:10 Total Bilirubin 0.7 mg/dL (0.3-1.0) 11/08/17 08:10 AST 7 U/L (13-39) L 11/08/17 08:10 ALT 6 U/L (7-52) L 11/08/17 08:10 Alkaline Phosphatase 42 U/L (34-104) 11/08/17 08:10 Total Protein 7.0 gm/dL (6.0-8.3) 11/08/17 08:10 Albumin 2.8 gm/dL (3.7-5.3) L 11/08/17 08:10 Globulin 4.2 gm/dL 11/08/17 08:10 Albumin/Globulin Ratio 0.7 (1.0-1.8) L 11/08/17 08:10 Urine Source CATH 11/12/17 03:46 Urine Color YELLOW 11/12/17 03:46 Urine Clarity CLEAR (CLEAR) 11/12/17 03:46 Urine pH 7.0 (4.6 - 8.0) 11/12/17 03:46 Ur Specific [place] 1.015 (1.005-1.030) 11/12/17 03:46 Urine Protein NEGATIVE mg/dL (NEGATIVE) 11/12/17 03:46 Urine Glucose (UA) NEGATIVE mg/dL (NEGATIVE) 11/12/17 03:46 Urine Ketones NEGATIVE mg/dL (NEGATIVE) 11/12/17 03:46 Urine Blood NEGATIVE (NEGATIVE) 11/12/17 03:46 Urine Nitrate NEGATIVE (NEGATIVE) 11/12/17 03:46 Urine Bilirubin NEGATIVE (NEGATIVE) 11/12/17 03:46 Urine Urobilinogen 0.2 E.U./dL (0.2 - 1.0) 11/12/17 03:46 Ur Leukocyte Esterase NEGATIVE (NEGATIVE) 11/12/17 03:46 Urine RBC 0-2 /hpf (0-5) 11/12/17 03:46 Urine WBC 0-2 /hpf (0-5) 11/12/17 03:46 Ur Epithelial Cells MODERATE /lpf (FEW) 11/12/17 03:46 Urine Bacteria OCCASIONAL /hpf (NONE SEEN) 11/12/17 03:46 Vancomycin Trough 9.3 ug/mL (5-10) 11/12/17 07:57 - Physical Exam Vitals and I&O: Vital Signs Temp 98.2 F 11/13/17 19:00 Pulse 72 11/13/17 19:00 Resp 17 11/13/17 19:00 BP 151/68 11/13/17 19:00 Pulse Ox 98 11/13/17 19:00 Intake & Output 11/13/17 11/13/17 11/14/17 06:59 18:59 06:59 Intake Total 400 950 Output Total 57 Balance 400 893 Weight (lbs) 93.44 kg 93.44 kg 93.44 kg Intake: Intake, IV Amount 250 50 Vancomycin HCl 1 gm In 250 Sodium Chloride 0.9% 250 ml @ 165 mls/hr IV Q12HR [facility] Rx#:[id number] cefTRIAXone 1 gm In 50 Dextrose 5% 50 ml @ 100 mls/hr IV Q24HR [facility] Rx#: [id number] Oral 150 900 Output: Drainage 55 left breast daniele drain 55 Urine 2 Other: # Voids 3 # Bowel Movements 1 Weight Source Bedscale Bedscale Estimated Active Medications: Current Medications Acetaminophen (Tylenol) 650 mg PO Q4HR PRN PRN Reason: Pain (Mild) Stop: 01/05/18 17:20 Amlodipine Besylate (Norvasc) 10 mg PO DAILY [facility] Stop: 01/10/18 08:59 Last Admin: 11/13/17 09:47 Dose: 10 mg Ascorbic Acid (Vitamin C) 500 mg PO DAILY [facility] Stop: 01/06/18 08:59 Last Admin: 11/13/17 09:46 Dose: 500 mg Bisacodyl (Dulcolax 10 Mg Supp) 10 mg RC DAILY PRN PRN Reason: Constipation Stop: 01/11/18 17:24 Last Admin: 11/12/17 20:34 Dose: 10 mg Docusate Sodium (Colace) 100 mg PO DAILY [facility] Stop: 01/06/18 08:59 Last Admin: 11/13/17 09:46 Dose: 100 mg Donepezil HCl (Aricept) 10 mg PO DAILY [facility] Stop: 01/06/18 08:59 Last Admin: 11/13/17 09:46 Dose: 10 mg Ferrous Sulfate (Iron) 325 mg PO DAILY [facility] Stop: 01/06/18 08:59 Last Admin: 11/13/17 09:46 Dose: 325 mg Hydralazine HCl (Apresoline 20 Mg/Ml) 10 mg IV Q6H PRN PRN Reason: BP MAINTENANCE (PER PROTOCOL) Stop: 01/06/18 06:39 Last Admin: 11/12/17 18:33 Dose: 10 mg Ceftriaxone Sodium 1 gm/ (Dextrose) 50 mls @ 100 mls/hr IV Q24HR [facility] Stop: 01/06/18 09:59 Last Infusion: 11/13/17 15:30 Dose: Infused Vancomycin HCl 1.25 gm/ Sodium (Chloride) 250 mls @ 165 mls/hr IV Q12H [facility] Stop: 01/12/18 20:59 Last Admin: 11/13/17 20:45 Dose: 165 mls/hr Lactobacillus Rhamnosus (Culturelle 15b) 1 each PO DAILY [facility] Stop: 01/07/18 10:59 Last Admin: 11/13/17 09:46 Dose: 1 each Memantine (Namenda) 10 mg PO BID [facility] Stop: 01/05/18 17:29 Last Admin: 11/13/17 18:11 Dose: 10 mg Miscellaneous (Probiotic Screen) 1 ea [facility] PRN PRN PRN Reason: PROTOCOL Stop: 01/07/18 10:25 Miscellaneous (Vancomycin Iv Per Pharmacy) 1 ea MC PRN PRN PRN Reason: PROTOCOL Stop: 01/09/18 18:55 Multivitamins/Vitamin C (Theragran) 1 tab PO DAILY [facility] Stop: 01/06/18 08:59 Last Admin: 11/13/17 09:46 Dose: 1 tab Ondansetron HCl (Zofran Odt) 4 mg PO Q6HR PRN PRN Reason: Nausea/VOMITING Stop: 01/05/18 17:20 Pantoprazole Sodium (Protonix) 40 mg PO QDAC [facility] Stop: 01/06/18 07:29 Last Admin: 11/13/17 09:47 Dose: 40 mg Quetiapine Fumarate (Seroquel) 12.5 mg PO BID [facility]; Protocol Stop: 01/05/18 17:29 Last Admin: 11/13/17 18:11 Dose: 12.5 mg Senna (Senna) 8.6 mg PO DAILY [facility] Stop: 01/11/18 19:31 Last Admin: 11/13/17 11:14 Dose: 8.6 mg Warfarin Sodium (Coumadin Per Pharmacy) 1 [facility] PRN PRN PRN Reason: RX MONITORING Stop: 01/06/18 10:57 Wound Care/Dressing Products (Silvasorb) 1 appl TP DAILY [facility] Stop: 01/06/18 08:59 Last Admin: 11/13/17 15:11 Dose: Not Given General: demented HEENT: NC/AT, PERRLA, EOMI, anicteric sclerae, throat clear Neck: Supple, No JVD, No thyromegaly, +2 carotid pulse wo bruit, No LAD, + JVD Lungs: CTAB Cardiovascular: RRR, Normal S1, Normal S2, without murmur Abdomen: soft, non-tender, non-distended Extremities: clear Neurological: no change (THE LEFT BREAS IS FIRM.) - Procedures Procedures: Procedures Procedure Code Date EXTIRPATION OF MATTER FROM LEFT BREAST, OPEN APPROACH [id number] 11/06/17 Internal Medicine Assmt/Plan - Assessment Assessment: 1.LEFT BREAST ABSCESS. 2.ANEMIA. 3.HTN. 4.DEMENTIA. 5.SP SURGICAL DEBRIDMENT 6.CONSTIPATION. - Plan Plan: CONTINUE ON CURRENT MEDICATION AND DIET. Nutritional Asmnt/Malnutr-PDOC - Dietary Evaluation Malnutrition Findings (Please click <Entered> for more info): Nutritional Asmnt/Malnutrition Start: 11/10/17 15: 10 Text: Status: Complete Freq: Protocol: Document 11/10/17 15:10 [email or web address] (Rec: 11/10/17 15:26 PA [email or web address]) Nutritional Asmnt/Malnutrition Patient General Information Nutritional Screening Moderate Risk Diagnosis mastectomy to left side Pertinent Medical Hx/Surgical Hx dementia, HTN, DVT Subjective Information Pt had mastectomy to left side on 11/07. Pt seen lying in bed awake and alert at time of visit. Pt reported she is doing ok, will eat lunch when she is ready. Per EMR, PO intake 100% of meals. Current Diet Order/ Nutrition Support [facility] soft chopped Pertinent Medications vit C, colace, iron, culturelle, theragran, protonix, D5-0.45ns w 20 meq kcl Pertinent Labs 11/08 K 3.7 (improved), cl 108, glucose 127 Nutritional Hx/Data Height 1.68 m Height (Calculated Centimeters) 167.6 Current Weight (lbs) 89.811 kg Weight (Calculated Kilograms) 89.8 Weight (Calculated Grams) 11407.3 [place] Body Weight 130 Body Mass Index (BMI) 31.9 Weight Status Obese GI Symptoms GI Symptoms None Last BM 11/09 per nurse note Difficult in: None Skin Integrity/Comment: left breast wound s/p left exicision breast mass Current %PO Good (75-100%) Estimated Nutritional Goals BEE in Kcals: Adj wt of IBW Calories/Kcals/Kg 25-30 Kcals Calculated 1372-3808 Protein: Adj wt of IBW Protein g/k.2 Protein Calculated 80 Fluid: ml 1675-2010ml (1ml/kcal) Nutritional Problem 1. Problem Problem increased nutrition needs Etiology increased metabolic demand Signs/Symptoms: s/p surgery Malnutrition Alert Is there a minimum of two criteria No selected? Query Text:Check all the applicable criteria. A minimum of two criteria are recommended for diagnosis of either severe or non-severe malnutrition. Malnutrition Related to Morbid Obesity Malnutrition related to morbid obesity No Intervention/Recommendation Comments 1. Continue with [facility] soft chopped diet as ordered. 2. Monitor PO intake, wt, labs and skin integrity 3. F/U as moderate risk in 3-5 days, 11/13-11/15 Expected Outcomes/Goals Expected Outcomes/Goals 1. PO intake to meet at least 75% of nutritional needs. 2. Wt stability, skin to remain intact, labs to approach WNL.
[2017-11-14 05:47] LABS: INR 1.18 (0.5-1.4); PROTHROMBIN TIME (TEST) 12.4 SECONDS (9.5-11.5)
[2017-11-14] MEDS: Pantoprazole 40 mg EC Tab PO SCH (06:44)
[2017-11-14 09:08] LABS: HEMATOCRIT 29.7 % (41.0-60); HEMOGLOBIN 9.6 gm/dL (12-16)
[2017-11-14] MEDS: Lactobacillus Rhamnosus GG 15 Billion CFU CAP.SPRINK PO SCH (09:28)
[2017-11-14] MEDS: Multivitamin Tab PO SCH (09:28)
[2017-11-14] MEDS: Ferrous Sulfate 325 MG TAB PO SCH (09:29)
--- NOTE | 2017-11-14 14:01 | Internal Medicine Prog Note ---
Internal Medicine Subjective - Subjective Service Date: 11/14/17 Patient seen and examined:: with staff Patient is:: awake, verbal, confused Per staff patient has:: no adverse event Internal Medicine Objective - Results Result Diagrams: 11/14/17 05:15 11/08/17 08:10 Recent Labs: Laboratory Last Values WBC 10.3 Th/cmm (4.8-10.8) 11/13/17 05:15 RBC 3.36 Mil/cmm (3.80-5.20) L 11/13/17 05:15 Hgb 9.6 gm/dL (12-16) L 11/14/17 05:15 Hct 29.7 % (41.0-60) L 11/14/17 05:15 MCV 83.6 fl (81-100) 11/13/17 05:15 MCH 27.8 pg (27.0-31.0) 11/13/17 05:15 MCHC Differential 33.2 pg (28.0-36.0) 11/13/17 05:15 RDW 16.2 % (11.5-20.0) 11/13/17 05:15 Plt Count 408 Th/cmm (150-400) H 11/14/17 05:15 MPV 7.1 fl 11/13/17 05:15 Neutrophils % 74.8 % (40.0-80.0) 11/13/17 05:15 Lymphocytes % 14.8 % (20.0-50.0) L 11/13/17 05:15 Monocytes % 7.5 % (2.0-10.0) 11/13/17 05:15 Eosinophils % 2.9 % (0.0-5.0) 11/13/17 05:15 Basophils % 0.0 % (0.0-2.0) 11/13/17 05:15 PT 12.4 SECONDS (9.5-11.5) H 11/14/17 05:15 INR 1.18 (0.5-1.4) 11/14/17 05:15 PTT (Actin FS) 34.5 SECONDS (26.0-38.0) 11/07/17 04:30 Sodium 138 mEq/L (136-145) 11/08/17 08:10 Potassium 3.7 mEq/L (3.5-5.1) 11/08/17 08:10 Chloride 108 mEq/L (98-107) H 11/08/17 08:10 Carbon Dioxide 25.3 mEq/L (21.0-31.0) 11/08/17 08:10 Anion Gap 8.4 (7.0-16.0) 11/08/17 08:10 BUN 16 mg/dL (7-25) 11/08/17 08:10 Creatinine 0.6 mg/dL (0.6-1.2) 11/08/17 08:10 Est GFR ( Amer) TNP 11/08/17 08:10 Est GFR (Non-Af Amer) TNP 11/08/17 08:10 BUN/Creatinine Ratio 26.7 11/08/17 08:10 Glucose 127 mg/dL (70-105) H 11/08/17 08:10 POC Glucose 130 MG/DL (70 - 105) H 11/06/17 15:32 Calcium 9.3 mg/dL (8.6-10.3) 11/08/17 08:10 Total Bilirubin 0.7 mg/dL (0.3-1.0) 11/08/17 08:10 AST 7 U/L (13-39) L 11/08/17 08:10 ALT 6 U/L (7-52) L 11/08/17 08:10 Alkaline Phosphatase 42 U/L (34-104) 11/08/17 08:10 Total Protein 7.0 gm/dL (6.0-8.3) 11/08/17 08:10 Albumin 2.8 gm/dL (3.7-5.3) L 11/08/17 08:10 Globulin 4.2 gm/dL 11/08/17 08:10 Albumin/Globulin Ratio 0.7 (1.0-1.8) L 11/08/17 08:10 Urine Source CATH 11/12/17 03:46 Urine Color YELLOW 11/12/17 03:46 Urine Clarity CLEAR (CLEAR) 11/12/17 03:46 Urine pH 7.0 (4.6 - 8.0) 11/12/17 03:46 Ur Specific [place] 1.015 (1.005-1.030) 11/12/17 03:46 Urine Protein NEGATIVE mg/dL (NEGATIVE) 11/12/17 03:46 Urine Glucose (UA) NEGATIVE mg/dL (NEGATIVE) 11/12/17 03:46 Urine Ketones NEGATIVE mg/dL (NEGATIVE) 11/12/17 03:46 Urine Blood NEGATIVE (NEGATIVE) 11/12/17 03:46 Urine Nitrate NEGATIVE (NEGATIVE) 11/12/17 03:46 Urine Bilirubin NEGATIVE (NEGATIVE) 11/12/17 03:46 Urine Urobilinogen 0.2 E.U./dL (0.2 - 1.0) 11/12/17 03:46 Ur Leukocyte Esterase NEGATIVE (NEGATIVE) 11/12/17 03:46 Urine RBC 0-2 /hpf (0-5) 11/12/17 03:46 Urine WBC 0-2 /hpf (0-5) 11/12/17 03:46 Ur Epithelial Cells MODERATE /lpf (FEW) 11/12/17 03:46 Urine Bacteria OCCASIONAL /hpf (NONE SEEN) 11/12/17 03:46 Vancomycin Trough 9.3 ug/mL (5-10) 11/12/17 07:57 - Physical Exam Vitals and I&O: Vital Signs Temp 97.4 F 11/14/17 12:00 Pulse 60 11/14/17 12:00 Resp 17 11/14/17 12:00 BP 147/72 11/14/17 12:00 Pulse Ox 97 11/14/17 12:00 Intake & Output 11/13/17 11/14/17 11/14/17 18:59 06:59 18:59 Intake Total 950 310 Output Total 57 20 Balance 893 290 Weight (lbs) 93.44 kg 91.172 kg Intake: Intake, IV Amount 50 250 Vancomycin HCl 1.25 gm In 250 Sodium Chloride 0.9% 250 ml @ 165 mls/hr IV Q12H [facility] Rx#:[id number] cefTRIAXone 1 gm In 50 Dextrose 5% 50 ml @ 100 mls/hr IV Q24HR [facility] Rx#: [id number] Oral 900 60 Output: Drainage 55 20 left breast daniele drain 55 20 Urine 2 Other: # Voids 3 2 # Bowel Movements 1 2 Weight Source Bedscale Bedscale Active Medications: Current Medications Acetaminophen (Tylenol) 650 mg PO Q4HR PRN PRN Reason: Pain (Mild) Stop: 01/05/18 17:20 Amlodipine Besylate (Norvasc) 10 mg PO DAILY [facility] Stop: 01/10/18 08:59 Last Admin: 11/14/17 09:38 Dose: 10 mg Ascorbic Acid (Vitamin C) 500 mg PO DAILY [facility] Stop: 01/06/18 08:59 Last Admin: 11/14/17 09:29 Dose: 500 mg Bisacodyl (Dulcolax 10 Mg Supp) 10 mg RC DAILY PRN PRN Reason: Constipation Stop: 01/11/18 17:24 Last Admin: 11/12/17 20:34 Dose: 10 mg Docusate Sodium (Colace) 100 mg PO DAILY [facility] Stop: 01/06/18 08:59 Last Admin: 11/14/17 09:30 Dose: 100 mg Donepezil HCl (Aricept) 10 mg PO DAILY [facility] Stop: 01/06/18 08:59 Last Admin: 11/14/17 09:30 Dose: 10 mg Ferrous Sulfate (Iron) 325 mg PO DAILY [facility] Stop: 01/06/18 08:59 Last Admin: 11/14/17 09:29 Dose: 325 mg Hydralazine HCl (Apresoline 20 Mg/Ml) 10 mg IV Q6H PRN PRN Reason: BP MAINTENANCE (PER PROTOCOL) Stop: 01/06/18 06:39 Last Admin: 11/12/17 18:33 Dose: 10 mg Ceftriaxone Sodium 1 gm/ (Dextrose) 50 mls @ 100 mls/hr IV Q24HR [facility] Stop: 01/06/18 09:59 Last Infusion: 11/13/17 15:30 Dose: Infused Vancomycin HCl 1.25 gm/ Sodium (Chloride) 250 mls @ 165 mls/hr IV Q12H [facility] Stop: 01/12/18 20:59 Last Admin: 11/14/17 09:36 Dose: 165 mls/hr Lactobacillus Rhamnosus (Culturelle 15b) 1 each PO DAILY [facility] Stop: 01/07/18 10:59 Last Admin: 11/14/17 09:28 Dose: 1 each Memantine (Namenda) 10 mg PO BID [facility] Stop: 01/05/18 17:29 Last Admin: 11/14/17 09:29 Dose: 10 mg Miscellaneous (Probiotic Screen) 1 ea PRN PRN PRN Reason: PROTOCOL Stop: 01/07/18 10:25 Miscellaneous (Vancomycin Iv Per Pharmacy) 1 ea PRN PRN PRN Reason: PROTOCOL Stop: 01/09/18 18:55 Multivitamins/Vitamin C (Theragran) 1 tab PO DAILY [facility] Stop: 01/06/18 08:59 Last Admin: 11/14/17 09:28 Dose: 1 tab Ondansetron HCl (Zofran Odt) 4 mg PO Q6HR PRN PRN Reason: Nausea/VOMITING Stop: 01/05/18 17:20 Pantoprazole Sodium (Protonix) 40 mg PO QDAC [facility] Stop: 01/06/18 07:29 Last Admin: 11/14/17 06:44 Dose: 40 mg Quetiapine Fumarate (Seroquel) 12.5 mg PO BID [facility]; Protocol Stop: 01/05/18 17:29 Last Admin: 11/14/17 09:28 Dose: 12.5 mg Senna (Senna) 8.6 mg PO DAILY [facility] Stop: 01/11/18 19:31 Last Admin: 11/14/17 09:30 Dose: 8.6 mg Warfarin Sodium (Coumadin Per Pharmacy) 1 ea [facility] PRN PRN PRN Reason: RX MONITORING Stop: 01/06/18 10:57 Wound Care/Dressing Products (Silvasorb) 1 appl TP DAILY [facility] Stop: 01/06/18 08:59 Last Admin: 11/13/17 15:11 Dose: Not Given General: demented HEENT: NC/AT, PERRLA, EOMI, anicteric sclerae, throat clear Neck: Supple, No JVD, No thyromegaly, +2 carotid pulse wo bruit, No LAD, + JVD Lungs: CTAB Cardiovascular: RRR, Normal S1, Normal S2, without murmur Abdomen: soft, non-tender, non-distended Extremities: clear Neurological: no change (THE LEFT BREAS IS FIRM.) - Procedures Procedures: Procedures Procedure Code Date EXTIRPATION OF MATTER FROM LEFT BREAST, OPEN APPROACH [id number] 11/06/17 Internal Medicine Assmt/Plan - Assessment Assessment: 1.LEFT BREAST ABSCESS. 2.ANEMIA. 3.HTN. 4.DEMENTIA. 5.SP SURGICAL DEBRIDMENT 6.CONSTIPATION. - Plan Plan: CONTINUE ON CURRENT MEDICATION AND DIET.CBC AND CMP IN AM. Nutritional Asmnt/Malnutr-PDOC - Dietary Evaluation Malnutrition Findings (Please click <Entered> for more info): Nutritional Asmnt/Malnutrition Start: 11/10/17 15: 10 Text: Status: Complete Freq: Protocol: Document 11/10/17 15:10 PA (Rec: 11/10/17 15:26 PA [email or web address]) Nutritional Asmnt/Malnutrition Patient General Information Nutritional Screening Moderate Risk Diagnosis mastectomy to left side Pertinent Medical Hx/Surgical Hx dementia, HTN, DVT Subjective Information Pt had mastectomy to left side on 11/07. Pt seen lying in bed awake and alert at time of visit. Pt reported she is doing ok, will eat lunch when she is ready. Per EMR, PO intake 100% of meals. Current Diet Order/ Nutrition Support [place] soft chopped Pertinent Medications vit C, colace, iron, culturelle, theragran, protonix, D5-0.45ns w 20 meq kcl Pertinent Labs 11/08 K 3.7 (improved), cl 108, glucose 127 Nutritional Hx/Data Height 1.68 m Height (Calculated Centimeters) 167.6 Current Weight (lbs) 89.811 kg Weight (Calculated Kilograms) 89.8 Weight (Calculated Grams) 34576.3 [place] Body Weight 130 Body Mass Index (BMI) 31.9 Weight Status Obese GI Symptoms GI Symptoms None Last BM 11/09 per nurse note Difficult in: None Skin Integrity/Comment: left breast wound s/p left exicision breast mass Current %PO Good (75-100%) Estimated Nutritional Goals BEE in Kcals: Adj wt of IBW Calories/Kcals/Kg 25-30 Kcals Calculated 1647-0487 Protein: Adj wt of IBW Protein g/k.2 Protein Calculated 80 Fluid: ml 1675-2010ml (1ml/kcal) Nutritional Problem 1. Problem Problem increased nutrition needs Etiology increased metabolic demand Signs/Symptoms: s/p surgery Malnutrition Alert Is there a minimum of two criteria No selected? Query Text:Check all the applicable criteria. A minimum of two criteria are recommended for diagnosis of either severe or non-severe malnutrition. Malnutrition Related to Morbid Obesity Malnutrition related to morbid obesity No Intervention/Recommendation Comments 1. Continue with [place] soft chopped diet as ordered. 2. Monitor PO intake, wt, labs and skin integrity 3. F/U as moderate risk in 3-5 days, 11/13-11/15 Expected Outcomes/Goals Expected Outcomes/Goals 1. PO intake to meet at least 75% of nutritional needs. 2. Wt stability, skin to remain intact, labs to approach WNL.
[2017-11-14] MEDS: Silver Antimicrobial Wound Gel 0.25 oz Tube TP SCH (14:44)
[2017-11-15] MEDS: Pantoprazole 40 mg EC Tab PO SCH (06:37)
[2017-11-15 08:20] LABS: % BASOPHILS 0.4 % (0.0-2.0); % EOSINOPHILS 7.8 % (0.0-5.0); % LYMPHOCYTES 18.1 % (20.0-50.0); % NEUTROPHILS 68.7 % (40.0-80.0); EOSINOPHILE ABSOLUTE 0.6 Th/cmm (0.1-0.4); HEMATOCRIT 28.3 % (41.0-60); HEMOGLOBIN 9.4 gm/dL (12-16); LYMPHOCYTE ABSOLUTE 1.4 Th/cmm (1.5-3.0); MEAN CELL VOLUME 83.7 fl (81-100); MEAN CORPUSCULAR HEMOGLOBIN 27.8 pg (27.0-31.0); MEAN CORPUSCULAR HGB CONC 33.2 pg (28.0-36.0); MONOCYTE ABSOLUTE 0.4 Th/cmm (0.3-1.0); NEUTROPHILE ABSOLUTE 5.2 Th/cmm (1.8-8.0); PLATELET COUNT 477 Th/cmm (150-400); RED BLOOD COUNT 3.38 Mil/cmm (3.80-5.20); WHITE BLOOD COUNT 7.6 Th/cmm (4.8-10.8)
[2017-11-15] MEDS: Lactobacillus Rhamnosus GG 15 Billion CFU CAP.SPRINK PO SCH (08:40)
[2017-11-15] MEDS: Multivitamin Tab PO SCH (08:40)
[2017-11-15 08:41] LABS: INR 1.35 (0.5-1.4); PROTHROMBIN TIME (TEST) 14.2 SECONDS (9.5-11.5)
[2017-11-15] MEDS: Ferrous Sulfate 325 MG TAB PO SCH (08:41)
[2017-11-15 08:48] LABS: ALB/GLOB RATIO 0.7 (1.0-1.8); ALBUMIN 2.9 gm/dL (3.7-5.3); ALKALINE PHOSPHATASE 46 U/L (34-104); ANION GAP 7.9 (7.0-16.0); BILIRUBIN,TOTAL 0.7 mg/dL (0.3-1.0); BUN - UREA NITROGEN 10 mg/dL (7-25); CALCIUM SERUM 9.2 mg/dL (8.6-10.3); CARBON DIOXIDE 27.6 mEq/L (21.0-31.0); CHLORIDE 107 mEq/L (98-107); CREATININE - SERUM 0.4 mg/dL (0.6-1.2); GLUCOSE 94 mg/dL (70-105); POTASSIUM SERUM 3.5 mEq/L (3.5-5.1); SGOT 7 U/L (13-39); SGPT/ALT 5 U/L (7-52); SODIUM SERUM 139 mEq/L (136-145); TOTAL PROTEIN,SERUM 6.9 gm/dL (6.0-8.3)
[2017-11-15] MEDS: Silver Antimicrobial Wound Gel 0.25 oz Tube TP SCH (08:50)
--- NOTE | 2017-11-15 11:50 | Internal Medicine Prog Note ---
Internal Medicine Subjective - Subjective Service Date: 11/15/17 Patient seen and examined:: with staff (THE PATIENT VERY CONFUSED ,TRYS TO PUL THE DRAIN.SHE HAS MITANT ON BOTH HANDS.) Patient is:: awake, verbal, confused Per staff patient has:: no adverse event Internal Medicine Objective - Results Result Diagrams: 11/15/17 07:50 11/15/17 07:50 Recent Labs: Laboratory Last Values WBC 7.6 Th/cmm (4.8-10.8) 11/15/17 07:50 RBC 3.38 Mil/cmm (3.80-5.20) L 11/15/17 07:50 Hgb 9.4 gm/dL (12-16) L 11/15/17 07:50 Hct 28.3 % (41.0-60) L 11/15/17 07:50 MCV 83.7 fl (81-100) 11/15/17 07:50 MCH 27.8 pg (27.0-31.0) 11/15/17 07:50 MCHC Differential 33.2 pg (28.0-36.0) 11/15/17 07:50 RDW 17.0 % (11.5-20.0) 11/15/17 07:50 Plt Count 477 Th/cmm (150-400) H 11/15/17 07:50 MPV 7.0 fl 11/15/17 07:50 Neutrophils % 68.7 % (40.0-80.0) 11/15/17 07:50 Lymphocytes % 18.1 % (20.0-50.0) L 11/15/17 07:50 Monocytes % 5.0 % (2.0-10.0) 11/15/17 07:50 Eosinophils % 7.8 % (0.0-5.0) H 11/15/17 07:50 Basophils % 0.4 % (0.0-2.0) 11/15/17 07:50 PT 14.2 SECONDS (9.5-11.5) H 11/15/17 07:50 INR 1.35 (0.5-1.4) 11/15/17 07:50 PTT (Actin FS) 34.5 SECONDS (26.0-38.0) 11/07/17 04:30 Sodium 139 mEq/L (136-145) 11/15/17 07:50 Potassium 3.5 mEq/L (3.5-5.1) 11/15/17 07:50 Chloride 107 mEq/L (98-107) 11/15/17 07:50 Carbon Dioxide 27.6 mEq/L (21.0-31.0) 11/15/17 07:50 Anion Gap 7.9 (7.0-16.0) 11/15/17 07:50 BUN 10 mg/dL (7-25) 11/15/17 07:50 Creatinine 0.4 mg/dL (0.6-1.2) L 11/15/17 07:50 Est GFR ( Amer) TNP 11/15/17 07:50 Est GFR (Non-Af Amer) TNP 11/15/17 07:50 BUN/Creatinine Ratio 25.0 11/15/17 07:50 Glucose 94 mg/dL (70-105) 11/15/17 07:50 POC Glucose 130 MG/DL (70 - 105) H 11/06/17 15:32 Calcium 9.2 mg/dL (8.6-10.3) 11/15/17 07:50 Total Bilirubin 0.7 mg/dL (0.3-1.0) 11/15/17 07:50 AST 7 U/L (13-39) L 11/15/17 07:50 ALT 5 U/L (7-52) L 11/15/17 07:50 Alkaline Phosphatase 46 U/L (34-104) 11/15/17 07:50 Total Protein 6.9 gm/dL (6.0-8.3) 11/15/17 07:50 Albumin 2.9 gm/dL (3.7-5.3) L 11/15/17 07:50 Globulin 4.0 gm/dL 11/15/17 07:50 Albumin/Globulin Ratio 0.7 (1.0-1.8) L 11/15/17 07:50 Urine Source CATH 11/12/17 03:46 Urine Color YELLOW 11/12/17 03:46 Urine Clarity CLEAR (CLEAR) 11/12/17 03:46 Urine pH 7.0 (4.6 - 8.0) 11/12/17 03:46 Ur Specific [place] 1.015 (1.005-1.030) 11/12/17 03:46 Urine Protein NEGATIVE mg/dL (NEGATIVE) 11/12/17 03:46 Urine Glucose (UA) NEGATIVE mg/dL (NEGATIVE) 11/12/17 03:46 Urine Ketones NEGATIVE mg/dL (NEGATIVE) 11/12/17 03:46 Urine Blood NEGATIVE (NEGATIVE) 11/12/17 03:46 Urine Nitrate NEGATIVE (NEGATIVE) 11/12/17 03:46 Urine Bilirubin NEGATIVE (NEGATIVE) 11/12/17 03:46 Urine Urobilinogen 0.2 E.U./dL (0.2 - 1.0) 11/12/17 03:46 Ur Leukocyte Esterase NEGATIVE (NEGATIVE) 11/12/17 03:46 Urine RBC 0-2 /hpf (0-5) 11/12/17 03:46 Urine WBC 0-2 /hpf (0-5) 11/12/17 03:46 Ur Epithelial Cells MODERATE /lpf (FEW) 11/12/17 03:46 Urine Bacteria OCCASIONAL /hpf (NONE SEEN) 11/12/17 03:46 Vancomycin Trough 16.4 ug/mL (5-10) H 11/15/17 07:50 - Physical Exam Vitals and I&O: Vital Signs Temp 96.3 F 11/15/17 08:04 Pulse 74 11/15/17 08:41 Resp 19 11/15/17 08:04 BP 135/75 11/15/17 08:41 Pulse Ox 99 11/15/17 08:04 Intake & Output 11/14/17 11/15/17 11/15/17 18:59 06:59 18:59 Intake Total 1250 310 Balance 1250 310 Weight (lbs) 91.172 kg 87.498 kg Intake: Intake, IV Amount 250 250 Vancomycin HCl 1.25 gm In 250 250 Sodium Chloride 0.9% 250 ml @ 165 mls/hr IV Q12H [facility] Rx#:[id number] Oral 1000 60 Other: # Voids 3 3 # Bowel Movements 1 Weight Source Bedscale Bedscale Active Medications: Current Medications Acetaminophen (Tylenol) 650 mg PO Q4HR PRN PRN Reason: Pain (Mild) Stop: 01/05/18 17:20 Amlodipine Besylate (Norvasc) 10 mg PO DAILY [facility] Stop: 01/10/18 08:59 Last Admin: 11/15/17 08:41 Dose: 10 mg Ascorbic Acid (Vitamin C) 500 mg PO DAILY [facility] Stop: 01/06/18 08:59 Last Admin: 11/15/17 08:41 Dose: 500 mg Bisacodyl (Dulcolax 10 Mg Supp) 10 mg RC DAILY PRN PRN Reason: Constipation Stop: 01/11/18 17:24 Last Admin: 11/12/17 20:34 Dose: 10 mg Docusate Sodium (Colace) 100 mg PO DAILY [facility] Stop: 01/06/18 08:59 Last Admin: 11/15/17 08:41 Dose: 100 mg Donepezil HCl (Aricept) 10 mg PO DAILY [facility] Stop: 01/06/18 08:59 Last Admin: 11/15/17 08:40 Dose: 10 mg Ferrous Sulfate (Iron) 325 mg PO DAILY [facility] Stop: 01/06/18 08:59 Last Admin: 11/15/17 08:41 Dose: 325 mg Hydralazine HCl (Apresoline 20 Mg/Ml) 10 mg IV Q6H PRN PRN Reason: BP MAINTENANCE (PER PROTOCOL) Stop: 01/06/18 06:39 Last Admin: 11/12/17 18:33 Dose: 10 mg Ceftriaxone Sodium 1 gm/ (Dextrose) 50 mls @ 100 mls/hr IV Q24HR [facility] Stop: 01/06/18 09:59 Last Admin: 11/14/17 14:43 Dose: 100 mls/hr Vancomycin HCl 1.25 gm/ Sodium (Chloride) 250 mls @ 165 mls/hr IV Q12H [facility] Stop: 01/12/18 20:59 Last Admin: 11/15/17 10:33 Dose: 165 mls/hr Lactobacillus Rhamnosus (Culturelle 15b) 1 each PO DAILY [facility] Stop: 01/07/18 10:59 Last Admin: 11/15/17 08:40 Dose: 1 each Memantine (Namenda) 10 mg PO BID [facility] Stop: 01/05/18 17:29 Last Admin: 11/15/17 08:40 Dose: 10 mg Miscellaneous (Probiotic Screen) 1 ea MC PRN PRN PRN Reason: PROTOCOL Stop: 01/07/18 10:25 Miscellaneous (Vancomycin Iv Per Pharmacy) 1 ea PRN PRN PRN Reason: PROTOCOL Stop: 01/09/18 18:55 Multivitamins/Vitamin C (Theragran) 1 tab PO DAILY [facility] Stop: 01/06/18 08:59 Last Admin: 11/15/17 08:40 Dose: 1 tab Ondansetron HCl (Zofran Odt) 4 mg PO Q6HR PRN PRN Reason: Nausea/VOMITING Stop: 01/05/18 17:20 Pantoprazole Sodium (Protonix) 40 mg PO QDAC [facility] Stop: 01/06/18 07:29 Last Admin: 11/15/17 06:37 Dose: 40 mg Quetiapine Fumarate (Seroquel) 12.5 mg PO BID [facility]; Protocol Stop: 01/05/18 17:29 Last Admin: 11/15/17 08:40 Dose: 12.5 mg Senna (Senna) 8.6 mg PO DAILY [facility] Stop: 01/11/18 19:31 Last Admin: 11/15/17 08:40 Dose: 8.6 mg Warfarin Sodium (Coumadin Per Pharmacy) 1 [facility] PRN PRN; Protocol PRN Reason: RX MONITORING Stop: 01/14/18 07:59 Warfarin Sodium 5 mg/ Warfarin (Sodium 2.5 mg) 7.5 mg PO ONCE ONE Stop: 11/15/17 13:01 Wound Care/Dressing Products (Silvasorb) 1 appl TP DAILY [facility] Stop: 01/06/18 08:59 Last Admin: 11/15/17 08:50 Dose: 1 appl General: demented HEENT: NC/AT, PERRLA, EOMI, anicteric sclerae, throat clear Neck: Supple, No JVD, No thyromegaly, +2 carotid pulse wo bruit, No LAD, + JVD Lungs: CTAB Cardiovascular: RRR, Normal S1, Normal S2, without murmur Abdomen: soft, non-tender, non-distended Extremities: clear Neurological: no change (THE LEFT BREAS IS FIRM.) - Procedures Procedures: Procedures Procedure Code Date EXTIRPATION OF MATTER FROM LEFT BREAST, OPEN APPROACH [id number] 11/06/17 Internal Medicine Assmt/Plan - Assessment Assessment: 1.LEFT BREAST ABSCESS. 2.ANEMIA. 3.HTN. 4.DEMENTIA. 5.SP SURGICAL DEBRIDMENT 6.CONSTIPATION. - Plan Plan: CONTINUE ON CURRENT MEDICATION AND DIET. Nutritional Asmnt/Malnutr-PDOC - Dietary Evaluation Malnutrition Findings (Please click <Entered> for more info): Nutritional Asmnt/Malnutrition Start: 11/10/17 15: 10 Text: Status: Complete Freq: Protocol: Document 11/10/17 15:10 PA (Rec: 11/10/17 15:26 PA [email or web address]) Nutritional Asmnt/Malnutrition Patient General Information Nutritional Screening Moderate Risk Diagnosis mastectomy to left side Pertinent Medical Hx/Surgical Hx dementia, HTN, DVT Subjective Information Pt had mastectomy to left side on 11/07. Pt seen lying in bed awake and alert at time of visit. Pt reported she is doing ok, will eat lunch when she is ready. Per EMR, PO intake 100% of meals. Current Diet Order/ Nutrition Support [facility] soft chopped Pertinent Medications vit C, colace, iron, culturelle, theragran, protonix, D5-0.45ns w 20 meq kcl Pertinent Labs 11/08 K 3.7 (improved), cl 108, glucose 127 Nutritional Hx/Data Height 1.68 m Height (Calculated Centimeters) 167.6 Current Weight (lbs) 89.811 kg Weight (Calculated Kilograms) 89.8 Weight (Calculated Grams) 20634.3 [place] Body Weight 130 Body Mass Index (BMI) 31.9 Weight Status Obese GI Symptoms GI Symptoms None Last BM 11/09 per nurse note Difficult in: None Skin Integrity/Comment: left breast wound s/p left exicision breast mass Current %PO Good (75-100%) Estimated Nutritional Goals BEE in Kcals: Adj wt of IBW Calories/Kcals/Kg 25-30 Kcals Calculated 3887-4631 Protein: Adj wt of IBW Protein g/k.2 Protein Calculated 80 Fluid: ml 1675-2010ml (1ml/kcal) Nutritional Problem 1. Problem Problem increased nutrition needs Etiology increased metabolic demand Signs/Symptoms: s/p surgery Malnutrition Alert Is there a minimum of two criteria No selected? Query Text:Check all the applicable criteria. A minimum of two criteria are recommended for diagnosis of either severe or non-severe malnutrition. Malnutrition Related to Morbid Obesity Malnutrition related to morbid obesity No Intervention/Recommendation Comments 1. Continue with [facility] soft chopped diet as ordered. 2. Monitor PO intake, wt, labs and skin integrity 3. F/U as moderate risk in 3-5 days, 11/13-11/15 Expected Outcomes/Goals Expected Outcomes/Goals 1. PO intake to meet at least 75% of nutritional needs. 2. Wt stability, skin to remain intact, labs to approach WNL.
--- NOTE | 2017-11-15 14:35 | General Progress Note ---
Subjective - Review of Systems Service Date: 11/15/17 Events since last encounter: atill draining 50 to 60 cc daily leave drain in Objective - Results Result Diagrams: 11/15/17 07:50 11/15/17 07:50 Recent Labs: Laboratory Last Values WBC 7.6 Th/cmm (4.8-10.8) 11/15/17 07:50 RBC 3.38 Mil/cmm (3.80-5.20) L 11/15/17 07:50 Hgb 9.4 gm/dL (12-16) L 11/15/17 07:50 Hct 28.3 % (41.0-60) L 11/15/17 07:50 MCV 83.7 fl (81-100) 11/15/17 07:50 MCH 27.8 pg (27.0-31.0) 11/15/17 07:50 MCHC Differential 33.2 pg (28.0-36.0) 11/15/17 07:50 RDW 17.0 % (11.5-20.0) 11/15/17 07:50 Plt Count 477 Th/cmm (150-400) H 11/15/17 07:50 MPV 7.0 fl 11/15/17 07:50 Neutrophils % 68.7 % (40.0-80.0) 11/15/17 07:50 Lymphocytes % 18.1 % (20.0-50.0) L 11/15/17 07:50 Monocytes % 5.0 % (2.0-10.0) 11/15/17 07:50 Eosinophils % 7.8 % (0.0-5.0) H 11/15/17 07:50 Basophils % 0.4 % (0.0-2.0) 11/15/17 07:50 PT 14.2 SECONDS (9.5-11.5) H 11/15/17 07:50 INR 1.35 (0.5-1.4) 11/15/17 07:50 PTT (Actin FS) 34.5 SECONDS (26.0-38.0) 11/07/17 04:30 Sodium 139 mEq/L (136-145) 11/15/17 07:50 Potassium 3.5 mEq/L (3.5-5.1) 11/15/17 07:50 Chloride 107 mEq/L (98-107) 11/15/17 07:50 Carbon Dioxide 27.6 mEq/L (21.0-31.0) 11/15/17 07:50 Anion Gap 7.9 (7.0-16.0) 11/15/17 07:50 BUN 10 mg/dL (7-25) 11/15/17 07:50 Creatinine 0.4 mg/dL (0.6-1.2) L 11/15/17 07:50 Est GFR ( Amer) TNP 11/15/17 07:50 Est GFR (Non-Af Amer) TNP 11/15/17 07:50 BUN/Creatinine Ratio 25.0 11/15/17 07:50 Glucose 94 mg/dL (70-105) 11/15/17 07:50 POC Glucose 130 MG/DL (70 - 105) H 11/06/17 15:32 Calcium 9.2 mg/dL (8.6-10.3) 11/15/17 07:50 Total Bilirubin 0.7 mg/dL (0.3-1.0) 11/15/17 07:50 AST 7 U/L (13-39) L 11/15/17 07:50 ALT 5 U/L (7-52) L 11/15/17 07:50 Alkaline Phosphatase 46 U/L (34-104) 11/15/17 07:50 Total Protein 6.9 gm/dL (6.0-8.3) 11/15/17 07:50 Albumin 2.9 gm/dL (3.7-5.3) L 11/15/17 07:50 Globulin 4.0 gm/dL 11/15/17 07:50 Albumin/Globulin Ratio 0.7 (1.0-1.8) L 11/15/17 07:50 Urine Source CATH 11/12/17 03:46 Urine Color YELLOW 11/12/17 03:46 Urine Clarity CLEAR (CLEAR) 11/12/17 03:46 Urine pH 7.0 (4.6 - 8.0) 11/12/17 03:46 Ur Specific [place] 1.015 (1.005-1.030) 11/12/17 03:46 Urine Protein NEGATIVE mg/dL (NEGATIVE) 11/12/17 03:46 Urine Glucose (UA) NEGATIVE mg/dL (NEGATIVE) 11/12/17 03:46 Urine Ketones NEGATIVE mg/dL (NEGATIVE) 11/12/17 03:46 Urine Blood NEGATIVE (NEGATIVE) 11/12/17 03:46 Urine Nitrate NEGATIVE (NEGATIVE) 11/12/17 03:46 Urine Bilirubin NEGATIVE (NEGATIVE) 11/12/17 03:46 Urine Urobilinogen 0.2 E.U./dL (0.2 - 1.0) 11/12/17 03:46 Ur Leukocyte Esterase NEGATIVE (NEGATIVE) 11/12/17 03:46 Urine RBC 0-2 /hpf (0-5) 11/12/17 03:46 Urine WBC 0-2 /hpf (0-5) 11/12/17 03:46 Ur Epithelial Cells MODERATE /lpf (FEW) 11/12/17 03:46 Urine Bacteria OCCASIONAL /hpf (NONE SEEN) 11/12/17 03:46 Vancomycin Trough 16.4 ug/mL (5-10) H 11/15/17 07:50 - Physical Exam Vitals and I&O: Vital Signs Temp 97.0 F 11/15/17 12:01 Pulse 70 11/15/17 12:01 Resp 18 11/15/17 12:01 BP 128/69 11/15/17 12:01 Pulse Ox 99 11/15/17 12:01 Intake & Output 11/14/17 11/15/17 11/15/17 18:59 06:59 18:59 Intake Total 1300 310 Balance 1300 310 Weight (lbs) 91.172 kg 87.498 kg Intake: Intake, IV Amount 300 250 Vancomycin HCl 1.25 gm In 250 250 Sodium Chloride 0.9% 250 ml @ 165 mls/hr IV Q12H [facility] Rx#:[id number] cefTRIAXone 1 gm In 50 Dextrose 5% 50 ml @ 100 mls/hr IV Q24HR [facility] Rx#: [id number] Oral 1000 60 Other: # Voids 3 3 # Bowel Movements 1 Weight Source Bedscale Bedscale Active Medications: Current Medications Acetaminophen (Tylenol) 650 mg PO Q4HR PRN PRN Reason: Pain (Mild) Stop: 01/05/18 17:20 Amlodipine Besylate (Norvasc) 10 mg PO DAILY [facility] Stop: 01/10/18 08:59 Last Admin: 11/15/17 08:41 Dose: 10 mg Ascorbic Acid (Vitamin C) 500 mg PO DAILY [facility] Stop: 01/06/18 08:59 Last Admin: 11/15/17 08:41 Dose: 500 mg Bisacodyl (Dulcolax 10 Mg Supp) 10 mg RC DAILY PRN PRN Reason: Constipation Stop: 01/11/18 17:24 Last Admin: 11/12/17 20:34 Dose: 10 mg Docusate Sodium (Colace) 100 mg PO DAILY [facility] Stop: 01/06/18 08:59 Last Admin: 11/15/17 08:41 Dose: 100 mg Donepezil HCl (Aricept) 10 mg PO DAILY [facility] Stop: 01/06/18 08:59 Last Admin: 11/15/17 08:40 Dose: 10 mg Ferrous Sulfate (Iron) 325 mg PO DAILY [facility] Stop: 01/06/18 08:59 Last Admin: 11/15/17 08:41 Dose: 325 mg Hydralazine HCl (Apresoline 20 Mg/Ml) 10 mg IV Q6H PRN PRN Reason: BP MAINTENANCE (PER PROTOCOL) Stop: 01/06/18 06:39 Last Admin: 11/12/17 18:33 Dose: 10 mg Ceftriaxone Sodium 1 gm/ (Dextrose) 50 mls @ 100 mls/hr IV Q24HR [facility] Stop: 01/06/18 09:59 Last Admin: 11/15/17 13:08 Dose: 100 mls/hr Vancomycin HCl 1.25 gm/ Sodium (Chloride) 250 mls @ 165 mls/hr IV Q12H [facility] Stop: 01/12/18 20:59 Last Admin: 11/15/17 10:33 Dose: 165 mls/hr Lactobacillus Rhamnosus (Culturelle 15b) 1 each PO DAILY [facility] Stop: 01/07/18 10:59 Last Admin: 11/15/17 08:40 Dose: 1 each Memantine (Namenda) 10 mg PO BID [facility] Stop: 01/05/18 17:29 Last Admin: 11/15/17 08:40 Dose: 10 mg Miscellaneous (Probiotic Screen) 1 ea PRN PRN PRN Reason: PROTOCOL Stop: 01/07/18 10:25 Miscellaneous (Vancomycin Iv Per Pharmacy) 1 ea PRN PRN PRN Reason: PROTOCOL Stop: 01/09/18 18:55 Multivitamins/Vitamin C (Theragran) 1 tab PO DAILY [facility] Stop: 01/06/18 08:59 Last Admin: 11/15/17 08:40 Dose: 1 tab Ondansetron HCl (Zofran Odt) 4 mg PO Q6HR PRN PRN Reason: Nausea/VOMITING Stop: 01/05/18 17:20 Pantoprazole Sodium (Protonix) 40 mg PO QDAC [facility] Stop: 01/06/18 07:29 Last Admin: 11/15/17 06:37 Dose: 40 mg Quetiapine Fumarate (Seroquel) 12.5 mg PO BID [facility]; Protocol Stop: 01/05/18 17:29 Last Admin: 11/15/17 08:40 Dose: 12.5 mg Senna (Senna) 8.6 mg PO DAILY [facility] Stop: 01/11/18 19:31 Last Admin: 11/15/17 08:40 Dose: 8.6 mg Warfarin Sodium (Coumadin Per Pharmacy) 1 ea [facility] PRN PRN; Protocol PRN Reason: RX MONITORING Stop: 01/14/18 07:59 Wound Care/Dressing Products (Silvasorb) 1 appl TP DAILY [facility] Stop: 01/06/18 08:59 Last Admin: 11/15/17 08:50 Dose: 1 appl - Procedures Procedures: Procedures Procedure Code Date EXTIRPATION OF MATTER FROM LEFT BREAST, OPEN APPROACH [id number] 11/06/17 Nutritional Asmnt/Malnutr-PDOC - Dietary Evaluation Malnutrition Findings (Please click <Entered> for more info): Nutritional Asmnt/Malnutrition Start: 11/10/17 15: 10 Text: Status: Complete Freq: Protocol: Document 11/10/17 15:10 [email or web address] (Rec: 11/10/17 15:26 [email or web address]) Nutritional Asmnt/Malnutrition Patient General Information Nutritional Screening Moderate Risk Diagnosis mastectomy to left side Pertinent Medical Hx/Surgical Hx dementia, HTN, DVT Subjective Information Pt had mastectomy to left side on 11/07. Pt seen lying in bed awake and alert at time of visit. Pt reported she is doing ok, will eat lunch when she is ready. Per EMR, PO intake 100% of meals. Current Diet Order/ Nutrition Support [facility] soft chopped Pertinent Medications vit C, colace, iron, culturelle, theragran, protonix, D5-0.45ns w 20 meq kcl Pertinent Labs 11/08 K 3.7 (improved), cl 108, glucose 127 Nutritional Hx/Data Height 1.68 m Height (Calculated Centimeters) 167.6 Current Weight (lbs) 89.811 kg Weight (Calculated Kilograms) 89.8 Weight (Calculated Grams) 60694.3 [place] Body Weight 130 Body Mass Index (BMI) 31.9 Weight Status Obese GI Symptoms GI Symptoms None Last BM 11/09 per nurse note Difficult in: None Skin Integrity/Comment: left breast wound s/p left exicision breast mass Current %PO Good (75-100%) Estimated Nutritional Goals BEE in Kcals: Adj wt of IBW Calories/Kcals/Kg 25-30 Kcals Calculated 5259-0001 Protein: Adj wt of IBW Protein g/k.2 Protein Calculated 80 Fluid: ml 167-2009ml (1ml/kcal) Nutritional Problem 1. Problem Problem increased nutrition needs Etiology increased metabolic demand Signs/Symptoms: s/p surgery Malnutrition Alert Is there a minimum of two criteria No selected? Query Text:Check all the applicable criteria. A minimum of two criteria are recommended for diagnosis of either severe or non-severe malnutrition. Malnutrition Related to Morbid Obesity Malnutrition related to morbid obesity No Intervention/Recommendation Comments 1. Continue with [facility] soft chopped diet as ordered. 2. Monitor PO intake, wt, labs and skin integrity 3. F/U as moderate risk in 3-5 days, 11/13-11/15 Expected Outcomes/Goals Expected Outcomes/Goals 1. PO intake to meet at least 75% of nutritional needs. 2. Wt stability, skin to remain intact, labs to approach WNL.
[2017-11-16] MEDS: Pantoprazole 40 mg EC Tab PO SCH (06:49)
[2017-11-16] MEDS: Ferrous Sulfate 325 MG TAB PO SCH (09:26)
[2017-11-16] MEDS: Silver Antimicrobial Wound Gel 0.25 oz Tube TP SCH (09:26)
[2017-11-16] MEDS: Multivitamin Tab PO SCH (09:27)
[2017-11-16] MEDS: Lactobacillus Rhamnosus GG 15 Billion CFU CAP.SPRINK PO SCH (09:38)
[2017-11-16 13:29] LABS: INR 1.59 (0.5-1.4)
--- NOTE | 2017-11-16 16:55 | Internal Medicine Prog Note ---
Internal Medicine Subjective - Subjective Service Date: 11/16/17 Patient seen and examined:: with staff Patient is:: awake, verbal, confused Per staff patient has:: no adverse event Internal Medicine Objective - Results Result Diagrams: 11/15/17 07:50 11/15/17 07:50 Recent Labs: Laboratory Last Values WBC 7.6 Th/cmm (4.8-10.8) 11/15/17 07:50 RBC 3.38 Mil/cmm (3.80-5.20) L 11/15/17 07:50 Hgb 9.4 gm/dL (12-16) L 11/15/17 07:50 Hct 28.3 % (41.0-60) L 11/15/17 07:50 MCV 83.7 fl (81-100) 11/15/17 07:50 MCH 27.8 pg (27.0-31.0) 11/15/17 07:50 MCHC Differential 33.2 pg (28.0-36.0) 11/15/17 07:50 RDW 17.0 % (11.5-20.0) 11/15/17 07:50 Plt Count 477 Th/cmm (150-400) H 11/15/17 07:50 MPV 7.0 fl 11/15/17 07:50 Neutrophils % 68.7 % (40.0-80.0) 11/15/17 07:50 Lymphocytes % 18.1 % (20.0-50.0) L 11/15/17 07:50 Monocytes % 5.0 % (2.0-10.0) 11/15/17 07:50 Eosinophils % 7.8 % (0.0-5.0) H 11/15/17 07:50 Basophils % 0.4 % (0.0-2.0) 11/15/17 07:50 PT 17.0 SECONDS (9.5-11.5) H 11/16/17 13:06 INR 1.59 (0.5-1.4) H 11/16/17 13:06 PTT (Actin FS) 34.5 SECONDS (26.0-38.0) 11/07/17 04:30 Sodium 139 mEq/L (136-145) 11/15/17 07:50 Potassium 3.5 mEq/L (3.5-5.1) 11/15/17 07:50 Chloride 107 mEq/L (98-107) 11/15/17 07:50 Carbon Dioxide 27.6 mEq/L (21.0-31.0) 11/15/17 07:50 Anion Gap 7.9 (7.0-16.0) 11/15/17 07:50 BUN 10 mg/dL (7-25) 11/15/17 07:50 Creatinine 0.4 mg/dL (0.6-1.2) L 11/15/17 07:50 Est GFR ( Amer) TNP 11/15/17 07:50 Est GFR (Non-Af Amer) TNP 11/15/17 07:50 BUN/Creatinine Ratio 25.0 11/15/17 07:50 Glucose 94 mg/dL (70-105) 11/15/17 07:50 POC Glucose 130 MG/DL (70 - 105) H 11/06/17 15:32 Calcium 9.2 mg/dL (8.6-10.3) 11/15/17 07:50 Total Bilirubin 0.7 mg/dL (0.3-1.0) 11/15/17 07:50 AST 7 U/L (13-39) L 11/15/17 07:50 ALT 5 U/L (7-52) L 11/15/17 07:50 Alkaline Phosphatase 46 U/L (34-104) 11/15/17 07:50 Total Protein 6.9 gm/dL (6.0-8.3) 11/15/17 07:50 Albumin 2.9 gm/dL (3.7-5.3) L 11/15/17 07:50 Globulin 4.0 gm/dL 11/15/17 07:50 Albumin/Globulin Ratio 0.7 (1.0-1.8) L 11/15/17 07:50 Urine Source CATH 11/12/17 03:46 Urine Color YELLOW 11/12/17 03:46 Urine Clarity CLEAR (CLEAR) 11/12/17 03:46 Urine pH 7.0 (4.6 - 8.0) 11/12/17 03:46 Ur Specific [place] 1.015 (1.005-1.030) 11/12/17 03:46 Urine Protein NEGATIVE mg/dL (NEGATIVE) 11/12/17 03:46 Urine Glucose (UA) NEGATIVE mg/dL (NEGATIVE) 11/12/17 03:46 Urine Ketones NEGATIVE mg/dL (NEGATIVE) 11/12/17 03:46 Urine Blood NEGATIVE (NEGATIVE) 11/12/17 03:46 Urine Nitrate NEGATIVE (NEGATIVE) 11/12/17 03:46 Urine Bilirubin NEGATIVE (NEGATIVE) 11/12/17 03:46 Urine Urobilinogen 0.2 E.U./dL (0.2 - 1.0) 11/12/17 03:46 Ur Leukocyte Esterase NEGATIVE (NEGATIVE) 11/12/17 03:46 Urine RBC 0-2 /hpf (0-5) 11/12/17 03:46 Urine WBC 0-2 /hpf (0-5) 11/12/17 03:46 Ur Epithelial Cells MODERATE /lpf (FEW) 11/12/17 03:46 Urine Bacteria OCCASIONAL /hpf (NONE SEEN) 11/12/17 03:46 Vancomycin Trough 16.4 ug/mL (5-10) H 11/15/17 07:50 - Physical Exam Vitals and I&O: Vital Signs Temp 97.3 F 11/16/17 16:00 Pulse 73 11/16/17 16:00 Resp 18 11/16/17 16:00 BP 162/72 11/16/17 16:00 Pulse Ox 97 11/16/17 16:00 Intake & Output 11/15/17 11/16/17 11/16/17 18:59 06:59 18:59 Intake Total 300 1750 Output Total 20 Balance 300 1730 Weight (lbs) 90.265 kg Intake: Intake, IV Amount 300 250 Vancomycin HCl 1.25 gm In 250 250 Sodium Chloride 0.9% 250 ml @ 165 mls/hr IV Q12H [facility] Rx#:[id number] cefTRIAXone 1 gm In 50 Dextrose 5% 50 ml @ 100 mls/hr IV Q24HR [facility] Rx#: [id number] Oral 1500 Output: Drainage 20 left breast daniele drain 20 Stool 0 Other: # Voids 3 # Bowel Movements 2 Weight Source Bedscale Active Medications: Current Medications Acetaminophen (Tylenol) 650 mg PO Q4HR PRN PRN Reason: Pain (Mild) Stop: 01/05/18 17:20 Amlodipine Besylate (Norvasc) 10 mg PO DAILY [facility] Stop: 01/10/18 08:59 Last Admin: 11/16/17 09:26 Dose: 10 mg Ascorbic Acid (Vitamin C) 500 mg PO DAILY [facility] Stop: 01/06/18 08:59 Last Admin: 11/16/17 09:27 Dose: 500 mg Bisacodyl (Dulcolax 10 Mg Supp) 10 mg RC DAILY PRN PRN Reason: Constipation Stop: 01/11/18 17:24 Last Admin: 11/12/17 20:34 Dose: 10 mg Docusate Sodium (Colace) 100 mg PO DAILY [facility] Stop: 01/06/18 08:59 Last Admin: 11/16/17 09:27 Dose: 100 mg Donepezil HCl (Aricept) 10 mg PO DAILY [facility] Stop: 01/06/18 08:59 Last Admin: 11/16/17 09:27 Dose: 10 mg Ferrous Sulfate (Iron) 325 mg PO DAILY [facility] Stop: 01/06/18 08:59 Last Admin: 11/16/17 09:26 Dose: 325 mg Hydralazine HCl (Apresoline 20 Mg/Ml) 10 mg IV Q6H PRN PRN Reason: BP MAINTENANCE (PER PROTOCOL) Stop: 01/06/18 06:39 Last Admin: 11/16/17 04:05 Dose: 10 mg Ceftriaxone Sodium 1 gm/ (Dextrose) 50 mls @ 100 mls/hr IV Q24HR [facility] Stop: 01/06/18 09:59 Last Admin: 11/16/17 12:07 Dose: 100 mls/hr Vancomycin HCl 1.25 gm/ Sodium (Chloride) 250 mls @ 165 mls/hr IV Q12H [facility] Stop: 01/12/18 20:59 Last Admin: 11/16/17 09:28 Dose: 125 mls/hr Lactobacillus Rhamnosus (Culturelle 15b) 1 each PO DAILY [facility] Stop: 01/07/18 10:59 Last Admin: 11/16/17 09:38 Dose: 1 each Memantine (Namenda) 10 mg PO BID [facility] Stop: 01/05/18 17:29 Last Admin: 11/16/17 09:27 Dose: 10 mg Miscellaneous (Probiotic Screen) 1 ea [facility] PRN PRN PRN Reason: PROTOCOL Stop: 01/07/18 10:25 Miscellaneous (Vancomycin Iv Per Pharmacy) 1 ea PRN PRN PRN Reason: PROTOCOL Stop: 01/09/18 18:55 Multivitamins/Vitamin C (Theragran) 1 tab PO DAILY [facility] Stop: 01/06/18 08:59 Last Admin: 11/16/17 09:27 Dose: 1 tab Ondansetron HCl (Zofran Odt) 4 mg PO Q6HR PRN PRN Reason: Nausea/VOMITING Stop: 01/05/18 17:20 Pantoprazole Sodium (Protonix) 40 mg PO QDAC [facility] Stop: 01/06/18 07:29 Last Admin: 11/16/17 06:49 Dose: 40 mg Quetiapine Fumarate (Seroquel) 12.5 mg PO BID [facility]; Protocol Stop: 01/05/18 17:29 Last Admin: 11/16/17 09:27 Dose: 12.5 mg Senna (Senna) 8.6 mg PO DAILY [facility] Stop: 01/11/18 19:31 Last Admin: 11/16/17 09:27 Dose: 8.6 mg Warfarin Sodium (Coumadin Per Pharmacy) 1 ea PRN PRN; Protocol PRN Reason: RX MONITORING Stop: 01/14/18 07:59 Wound Care/Dressing Products (Silvasorb) 1 appl TP DAILY [facility] Stop: 01/06/18 08:59 Last Admin: 11/16/17 09:26 Dose: 1 appl General: demented HEENT: NC/AT, PERRLA, EOMI, anicteric sclerae, throat clear Neck: Supple, No JVD, No thyromegaly, +2 carotid pulse wo bruit, No LAD, + JVD Lungs: CTAB Cardiovascular: RRR, Normal S1, Normal S2, without murmur Abdomen: soft, non-tender, non-distended Extremities: clear Neurological: no change (THE LEFT BREAS IS FIRM.) - Procedures Procedures: Procedures Procedure Code Date EXTIRPATION OF MATTER FROM LEFT BREAST, OPEN APPROACH [id number] 11/06/17 Internal Medicine Assmt/Plan - Assessment Assessment: 1.LEFT BREAST ABSCESS. 2.ANEMIA. 3.HTN. 4.DEMENTIA. 5.SP SURGICAL DEBRIDMENT 6.CONSTIPATION. - Plan Plan: CONTINUE ON CURRENT MEDICATION AND DIET. Nutritional Asmnt/Malnutr-PDOC - Dietary Evaluation Malnutrition Findings (Please click <Entered> for more info): Nutritional Asmnt/Malnutrition Start: 11/10/17 15: 10 Text: Status: Complete Freq: Protocol: Document 11/10/17 15:10 [email or web address] (Rec: 11/10/17 15:26 PA [email or web address]) Nutritional Asmnt/Malnutrition Patient General Information Nutritional Screening Moderate Risk Diagnosis mastectomy to left side Pertinent Medical Hx/Surgical Hx dementia, HTN, DVT Subjective Information Pt had mastectomy to left side on 11/07. Pt seen lying in bed awake and alert at time of visit. Pt reported she is doing ok, will eat lunch when she is ready. Per EMR, PO intake 100% of meals. Current Diet Order/ Nutrition Support [facility] soft chopped Pertinent Medications vit C, colace, iron, culturelle, theragran, protonix, D5-0.45ns w 20 meq kcl Pertinent Labs 11/08 K 3.7 (improved), cl 108, glucose 127 Nutritional Hx/Data Height 1.68 m Height (Calculated Centimeters) 167.6 Current Weight (lbs) 89.811 kg Weight (Calculated Kilograms) 89.8 Weight (Calculated Grams) 18799.3 [place] Body Weight 130 Body Mass Index (BMI) 31.9 Weight Status Obese GI Symptoms GI Symptoms None Last BM 11/09 per nurse note Difficult in: None Skin Integrity/Comment: left breast wound s/p left exicision breast mass Current %PO Good (75-100%) Estimated Nutritional Goals BEE in Kcals: Adj wt of IBW Calories/Kcals/Kg 25-30 Kcals Calculated 1214-7248 Protein: Adj wt of IBW Protein g/k.2 Protein Calculated 80 Fluid: ml 1675-2010ml (1ml/kcal) Nutritional Problem 1. Problem Problem increased nutrition needs Etiology increased metabolic demand Signs/Symptoms: s/p surgery Malnutrition Alert Is there a minimum of two criteria No selected? Query Text:Check all the applicable criteria. A minimum of two criteria are recommended for diagnosis of either severe or non-severe malnutrition. Malnutrition Related to Morbid Obesity Malnutrition related to morbid obesity No Intervention/Recommendation Comments 1. Continue with [facility] soft chopped diet as ordered. 2. Monitor PO intake, wt, labs and skin integrity 3. F/U as moderate risk in 3-5 days, 11/13-11/15 Expected Outcomes/Goals Expected Outcomes/Goals 1. PO intake to meet at least 75% of nutritional needs. 2. Wt stability, skin to remain intact, labs to approach WNL.
--- NOTE | 2017-11-16 17:02 | Infectious Disease Prog Note ---
Infectious Disease Subjective - Review of Systems Service Date: 11/16/17 Subjective: cc l breast abscess s/p sx ros no fever o/evss chest claeer abd soft ext pilse breat st wound healing dx l breast absce mssa vanco mycin rocephin pain ok alzeimer htn hydrallazien Infectious Disease Objective - Results Result Diagrams: 11/15/17 07:50 11/15/17 07:50 Recent Labs: Laboratory Last Values WBC 7.6 Th/cmm (4.8-10.8) 11/15/17 07:50 RBC 3.38 Mil/cmm (3.80-5.20) L 11/15/17 07:50 Hgb 9.4 gm/dL (12-16) L 11/15/17 07:50 Hct 28.3 % (41.0-60) L 11/15/17 07:50 MCV 83.7 fl (81-100) 11/15/17 07:50 MCH 27.8 pg (27.0-31.0) 11/15/17 07:50 MCHC Differential 33.2 pg (28.0-36.0) 11/15/17 07:50 RDW 17.0 % (11.5-20.0) 11/15/17 07:50 Plt Count 477 Th/cmm (150-400) H 11/15/17 07:50 MPV 7.0 fl 11/15/17 07:50 Neutrophils % 68.7 % (40.0-80.0) 11/15/17 07:50 Lymphocytes % 18.1 % (20.0-50.0) L 11/15/17 07:50 Monocytes % 5.0 % (2.0-10.0) 11/15/17 07:50 Eosinophils % 7.8 % (0.0-5.0) H 11/15/17 07:50 Basophils % 0.4 % (0.0-2.0) 11/15/17 07:50 PT 17.0 SECONDS (9.5-11.5) H 11/16/17 13:06 INR 1.59 (0.5-1.4) H 11/16/17 13:06 PTT (Actin FS) 34.5 SECONDS (26.0-38.0) 11/07/17 04:30 Sodium 139 mEq/L (136-145) 11/15/17 07:50 Potassium 3.5 mEq/L (3.5-5.1) 11/15/17 07:50 Chloride 107 mEq/L (98-107) 11/15/17 07:50 Carbon Dioxide 27.6 mEq/L (21.0-31.0) 11/15/17 07:50 Anion Gap 7.9 (7.0-16.0) 11/15/17 07:50 BUN 10 mg/dL (7-25) 11/15/17 07:50 Creatinine 0.4 mg/dL (0.6-1.2) L 11/15/17 07:50 Est GFR ( Amer) TNP 11/15/17 07:50 Est GFR (Non-Af Amer) TNP 11/15/17 07:50 BUN/Creatinine Ratio 25.0 11/15/17 07:50 Glucose 94 mg/dL (70-105) 11/15/17 07:50 POC Glucose 130 MG/DL (70 - 105) H 11/06/17 15:32 Calcium 9.2 mg/dL (8.6-10.3) 11/15/17 07:50 Total Bilirubin 0.7 mg/dL (0.3-1.0) 11/15/17 07:50 AST 7 U/L (13-39) L 11/15/17 07:50 ALT 5 U/L (7-52) L 11/15/17 07:50 Alkaline Phosphatase 46 U/L (34-104) 11/15/17 07:50 Total Protein 6.9 gm/dL (6.0-8.3) 11/15/17 07:50 Albumin 2.9 gm/dL (3.7-5.3) L 11/15/17 07:50 Globulin 4.0 gm/dL 11/15/17 07:50 Albumin/Globulin Ratio 0.7 (1.0-1.8) L 11/15/17 07:50 Urine Source CATH 11/12/17 03:46 Urine Color YELLOW 11/12/17 03:46 Urine Clarity CLEAR (CLEAR) 11/12/17 03:46 Urine pH 7.0 (4.6 - 8.0) 11/12/17 03:46 Ur Specific [place] 1.015 (1.005-1.030) 11/12/17 03:46 Urine Protein NEGATIVE mg/dL (NEGATIVE) 11/12/17 03:46 Urine Glucose (UA) NEGATIVE mg/dL (NEGATIVE) 11/12/17 03:46 Urine Ketones NEGATIVE mg/dL (NEGATIVE) 11/12/17 03:46 Urine Blood NEGATIVE (NEGATIVE) 11/12/17 03:46 Urine Nitrate NEGATIVE (NEGATIVE) 11/12/17 03:46 Urine Bilirubin NEGATIVE (NEGATIVE) 11/12/17 03:46 Urine Urobilinogen 0.2 E.U./dL (0.2 - 1.0) 11/12/17 03:46 Ur Leukocyte Esterase NEGATIVE (NEGATIVE) 11/12/17 03:46 Urine RBC 0-2 /hpf (0-5) 11/12/17 03:46 Urine WBC 0-2 /hpf (0-5) 11/12/17 03:46 Ur Epithelial Cells MODERATE /lpf (FEW) 11/12/17 03:46 Urine Bacteria OCCASIONAL /hpf (NONE SEEN) 11/12/17 03:46 Vancomycin Trough 16.4 ug/mL (5-10) H 11/15/17 07:50 - Physical Exam Vitals and I&O: Vital Signs Temp 97.3 F 11/16/17 16:00 Pulse 73 11/16/17 16:00 Resp 18 11/16/17 16:00 BP 162/72 11/16/17 16:00 Pulse Ox 97 11/16/17 16:00 Intake & Output 11/15/17 11/16/17 11/16/17 18:59 06:59 18:59 Intake Total 300 1750 Output Total 20 Balance 300 1730 Weight (lbs) 90.265 kg Intake: Intake, IV Amount 300 250 Vancomycin HCl 1.25 gm In 250 250 Sodium Chloride 0.9% 250 ml @ 165 mls/hr IV Q12H [facility] Rx#:[id number] cefTRIAXone 1 gm In 50 Dextrose 5% 50 ml @ 100 mls/hr IV Q24HR [facility] Rx#: [id number] Oral 1500 Output: Drainage 20 left breast daniele drain 20 Stool 0 Other: # Voids 3 # Bowel Movements 2 Weight Source Bedscale Active Medications: Current Medications Acetaminophen (Tylenol) 650 mg PO Q4HR PRN PRN Reason: Pain (Mild) Stop: 01/05/18 17:20 Amlodipine Besylate (Norvasc) 10 mg PO DAILY [facility] Stop: 01/10/18 08:59 Last Admin: 11/16/17 09:26 Dose: 10 mg Ascorbic Acid (Vitamin C) 500 mg PO DAILY [facility] Stop: 01/06/18 08:59 Last Admin: 11/16/17 09:27 Dose: 500 mg Bisacodyl (Dulcolax 10 Mg Supp) 10 mg RC DAILY PRN PRN Reason: Constipation Stop: 01/11/18 17:24 Last Admin: 11/12/17 20:34 Dose: 10 mg Docusate Sodium (Colace) 100 mg PO DAILY [facility] Stop: 01/06/18 08:59 Last Admin: 11/16/17 09:27 Dose: 100 mg Donepezil HCl (Aricept) 10 mg PO DAILY [facility] Stop: 01/06/18 08:59 Last Admin: 11/16/17 09:27 Dose: 10 mg Ferrous Sulfate (Iron) 325 mg PO DAILY [facility] Stop: 01/06/18 08:59 Last Admin: 11/16/17 09:26 Dose: 325 mg Hydralazine HCl (Apresoline 20 Mg/Ml) 10 mg IV Q6H PRN PRN Reason: BP MAINTENANCE (PER PROTOCOL) Stop: 01/06/18 06:39 Last Admin: 11/16/17 04:05 Dose: 10 mg Ceftriaxone Sodium 1 gm/ (Dextrose) 50 mls @ 100 mls/hr IV Q24HR [facility] Stop: 01/06/18 09:59 Last Admin: 11/16/17 12:07 Dose: 100 mls/hr Vancomycin HCl 1.25 gm/ Sodium (Chloride) 250 mls @ 165 mls/hr IV Q12H [facility] Stop: 01/12/18 20:59 Last Admin: 11/16/17 09:28 Dose: 125 mls/hr Lactobacillus Rhamnosus (Culturelle 15b) 1 each PO DAILY [facility] Stop: 01/07/18 10:59 Last Admin: 11/16/17 09:38 Dose: 1 each Memantine (Namenda) 10 mg PO BID [facility] Stop: 01/05/18 17:29 Last Admin: 11/16/17 09:27 Dose: 10 mg Miscellaneous (Probiotic Screen) 1 ea [facility] PRN PRN PRN Reason: PROTOCOL Stop: 01/07/18 10:25 Miscellaneous (Vancomycin Iv Per Pharmacy) 1 [facility] PRN PRN PRN Reason: PROTOCOL Stop: 01/09/18 18:55 Multivitamins/Vitamin C (Theragran) 1 tab PO DAILY [facility] Stop: 01/06/18 08:59 Last Admin: 11/16/17 09:27 Dose: 1 tab Ondansetron HCl (Zofran Odt) 4 mg PO Q6HR PRN PRN Reason: Nausea/VOMITING Stop: 01/05/18 17:20 Pantoprazole Sodium (Protonix) 40 mg PO QDAC [facility] Stop: 01/06/18 07:29 Last Admin: 11/16/17 06:49 Dose: 40 mg Quetiapine Fumarate (Seroquel) 12.5 mg PO BID [facility]; Protocol Stop: 01/05/18 17:29 Last Admin: 11/16/17 09:27 Dose: 12.5 mg Senna (Senna) 8.6 mg PO DAILY [facility] Stop: 01/11/18 19:31 Last Admin: 11/16/17 09:27 Dose: 8.6 mg Warfarin Sodium (Coumadin Per Pharmacy) 1 [facility] PRN PRN; Protocol PRN Reason: RX MONITORING Stop: 01/14/18 07:59 Wound Care/Dressing Products (Silvasorb) 1 appl TP DAILY [facility] Stop: 01/06/18 08:59 Last Admin: 11/16/17 09:26 Dose: 1 appl - Procedures Procedures: Procedures Procedure Code Date EXTIRPATION OF MATTER FROM LEFT BREAST, OPEN APPROACH [id number] 11/06/17 Nutritional Asmnt/Malnutr-PDOC - Dietary Evaluation Malnutrition Findings (Please click <Entered> for more info): Nutritional Asmnt/Malnutrition Start: 11/10/17 15: 10 Text: Status: Complete Freq: Protocol: Document 11/10/17 15:10 PA (Rec: 11/10/17 15:26 PA [email or web address]) Nutritional Asmnt/Malnutrition Patient General Information Nutritional Screening Moderate Risk Diagnosis mastectomy to left side Pertinent Medical Hx/Surgical Hx dementia, HTN, DVT Subjective Information Pt had mastectomy to left side on 11/07. Pt seen lying in bed awake and alert at time of visit. Pt reported she is doing ok, will eat lunch when she is ready. Per EMR, PO intake 100% of meals. Current Diet Order/ Nutrition Support [facility] soft chopped Pertinent Medications vit C, colace, iron, culturelle, theragran, protonix, D5-0.45ns w 20 meq kcl Pertinent Labs 11/08 K 3.7 (improved), cl 108, glucose 127 Nutritional Hx/Data Height 1.68 m Height (Calculated Centimeters) 167.6 Current Weight (lbs) 89.811 kg Weight (Calculated Kilograms) 89.8 Weight (Calculated Grams) 75300.3 [place] Body Weight 130 Body Mass Index (BMI) 31.9 Weight Status Obese GI Symptoms GI Symptoms None Last BM 11/09 per nurse note Difficult in: None Skin Integrity/Comment: left breast wound s/p left exicision breast mass Current %PO Good (75-100%) Estimated Nutritional Goals BEE in Kcals: Adj wt of IBW Calories/Kcals/Kg 25-30 Kcals Calculated 4375-1900 Protein: Adj wt of IBW Protein g/k.2 Protein Calculated 80 Fluid: ml 1675-2010ml (1ml/kcal) Nutritional Problem 1. Problem Problem increased nutrition needs Etiology increased metabolic demand Signs/Symptoms: s/p surgery Malnutrition Alert Is there a minimum of two criteria No selected? Query Text:Check all the applicable criteria. A minimum of two criteria are recommended for diagnosis of either severe or non-severe malnutrition. Malnutrition Related to Morbid Obesity Malnutrition related to morbid obesity No Intervention/Recommendation Comments 1. Continue with [facility] soft chopped diet as ordered. 2. Monitor PO intake, wt, labs and skin integrity 3. F/U as moderate risk in 3-5 days, 11/13-11/15 Expected Outcomes/Goals Expected Outcomes/Goals 1. PO intake to meet at least 75% of nutritional needs. 2. Wt stability, skin to remain intact, labs to approach WNL.
[2017-11-17 06:34] LABS: INR 1.71 (0.5-1.4); PROTHROMBIN TIME (TEST) 18.3 SECONDS (9.5-11.5)
[2017-11-17] MEDS: Pantoprazole 40 mg EC Tab PO SCH (06:43)
[2017-11-17] MEDS: Lactobacillus Rhamnosus GG 15 Billion CFU CAP.SPRINK PO SCH (09:41)
[2017-11-17] MEDS: Ferrous Sulfate 325 MG TAB PO SCH (09:41)
[2017-11-17] MEDS: Silver Antimicrobial Wound Gel 0.25 oz Tube TP SCH (09:42)
[2017-11-17] MEDS: Multivitamin Tab PO SCH (09:42)
--- NOTE | 2017-11-17 15:34 | General Progress Note ---
Subjective - Review of Systems Service Date: 11/17/17 Events since last encounter: culture MRSA still has 30 to 40 cc bloody drainage daily may DC and SNF can remove DANIELE when no or minimal drainage, or patient can come to my office Objective - Results Result Diagrams: 11/15/17 07:50 11/15/17 07:50 Recent Labs: Laboratory Last Values WBC 7.6 Th/cmm (4.8-10.8) 11/15/17 07:50 RBC 3.38 Mil/cmm (3.80-5.20) L 11/15/17 07:50 Hgb 9.4 gm/dL (12-16) L 11/15/17 07:50 Hct 28.3 % (41.0-60) L 11/15/17 07:50 MCV 83.7 fl (81-100) 11/15/17 07:50 MCH 27.8 pg (27.0-31.0) 11/15/17 07:50 MCHC Differential 33.2 pg (28.0-36.0) 11/15/17 07:50 RDW 17.0 % (11.5-20.0) 11/15/17 07:50 Plt Count 477 Th/cmm (150-400) H 11/15/17 07:50 MPV 7.0 fl 11/15/17 07:50 Neutrophils % 68.7 % (40.0-80.0) 11/15/17 07:50 Lymphocytes % 18.1 % (20.0-50.0) L 11/15/17 07:50 Monocytes % 5.0 % (2.0-10.0) 11/15/17 07:50 Eosinophils % 7.8 % (0.0-5.0) H 11/15/17 07:50 Basophils % 0.4 % (0.0-2.0) 11/15/17 07:50 PT 18.3 SECONDS (9.5-11.5) H 11/17/17 05:55 INR 1.71 (0.5-1.4) H 11/17/17 05:55 PTT (Actin FS) 34.5 SECONDS (26.0-38.0) 11/07/17 04:30 Sodium 139 mEq/L (136-145) 11/15/17 07:50 Potassium 3.5 mEq/L (3.5-5.1) 11/15/17 07:50 Chloride 107 mEq/L (98-107) 11/15/17 07:50 Carbon Dioxide 27.6 mEq/L (21.0-31.0) 11/15/17 07:50 Anion Gap 7.9 (7.0-16.0) 11/15/17 07:50 BUN 10 mg/dL (7-25) 11/15/17 07:50 Creatinine 0.4 mg/dL (0.6-1.2) L 11/15/17 07:50 Est GFR ( Amer) TNP 11/15/17 07:50 Est GFR (Non-Af Amer) TNP 11/15/17 07:50 BUN/Creatinine Ratio 25.0 11/15/17 07:50 Glucose 94 mg/dL (70-105) 11/15/17 07:50 POC Glucose 130 MG/DL (70 - 105) H 11/06/17 15:32 Calcium 9.2 mg/dL (8.6-10.3) 11/15/17 07:50 Total Bilirubin 0.7 mg/dL (0.3-1.0) 11/15/17 07:50 AST 7 U/L (13-39) L 11/15/17 07:50 ALT 5 U/L (7-52) L 11/15/17 07:50 Alkaline Phosphatase 46 U/L (34-104) 11/15/17 07:50 Total Protein 6.9 gm/dL (6.0-8.3) 11/15/17 07:50 Albumin 2.9 gm/dL (3.7-5.3) L 11/15/17 07:50 Globulin 4.0 gm/dL 11/15/17 07:50 Albumin/Globulin Ratio 0.7 (1.0-1.8) L 11/15/17 07:50 Urine Source CATH 11/12/17 03:46 Urine Color YELLOW 11/12/17 03:46 Urine Clarity CLEAR (CLEAR) 11/12/17 03:46 Urine pH 7.0 (4.6 - 8.0) 11/12/17 03:46 Ur Specific [place] 1.015 (1.005-1.030) 11/12/17 03:46 Urine Protein NEGATIVE mg/dL (NEGATIVE) 11/12/17 03:46 Urine Glucose (UA) NEGATIVE mg/dL (NEGATIVE) 11/12/17 03:46 Urine Ketones NEGATIVE mg/dL (NEGATIVE) 11/12/17 03:46 Urine Blood NEGATIVE (NEGATIVE) 11/12/17 03:46 Urine Nitrate NEGATIVE (NEGATIVE) 11/12/17 03:46 Urine Bilirubin NEGATIVE (NEGATIVE) 11/12/17 03:46 Urine Urobilinogen 0.2 E.U./dL (0.2 - 1.0) 11/12/17 03:46 Ur Leukocyte Esterase NEGATIVE (NEGATIVE) 11/12/17 03:46 Urine RBC 0-2 /hpf (0-5) 11/12/17 03:46 Urine WBC 0-2 /hpf (0-5) 11/12/17 03:46 Ur Epithelial Cells MODERATE /lpf (FEW) 11/12/17 03:46 Urine Bacteria OCCASIONAL /hpf (NONE SEEN) 11/12/17 03:46 Vancomycin Trough 16.4 ug/mL (5-10) H 11/15/17 07:50 - Physical Exam Vitals and I&O: Vital Signs Temp 97.6 F 11/17/17 12:50 Pulse 73 11/17/17 12:50 Resp 18 11/17/17 12:50 BP 127/78 11/17/17 12:50 Pulse Ox 99 11/17/17 12:50 Intake & Output 11/16/17 11/17/17 11/17/17 18:59 06:59 18:59 Intake Total 350 550 Output Total 10 20 Balance 340 530 Weight (lbs) 90.265 kg 90.265 kg Intake: Intake, IV Amount 50 250 Vancomycin HCl 1.25 gm In 250 Sodium Chloride 0.9% 250 ml @ 165 mls/hr IV Q12H [facility] Rx#:[id number] cefTRIAXone 1 gm In 50 Dextrose 5% 50 ml @ 100 mls/hr IV Q24HR [facility] Rx#: [id number] Oral 300 240 Other 60 Output: Drainage 20 left breast daniele drain 20 Urine 10 Stool 0 Other: # Voids 3 Weight Source Bedscale Bedscale Active Medications: Current Medications Acetaminophen (Tylenol) 650 mg PO Q4HR PRN PRN Reason: Pain (Mild) Stop: 01/05/18 17:20 Amlodipine Besylate (Norvasc) 10 mg PO DAILY [facility] Stop: 01/10/18 08:59 Last Admin: 11/17/17 09:41 Dose: 10 mg Ascorbic Acid (Vitamin C) 500 mg PO DAILY [facility] Stop: 01/06/18 08:59 Last Admin: 11/17/17 09:41 Dose: 500 mg Bisacodyl (Dulcolax 10 Mg Supp) 10 mg RC DAILY PRN PRN Reason: Constipation Stop: 01/11/18 17:24 Last Admin: 11/12/17 20:34 Dose: 10 mg Docusate Sodium (Colace) 100 mg PO DAILY [facility] Stop: 01/06/18 08:59 Last Admin: 11/17/17 09:41 Dose: 100 mg Donepezil HCl (Aricept) 10 mg PO DAILY [facility] Stop: 01/06/18 08:59 Last Admin: 11/17/17 09:41 Dose: 10 mg Ferrous Sulfate (Iron) 325 mg PO DAILY [facility] Stop: 01/06/18 08:59 Last Admin: 11/17/17 09:41 Dose: 325 mg Hydralazine HCl (Apresoline 20 Mg/Ml) 10 mg IV Q6H PRN PRN Reason: BP MAINTENANCE (PER PROTOCOL) Stop: 01/06/18 06:39 Last Admin: 11/16/17 04:05 Dose: 10 mg Ceftriaxone Sodium 1 gm/ (Dextrose) 50 mls @ 100 mls/hr IV Q24HR [facility] Stop: 01/06/18 09:59 Last Admin: 11/17/17 12:07 Dose: 100 mls/hr Vancomycin HCl 1.25 gm/ Sodium (Chloride) 250 mls @ 165 mls/hr IV Q12H [facility] Stop: 01/12/18 20:59 Last Admin: 11/17/17 09:42 Dose: 125 mls/hr Lactobacillus Rhamnosus (Culturelle 15b) 1 each PO DAILY [facility] Stop: 01/07/18 10:59 Last Admin: 11/17/17 09:41 Dose: 1 each Memantine (Namenda) 10 mg PO BID [facility] Stop: 01/05/18 17:29 Last Admin: 11/17/17 09:41 Dose: 10 mg Miscellaneous (Probiotic Screen) 1 ea PRN PRN PRN Reason: PROTOCOL Stop: 01/07/18 10:25 Miscellaneous (Vancomycin Iv Per Pharmacy) 1 ea [facility] PRN PRN PRN Reason: PROTOCOL Stop: 01/09/18 18:55 Multivitamins/Vitamin C (Theragran) 1 tab PO DAILY [facility] Stop: 01/06/18 08:59 Last Admin: 11/17/17 09:42 Dose: 1 tab Ondansetron HCl (Zofran Odt) 4 mg PO Q6HR PRN PRN Reason: Nausea/VOMITING Stop: 01/05/18 17:20 Pantoprazole Sodium (Protonix) 40 mg PO QDAC [facility] Stop: 01/06/18 07:29 Last Admin: 11/17/17 06:43 Dose: 40 mg Quetiapine Fumarate (Seroquel) 12.5 mg PO BID [facility]; Protocol Stop: 01/05/18 17:29 Last Admin: 11/17/17 09:41 Dose: 12.5 mg Senna (Senna) 8.6 mg PO DAILY [facility] Stop: 01/11/18 19:31 Last Admin: 11/17/17 09:41 Dose: 8.6 mg Warfarin Sodium (Coumadin Per Pharmacy) 1 [facility] PRN PRN; Protocol PRN Reason: RX MONITORING Stop: 01/14/18 07:59 Wound Care/Dressing Products (Silvasorb) 1 appl TP DAILY [facility] Stop: 01/06/18 08:59 Last Admin: 11/17/17 09:42 Dose: 1 appl - Procedures Procedures: Procedures Procedure Code Date EXTIRPATION OF MATTER FROM LEFT BREAST, OPEN APPROACH [id number] 11/06/17 Nutritional Asmnt/Malnutr-PDOC - Dietary Evaluation Malnutrition Findings (Please click <Entered> for more info): Nutritional Asmnt/Malnutrition Start: 11/10/17 15: 10 Text: Status: Complete Freq: Protocol: Document 11/10/17 15:10 LCHENG (Rec: 11/10/17 15:26 [email or web address]) Nutritional Asmnt/Malnutrition Patient General Information Nutritional Screening Moderate Risk Diagnosis mastectomy to left side Pertinent Medical Hx/Surgical Hx dementia, HTN, DVT Subjective Information Pt had mastectomy to left side on 11/07. Pt seen lying in bed awake and alert at time of visit. Pt reported she is doing ok, will eat lunch when she is ready. Per EMR, PO intake 100% of meals. Current Diet Order/ Nutrition Support [facility] soft chopped Pertinent Medications vit C, colace, iron, culturelle, theragran, protonix, D5-0.45ns w 20 meq kcl Pertinent Labs 11/08 K 3.7 (improved), cl 108, glucose 127 Nutritional Hx/Data Height 1.68 m Height (Calculated Centimeters) 167.6 Current Weight (lbs) 89.811 kg Weight (Calculated Kilograms) 89.8 Weight (Calculated Grams) 90138.3 [place] Body Weight 130 Body Mass Index (BMI) 31.9 Weight Status Obese GI Symptoms GI Symptoms None Last BM 11/09 per nurse note Difficult in: None Skin Integrity/Comment: left breast wound s/p left exicision breast mass Current %PO Good (75-100%) Estimated Nutritional Goals BEE in Kcals: Adj wt of IBW Calories/Kcals/Kg 25-30 Kcals Calculated 3202-0582 Protein: Adj wt of IBW Protein g/k.2 Protein Calculated 80 Fluid: ml 1675-2009ml (1ml/kcal) Nutritional Problem 1. Problem Problem increased nutrition needs Etiology increased metabolic demand Signs/Symptoms: s/p surgery Malnutrition Alert Is there a minimum of two criteria No selected? Query Text:Check all the applicable criteria. A minimum of two criteria are recommended for diagnosis of either severe or non-severe malnutrition. Malnutrition Related to Morbid Obesity Malnutrition related to morbid obesity No Intervention/Recommendation Comments 1. Continue with [facility] soft chopped diet as ordered. 2. Monitor PO intake, wt, labs and skin integrity 3. F/U as moderate risk in 3-5 days, 11/13-11/15 Expected Outcomes/Goals Expected Outcomes/Goals 1. PO intake to meet at least 75% of nutritional needs. 2. Wt stability, skin to remain intact, labs to approach WNL.
--- NOTE | 2017-11-17 16:27 | Internal Medicine Prog Note ---
Internal Medicine Subjective - Subjective Service Date: 11/17/17 Patient seen and examined:: with staff (THE DRAIN STILL HIGH FUNCTIONIN AND DRAINING MORE THAN 50 CC SOFARE.) Patient is:: awake, verbal, confused Per staff patient has:: no adverse event Internal Medicine Objective - Results Result Diagrams: 11/15/17 07:50 11/15/17 07:50 Recent Labs: Laboratory Last Values WBC 7.6 Th/cmm (4.8-10.8) 11/15/17 07:50 RBC 3.38 Mil/cmm (3.80-5.20) L 11/15/17 07:50 Hgb 9.4 gm/dL (12-16) L 11/15/17 07:50 Hct 28.3 % (41.0-60) L 11/15/17 07:50 MCV 83.7 fl (81-100) 11/15/17 07:50 MCH 27.8 pg (27.0-31.0) 11/15/17 07:50 MCHC Differential 33.2 pg (28.0-36.0) 11/15/17 07:50 RDW 17.0 % (11.5-20.0) 11/15/17 07:50 Plt Count 477 Th/cmm (150-400) H 11/15/17 07:50 MPV 7.0 fl 11/15/17 07:50 Neutrophils % 68.7 % (40.0-80.0) 11/15/17 07:50 Lymphocytes % 18.1 % (20.0-50.0) L 11/15/17 07:50 Monocytes % 5.0 % (2.0-10.0) 11/15/17 07:50 Eosinophils % 7.8 % (0.0-5.0) H 11/15/17 07:50 Basophils % 0.4 % (0.0-2.0) 11/15/17 07:50 PT 18.3 SECONDS (9.5-11.5) H 11/17/17 05:55 INR 1.71 (0.5-1.4) H 11/17/17 05:55 PTT (Actin FS) 34.5 SECONDS (26.0-38.0) 11/07/17 04:30 Sodium 139 mEq/L (136-145) 11/15/17 07:50 Potassium 3.5 mEq/L (3.5-5.1) 11/15/17 07:50 Chloride 107 mEq/L (98-107) 11/15/17 07:50 Carbon Dioxide 27.6 mEq/L (21.0-31.0) 11/15/17 07:50 Anion Gap 7.9 (7.0-16.0) 11/15/17 07:50 BUN 10 mg/dL (7-25) 11/15/17 07:50 Creatinine 0.4 mg/dL (0.6-1.2) L 11/15/17 07:50 Est GFR ( Amer) TNP 11/15/17 07:50 Est GFR (Non-Af Amer) TNP 11/15/17 07:50 BUN/Creatinine Ratio 25.0 11/15/17 07:50 Glucose 94 mg/dL (70-105) 11/15/17 07:50 POC Glucose 130 MG/DL (70 - 105) H 11/06/17 15:32 Calcium 9.2 mg/dL (8.6-10.3) 11/15/17 07:50 Total Bilirubin 0.7 mg/dL (0.3-1.0) 11/15/17 07:50 AST 7 U/L (13-39) L 11/15/17 07:50 ALT 5 U/L (7-52) L 11/15/17 07:50 Alkaline Phosphatase 46 U/L (34-104) 11/15/17 07:50 Total Protein 6.9 gm/dL (6.0-8.3) 11/15/17 07:50 Albumin 2.9 gm/dL (3.7-5.3) L 11/15/17 07:50 Globulin 4.0 gm/dL 11/15/17 07:50 Albumin/Globulin Ratio 0.7 (1.0-1.8) L 11/15/17 07:50 Urine Source CATH 11/12/17 03:46 Urine Color YELLOW 11/12/17 03:46 Urine Clarity CLEAR (CLEAR) 11/12/17 03:46 Urine pH 7.0 (4.6 - 8.0) 11/12/17 03:46 Ur Specific [place] 1.015 (1.005-1.030) 11/12/17 03:46 Urine Protein NEGATIVE mg/dL (NEGATIVE) 11/12/17 03:46 Urine Glucose (UA) NEGATIVE mg/dL (NEGATIVE) 11/12/17 03:46 Urine Ketones NEGATIVE mg/dL (NEGATIVE) 11/12/17 03:46 Urine Blood NEGATIVE (NEGATIVE) 11/12/17 03:46 Urine Nitrate NEGATIVE (NEGATIVE) 11/12/17 03:46 Urine Bilirubin NEGATIVE (NEGATIVE) 11/12/17 03:46 Urine Urobilinogen 0.2 E.U./dL (0.2 - 1.0) 11/12/17 03:46 Ur Leukocyte Esterase NEGATIVE (NEGATIVE) 11/12/17 03:46 Urine RBC 0-2 /hpf (0-5) 11/12/17 03:46 Urine WBC 0-2 /hpf (0-5) 11/12/17 03:46 Ur Epithelial Cells MODERATE /lpf (FEW) 11/12/17 03:46 Urine Bacteria OCCASIONAL /hpf (NONE SEEN) 11/12/17 03:46 Vancomycin Trough 16.4 ug/mL (5-10) H 11/15/17 07:50 - Physical Exam Vitals and I&O: Vital Signs Temp 98.2 F 11/17/17 16:17 Pulse 65 11/17/17 16:17 Resp 17 11/17/17 16:17 BP 134/67 11/17/17 16:17 Pulse Ox 98 11/17/17 16:17 Intake & Output 11/16/17 11/17/17 11/17/17 18:59 06:59 18:59 Intake Total 350 550 Output Total 10 20 Balance 340 530 Weight (lbs) 90.265 kg 90.265 kg Intake: Intake, IV Amount 50 250 Vancomycin HCl 1.25 gm In 250 Sodium Chloride 0.9% 250 ml @ 165 mls/hr IV Q12H [facility] Rx#:[id number] cefTRIAXone 1 gm In 50 Dextrose 5% 50 ml @ 100 mls/hr IV Q24HR [facility] Rx#: [id number] Oral 300 240 Other 60 Output: Drainage 20 left breast daniele drain 20 Urine 10 Stool 0 Other: # Voids 3 Weight Source Bedscale Bedscale Active Medications: Current Medications Acetaminophen (Tylenol) 650 mg PO Q4HR PRN PRN Reason: Pain (Mild) Stop: 01/05/18 17:20 Amlodipine Besylate (Norvasc) 10 mg PO DAILY [facility] Stop: 01/10/18 08:59 Last Admin: 11/17/17 09:41 Dose: 10 mg Ascorbic Acid (Vitamin C) 500 mg PO DAILY [facility] Stop: 01/06/18 08:59 Last Admin: 11/17/17 09:41 Dose: 500 mg Bisacodyl (Dulcolax 10 Mg Supp) 10 mg RC DAILY PRN PRN Reason: Constipation Stop: 01/11/18 17:24 Last Admin: 11/12/17 20:34 Dose: 10 mg Docusate Sodium (Colace) 100 mg PO DAILY [facility] Stop: 01/06/18 08:59 Last Admin: 11/17/17 09:41 Dose: 100 mg Donepezil HCl (Aricept) 10 mg PO DAILY [facility] Stop: 01/06/18 08:59 Last Admin: 11/17/17 09:41 Dose: 10 mg Ferrous Sulfate (Iron) 325 mg PO DAILY [facility] Stop: 01/06/18 08:59 Last Admin: 11/17/17 09:41 Dose: 325 mg Hydralazine HCl (Apresoline 20 Mg/Ml) 10 mg IV Q6H PRN PRN Reason: BP MAINTENANCE (PER PROTOCOL) Stop: 01/06/18 06:39 Last Admin: 11/16/17 04:05 Dose: 10 mg Ceftriaxone Sodium 1 gm/ (Dextrose) 50 mls @ 100 mls/hr IV Q24HR [facility] Stop: 01/06/18 09:59 Last Admin: 11/17/17 12:07 Dose: 100 mls/hr Vancomycin HCl 1.25 gm/ Sodium (Chloride) 250 mls @ 165 mls/hr IV Q12H [facility] Stop: 01/12/18 20:59 Last Admin: 11/17/17 09:42 Dose: 125 mls/hr Lactobacillus Rhamnosus (Culturelle 15b) 1 each PO DAILY [facility] Stop: 01/07/18 10:59 Last Admin: 11/17/17 09:41 Dose: 1 each Memantine (Namenda) 10 mg PO BID [facility] Stop: 01/05/18 17:29 Last Admin: 11/17/17 09:41 Dose: 10 mg Miscellaneous (Probiotic Screen) 1 ea [facility] PRN PRN PRN Reason: PROTOCOL Stop: 01/07/18 10:25 Miscellaneous (Vancomycin Iv Per Pharmacy) 1 [facility] PRN PRN PRN Reason: PROTOCOL Stop: 01/09/18 18:55 Multivitamins/Vitamin C (Theragran) 1 tab PO DAILY [facility] Stop: 01/06/18 08:59 Last Admin: 11/17/17 09:42 Dose: 1 tab Ondansetron HCl (Zofran Odt) 4 mg PO Q6HR PRN PRN Reason: Nausea/VOMITING Stop: 01/05/18 17:20 Pantoprazole Sodium (Protonix) 40 mg PO QDAC [facility] Stop: 01/06/18 07:29 Last Admin: 11/17/17 06:43 Dose: 40 mg Quetiapine Fumarate (Seroquel) 12.5 mg PO BID [facility]; Protocol Stop: 01/05/18 17:29 Last Admin: 11/17/17 09:41 Dose: 12.5 mg Senna (Senna) 8.6 mg PO DAILY [facility] Stop: 01/11/18 19:31 Last Admin: 11/17/17 09:41 Dose: 8.6 mg Warfarin Sodium (Coumadin Per Pharmacy) 1 [facility] PRN PRN; Protocol PRN Reason: RX MONITORING Stop: 01/14/18 07:59 Wound Care/Dressing Products (Silvasorb) 1 appl TP DAILY [facility] Stop: 01/06/18 08:59 Last Admin: 11/17/17 09:42 Dose: 1 appl General: demented HEENT: NC/AT, PERRLA, EOMI, anicteric sclerae, throat clear Neck: Supple, No JVD, No thyromegaly, +2 carotid pulse wo bruit, No LAD, + JVD Lungs: CTAB Cardiovascular: RRR, Normal S1, Normal S2, without murmur Abdomen: soft, non-tender, non-distended Extremities: clear Neurological: no change (THE LEFT BREAS IS FIRM.) - Procedures Procedures: Procedures Procedure Code Date EXTIRPATION OF MATTER FROM LEFT BREAST, OPEN APPROACH [id number] 11/06/17 Internal Medicine Assmt/Plan - Assessment Assessment: 1.LEFT BREAST ABSCESS. 2.ANEMIA. 3.HTN. 4.DEMENTIA. 5.SP SURGICAL DEBRIDMENT 6.CONSTIPATION. - Plan Plan: CONTINUE ON CURRENT MEDICATION AND DIET. Nutritional Asmnt/Malnutr-PDOC - Dietary Evaluation Malnutrition Findings (Please click <Entered> for more info): Nutritional Asmnt/Malnutrition Start: 11/10/17 15: 10 Text: Status: Complete Freq: Protocol: Document 11/10/17 15:10 PA (Rec: 11/10/17 15:26 PA [email or web address]) Nutritional Asmnt/Malnutrition Patient General Information Nutritional Screening Moderate Risk Diagnosis mastectomy to left side Pertinent Medical Hx/Surgical Hx dementia, HTN, DVT Subjective Information Pt had mastectomy to left side on 11/07. Pt seen lying in bed awake and alert at time of visit. Pt reported she is doing ok, will eat lunch when she is ready. Per EMR, PO intake 100% of meals. Current Diet Order/ Nutrition Support [facility] soft chopped Pertinent Medications vit C, colace, iron, culturelle, theragran, protonix, D5-0.45ns w 20 meq kcl Pertinent Labs 11/08 K 3.7 (improved), cl 108, glucose 127 Nutritional Hx/Data Height 1.68 m Height (Calculated Centimeters) 167.6 Current Weight (lbs) 89.811 kg Weight (Calculated Kilograms) 89.8 Weight (Calculated Grams) 83900.3 [place] Body Weight 130 Body Mass Index (BMI) 31.9 Weight Status Obese GI Symptoms GI Symptoms None Last BM 11/09 per nurse note Difficult in: None Skin Integrity/Comment: left breast wound s/p left exicision breast mass Current %PO Good (75-100%) Estimated Nutritional Goals BEE in Kcals: Adj wt of IBW Calories/Kcals/Kg 25-30 Kcals Calculated 4457-1870 Protein: Adj wt of IBW Protein g/k.2 Protein Calculated 80 Fluid: ml 1675-2010ml (1ml/kcal) Nutritional Problem 1. Problem Problem increased nutrition needs Etiology increased metabolic demand Signs/Symptoms: s/p surgery Malnutrition Alert Is there a minimum of two criteria No selected? Query Text:Check all the applicable criteria. A minimum of two criteria are recommended for diagnosis of either severe or non-severe malnutrition. Malnutrition Related to Morbid Obesity Malnutrition related to morbid obesity No Intervention/Recommendation Comments 1. Continue with [facility] soft chopped diet as ordered. 2. Monitor PO intake, wt, labs and skin integrity 3. F/U as moderate risk in 3-5 days, 11/13-11/15 Expected Outcomes/Goals Expected Outcomes/Goals 1. PO intake to meet at least 75% of nutritional needs. 2. Wt stability, skin to remain intact, labs to approach WNL.
[2017-11-18] MEDS: Pantoprazole 40 mg EC Tab PO SCH (06:48)
[2017-11-18 09:03] LABS: INR 1.81 (0.5-1.4); PROTHROMBIN TIME (TEST) 19.4 SECONDS (9.5-11.5)
[2017-11-18] MEDS: Ferrous Sulfate 325 MG TAB PO SCH (09:55)
[2017-11-18] MEDS: Multivitamin Tab PO SCH (09:55)
[2017-11-18] MEDS: Lactobacillus Rhamnosus GG 15 Billion CFU CAP.SPRINK PO SCH (09:55)
[2017-11-18] MEDS: Silver Antimicrobial Wound Gel 0.25 oz Tube TP SCH (09:56)
--- NOTE | 2017-11-18 10:07 | General Progress Note ---
Subjective - Review of Systems Service Date: 11/18/17 Events since last encounter: Delfino drain removed, drainage only 5 to 10 cc per shift Objective - Results Result Diagrams: 11/15/17 07:50 11/15/17 07:50 Recent Labs: Laboratory Last Values WBC 7.6 Th/cmm (4.8-10.8) 11/15/17 07:50 RBC 3.38 Mil/cmm (3.80-5.20) L 11/15/17 07:50 Hgb 9.4 gm/dL (12-16) L 11/15/17 07:50 Hct 28.3 % (41.0-60) L 11/15/17 07:50 MCV 83.7 fl (81-100) 11/15/17 07:50 MCH 27.8 pg (27.0-31.0) 11/15/17 07:50 MCHC Differential 33.2 pg (28.0-36.0) 11/15/17 07:50 RDW 17.0 % (11.5-20.0) 11/15/17 07:50 Plt Count 477 Th/cmm (150-400) H 11/15/17 07:50 MPV 7.0 fl 11/15/17 07:50 Neutrophils % 68.7 % (40.0-80.0) 11/15/17 07:50 Lymphocytes % 18.1 % (20.0-50.0) L 11/15/17 07:50 Monocytes % 5.0 % (2.0-10.0) 11/15/17 07:50 Eosinophils % 7.8 % (0.0-5.0) H 11/15/17 07:50 Basophils % 0.4 % (0.0-2.0) 11/15/17 07:50 PT 19.4 SECONDS (9.5-11.5) H 11/18/17 08:13 INR 1.81 (0.5-1.4) H 11/18/17 08:13 PTT (Actin FS) 34.5 SECONDS (26.0-38.0) 11/07/17 04:30 Sodium 139 mEq/L (136-145) 11/15/17 07:50 Potassium 3.5 mEq/L (3.5-5.1) 11/15/17 07:50 Chloride 107 mEq/L (98-107) 11/15/17 07:50 Carbon Dioxide 27.6 mEq/L (21.0-31.0) 11/15/17 07:50 Anion Gap 7.9 (7.0-16.0) 11/15/17 07:50 BUN 10 mg/dL (7-25) 11/15/17 07:50 Creatinine 0.4 mg/dL (0.6-1.2) L 11/15/17 07:50 Est GFR ( Amer) TNP 11/15/17 07:50 Est GFR (Non-Af Amer) TNP 11/15/17 07:50 BUN/Creatinine Ratio 25.0 11/15/17 07:50 Glucose 94 mg/dL (70-105) 11/15/17 07:50 POC Glucose 130 MG/DL (70 - 105) H 11/06/17 15:32 Calcium 9.2 mg/dL (8.6-10.3) 11/15/17 07:50 Total Bilirubin 0.7 mg/dL (0.3-1.0) 11/15/17 07:50 AST 7 U/L (13-39) L 11/15/17 07:50 ALT 5 U/L (7-52) L 11/15/17 07:50 Alkaline Phosphatase 46 U/L (34-104) 11/15/17 07:50 Total Protein 6.9 gm/dL (6.0-8.3) 11/15/17 07:50 Albumin 2.9 gm/dL (3.7-5.3) L 11/15/17 07:50 Globulin 4.0 gm/dL 11/15/17 07:50 Albumin/Globulin Ratio 0.7 (1.0-1.8) L 11/15/17 07:50 Urine Source CATH 11/12/17 03:46 Urine Color YELLOW 11/12/17 03:46 Urine Clarity CLEAR (CLEAR) 11/12/17 03:46 Urine pH 7.0 (4.6 - 8.0) 11/12/17 03:46 Ur Specific [place] 1.015 (1.005-1.030) 11/12/17 03:46 Urine Protein NEGATIVE mg/dL (NEGATIVE) 11/12/17 03:46 Urine Glucose (UA) NEGATIVE mg/dL (NEGATIVE) 11/12/17 03:46 Urine Ketones NEGATIVE mg/dL (NEGATIVE) 11/12/17 03:46 Urine Blood NEGATIVE (NEGATIVE) 11/12/17 03:46 Urine Nitrate NEGATIVE (NEGATIVE) 11/12/17 03:46 Urine Bilirubin NEGATIVE (NEGATIVE) 11/12/17 03:46 Urine Urobilinogen 0.2 E.U./dL (0.2 - 1.0) 11/12/17 03:46 Ur Leukocyte Esterase NEGATIVE (NEGATIVE) 11/12/17 03:46 Urine RBC 0-2 /hpf (0-5) 11/12/17 03:46 Urine WBC 0-2 /hpf (0-5) 11/12/17 03:46 Ur Epithelial Cells MODERATE /lpf (FEW) 11/12/17 03:46 Urine Bacteria OCCASIONAL /hpf (NONE SEEN) 11/12/17 03:46 Vancomycin Trough 18.4 ug/mL (5-10) H 11/18/17 08:13 - Physical Exam Vitals and I&O: Vital Signs Temp 97.8 F 11/18/17 07:46 Pulse 58 11/18/17 09:55 Resp 20 11/18/17 07:46 BP 132/71 11/18/17 09:55 Pulse Ox 98 11/18/17 07:46 Intake & Output 11/17/17 11/18/17 11/18/17 18:59 06:59 18:59 Intake Total 800 550 Output Total 10 21 Balance 790 529 Weight (lbs) 90.31 kg 90.083 kg Intake: Intake, IV Amount 250 250 Vancomycin HCl 1.25 gm In 250 250 Sodium Chloride 0.9% 250 ml @ 165 mls/hr IV Q12H [facility] Rx#:[id number] Oral 550 300 Output: Drainage 10 20 left breast daniele drain 10 20 Stool 1 Other: # Voids 3 3 # Bowel Movements 2 1 Stool Characteristics Soft Soft Weight Source Bedscale Bedscale Active Medications: Current Medications Acetaminophen (Tylenol) 650 mg PO Q4HR PRN PRN Reason: Pain (Mild) Stop: 01/05/18 17:20 Amlodipine Besylate (Norvasc) 10 mg PO DAILY [facility] Stop: 01/10/18 08:59 Last Admin: 11/18/17 09:55 Dose: 10 mg Ascorbic Acid (Vitamin C) 500 mg PO DAILY [facility] Stop: 01/06/18 08:59 Last Admin: 11/18/17 09:55 Dose: 500 mg Bisacodyl (Dulcolax 10 Mg Supp) 10 mg RC DAILY PRN PRN Reason: Constipation Stop: 01/11/18 17:24 Last Admin: 11/12/17 20:34 Dose: 10 mg Docusate Sodium (Colace) 100 mg PO DAILY [facility] Stop: 01/06/18 08:59 Last Admin: 11/18/17 09:55 Dose: 100 mg Donepezil HCl (Aricept) 10 mg PO DAILY [facility] Stop: 01/06/18 08:59 Last Admin: 11/18/17 09:55 Dose: 10 mg Ferrous Sulfate (Iron) 325 mg PO DAILY [facility] Stop: 01/06/18 08:59 Last Admin: 11/18/17 09:55 Dose: 325 mg Hydralazine HCl (Apresoline 20 Mg/Ml) 10 mg IV Q6H PRN PRN Reason: BP MAINTENANCE (PER PROTOCOL) Stop: 01/06/18 06:39 Last Admin: 11/16/17 04:05 Dose: 10 mg Ceftriaxone Sodium 1 gm/ (Dextrose) 50 mls @ 100 mls/hr IV Q24HR [facility] Stop: 01/06/18 09:59 Last Admin: 11/17/17 12:07 Dose: 100 mls/hr Vancomycin HCl 1.25 gm/ Sodium (Chloride) 250 mls @ 165 mls/hr IV Q12H [facility] Stop: 01/12/18 20:59 Last Admin: 11/18/17 09:55 Dose: 125 mls/hr Lactobacillus Rhamnosus (Culturelle 15b) 1 each PO DAILY [facility] Stop: 01/07/18 10:59 Last Admin: 11/18/17 09:55 Dose: 1 each Memantine (Namenda) 10 mg PO BID [facility] Stop: 01/05/18 17:29 Last Admin: 11/18/17 09:55 Dose: 10 mg Miscellaneous (Probiotic Screen) 1 ea [facility] PRN PRN PRN Reason: PROTOCOL Stop: 01/07/18 10:25 Miscellaneous (Vancomycin Iv Per Pharmacy) 1 ea [facility] PRN PRN PRN Reason: PROTOCOL Stop: 01/09/18 18:55 Multivitamins/Vitamin C (Theragran) 1 tab PO DAILY [facility] Stop: 01/06/18 08:59 Last Admin: 11/18/17 09:55 Dose: 1 tab Ondansetron HCl (Zofran Odt) 4 mg PO Q6HR PRN PRN Reason: Nausea/VOMITING Stop: 01/05/18 17:20 Pantoprazole Sodium (Protonix) 40 mg PO QDAC [facility] Stop: 01/06/18 07:29 Last Admin: 11/18/17 06:48 Dose: 40 mg Quetiapine Fumarate (Seroquel) 12.5 mg PO BID [facility]; Protocol Stop: 01/05/18 17:29 Last Admin: 11/18/17 09:55 Dose: 12.5 mg Senna (Senna) 8.6 mg PO DAILY [facility] Stop: 01/11/18 19:31 Last Admin: 11/18/17 09:55 Dose: 8.6 mg Warfarin Sodium (Coumadin Per Pharmacy) 1 ea [facility] PRN PRN; Protocol PRN Reason: RX MONITORING Stop: 01/14/18 07:59 Warfarin Sodium 5 mg/ Warfarin (Sodium 3 mg) 8 mg PO ONCE ONE Stop: 11/18/17 13:01 Wound Care/Dressing Products (Silvasorb) 1 appl TP DAILY [facility] Stop: 01/06/18 08:59 Last Admin: 11/18/17 09:56 Dose: 1 appl - Procedures Procedures: Procedures Procedure Code Date EXTIRPATION OF MATTER FROM LEFT BREAST, OPEN APPROACH [id number] 11/06/17 Nutritional Asmnt/Malnutr-PDOC - Dietary Evaluation Malnutrition Findings (Please click <Entered> for more info): Nutritional Asmnt/Malnutrition Start: 11/10/17 15: 10 Text: Status: Complete Freq: Protocol: Document 11/10/17 15:10 LCHENG (Rec: 11/10/17 15:26 [email or web address] [email or web address]) Nutritional Asmnt/Malnutrition Patient General Information Nutritional Screening Moderate Risk Diagnosis mastectomy to left side Pertinent Medical Hx/Surgical Hx dementia, HTN, DVT Subjective Information Pt had mastectomy to left side on 11/07. Pt seen lying in bed awake and alert at time of visit. Pt reported she is doing ok, will eat lunch when she is ready. Per EMR, PO intake 100% of meals. Current Diet Order/ Nutrition Support [facility] soft chopped Pertinent Medications vit C, colace, iron, culturelle, theragran, protonix, D5-0.45ns w 20 meq kcl Pertinent Labs 11/08 K 3.7 (improved), cl 108, glucose 127 Nutritional Hx/Data Height 1.68 m Height (Calculated Centimeters) 167.6 Current Weight (lbs) 89.811 kg Weight (Calculated Kilograms) 89.8 Weight (Calculated Grams) 63153.3 [place] Body Weight 130 Body Mass Index (BMI) 31.9 Weight Status Obese GI Symptoms GI Symptoms None Last BM 11/09 per nurse note Difficult in: None Skin Integrity/Comment: left breast wound s/p left exicision breast mass Current %PO Good (75-100%) Estimated Nutritional Goals BEE in Kcals: Adj wt of IBW Calories/Kcals/Kg 25-30 Kcals Calculated 1798-3998 Protein: Adj wt of IBW Protein g/k.2 Protein Calculated 80 Fluid: ml 1675-2010ml (1ml/kcal) Nutritional Problem 1. Problem Problem increased nutrition needs Etiology increased metabolic demand Signs/Symptoms: s/p surgery Malnutrition Alert Is there a minimum of two criteria No selected? Query Text:Check all the applicable criteria. A minimum of two criteria are recommended for diagnosis of either severe or non-severe malnutrition. Malnutrition Related to Morbid Obesity Malnutrition related to morbid obesity No Intervention/Recommendation Comments 1. Continue with [facility] soft chopped diet as ordered. 2. Monitor PO intake, wt, labs and skin integrity 3. F/U as moderate risk in 3-5 days, 6/-11/15 Expected Outcomes/Goals Expected Outcomes/Goals 1. PO intake to meet at least 75% of nutritional needs. 2. Wt stability, skin to remain intact, labs to approach WNL.
--- NOTE | 2017-11-18 20:24 | General Progress Note ---
Subjective - Review of Systems Service Date: 11/18/17 Subjective: awake and responsive no distress Objective - Results Result Diagrams: 11/15/17 07:50 11/15/17 07:50 Recent Labs: Laboratory Last Values WBC 7.6 Th/cmm (4.8-10.8) 11/15/17 07:50 RBC 3.38 Mil/cmm (3.80-5.20) L 11/15/17 07:50 Hgb 9.4 gm/dL (12-16) L 11/15/17 07:50 Hct 28.3 % (41.0-60) L 11/15/17 07:50 MCV 83.7 fl (81-100) 11/15/17 07:50 MCH 27.8 pg (27.0-31.0) 11/15/17 07:50 MCHC Differential 33.2 pg (28.0-36.0) 11/15/17 07:50 RDW 17.0 % (11.5-20.0) 11/15/17 07:50 Plt Count 477 Th/cmm (150-400) H 11/15/17 07:50 MPV 7.0 fl 11/15/17 07:50 Neutrophils % 68.7 % (40.0-80.0) 11/15/17 07:50 Lymphocytes % 18.1 % (20.0-50.0) L 11/15/17 07:50 Monocytes % 5.0 % (2.0-10.0) 11/15/17 07:50 Eosinophils % 7.8 % (0.0-5.0) H 11/15/17 07:50 Basophils % 0.4 % (0.0-2.0) 11/15/17 07:50 PT 19.4 SECONDS (9.5-11.5) H 11/18/17 08:13 INR 1.81 (0.5-1.4) H 11/18/17 08:13 PTT (Actin FS) 34.5 SECONDS (26.0-38.0) 11/07/17 04:30 Sodium 139 mEq/L (136-145) 11/15/17 07:50 Potassium 3.5 mEq/L (3.5-5.1) 11/15/17 07:50 Chloride 107 mEq/L (98-107) 11/15/17 07:50 Carbon Dioxide 27.6 mEq/L (21.0-31.0) 11/15/17 07:50 Anion Gap 7.9 (7.0-16.0) 11/15/17 07:50 BUN 10 mg/dL (7-25) 11/15/17 07:50 Creatinine 0.4 mg/dL (0.6-1.2) L 11/15/17 07:50 Est GFR ( Amer) TNP 11/15/17 07:50 Est GFR (Non-Af Amer) TNP 11/15/17 07:50 BUN/Creatinine Ratio 25.0 11/15/17 07:50 Glucose 94 mg/dL (70-105) 11/15/17 07:50 POC Glucose 130 MG/DL (70 - 105) H 11/06/17 15:32 Calcium 9.2 mg/dL (8.6-10.3) 11/15/17 07:50 Total Bilirubin 0.7 mg/dL (0.3-1.0) 11/15/17 07:50 AST 7 U/L (13-39) L 11/15/17 07:50 ALT 5 U/L (7-52) L 11/15/17 07:50 Alkaline Phosphatase 46 U/L (34-104) 11/15/17 07:50 Total Protein 6.9 gm/dL (6.0-8.3) 11/15/17 07:50 Albumin 2.9 gm/dL (3.7-5.3) L 11/15/17 07:50 Globulin 4.0 gm/dL 11/15/17 07:50 Albumin/Globulin Ratio 0.7 (1.0-1.8) L 11/15/17 07:50 Urine Source CATH 11/12/17 03:46 Urine Color YELLOW 11/12/17 03:46 Urine Clarity CLEAR (CLEAR) 11/12/17 03:46 Urine pH 7.0 (4.6 - 8.0) 11/12/17 03:46 Ur Specific [place] 1.015 (1.005-1.030) 11/12/17 03:46 Urine Protein NEGATIVE mg/dL (NEGATIVE) 11/12/17 03:46 Urine Glucose (UA) NEGATIVE mg/dL (NEGATIVE) 11/12/17 03:46 Urine Ketones NEGATIVE mg/dL (NEGATIVE) 11/12/17 03:46 Urine Blood NEGATIVE (NEGATIVE) 11/12/17 03:46 Urine Nitrate NEGATIVE (NEGATIVE) 11/12/17 03:46 Urine Bilirubin NEGATIVE (NEGATIVE) 11/12/17 03:46 Urine Urobilinogen 0.2 E.U./dL (0.2 - 1.0) 11/12/17 03:46 Ur Leukocyte Esterase NEGATIVE (NEGATIVE) 11/12/17 03:46 Urine RBC 0-2 /hpf (0-5) 11/12/17 03:46 Urine WBC 0-2 /hpf (0-5) 11/12/17 03:46 Ur Epithelial Cells MODERATE /lpf (FEW) 11/12/17 03:46 Urine Bacteria OCCASIONAL /hpf (NONE SEEN) 11/12/17 03:46 Vancomycin Trough 18.4 ug/mL (5-10) H 11/18/17 08:13 - Physical Exam Vitals and I&O: Vital Signs Temp 98.8 F 11/18/17 15:59 Pulse 64 11/18/17 15:59 Resp 20 11/18/17 15:59 BP 138/85 11/18/17 15:59 Pulse Ox 100 11/18/17 15:59 Intake & Output 11/18/17 11/18/17 11/19/17 06:59 18:59 06:59 Intake Total 550 1100 Output Total 21 5 Balance 529 1095 Weight (lbs) 90.083 kg 89.981 kg Intake: Intake, IV Amount 250 Vancomycin HCl 1.25 gm In 250 Sodium Chloride 0.9% 250 ml @ 165 mls/hr IV Q12H [facility] Rx#:[id number] Oral 300 1100 Output: Drainage 20 5 left breast daniele drain 20 5 Stool 1 Other: # Voids 3 3 # Bowel Movements 1 0 Stool Characteristics Soft Soft Weight Source Bedscale Bedscale Active Medications: Current Medications Acetaminophen (Tylenol) 650 mg PO Q4HR PRN PRN Reason: Pain (Mild) Stop: 01/05/18 17:20 Amlodipine Besylate (Norvasc) 10 mg PO DAILY [facility] Stop: 01/10/18 08:59 Last Admin: 11/18/17 09:55 Dose: 10 mg Ascorbic Acid (Vitamin C) 500 mg PO DAILY [facility] Stop: 01/06/18 08:59 Last Admin: 11/18/17 09:55 Dose: 500 mg Bisacodyl (Dulcolax 10 Mg Supp) 10 mg RC DAILY PRN PRN Reason: Constipation Stop: 01/11/18 17:24 Last Admin: 11/12/17 20:34 Dose: 10 mg Docusate Sodium (Colace) 100 mg PO DAILY [facility] Stop: 01/06/18 08:59 Last Admin: 11/18/17 09:55 Dose: 100 mg Donepezil HCl (Aricept) 10 mg PO DAILY [facility] Stop: 01/06/18 08:59 Last Admin: 11/18/17 09:55 Dose: 10 mg Ferrous Sulfate (Iron) 325 mg PO DAILY [facility] Stop: 01/06/18 08:59 Last Admin: 11/18/17 09:55 Dose: 325 mg Hydralazine HCl (Apresoline 20 Mg/Ml) 10 mg IV Q6H PRN PRN Reason: BP MAINTENANCE (PER PROTOCOL) Stop: 01/06/18 06:39 Last Admin: 11/16/17 04:05 Dose: 10 mg Ceftriaxone Sodium 1 gm/ (Dextrose) 50 mls @ 100 mls/hr IV Q24HR [facility] Stop: 01/06/18 09:59 Last Admin: 11/18/17 12:51 Dose: 100 mls/hr Vancomycin HCl 1.25 gm/ Sodium (Chloride) 250 mls @ 165 mls/hr IV Q12H [facility] Stop: 01/12/18 20:59 Last Admin: 11/18/17 09:55 Dose: 125 mls/hr Lactobacillus Rhamnosus (Culturelle 15b) 1 each PO DAILY [facility] Stop: 01/07/18 10:59 Last Admin: 11/18/17 09:55 Dose: 1 each Memantine (Namenda) 10 mg PO BID [facility] Stop: 01/05/18 17:29 Last Admin: 11/18/17 16:32 Dose: 10 mg Miscellaneous (Probiotic Screen) 1 ea [facility] PRN PRN PRN Reason: PROTOCOL Stop: 01/07/18 10:25 Miscellaneous (Vancomycin Iv Per Pharmacy) 1 ea [facility] PRN PRN PRN Reason: PROTOCOL Stop: 01/09/18 18:55 Multivitamins/Vitamin C (Theragran) 1 tab PO DAILY [facility] Stop: 01/06/18 08:59 Last Admin: 11/18/17 09:55 Dose: 1 tab Ondansetron HCl (Zofran Odt) 4 mg PO Q6HR PRN PRN Reason: Nausea/VOMITING Stop: 01/05/18 17:20 Pantoprazole Sodium (Protonix) 40 mg PO QDAC [facility] Stop: 01/06/18 07:29 Last Admin: 11/18/17 06:48 Dose: 40 mg Quetiapine Fumarate (Seroquel) 12.5 mg PO BID [facility]; Protocol Stop: 01/05/18 17:29 Last Admin: 11/18/17 16:32 Dose: 12.5 mg Senna (Senna) 8.6 mg PO DAILY [facility] Stop: 01/11/18 19:31 Last Admin: 11/18/17 09:55 Dose: 8.6 mg Warfarin Sodium (Coumadin Per Pharmacy) 1 ea [facility] PRN PRN; Protocol PRN Reason: RX MONITORING Stop: 01/14/18 07:59 Wound Care/Dressing Products (Silvasorb) 1 appl TP DAILY [facility] Stop: 01/06/18 08:59 Last Admin: 11/18/17 09:56 Dose: 1 appl General: No acute distress HEENT: Atraumatic, PERRLA Neck: Supple, JVD Cardiovascular: Regular rate, Normal S1, Normal S2 Lungs: Clear to auscultation Abdomen: Bowel sounds, Soft - Procedures Procedures: Procedures Procedure Code Date EXTIRPATION OF MATTER FROM LEFT BREAST, OPEN APPROACH [id number] 11/06/17 Assessment/Plan - Assessment Assessment: 1.LEFT BREAST ABSCESS. 2.ANEMIA. 3.HTN. 4.DEMENTIA. 5.SP SURGICAL DEBRIDMENT 6.CONSTIPATION. - Plan Plan: cont current treatment Nutritional Asmnt/Malnutr-PDOC - Dietary Evaluation Malnutrition Findings (Please click <Entered> for more info): Nutritional Asmnt/Malnutrition Start: 11/10/17 15: 10 Text: Status: Complete Freq: Protocol: Document 11/10/17 15:10 [email or web address] (Rec: 11/10/17 15:26 ROQUEG [email or web address]) Nutritional Asmnt/Malnutrition Patient General Information Nutritional Screening Moderate Risk Diagnosis mastectomy to left side Pertinent Medical Hx/Surgical Hx dementia, HTN, DVT Subjective Information Pt had mastectomy to left side on 11/07. Pt seen lying in bed awake and alert at time of visit. Pt reported she is doing ok, will eat lunch when she is ready. Per EMR, PO intake 100% of meals. Current Diet Order/ Nutrition Support [facility] soft chopped Pertinent Medications vit C, colace, iron, culturelle, theragran, protonix, D5-0.45ns w 20 meq kcl Pertinent Labs 11/08 K 3.7 (improved), cl 108, glucose 127 Nutritional Hx/Data Height 1.68 m Height (Calculated Centimeters) 167.6 Current Weight (lbs) 89.811 kg Weight (Calculated Kilograms) 89.8 Weight (Calculated Grams) 09952.3 [place] Body Weight 130 Body Mass Index (BMI) 31.9 Weight Status Obese GI Symptoms GI Symptoms None Last BM 11/09 per nurse note Difficult in: None Skin Integrity/Comment: left breast wound s/p left exicision breast mass Current %PO Good (75-100%) Estimated Nutritional Goals BEE in Kcals: Adj wt of IBW Calories/Kcals/Kg 25-30 Kcals Calculated 5397-0992 Protein: Adj wt of IBW Protein g/k.2 Protein Calculated 80 Fluid: ml 1675-2010ml (1ml/kcal) Nutritional Problem 1. Problem Problem increased nutrition needs Etiology increased metabolic demand Signs/Symptoms: s/p surgery Malnutrition Alert Is there a minimum of two criteria No selected? Query Text:Check all the applicable criteria. A minimum of two criteria are recommended for diagnosis of either severe or non-severe malnutrition. Malnutrition Related to Morbid Obesity Malnutrition related to morbid obesity No Intervention/Recommendation Comments 1. Continue with [facility] soft chopped diet as ordered. 2. Monitor PO intake, wt, labs and skin integrity 3. F/U as moderate risk in 3-5 days, 11/13-11/15 Expected Outcomes/Goals Expected Outcomes/Goals 1. PO intake to meet at least 75% of nutritional needs. 2. Wt stability, skin to remain intact, labs to approach WNL.
[2017-11-19 09:46] LABS: INR 2.13 (0.5-1.4); PROTHROMBIN TIME (TEST) 23.1 SECONDS (9.5-11.5)
[2017-11-19] MEDS: Pantoprazole 40 mg EC Tab PO SCH (09:52)
[2017-11-19] MEDS: Multivitamin Tab PO SCH (09:54)
[2017-11-19] MEDS: Lactobacillus Rhamnosus GG 15 Billion CFU CAP.SPRINK PO SCH (09:54)
[2017-11-19] MEDS: Ferrous Sulfate 325 MG TAB PO SCH (09:54)
[2017-11-19] MEDS: Silver Antimicrobial Wound Gel 0.25 oz Tube TP SCH (12:55)
--- NOTE | 2017-11-19 15:25 | Infectious Disease Prog Note ---
Infectious Disease Subjective - Review of Systems Service Date: 11/19/17 Subjective: cc l breast abscess s/p sx ros no fever o/evss chest claeer abd soft ext pilse breat st wound healing dx l breast absce mssa vanco mycin rocephin pain ok breast ca s/p mastectomy alzeimer htn hydrallazien Infectious Disease Objective - Results Result Diagrams: 11/15/17 07:50 11/15/17 07:50 Recent Labs: Laboratory Last Values WBC 7.6 Th/cmm (4.8-10.8) 11/15/17 07:50 RBC 3.38 Mil/cmm (3.80-5.20) L 11/15/17 07:50 Hgb 9.4 gm/dL (12-16) L 11/15/17 07:50 Hct 28.3 % (41.0-60) L 11/15/17 07:50 MCV 83.7 fl (81-100) 11/15/17 07:50 MCH 27.8 pg (27.0-31.0) 11/15/17 07:50 MCHC Differential 33.2 pg (28.0-36.0) 11/15/17 07:50 RDW 17.0 % (11.5-20.0) 11/15/17 07:50 Plt Count 477 Th/cmm (150-400) H 11/15/17 07:50 MPV 7.0 fl 11/15/17 07:50 Neutrophils % 68.7 % (40.0-80.0) 11/15/17 07:50 Lymphocytes % 18.1 % (20.0-50.0) L 11/15/17 07:50 Monocytes % 5.0 % (2.0-10.0) 11/15/17 07:50 Eosinophils % 7.8 % (0.0-5.0) H 11/15/17 07:50 Basophils % 0.4 % (0.0-2.0) 11/15/17 07:50 PT 23.1 SECONDS (9.5-11.5) H 11/19/17 09:25 INR 2.13 (0.5-1.4) H 11/19/17 09:25 PTT (Actin FS) 34.5 SECONDS (26.0-38.0) 11/07/17 04:30 Sodium 139 mEq/L (136-145) 11/15/17 07:50 Potassium 3.5 mEq/L (3.5-5.1) 11/15/17 07:50 Chloride 107 mEq/L (98-107) 11/15/17 07:50 Carbon Dioxide 27.6 mEq/L (21.0-31.0) 11/15/17 07:50 Anion Gap 7.9 (7.0-16.0) 11/15/17 07:50 BUN 10 mg/dL (7-25) 11/15/17 07:50 Creatinine 0.4 mg/dL (0.6-1.2) L 11/15/17 07:50 Est GFR ( Amer) TNP 11/15/17 07:50 Est GFR (Non-Af Amer) TNP 11/15/17 07:50 BUN/Creatinine Ratio 25.0 11/15/17 07:50 Glucose 94 mg/dL (70-105) 11/15/17 07:50 POC Glucose 130 MG/DL (70 - 105) H 11/06/17 15:32 Calcium 9.2 mg/dL (8.6-10.3) 11/15/17 07:50 Total Bilirubin 0.7 mg/dL (0.3-1.0) 11/15/17 07:50 AST 7 U/L (13-39) L 11/15/17 07:50 ALT 5 U/L (7-52) L 11/15/17 07:50 Alkaline Phosphatase 46 U/L (34-104) 11/15/17 07:50 Total Protein 6.9 gm/dL (6.0-8.3) 11/15/17 07:50 Albumin 2.9 gm/dL (3.7-5.3) L 11/15/17 07:50 Globulin 4.0 gm/dL 11/15/17 07:50 Albumin/Globulin Ratio 0.7 (1.0-1.8) L 11/15/17 07:50 Urine Source CATH 11/12/17 03:46 Urine Color YELLOW 11/12/17 03:46 Urine Clarity CLEAR (CLEAR) 11/12/17 03:46 Urine pH 7.0 (4.6 - 8.0) 11/12/17 03:46 Ur Specific [place] 1.015 (1.005-1.030) 11/12/17 03:46 Urine Protein NEGATIVE mg/dL (NEGATIVE) 11/12/17 03:46 Urine Glucose (UA) NEGATIVE mg/dL (NEGATIVE) 11/12/17 03:46 Urine Ketones NEGATIVE mg/dL (NEGATIVE) 11/12/17 03:46 Urine Blood NEGATIVE (NEGATIVE) 11/12/17 03:46 Urine Nitrate NEGATIVE (NEGATIVE) 11/12/17 03:46 Urine Bilirubin NEGATIVE (NEGATIVE) 11/12/17 03:46 Urine Urobilinogen 0.2 E.U./dL (0.2 - 1.0) 11/12/17 03:46 Ur Leukocyte Esterase NEGATIVE (NEGATIVE) 11/12/17 03:46 Urine RBC 0-2 /hpf (0-5) 11/12/17 03:46 Urine WBC 0-2 /hpf (0-5) 11/12/17 03:46 Ur Epithelial Cells MODERATE /lpf (FEW) 11/12/17 03:46 Urine Bacteria OCCASIONAL /hpf (NONE SEEN) 11/12/17 03:46 Vancomycin Trough 18.4 ug/mL (5-10) H 11/18/17 08:13 - Physical Exam Vitals and I&O: Vital Signs Temp 97.3 F 11/19/17 11:57 Pulse 65 11/19/17 11:57 Resp 20 11/19/17 11:57 BP 138/70 11/19/17 11:57 Pulse Ox 100 11/19/17 11:57 Intake & Output 11/18/17 11/19/17 11/19/17 18:59 06:59 18:59 Intake Total 1400 250 Output Total 5 Balance 1395 250 Weight (lbs) 89.981 kg 91.626 kg Intake: Intake, IV Amount 300 250 Vancomycin HCl 1.25 gm In 250 250 Sodium Chloride 0.9% 250 ml @ 165 mls/hr IV Q12H [facility] Rx#:[id number] cefTRIAXone 1 gm In 50 Dextrose 5% 50 ml @ 100 mls/hr IV Q24HR [facility] Rx#: [id number] Oral 1100 Output: Drainage 5 left breast daniele drain 5 Other: # Voids 3 # Bowel Movements 0 Stool Characteristics Soft Weight Source Bedscale Bedscale Active Medications: Current Medications Acetaminophen (Tylenol) 650 mg PO Q4HR PRN PRN Reason: Pain (Mild) Stop: 01/05/18 17:20 Amlodipine Besylate (Norvasc) 10 mg PO DAILY [facility] Stop: 01/10/18 08:59 Last Admin: 11/19/17 09:55 Dose: 10 mg Ascorbic Acid (Vitamin C) 500 mg PO DAILY [facility] Stop: 01/06/18 08:59 Last Admin: 11/19/17 09:54 Dose: 500 mg Bisacodyl (Dulcolax 10 Mg Supp) 10 mg RC DAILY PRN PRN Reason: Constipation Stop: 01/11/18 17:24 Last Admin: 11/12/17 20:34 Dose: 10 mg Docusate Sodium (Colace) 100 mg PO DAILY [facility] Stop: 01/06/18 08:59 Last Admin: 11/19/17 09:54 Dose: 100 mg Donepezil HCl (Aricept) 10 mg PO DAILY [facility] Stop: 01/06/18 08:59 Last Admin: 11/19/17 09:54 Dose: 10 mg Ferrous Sulfate (Iron) 325 mg PO DAILY [facility] Stop: 01/06/18 08:59 Last Admin: 11/19/17 09:54 Dose: 325 mg Hydralazine HCl (Apresoline 20 Mg/Ml) 10 mg IV Q6H PRN PRN Reason: BP MAINTENANCE (PER PROTOCOL) Stop: 01/06/18 06:39 Last Admin: 11/16/17 04:05 Dose: 10 mg Ceftriaxone Sodium 1 gm/ (Dextrose) 50 mls @ 100 mls/hr IV Q24HR [facility] Stop: 01/06/18 09:59 Last Admin: 11/19/17 12:55 Dose: 100 mls/hr Vancomycin HCl 1.25 gm/ Sodium (Chloride) 250 mls @ 165 mls/hr IV Q12H [facility] Stop: 01/12/18 20:59 Last Admin: 11/19/17 09:58 Dose: 125 mls/hr Lactobacillus Rhamnosus (Culturelle 15b) 1 each PO DAILY [facility] Stop: 01/07/18 10:59 Last Admin: 11/19/17 09:54 Dose: 1 each Memantine (Namenda) 10 mg PO BID [facility] Stop: 01/05/18 17:29 Last Admin: 11/19/17 09:54 Dose: 10 mg Miscellaneous (Probiotic Screen) 1 ea [facility] PRN PRN PRN Reason: PROTOCOL Stop: 01/07/18 10:25 Miscellaneous (Vancomycin Iv Per Pharmacy) 1 [facility] PRN PRN PRN Reason: PROTOCOL Stop: 01/09/18 18:55 Multivitamins/Vitamin C (Theragran) 1 tab PO DAILY [facility] Stop: 01/06/18 08:59 Last Admin: 11/19/17 09:54 Dose: 1 tab Ondansetron HCl (Zofran Odt) 4 mg PO Q6HR PRN PRN Reason: Nausea/VOMITING Stop: 01/05/18 17:20 Pantoprazole Sodium (Protonix) 40 mg PO QDAC [facility] Stop: 01/06/18 07:29 Last Admin: 11/19/17 09:52 Dose: 40 mg Quetiapine Fumarate (Seroquel) 12.5 mg PO BID [facility]; Protocol Stop: 01/05/18 17:29 Last Admin: 11/19/17 09:55 Dose: 12.5 mg Senna (Senna) 8.6 mg PO DAILY [facility] Stop: 01/11/18 19:31 Last Admin: 11/19/17 09:55 Dose: 8.6 mg Warfarin Sodium (Coumadin Per Pharmacy) 1 [facility] PRN PRN; Protocol PRN Reason: RX MONITORING Stop: 01/14/18 07:59 Wound Care/Dressing Products (Silvasorb) 1 appl TP DAILY [facility] Stop: 01/06/18 08:59 Last Admin: 11/19/17 12:55 Dose: 1 appl - Procedures Procedures: Procedures Procedure Code Date EXTIRPATION OF MATTER FROM LEFT BREAST, OPEN APPROACH [id number] 11/06/17 Nutritional Asmnt/Malnutr-PDOC - Dietary Evaluation Malnutrition Findings (Please click <Entered> for more info): Nutritional Asmnt/Malnutrition Start: 11/10/17 15: 10 Text: Status: Complete Freq: Protocol: Document 11/10/17 15:10 PA (Rec: 11/10/17 15:26 PA [email or web address]) Nutritional Asmnt/Malnutrition Patient General Information Nutritional Screening Moderate Risk Diagnosis mastectomy to left side Pertinent Medical Hx/Surgical Hx dementia, HTN, DVT Subjective Information Pt had mastectomy to left side on 11/07. Pt seen lying in bed awake and alert at time of visit. Pt reported she is doing ok, will eat lunch when she is ready. Per EMR, PO intake 100% of meals. Current Diet Order/ Nutrition Support [facility] soft chopped Pertinent Medications vit C, colace, iron, culturelle, theragran, protonix, D5-0.45ns w 20 meq kcl Pertinent Labs 11/08 K 3.7 (improved), cl 108, glucose 127 Nutritional Hx/Data Height 1.68 m Height (Calculated Centimeters) 167.6 Current Weight (lbs) 89.811 kg Weight (Calculated Kilograms) 89.8 Weight (Calculated Grams) 24954.3 [place] Body Weight 130 Body Mass Index (BMI) 31.9 Weight Status Obese GI Symptoms GI Symptoms None Last BM 11/09 per nurse note Difficult in: None Skin Integrity/Comment: left breast wound s/p left exicision breast mass Current %PO Good (75-100%) Estimated Nutritional Goals BEE in Kcals: Adj wt of IBW Calories/Kcals/Kg 25-30 Kcals Calculated 2195-2001 Protein: Adj wt of IBW Protein g/k.2 Protein Calculated 80 Fluid: ml 1675-2010ml (1ml/kcal) Nutritional Problem 1. Problem Problem increased nutrition needs Etiology increased metabolic demand Signs/Symptoms: s/p surgery Malnutrition Alert Is there a minimum of two criteria No selected? Query Text:Check all the applicable criteria. A minimum of two criteria are recommended for diagnosis of either severe or non-severe malnutrition. Malnutrition Related to Morbid Obesity Malnutrition related to morbid obesity No Intervention/Recommendation Comments 1. Continue with [facility] soft chopped diet as ordered. 2. Monitor PO intake, wt, labs and skin integrity 3. F/U as moderate risk in 3-5 days, 11/13-11/15 Expected Outcomes/Goals Expected Outcomes/Goals 1. PO intake to meet at least 75% of nutritional needs. 2. Wt stability, skin to remain intact, labs to approach WNL.
--- NOTE | 2017-11-19 16:06 | General Progress Note ---
Subjective - Review of Systems Service Date: 11/19/17 Subjective: awake and responsive no distress Objective - Results Result Diagrams: 11/15/17 07:50 11/15/17 07:50 Recent Labs: Laboratory Last Values WBC 7.6 Th/cmm (4.8-10.8) 11/15/17 07:50 RBC 3.38 Mil/cmm (3.80-5.20) L 11/15/17 07:50 Hgb 9.4 gm/dL (12-16) L 11/15/17 07:50 Hct 28.3 % (41.0-60) L 11/15/17 07:50 MCV 83.7 fl (81-100) 11/15/17 07:50 MCH 27.8 pg (27.0-31.0) 11/15/17 07:50 MCHC Differential 33.2 pg (28.0-36.0) 11/15/17 07:50 RDW 17.0 % (11.5-20.0) 11/15/17 07:50 Plt Count 477 Th/cmm (150-400) H 11/15/17 07:50 MPV 7.0 fl 11/15/17 07:50 Neutrophils % 68.7 % (40.0-80.0) 11/15/17 07:50 Lymphocytes % 18.1 % (20.0-50.0) L 11/15/17 07:50 Monocytes % 5.0 % (2.0-10.0) 11/15/17 07:50 Eosinophils % 7.8 % (0.0-5.0) H 11/15/17 07:50 Basophils % 0.4 % (0.0-2.0) 11/15/17 07:50 PT 23.1 SECONDS (9.5-11.5) H 11/19/17 09:25 INR 2.13 (0.5-1.4) H 11/19/17 09:25 PTT (Actin FS) 34.5 SECONDS (26.0-38.0) 11/07/17 04:30 Sodium 139 mEq/L (136-145) 11/15/17 07:50 Potassium 3.5 mEq/L (3.5-5.1) 11/15/17 07:50 Chloride 107 mEq/L (98-107) 11/15/17 07:50 Carbon Dioxide 27.6 mEq/L (21.0-31.0) 11/15/17 07:50 Anion Gap 7.9 (7.0-16.0) 11/15/17 07:50 BUN 10 mg/dL (7-25) 11/15/17 07:50 Creatinine 0.4 mg/dL (0.6-1.2) L 11/15/17 07:50 Est GFR ( Amer) TNP 11/15/17 07:50 Est GFR (Non-Af Amer) TNP 11/15/17 07:50 BUN/Creatinine Ratio 25.0 11/15/17 07:50 Glucose 94 mg/dL (70-105) 11/15/17 07:50 POC Glucose 130 MG/DL (70 - 105) H 11/06/17 15:32 Calcium 9.2 mg/dL (8.6-10.3) 11/15/17 07:50 Total Bilirubin 0.7 mg/dL (0.3-1.0) 11/15/17 07:50 AST 7 U/L (13-39) L 11/15/17 07:50 ALT 5 U/L (7-52) L 11/15/17 07:50 Alkaline Phosphatase 46 U/L (34-104) 11/15/17 07:50 Total Protein 6.9 gm/dL (6.0-8.3) 11/15/17 07:50 Albumin 2.9 gm/dL (3.7-5.3) L 11/15/17 07:50 Globulin 4.0 gm/dL 11/15/17 07:50 Albumin/Globulin Ratio 0.7 (1.0-1.8) L 11/15/17 07:50 Urine Source CATH 11/12/17 03:46 Urine Color YELLOW 11/12/17 03:46 Urine Clarity CLEAR (CLEAR) 11/12/17 03:46 Urine pH 7.0 (4.6 - 8.0) 11/12/17 03:46 Ur Specific [place] 1.015 (1.005-1.030) 11/12/17 03:46 Urine Protein NEGATIVE mg/dL (NEGATIVE) 11/12/17 03:46 Urine Glucose (UA) NEGATIVE mg/dL (NEGATIVE) 11/12/17 03:46 Urine Ketones NEGATIVE mg/dL (NEGATIVE) 11/12/17 03:46 Urine Blood NEGATIVE (NEGATIVE) 11/12/17 03:46 Urine Nitrate NEGATIVE (NEGATIVE) 11/12/17 03:46 Urine Bilirubin NEGATIVE (NEGATIVE) 11/12/17 03:46 Urine Urobilinogen 0.2 E.U./dL (0.2 - 1.0) 11/12/17 03:46 Ur Leukocyte Esterase NEGATIVE (NEGATIVE) 11/12/17 03:46 Urine RBC 0-2 /hpf (0-5) 11/12/17 03:46 Urine WBC 0-2 /hpf (0-5) 11/12/17 03:46 Ur Epithelial Cells MODERATE /lpf (FEW) 11/12/17 03:46 Urine Bacteria OCCASIONAL /hpf (NONE SEEN) 11/12/17 03:46 Vancomycin Trough 18.4 ug/mL (5-10) H 11/18/17 08:13 - Physical Exam Vitals and I&O: Vital Signs Temp 97.8 F 11/19/17 16:01 Pulse 58 11/19/17 16:01 Resp 20 11/19/17 16:01 BP 154/79 11/19/17 16:01 Pulse Ox 99 11/19/17 16:01 Intake & Output 11/18/17 11/19/17 11/19/17 18:59 06:59 18:59 Intake Total 1400 250 Output Total 5 Balance 1395 250 Weight (lbs) 89.981 kg 91.626 kg Intake: Intake, IV Amount 300 250 Vancomycin HCl 1.25 gm In 250 250 Sodium Chloride 0.9% 250 ml @ 165 mls/hr IV Q12H [facility] Rx#:[id number] cefTRIAXone 1 gm In 50 Dextrose 5% 50 ml @ 100 mls/hr IV Q24HR [facility] Rx#: [id number] Oral 1100 Output: Drainage 5 left breast daniele drain 5 Other: # Voids 3 # Bowel Movements 0 Stool Characteristics Soft Weight Source Bedscale Bedscale Active Medications: Current Medications Acetaminophen (Tylenol) 650 mg PO Q4HR PRN PRN Reason: Pain (Mild) Stop: 01/05/18 17:20 Amlodipine Besylate (Norvasc) 10 mg PO DAILY MAT Stop: 01/10/18 08:59 Last Admin: 11/19/17 09:55 Dose: 10 mg Ascorbic Acid (Vitamin C) 500 mg PO DAILY MAT Stop: 01/06/18 08:59 Last Admin: 11/19/17 09:54 Dose: 500 mg Bisacodyl (Dulcolax 10 Mg Supp) 10 mg RC DAILY PRN PRN Reason: Constipation Stop: 01/11/18 17:24 Last Admin: 11/12/17 20:34 Dose: 10 mg Docusate Sodium (Colace) 100 mg PO DAILY MAT Stop: 01/06/18 08:59 Last Admin: 11/19/17 09:54 Dose: 100 mg Donepezil HCl (Aricept) 10 mg PO DAILY MAT Stop: 01/06/18 08:59 Last Admin: 11/19/17 09:54 Dose: 10 mg Ferrous Sulfate (Iron) 325 mg PO DAILY MAT Stop: 01/06/18 08:59 Last Admin: 11/19/17 09:54 Dose: 325 mg Hydralazine HCl (Apresoline 20 Mg/Ml) 10 mg IV Q6H PRN PRN Reason: BP MAINTENANCE (PER PROTOCOL) Stop: 01/06/18 06:39 Last Admin: 11/16/17 04:05 Dose: 10 mg Ceftriaxone Sodium 1 gm/ (Dextrose) 50 mls @ 100 mls/hr IV Q24HR MAT Stop: 01/06/18 09:59 Last Admin: 11/19/17 12:55 Dose: 100 mls/hr Vancomycin HCl 1.25 gm/ Sodium (Chloride) 250 mls @ 165 mls/hr IV Q12H MAT Stop: 01/12/18 20:59 Last Admin: 11/19/17 09:58 Dose: 125 mls/hr Lactobacillus Rhamnosus (Culturelle 15b) 1 each PO DAILY MAT Stop: 01/07/18 10:59 Last Admin: 11/19/17 09:54 Dose: 1 each Memantine (Namenda) 10 mg PO BID MAT Stop: 01/05/18 17:29 Last Admin: 11/19/17 09:54 Dose: 10 mg Miscellaneous (Probiotic Screen) 1 ea MC PRN PRN PRN Reason: PROTOCOL Stop: 01/07/18 10:25 Miscellaneous (Vancomycin Iv Per Pharmacy) 1 ea MC PRN PRN PRN Reason: PROTOCOL Stop: 01/09/18 18:55 Multivitamins/Vitamin C (Theragran) 1 tab PO DAILY [facility] Stop: 01/06/18 08:59 Last Admin: 11/19/17 09:54 Dose: 1 tab Ondansetron HCl (Zofran Odt) 4 mg PO Q6HR PRN PRN Reason: Nausea/VOMITING Stop: 01/05/18 17:20 Pantoprazole Sodium (Protonix) 40 mg PO QDAC MAT Stop: 01/06/18 07:29 Last Admin: 11/19/17 09:52 Dose: 40 mg Quetiapine Fumarate (Seroquel) 12.5 mg PO BID [facility]; Protocol Stop: 01/05/18 17:29 Last Admin: 11/19/17 09:55 Dose: 12.5 mg Senna (Senna) 8.6 mg PO DAILY [facility] Stop: 01/11/18 19:31 Last Admin: 11/19/17 09:55 Dose: 8.6 mg Warfarin Sodium (Coumadin Per Pharmacy) 1 ea MC PRN PRN; Protocol PRN Reason: RX MONITORING Stop: 01/14/18 07:59 Wound Care/Dressing Products (Silvasorb) 1 appl TP DAILY [facility] Stop: 01/06/18 08:59 Last Admin: 11/19/17 12:55 Dose: 1 appl General: No acute distress HEENT: Atraumatic, PERRLA Neck: Supple, JVD Cardiovascular: Regular rate, Normal S1, Normal S2 Lungs: Clear to auscultation Abdomen: Bowel sounds, Soft - Procedures Procedures: Procedures Procedure Code Date EXTIRPATION OF MATTER FROM LEFT BREAST, OPEN APPROACH [id number] 11/06/17 Assessment/Plan - Assessment Assessment: 1.LEFT BREAST ABSCESS. 2.ANEMIA. 3.HTN. 4.DEMENTIA. 5.SP SURGICAL DEBRIDMENT 6.CONSTIPATION. - Plan Plan: cont current treatment Nutritional Asmnt/Malnutr-PDOC - Dietary Evaluation Malnutrition Findings (Please click <Entered> for more info): Nutritional Asmnt/Malnutrition Start: 11/10/17 15: 10 Text: Status: Complete Freq: Protocol: Document 11/10/17 15:10 PA (Rec: 11/10/17 15:26 PA [email or web address]) Nutritional Asmnt/Malnutrition Patient General Information Nutritional Screening Moderate Risk Diagnosis mastectomy to left side Pertinent Medical Hx/Surgical Hx dementia, HTN, DVT Subjective Information Pt had mastectomy to left side on 11/07. Pt seen lying in bed awake and alert at time of visit. Pt reported she is doing ok, will eat lunch when she is ready. Per EMR, PO intake 100% of meals. Current Diet Order/ Nutrition Support [facility] soft chopped Pertinent Medications vit C, colace, iron, culturelle, theragran, protonix, D5-0.45ns w 20 meq kcl Pertinent Labs 11/08 K 3.7 (improved), cl 108, glucose 127 Nutritional Hx/Data Height 1.68 m Height (Calculated Centimeters) 167.6 Current Weight (lbs) 89.811 kg Weight (Calculated Kilograms) 89.8 Weight (Calculated Grams) 57816.3 [place] Body Weight 130 Body Mass Index (BMI) 31.9 Weight Status Obese GI Symptoms GI Symptoms None Last BM 11/09 per nurse note Difficult in: None Skin Integrity/Comment: left breast wound s/p left exicision breast mass Current %PO Good (75-100%) Estimated Nutritional Goals BEE in Kcals: Adj wt of IBW Calories/Kcals/Kg 25-30 Kcals Calculated 6373-7595 Protein: Adj wt of IBW Protein g/k.2 Protein Calculated 80 Fluid: ml 1675-2010ml (1ml/kcal) Nutritional Problem 1. Problem Problem increased nutrition needs Etiology increased metabolic demand Signs/Symptoms: s/p surgery Malnutrition Alert Is there a minimum of two criteria No selected? Query Text:Check all the applicable criteria. A minimum of two criteria are recommended for diagnosis of either severe or non-severe malnutrition. Malnutrition Related to Morbid Obesity Malnutrition related to morbid obesity No Intervention/Recommendation Comments 1. Continue with [facility] soft chopped diet as ordered. 2. Monitor PO intake, wt, labs and skin integrity 3. F/U as moderate risk in 3-5 days, 11/13-11/15 Expected Outcomes/Goals Expected Outcomes/Goals 1. PO intake to meet at least 75% of nutritional needs. 2. Wt stability, skin to remain intact, labs to approach WNL.
[2017-11-20 05:18] LABS: INR 2.13 (0.5-1.4); PROTHROMBIN TIME (TEST) 23.1 SECONDS (9.5-11.5)
[2017-11-20] MEDS: Pantoprazole 40 mg EC Tab PO SCH (07:43)
[2017-11-20] MEDS: Lactobacillus Rhamnosus GG 15 Billion CFU CAP.SPRINK PO SCH (09:52)
[2017-11-20] MEDS: Ferrous Sulfate 325 MG TAB PO SCH (09:57)
[2017-11-20] MEDS: Multivitamin Tab PO SCH (09:57)
[2017-11-20] MEDS: Silver Antimicrobial Wound Gel 0.25 oz Tube TP SCH (11:22)
--- NOTE | 2017-11-20 21:59 | Internal Medicine Prog Note ---
Internal Medicine Subjective - Subjective Service Date: 11/20/17 Patient seen and examined:: with staff Patient is:: awake, verbal, confused Per staff patient has:: no adverse event Internal Medicine Objective - Results Result Diagrams: 11/15/17 07:50 11/15/17 07:50 Recent Labs: Laboratory Last Values WBC 7.6 Th/cmm (4.8-10.8) 11/15/17 07:50 RBC 3.38 Mil/cmm (3.80-5.20) L 11/15/17 07:50 Hgb 9.4 gm/dL (12-16) L 11/15/17 07:50 Hct 28.3 % (41.0-60) L 11/15/17 07:50 MCV 83.7 fl (81-100) 11/15/17 07:50 MCH 27.8 pg (27.0-31.0) 11/15/17 07:50 MCHC Differential 33.2 pg (28.0-36.0) 11/15/17 07:50 RDW 17.0 % (11.5-20.0) 11/15/17 07:50 Plt Count 477 Th/cmm (150-400) H 11/15/17 07:50 MPV 7.0 fl 11/15/17 07:50 Neutrophils % 68.7 % (40.0-80.0) 11/15/17 07:50 Lymphocytes % 18.1 % (20.0-50.0) L 11/15/17 07:50 Monocytes % 5.0 % (2.0-10.0) 11/15/17 07:50 Eosinophils % 7.8 % (0.0-5.0) H 11/15/17 07:50 Basophils % 0.4 % (0.0-2.0) 11/15/17 07:50 PT 23.1 SECONDS (9.5-11.5) H 11/20/17 04:40 INR 2.13 (0.5-1.4) H 11/20/17 04:40 PTT (Actin FS) 34.5 SECONDS (26.0-38.0) 11/07/17 04:30 Sodium 139 mEq/L (136-145) 11/15/17 07:50 Potassium 3.5 mEq/L (3.5-5.1) 11/15/17 07:50 Chloride 107 mEq/L (98-107) 11/15/17 07:50 Carbon Dioxide 27.6 mEq/L (21.0-31.0) 11/15/17 07:50 Anion Gap 7.9 (7.0-16.0) 11/15/17 07:50 BUN 10 mg/dL (7-25) 11/15/17 07:50 Creatinine 0.4 mg/dL (0.6-1.2) L 11/15/17 07:50 Est GFR ( Amer) TNP 11/15/17 07:50 Est GFR (Non-Af Amer) TNP 11/15/17 07:50 BUN/Creatinine Ratio 25.0 11/15/17 07:50 Glucose 94 mg/dL (70-105) 11/15/17 07:50 POC Glucose 130 MG/DL (70 - 105) H 11/06/17 15:32 Calcium 9.2 mg/dL (8.6-10.3) 11/15/17 07:50 Total Bilirubin 0.7 mg/dL (0.3-1.0) 11/15/17 07:50 AST 7 U/L (13-39) L 11/15/17 07:50 ALT 5 U/L (7-52) L 11/15/17 07:50 Alkaline Phosphatase 46 U/L (34-104) 11/15/17 07:50 Total Protein 6.9 gm/dL (6.0-8.3) 11/15/17 07:50 Albumin 2.9 gm/dL (3.7-5.3) L 11/15/17 07:50 Globulin 4.0 gm/dL 11/15/17 07:50 Albumin/Globulin Ratio 0.7 (1.0-1.8) L 11/15/17 07:50 Urine Source CATH 11/12/17 03:46 Urine Color YELLOW 11/12/17 03:46 Urine Clarity CLEAR (CLEAR) 11/12/17 03:46 Urine pH 7.0 (4.6 - 8.0) 11/12/17 03:46 Ur Specific [place] 1.015 (1.005-1.030) 11/12/17 03:46 Urine Protein NEGATIVE mg/dL (NEGATIVE) 11/12/17 03:46 Urine Glucose (UA) NEGATIVE mg/dL (NEGATIVE) 11/12/17 03:46 Urine Ketones NEGATIVE mg/dL (NEGATIVE) 11/12/17 03:46 Urine Blood NEGATIVE (NEGATIVE) 11/12/17 03:46 Urine Nitrate NEGATIVE (NEGATIVE) 11/12/17 03:46 Urine Bilirubin NEGATIVE (NEGATIVE) 11/12/17 03:46 Urine Urobilinogen 0.2 E.U./dL (0.2 - 1.0) 11/12/17 03:46 Ur Leukocyte Esterase NEGATIVE (NEGATIVE) 11/12/17 03:46 Urine RBC 0-2 /hpf (0-5) 11/12/17 03:46 Urine WBC 0-2 /hpf (0-5) 11/12/17 03:46 Ur Epithelial Cells MODERATE /lpf (FEW) 11/12/17 03:46 Urine Bacteria OCCASIONAL /hpf (NONE SEEN) 11/12/17 03:46 Vancomycin Trough 18.4 ug/mL (5-10) H 11/18/17 08:13 - Physical Exam Vitals and I&O: Vital Signs Temp 98.1 F 11/20/17 15:47 Pulse 71 11/20/17 15:47 Resp 18 11/20/17 15:47 BP 136/72 11/20/17 15:47 Pulse Ox 99 11/20/17 15:47 Intake & Output 11/20/17 11/20/17 11/21/17 06:59 18:59 06:59 Intake Total 250 350 Balance 250 350 Weight (lbs) 90.582 kg 90.582 kg Intake: Intake, IV Amount 250 250 Vancomycin HCl 1.25 gm In 250 250 Sodium Chloride 0.9% 250 ml @ 165 mls/hr IV Q12H [facility] Rx#:[id number] Oral 100 Other: Weight Source Bedscale Bedscale Active Medications: Current Medications Acetaminophen (Tylenol) 650 mg PO Q4HR PRN PRN Reason: Pain (Mild) Stop: 01/05/18 17:20 Amlodipine Besylate (Norvasc) 10 mg PO DAILY [facility] Stop: 01/10/18 08:59 Last Admin: 11/20/17 11:12 Dose: 10 mg Ascorbic Acid (Vitamin C) 500 mg PO DAILY [facility] Stop: 01/06/18 08:59 Last Admin: 11/20/17 09:58 Dose: 500 mg Bisacodyl (Dulcolax 10 Mg Supp) 10 mg RC DAILY PRN PRN Reason: Constipation Stop: 01/11/18 17:24 Last Admin: 11/12/17 20:34 Dose: 10 mg Docusate Sodium (Colace) 100 mg PO DAILY MAT Stop: 01/06/18 08:59 Last Admin: 11/20/17 09:52 Dose: 100 mg Donepezil HCl (Aricept) 10 mg PO DAILY MAT Stop: 01/06/18 08:59 Last Admin: 11/20/17 09:57 Dose: 10 mg Ferrous Sulfate (Iron) 325 mg PO DAILY MAT Stop: 01/06/18 08:59 Last Admin: 11/20/17 09:57 Dose: 325 mg Hydralazine HCl (Apresoline 20 Mg/Ml) 10 mg IV Q6H PRN PRN Reason: BP MAINTENANCE (PER PROTOCOL) Stop: 01/06/18 06:39 Last Admin: 11/16/17 04:05 Dose: 10 mg Ceftriaxone Sodium 1 gm/ (Dextrose) 50 mls @ 100 mls/hr IV Q24HR MAT Stop: 01/06/18 09:59 Last Admin: 11/20/17 12:34 Dose: 100 mls/hr Vancomycin HCl 1.25 gm/ Sodium (Chloride) 250 mls @ 165 mls/hr IV Q12H MAT Stop: 01/12/18 20:59 Last Admin: 11/20/17 21:23 Dose: 125 mls/hr Lactobacillus Rhamnosus (Culturelle 15b) 1 each PO DAILY MAT Stop: 01/07/18 10:59 Last Admin: 11/20/17 09:52 Dose: 1 each Memantine (Namenda) 10 mg PO BID MAT Stop: 01/05/18 17:29 Last Admin: 11/20/17 17:45 Dose: 10 mg Miscellaneous (Probiotic Screen) 1 ea MC PRN PRN PRN Reason: PROTOCOL Stop: 01/07/18 10:25 Miscellaneous (Vancomycin Iv Per Pharmacy) 1 ea MC PRN PRN PRN Reason: PROTOCOL Stop: 01/09/18 18:55 Multivitamins/Vitamin C (Theragran) 1 tab PO DAILY MAT Stop: 01/06/18 08:59 Last Admin: 11/20/17 09:57 Dose: 1 tab Ondansetron HCl (Zofran Odt) 4 mg PO Q6HR PRN PRN Reason: Nausea/VOMITING Stop: 01/05/18 17:20 Pantoprazole Sodium (Protonix) 40 mg PO QDAC MAT Stop: 01/06/18 07:29 Last Admin: 11/20/17 07:43 Dose: 40 mg Quetiapine Fumarate (Seroquel) 12.5 mg PO BID MAT; Protocol Stop: 01/05/18 17:29 Last Admin: 11/20/17 17:45 Dose: 12.5 mg Senna (Senna) 8.6 mg PO DAILY [facility] Stop: 01/11/18 19:31 Last Admin: 11/20/17 09:57 Dose: 8.6 mg Warfarin Sodium (Coumadin Per Pharmacy) 1 ea MC PRN PRN; Protocol PRN Reason: RX MONITORING Stop: 01/14/18 07:59 Wound Care/Dressing Products (Silvasorb) 1 appl TP DAILY [facility] Stop: 01/06/18 08:59 Last Admin: 11/20/17 11:22 Dose: 1 appl General: demented HEENT: NC/AT, PERRLA, EOMI, anicteric sclerae, throat clear Neck: Supple, No JVD, No thyromegaly, +2 carotid pulse wo bruit, No LAD, + JVD Lungs: CTAB Cardiovascular: RRR, Normal S1, Normal S2, without murmur Abdomen: soft, non-tender, non-distended Extremities: clear Neurological: no change (THE LEFT BREAS IS FIRM.) - Procedures Procedures: Procedures Procedure Code Date EXTIRPATION OF MATTER FROM LEFT BREAST, OPEN APPROACH [id number] 11/06/17 Internal Medicine Assmt/Plan - Assessment Assessment: 1.LEFT BREAST ABSCESS. 2.ANEMIA. 3.HTN. 4.DEMENTIA. 5.SP SURGICAL DEBRIDMENT 6.CONSTIPATION. - Plan Plan: CONTINUE ON CURRENT MEDICATION AND DIET. Nutritional Asmnt/Malnutr-PDOC - Dietary Evaluation Malnutrition Findings (Please click <Entered> for more info): Nutritional Asmnt/Malnutrition Start: 11/10/17 15: 10 Text: Status: Complete Freq: Protocol: Document 11/10/17 15:10 PA (Rec: 11/10/17 15:26 LCHENG [email or web address]) Nutritional Asmnt/Malnutrition Patient General Information Nutritional Screening Moderate Risk Diagnosis mastectomy to left side Pertinent Medical Hx/Surgical Hx dementia, HTN, DVT Subjective Information Pt had mastectomy to left side on 11/07. Pt seen lying in bed awake and alert at time of visit. Pt reported she is doing ok, will eat lunch when she is ready. Per EMR, PO intake 100% of meals. Current Diet Order/ Nutrition Support [facility] soft chopped Pertinent Medications vit C, colace, iron, culturelle, theragran, protonix, D5-0.45ns w 20 meq kcl Pertinent Labs 11/08 K 3.7 (improved), cl 108, glucose 127 Nutritional Hx/Data Height 1.68 m Height (Calculated Centimeters) 167.6 Current Weight (lbs) 89.811 kg Weight (Calculated Kilograms) 89.8 Weight (Calculated Grams) 73996.3 [place] Body Weight 130 Body Mass Index (BMI) 31.9 Weight Status Obese GI Symptoms GI Symptoms None Last BM 11/09 per nurse note Difficult in: None Skin Integrity/Comment: left breast wound s/p left exicision breast mass Current %PO Good (75-100%) Estimated Nutritional Goals BEE in Kcals: Adj wt of IBW Calories/Kcals/Kg 25-30 Kcals Calculated 9945-0243 Protein: Adj wt of IBW Protein g/k.2 Protein Calculated 80 Fluid: ml 1675-2010ml (1ml/kcal) Nutritional Problem 1. Problem Problem increased nutrition needs Etiology increased metabolic demand Signs/Symptoms: s/p surgery Malnutrition Alert Is there a minimum of two criteria No selected? Query Text:Check all the applicable criteria. A minimum of two criteria are recommended for diagnosis of either severe or non-severe malnutrition. Malnutrition Related to Morbid Obesity Malnutrition related to morbid obesity No Intervention/Recommendation Comments 1. Continue with [facility] soft chopped diet as ordered. 2. Monitor PO intake, wt, labs and skin integrity 3. F/U as moderate risk in 3-5 days, 11/13-11/15 Expected Outcomes/Goals Expected Outcomes/Goals 1. PO intake to meet at least 75% of nutritional needs. 2. Wt stability, skin to remain intact, labs to approach WNL.
[2017-11-21 05:32] LABS: INR 2.4 (0.5-1.4); PROTHROMBIN TIME (TEST) 26.1 SECONDS (9.5-11.5)
[2017-11-21] MEDS: Pantoprazole 40 mg EC Tab PO SCH (08:09)
[2017-11-21 08:53] LABS: % BASOPHILS 0.6 % (0.0-2.0); % EOSINOPHILS 6.4 % (0.0-5.0); % LYMPHOCYTES 19.4 % (20.0-50.0); % MONOCYTES 3.5 % (2.0-10.0); % NEUTROPHILS 70.1 % (40.0-80.0); EOSINOPHILE ABSOLUTE 0.4 Th/cmm (0.1-0.4); HEMOGLOBIN 11.1 gm/dL (12-16); LYMPHOCYTE ABSOLUTE 1.2 Th/cmm (1.5-3.0); MEAN CORPUSCULAR HEMOGLOBIN 26.8 pg (27.0-31.0); MEAN CORPUSCULAR HGB CONC 31.9 pg (28.0-36.0); MEAN PLATELET VOLUME 6.5 fl; MONOCYTE ABSOLUTE 0.2 Th/cmm (0.3-1.0); NEUTROPHILE ABSOLUTE 4.3 Th/cmm (1.8-8.0); PLATELET COUNT 561 Th/cmm (150-400); RED BLOOD COUNT 4.16 Mil/cmm (3.80-5.20); WHITE BLOOD COUNT 6.1 Th/cmm (4.8-10.8)
[2017-11-21] MEDS: Multivitamin Tab PO SCH (08:59)
[2017-11-21] MEDS: Lactobacillus Rhamnosus GG 15 Billion CFU CAP.SPRINK PO SCH (08:59)
[2017-11-21] MEDS: Ferrous Sulfate 325 MG TAB PO SCH (08:59)
[2017-11-21] MEDS: Silver Antimicrobial Wound Gel 0.25 oz Tube TP SCH (09:52)
--- NOTE | 2017-11-21 13:39 | Internal Medicine Prog Note ---
Internal Medicine Subjective - Subjective Service Date: 11/21/17 Patient seen and examined:: with staff (HER DRAIN IS OUT) Patient is:: awake, verbal, confused Per staff patient has:: no adverse event Internal Medicine Objective - Results Result Diagrams: 11/21/17 08:38 11/21/17 08:38 Recent Labs: Laboratory Last Values WBC 6.1 Th/cmm (4.8-10.8) 11/21/17 08:38 RBC 4.16 Mil/cmm (3.80-5.20) 11/21/17 08:38 Hgb 11.1 gm/dL (12-16) L 11/21/17 08:38 Hct 35.0 % (41.0-60) L 11/21/17 08:38 MCV 84.0 fl (81-100) 11/21/17 08:38 MCH 26.8 pg (27.0-31.0) L 11/21/17 08:38 MCHC Differential 31.9 pg (28.0-36.0) 11/21/17 08:38 RDW 18.0 % (11.5-20.0) 11/21/17 08:38 Plt Count 561 Th/cmm (150-400) H 11/21/17 08:38 MPV 6.5 fl 11/21/17 08:38 Neutrophils % 70.1 % (40.0-80.0) 11/21/17 08:38 Lymphocytes % 19.4 % (20.0-50.0) L 11/21/17 08:38 Monocytes % 3.5 % (2.0-10.0) 11/21/17 08:38 Eosinophils % 6.4 % (0.0-5.0) H 11/21/17 08:38 Basophils % 0.6 % (0.0-2.0) 11/21/17 08:38 PT 26.1 SECONDS (9.5-11.5) H 11/21/17 04:40 INR 2.40 (0.5-1.4) H 11/21/17 04:40 PTT (Actin FS) 34.5 SECONDS (26.0-38.0) 11/07/17 04:30 Sodium 139 mEq/L (136-145) 11/15/17 07:50 Potassium 3.5 mEq/L (3.5-5.1) 11/15/17 07:50 Chloride 107 mEq/L (98-107) 11/15/17 07:50 Carbon Dioxide 27.6 mEq/L (21.0-31.0) 11/15/17 07:50 Anion Gap 7.9 (7.0-16.0) 11/15/17 07:50 BUN 12 mg/dL (7-25) 11/21/17 08:38 Creatinine 0.4 mg/dL (0.6-1.2) L 11/21/17 08:38 Est GFR ( Amer) TNP 11/15/17 07:50 Est GFR (Non-Af Amer) TNP 11/15/17 07:50 BUN/Creatinine Ratio 25.0 11/15/17 07:50 Glucose 94 mg/dL (70-105) 11/15/17 07:50 POC Glucose 130 MG/DL (70 - 105) H 11/06/17 15:32 Calcium 9.2 mg/dL (8.6-10.3) 11/15/17 07:50 Total Bilirubin 0.7 mg/dL (0.3-1.0) 11/15/17 07:50 AST 7 U/L (13-39) L 11/15/17 07:50 ALT 5 U/L (7-52) L 11/15/17 07:50 Alkaline Phosphatase 46 U/L (34-104) 11/15/17 07:50 Total Protein 6.9 gm/dL (6.0-8.3) 11/15/17 07:50 Albumin 2.9 gm/dL (3.7-5.3) L 11/15/17 07:50 Globulin 4.0 gm/dL 11/15/17 07:50 Albumin/Globulin Ratio 0.7 (1.0-1.8) L 11/15/17 07:50 Urine Source CATH 11/12/17 03:46 Urine Color YELLOW 11/12/17 03:46 Urine Clarity CLEAR (CLEAR) 11/12/17 03:46 Urine pH 7.0 (4.6 - 8.0) 11/12/17 03:46 Ur Specific [place] 1.015 (1.005-1.030) 11/12/17 03:46 Urine Protein NEGATIVE mg/dL (NEGATIVE) 11/12/17 03:46 Urine Glucose (UA) NEGATIVE mg/dL (NEGATIVE) 11/12/17 03:46 Urine Ketones NEGATIVE mg/dL (NEGATIVE) 11/12/17 03:46 Urine Blood NEGATIVE (NEGATIVE) 11/12/17 03:46 Urine Nitrate NEGATIVE (NEGATIVE) 11/12/17 03:46 Urine Bilirubin NEGATIVE (NEGATIVE) 11/12/17 03:46 Urine Urobilinogen 0.2 E.U./dL (0.2 - 1.0) 11/12/17 03:46 Ur Leukocyte Esterase NEGATIVE (NEGATIVE) 11/12/17 03:46 Urine RBC 0-2 /hpf (0-5) 11/12/17 03:46 Urine WBC 0-2 /hpf (0-5) 11/12/17 03:46 Ur Epithelial Cells MODERATE /lpf (FEW) 11/12/17 03:46 Urine Bacteria OCCASIONAL /hpf (NONE SEEN) 11/12/17 03:46 Vancomycin Trough 11.2 ug/mL (5-10) H 11/21/17 08:38 - Physical Exam Vitals and I&O: Vital Signs Temp 96.8 F 11/21/17 12:00 Pulse 61 11/21/17 12:00 Resp 18 11/21/17 12:00 BP 140/62 11/21/17 12:00 Pulse Ox 99 11/21/17 12:00 Intake & Output 11/20/17 11/21/17 11/21/17 18:59 06:59 18:59 Intake Total 400 490 Balance 400 490 Weight (lbs) 90.582 kg 87.861 kg Intake: Intake, IV Amount 300 250 Vancomycin HCl 1.25 gm In 250 250 Sodium Chloride 0.9% 250 ml @ 165 mls/hr IV Q12H [facility] Rx#:[id number] cefTRIAXone 1 gm In 50 Dextrose 5% 50 ml @ 100 mls/hr IV Q24HR [facility] Rx#: [id number] Oral 100 240 Other: # Voids 2 # Bowel Movements 1 Weight Source Bedscale Bedscale Active Medications: Current Medications Acetaminophen (Tylenol) 650 mg PO Q4HR PRN PRN Reason: Pain (Mild) Stop: 01/05/18 17:20 Amlodipine Besylate (Norvasc) 10 mg PO DAILY [facility] Stop: 01/10/18 08:59 Last Admin: 11/21/17 08:59 Dose: 10 mg Ascorbic Acid (Vitamin C) 500 mg PO DAILY [facility] Stop: 01/06/18 08:59 Last Admin: 11/21/17 09:00 Dose: 500 mg Bisacodyl (Dulcolax 10 Mg Supp) 10 mg RC DAILY PRN PRN Reason: Constipation Stop: 01/11/18 17:24 Last Admin: 11/12/17 20:34 Dose: 10 mg Docusate Sodium (Colace) 100 mg PO DAILY [facility] Stop: 01/06/18 08:59 Last Admin: 11/21/17 09:00 Dose: 100 mg Donepezil HCl (Aricept) 10 mg PO DAILY [facility] Stop: 01/06/18 08:59 Last Admin: 11/21/17 08:59 Dose: 10 mg Ferrous Sulfate (Iron) 325 mg PO DAILY [facility] Stop: 01/06/18 08:59 Last Admin: 11/21/17 08:59 Dose: 325 mg Hydralazine HCl (Apresoline 20 Mg/Ml) 10 mg IV Q6H PRN PRN Reason: BP MAINTENANCE (PER PROTOCOL) Stop: 01/06/18 06:39 Last Admin: 11/16/17 04:05 Dose: 10 mg Ceftriaxone Sodium 1 gm/ (Dextrose) 50 mls @ 100 mls/hr IV Q24HR [facility] Stop: 01/06/18 09:59 Last Admin: 11/21/17 12:41 Dose: 100 mls/hr Vancomycin HCl 1.25 gm/ Sodium (Chloride) 250 mls @ 165 mls/hr IV Q12H [facility] Stop: 11/28/17 20:59 Last Admin: 11/21/17 10:01 Dose: 125 mls/hr Lactobacillus Rhamnosus (Culturelle 15b) 1 each PO DAILY [facility] Stop: 01/07/18 10:59 Last Admin: 11/21/17 08:59 Dose: 1 each Memantine (Namenda) 10 mg PO BID [facility] Stop: 01/05/18 17:29 Last Admin: 11/21/17 09:00 Dose: 10 mg Miscellaneous (Probiotic Screen) 1 ea [facility] PRN PRN PRN Reason: PROTOCOL Stop: 01/07/18 10:25 Miscellaneous (Vancomycin Iv Per Pharmacy) 1 ea PRN PRN PRN Reason: PROTOCOL Stop: 01/09/18 18:55 Multivitamins/Vitamin C (Theragran) 1 tab PO DAILY [facility] Stop: 01/06/18 08:59 Last Admin: 11/21/17 08:59 Dose: 1 tab Ondansetron HCl (Zofran Odt) 4 mg PO Q6HR PRN PRN Reason: Nausea/VOMITING Stop: 01/05/18 17:20 Pantoprazole Sodium (Protonix) 40 mg PO QDAC [facility] Stop: 01/06/18 07:29 Last Admin: 11/21/17 08:09 Dose: 40 mg Quetiapine Fumarate (Seroquel) 12.5 mg PO BID [facility]; Protocol Stop: 01/05/18 17:29 Last Admin: 11/21/17 09:00 Dose: 12.5 mg Senna (Senna) 8.6 mg PO DAILY [facility] Stop: 01/11/18 19:31 Last Admin: 11/21/17 09:00 Dose: 8.6 mg Warfarin Sodium (Coumadin Per Pharmacy) 1 ea PRN PRN; Protocol PRN Reason: RX MONITORING Stop: 01/14/18 07:59 Wound Care/Dressing Products (Silvasorb) 1 appl TP DAILY [facility] Stop: 01/06/18 08:59 Last Admin: 11/21/17 09:52 Dose: 1 appl General: demented HEENT: NC/AT, PERRLA, EOMI, anicteric sclerae, throat clear Neck: Supple, No JVD, No thyromegaly, +2 carotid pulse wo bruit, No LAD, + JVD Lungs: CTAB Cardiovascular: RRR, Normal S1, Normal S2, without murmur Abdomen: soft, non-tender, non-distended Extremities: clear Neurological: no change (THE LEFT BREAS IS FIRM.) - Procedures Procedures: Procedures Procedure Code Date EXTIRPATION OF MATTER FROM LEFT BREAST, OPEN APPROACH [id number] 11/06/17 Internal Medicine Assmt/Plan - Assessment Assessment: 1.LEFT BREAST ABSCESS. 2.ANEMIA. 3.HTN. 4.DEMENTIA. 5.SP SURGICAL DEBRIDMENT 6.CONSTIPATION. - Plan Plan: CONTINUE ON CURRENT MEDICATION AND DIET. Nutritional Asmnt/Malnutr-PDOC - Dietary Evaluation Malnutrition Findings (Please click <Entered> for more info): Nutritional Asmnt/Malnutrition Start: 11/10/17 15: 10 Text: Status: Complete Freq: Protocol: Document 11/10/17 15:10 PA (Rec: 11/10/17 15:26 GEREMIASRICARDO [email or web address]) Nutritional Asmnt/Malnutrition Patient General Information Nutritional Screening Moderate Risk Diagnosis mastectomy to left side Pertinent Medical Hx/Surgical Hx dementia, HTN, DVT Subjective Information Pt had mastectomy to left side on 11/07. Pt seen lying in bed awake and alert at time of visit. Pt reported she is doing ok, will eat lunch when she is ready. Per EMR, PO intake 100% of meals. Current Diet Order/ Nutrition Support [facility] soft chopped Pertinent Medications vit C, colace, iron, culturelle, theragran, protonix, D5-0.45ns w 20 meq kcl Pertinent Labs 11/08 K 3.7 (improved), cl 108, glucose 127 Nutritional Hx/Data Height 1.68 m Height (Calculated Centimeters) 167.6 Current Weight (lbs) 89.811 kg Weight (Calculated Kilograms) 89.8 Weight (Calculated Grams) 31689.3 [place] Body Weight 130 Body Mass Index (BMI) 31.9 Weight Status Obese GI Symptoms GI Symptoms None Last BM 11/09 per nurse note Difficult in: None Skin Integrity/Comment: left breast wound s/p left exicision breast mass Current %PO Good (75-100%) Estimated Nutritional Goals BEE in Kcals: Adj wt of IBW Calories/Kcals/Kg 25-30 Kcals Calculated 2407-5238 Protein: Adj wt of IBW Protein g/k.2 Protein Calculated 80 Fluid: ml 1675-2010ml (1ml/kcal) Nutritional Problem 1. Problem Problem increased nutrition needs Etiology increased metabolic demand Signs/Symptoms: s/p surgery Malnutrition Alert Is there a minimum of two criteria No selected? Query Text:Check all the applicable criteria. A minimum of two criteria are recommended for diagnosis of either severe or non-severe malnutrition. Malnutrition Related to Morbid Obesity Malnutrition related to morbid obesity No Intervention/Recommendation Comments 1. Continue with [facility] soft chopped diet as ordered. 2. Monitor PO intake, wt, labs and skin integrity 3. F/U as moderate risk in 3-5 days, 11/13-11/15 Expected Outcomes/Goals Expected Outcomes/Goals 1. PO intake to meet at least 75% of nutritional needs. 2. Wt stability, skin to remain intact, labs to approach WNL.
--- NOTE | 2017-11-21 17:50 | Infectious Disease Prog Note ---
Infectious Disease Subjective - Review of Systems Service Date: 11/21/17 Subjective: cc l breast abscess s/p sx hpi- pt d/w staff to continue abx till 12/01 and stop rocephin on dischareg ros no fever o/evss chest claeer abd soft ext pilse breat st wound healing dx l breast absce mssa vanco mycin rocephin pain ok breast ca s/p mastectomy alzeimer htn hydrallazien Infectious Disease Objective - Results Result Diagrams: 11/21/17 08:38 11/21/17 08:38 Recent Labs: Laboratory Last Values WBC 6.1 Th/cmm (4.8-10.8) 11/21/17 08:38 RBC 4.16 Mil/cmm (3.80-5.20) 11/21/17 08:38 Hgb 11.1 gm/dL (12-16) L 11/21/17 08:38 Hct 35.0 % (41.0-60) L 11/21/17 08:38 MCV 84.0 fl (81-100) 11/21/17 08:38 MCH 26.8 pg (27.0-31.0) L 11/21/17 08:38 MCHC Differential 31.9 pg (28.0-36.0) 11/21/17 08:38 RDW 18.0 % (11.5-20.0) 11/21/17 08:38 Plt Count 561 Th/cmm (150-400) H 11/21/17 08:38 MPV 6.5 fl 11/21/17 08:38 Neutrophils % 70.1 % (40.0-80.0) 11/21/17 08:38 Lymphocytes % 19.4 % (20.0-50.0) L 11/21/17 08:38 Monocytes % 3.5 % (2.0-10.0) 11/21/17 08:38 Eosinophils % 6.4 % (0.0-5.0) H 11/21/17 08:38 Basophils % 0.6 % (0.0-2.0) 11/21/17 08:38 PT 26.1 SECONDS (9.5-11.5) H 11/21/17 04:40 INR 2.40 (0.5-1.4) H 11/21/17 04:40 PTT (Actin FS) 34.5 SECONDS (26.0-38.0) 11/07/17 04:30 Sodium 139 mEq/L (136-145) 11/15/17 07:50 Potassium 3.5 mEq/L (3.5-5.1) 11/15/17 07:50 Chloride 107 mEq/L (98-107) 11/15/17 07:50 Carbon Dioxide 27.6 mEq/L (21.0-31.0) 11/15/17 07:50 Anion Gap 7.9 (7.0-16.0) 11/15/17 07:50 BUN 12 mg/dL (7-25) 11/21/17 08:38 Creatinine 0.4 mg/dL (0.6-1.2) L 11/21/17 08:38 Est GFR ( Amer) TNP 11/15/17 07:50 Est GFR (Non-Af Amer) TNP 11/15/17 07:50 BUN/Creatinine Ratio 25.0 11/15/17 07:50 Glucose 94 mg/dL (70-105) 11/15/17 07:50 POC Glucose 130 MG/DL (70 - 105) H 11/06/17 15:32 Calcium 9.2 mg/dL (8.6-10.3) 11/15/17 07:50 Total Bilirubin 0.7 mg/dL (0.3-1.0) 11/15/17 07:50 AST 7 U/L (13-39) L 11/15/17 07:50 ALT 5 U/L (7-52) L 11/15/17 07:50 Alkaline Phosphatase 46 U/L (34-104) 11/15/17 07:50 Total Protein 6.9 gm/dL (6.0-8.3) 11/15/17 07:50 Albumin 2.9 gm/dL (3.7-5.3) L 11/15/17 07:50 Globulin 4.0 gm/dL 11/15/17 07:50 Albumin/Globulin Ratio 0.7 (1.0-1.8) L 11/15/17 07:50 Urine Source CATH 11/12/17 03:46 Urine Color YELLOW 11/12/17 03:46 Urine Clarity CLEAR (CLEAR) 11/12/17 03:46 Urine pH 7.0 (4.6 - 8.0) 11/12/17 03:46 Ur Specific [place] 1.015 (1.005-1.030) 11/12/17 03:46 Urine Protein NEGATIVE mg/dL (NEGATIVE) 11/12/17 03:46 Urine Glucose (UA) NEGATIVE mg/dL (NEGATIVE) 11/12/17 03:46 Urine Ketones NEGATIVE mg/dL (NEGATIVE) 11/12/17 03:46 Urine Blood NEGATIVE (NEGATIVE) 11/12/17 03:46 Urine Nitrate NEGATIVE (NEGATIVE) 11/12/17 03:46 Urine Bilirubin NEGATIVE (NEGATIVE) 11/12/17 03:46 Urine Urobilinogen 0.2 E.U./dL (0.2 - 1.0) 11/12/17 03:46 Ur Leukocyte Esterase NEGATIVE (NEGATIVE) 11/12/17 03:46 Urine RBC 0-2 /hpf (0-5) 11/12/17 03:46 Urine WBC 0-2 /hpf (0-5) 11/12/17 03:46 Ur Epithelial Cells MODERATE /lpf (FEW) 11/12/17 03:46 Urine Bacteria OCCASIONAL /hpf (NONE SEEN) 11/12/17 03:46 Vancomycin Trough 11.2 ug/mL (5-10) H 11/21/17 08:38 HIV 1&2 Antibody Screen NEGATIVE (NEG) 11/21/17 08:38 - Physical Exam Vitals and I&O: Vital Signs Temp 97.1 F 11/21/17 15:56 Pulse 61 11/21/17 15:56 Resp 18 11/21/17 15:56 BP 141/68 11/21/17 15:56 Pulse Ox 98 11/21/17 15:56 Intake & Output 11/20/17 11/21/17 11/21/17 18:59 06:59 18:59 Intake Total 400 490 250 Balance 400 490 250 Weight (lbs) 90.582 kg 87.861 kg Intake: Intake, IV Amount 300 250 250 Vancomycin HCl 1.25 gm In 250 250 250 Sodium Chloride 0.9% 250 ml @ 165 mls/hr IV Q12H [facility] Rx#:[id number] cefTRIAXone 1 gm In 50 Dextrose 5% 50 ml @ 100 mls/hr IV Q24HR [facility] Rx#: [id number] Oral 100 240 Other: # Voids 2 # Bowel Movements 1 Weight Source Bedscale Bedscale Active Medications: Current Medications Acetaminophen (Tylenol) 650 mg PO Q4HR PRN PRN Reason: Pain (Mild) Stop: 01/05/18 17:20 Amlodipine Besylate (Norvasc) 10 mg PO DAILY [facility] Stop: 01/10/18 08:59 Last Admin: 11/21/17 08:59 Dose: 10 mg Ascorbic Acid (Vitamin C) 500 mg PO DAILY [facility] Stop: 01/06/18 08:59 Last Admin: 11/21/17 09:00 Dose: 500 mg Bisacodyl (Dulcolax 10 Mg Supp) 10 mg RC DAILY PRN PRN Reason: Constipation Stop: 01/11/18 17:24 Last Admin: 11/12/17 20:34 Dose: 10 mg Docusate Sodium (Colace) 100 mg PO DAILY [facility] Stop: 01/06/18 08:59 Last Admin: 11/21/17 09:00 Dose: 100 mg Donepezil HCl (Aricept) 10 mg PO DAILY [facility] Stop: 01/06/18 08:59 Last Admin: 11/21/17 08:59 Dose: 10 mg Ferrous Sulfate (Iron) 325 mg PO DAILY [facility] Stop: 01/06/18 08:59 Last Admin: 11/21/17 08:59 Dose: 325 mg Hydralazine HCl (Apresoline 20 Mg/Ml) 10 mg IV Q6H PRN PRN Reason: BP MAINTENANCE (PER PROTOCOL) Stop: 01/06/18 06:39 Last Admin: 11/16/17 04:05 Dose: 10 mg Ceftriaxone Sodium 1 gm/ (Dextrose) 50 mls @ 100 mls/hr IV Q24HR [facility] Stop: 01/06/18 09:59 Last Admin: 11/21/17 12:41 Dose: 100 mls/hr Vancomycin HCl 1.25 gm/ Sodium (Chloride) 250 mls @ 165 mls/hr IV Q12H [facility] Stop: 11/28/17 20:59 Last Infusion: 11/21/17 12:01 Dose: Infused Lactobacillus Rhamnosus (Culturelle 15b) 1 each PO DAILY [facility] Stop: 01/07/18 10:59 Last Admin: 11/21/17 08:59 Dose: 1 each Memantine (Namenda) 10 mg PO BID [facility] Stop: 01/05/18 17:29 Last Admin: 11/21/17 16:32 Dose: 10 mg Miscellaneous (Probiotic Screen) 1 ea PRN PRN PRN Reason: PROTOCOL Stop: 01/07/18 10:25 Miscellaneous (Vancomycin Iv Per Pharmacy) 1 ea PRN PRN PRN Reason: PROTOCOL Stop: 01/09/18 18:55 Multivitamins/Vitamin C (Theragran) 1 tab PO DAILY [facility] Stop: 01/06/18 08:59 Last Admin: 11/21/17 08:59 Dose: 1 tab Ondansetron HCl (Zofran Odt) 4 mg PO Q6HR PRN PRN Reason: Nausea/VOMITING Stop: 01/05/18 17:20 Pantoprazole Sodium (Protonix) 40 mg PO QDAC [facility] Stop: 01/06/18 07:29 Last Admin: 11/21/17 08:09 Dose: 40 mg Quetiapine Fumarate (Seroquel) 12.5 mg PO BID [facility]; Protocol Stop: 01/05/18 17:29 Last Admin: 11/21/17 16:32 Dose: 12.5 mg Senna (Senna) 8.6 mg PO DAILY [facility] Stop: 01/11/18 19:31 Last Admin: 11/21/17 09:00 Dose: 8.6 mg Warfarin Sodium (Coumadin Per Pharmacy) 1 [facility] PRN PRN; Protocol PRN Reason: RX MONITORING Stop: 01/14/18 07:59 Wound Care/Dressing Products (Silvasorb) 1 appl TP DAILY [facility] Stop: 01/06/18 08:59 Last Admin: 11/21/17 09:52 Dose: 1 appl - Procedures Procedures: Procedures Procedure Code Date EXTIRPATION OF MATTER FROM LEFT BREAST, OPEN APPROACH [id number] 11/06/17 Nutritional Asmnt/Malnutr-PDOC - Dietary Evaluation Malnutrition Findings (Please click <Entered> for more info): Nutritional Asmnt/Malnutrition Start: 11/10/17 15: 10 Text: Status: Complete Freq: Protocol: Document 11/10/17 15:10 PA (Rec: 11/10/17 15:26 PA [email or web address]) Nutritional Asmnt/Malnutrition Patient General Information Nutritional Screening Moderate Risk Diagnosis mastectomy to left side Pertinent Medical Hx/Surgical Hx dementia, HTN, DVT Subjective Information Pt had mastectomy to left side on 11/07. Pt seen lying in bed awake and alert at time of visit. Pt reported she is doing ok, will eat lunch when she is ready. Per EMR, PO intake 100% of meals. Current Diet Order/ Nutrition Support [facility] soft chopped Pertinent Medications vit C, colace, iron, culturelle, theragran, protonix, D5-0.45ns w 20 meq kcl Pertinent Labs 11/08 K 3.7 (improved), cl 108, glucose 127 Nutritional Hx/Data Height 1.68 m Height (Calculated Centimeters) 167.6 Current Weight (lbs) 89.811 kg Weight (Calculated Kilograms) 89.8 Weight (Calculated Grams) 64189.3 [place] Body Weight 130 Body Mass Index (BMI) 31.9 Weight Status Obese GI Symptoms GI Symptoms None Last BM 11/09 per nurse note Difficult in: None Skin Integrity/Comment: left breast wound s/p left exicision breast mass Current %PO Good (75-100%) Estimated Nutritional Goals BEE in Kcals: Adj wt of IBW Calories/Kcals/Kg 25-30 Kcals Calculated 8619-1967 Protein: Adj wt of IBW Protein g/k.2 Protein Calculated 80 Fluid: ml 1675-2010ml (1ml/kcal) Nutritional Problem 1. Problem Problem increased nutrition needs Etiology increased metabolic demand Signs/Symptoms: s/p surgery Malnutrition Alert Is there a minimum of two criteria No selected? Query Text:Check all the applicable criteria. A minimum of two criteria are recommended for diagnosis of either severe or non-severe malnutrition. Malnutrition Related to Morbid Obesity Malnutrition related to morbid obesity No Intervention/Recommendation Comments 1. Continue with [facility] soft chopped diet as ordered. 2. Monitor PO intake, wt, labs and skin integrity 3. F/U as moderate risk in 3-5 days, 11/13-11/15 Expected Outcomes/Goals Expected Outcomes/Goals 1. PO intake to meet at least 75% of nutritional needs. 2. Wt stability, skin to remain intact, labs to approach WNL.
[2017-11-22 06:59] LABS: INR 2.58 (0.5-1.4); PROTHROMBIN TIME (TEST) 28.2 SECONDS (9.5-11.5)
[2017-11-22] MEDS: Ferrous Sulfate 325 MG TAB PO SCH (08:26)
[2017-11-22] MEDS: Pantoprazole 40 mg EC Tab PO SCH (08:26)
[2017-11-22] MEDS: Lactobacillus Rhamnosus GG 15 Billion CFU CAP.SPRINK PO SCH (08:27)
[2017-11-22] MEDS: Multivitamin Tab PO SCH (08:27)
[2017-11-22] MEDS: Silver Antimicrobial Wound Gel 0.25 oz Tube TP SCH (08:28)
[2017-11-22 08:29] LABS: ANION GAP 7.1 (7.0-16.0); BUN - UREA NITROGEN 17 mg/dL (7-25); CALCIUM SERUM 9.6 mg/dL (8.6-10.3); CARBON DIOXIDE 27.4 mEq/L (21.0-31.0); CHLORIDE 107 mEq/L (98-107); CREATININE - SERUM 0.5 mg/dL (0.6-1.2); GLUCOSE 91 mg/dL (70-105); POTASSIUM SERUM 3.5 mEq/L (3.5-5.1); SODIUM SERUM 138 mEq/L (136-145)
[2017-11-22 12:18] LABS: HEP A AB IGM Negative (Negative); HEP B CORE IGM Negative (Negative); HEP B SURFACE AG QL Negative (Negative); HEP C ANTIBODY 0.1 s/co ratio (0.0-0.9)
--- NOTE | 2017-11-23 21:58 | Discharge Summary ---
DATE OF DISCHARGE: 11/22/2017 FINAL DIAGNOSES: 1. Left breast abscess and status post irrigation and drainage by Dr. Davis. 2. Hypertension. 3. Dementia. 4. Gastroesophageal reflux. REVIEW OF HISTORY: The patient is a 72-year-old female with long history of CA of breast, status post mastectomy, dementia, hypertension, admitted to [facility] for about treatment and stay. At [facility], the patient was found with a big left breast mass. Ultrasound was done with significant sepsis. Dr. Davis, general surgeon consulted on the case. The patient transferred to the medical floor on 11/06/2017. PHYSICAL EXAMINATION: GENERAL: On admission, she was awake, not coherent. VITAL SIGNS: Temperature 97.7, heart rate 64, blood pressure 165/84. CHEST: Clear to auscultation. ABDOMEN: Soft, bowel sounds positive. BREASTS: Examination significant for mastectomy on the right side and left side was a hard mass, no tenderness. The patient will resume her medication and diet. COURSE OF HOSPITALIZATION: During his hospitalization, the patient was seen by Dr. Davis, general surgeon and Dr. Chacorta Paige, Infectious Disease. The patient underwent surgical incision and drainage and a drain was placed. The patient tolerated the procedure well. The patient started on vancomycin and , the patient was afebrile. CHEST: Clear to auscultation. ABDOMEN: Soft, bowel sounds positive. A drain is still functioning, less than 10 mL a day. On the 11/21/2017, the drain was discontinued by Dr. Davis and the patient cleared by Dr. Chacorta Paige to be discharged on IV antibiotic for a few more days. DISPOSITION: On 11/22/2017, the patient was clinically stable. CHEST: Clear to auscultation. ABDOMEN: Soft, bowel sounds positive. DISPOSITION: The patient discharged to rehabilitation center to continue on her medication and antibiotic. CONDITION ON DISCHARGE: Stable. MEDICATIONS: Follow discharge reconciliation. JOB# [id number]
== END 2017-11-22 15:10 | DRG 584 ==
LOC: MSI 14:23
PROVIDERS: ADMIT Family Medicine; ATTEND Family Medicine
PROC: 0HCU0ZZ Extirpation of Matter from Left Breast, Open Approach (ICD-10-PCS; principal; 2017-11-07)
PROC: 0HBU0ZZ Excision of Left Breast, Open Approach (ICD-10-PCS; 2017-11-07)
DX: N61.1 Abscess of the breast and nipple (principal); E43 Unspecified severe protein-calorie malnutrition; N63.0 Unspecified lump in unspecified breast; I10 Essential (primary) hypertension; K21.9 Gastro-esophageal reflux disease without esophagitis; K59.00 Constipation, unspecified; G30.9 Alzheimer's disease, unspecified; F02.80 Dementia in other diseases classified elsewhere, unspecified severity, without behavioral disturbance, psychotic disturbance, mood disturbance, and anxiety; Z86.718 Personal history of other venous thrombosis and embolism; Z85.3 Personal history of malignant neoplasm of breast; Z90.13 Acquired absence of bilateral breasts and nipples; Z79.01 Long term (current) use of anticoagulants
CPT/HCPCS: 36415-UA; 71045-TC; 80048-TC; 80053-TC; 80074-90; 80202-TC; 81001-TC; 82565-TC; 82948-90; 84520-TC; 85014-TC; 85018-TC; 85025-TC; 85049-TC; 85610-TC; 86703-TC; 87070-90; 87075-90; 87086-90; 87205-90; 88305-90; 88307-TC; 90784; 90799; 93005; J0360; J0696; J2060; J3010; J3370; J7030; J7040; Z7610